=== PATIENT | male | born 1945 | race Caucasian/White ===

== ENCOUNTER 2016-09-01 07:06 | Inpatient (IN) | payer MEDICARE ==
[2016-09-01] VITALS (10 sets, daily range): BP systolic 115–160; BP diastolic 71–97
[~2016-09-01] VITALS: Ht 175.3 cm; Wt 81.4 kg
[2016-09-01] MEDS ORDERED: IV NORMAL SALINE 1000ML BAG 1,000 ML IV ONE ×2 (07:30→08:45)
[2016-09-01] MEDS ORDERED: fentaNYL PF VIAL 100 MCG/2 ML VIAL IV ONE (07:30)
[2016-09-01] MEDS ORDERED: ONDANSETRON PF 4 MG/2 ML VIAL. IV ONE (07:30)
[2016-09-01 07:59] LABS: BASO % 0 % (0-3); EOS % 0 % (0-3); HEMOGLOBIN 16.3 g/dL (13.0-17.5); LYMPH # 0.6 x10^3/uL (1.0-4.8); LYMPH % 8 % (24-48); MEAN CORPUSCULAR HEMOGLOBIN 30 pg (25-35); MEAN CORPUSCULAR HGB CONC 33 g/dL (31-37); MEAN CORPUSCULAR VOLUME 91 fL (79-100); MONO % 6 % (0-9); NEUT % 86 % (31-73); PLATELET COUNT 396 x10^3/uL (140-400); RED BLOOD COUNT 5.36 x10^6/uL (4.30-5.70); RED CELL DISTRIBUTION WIDTH 13.7 % (11.5-14.5); WHITE BLOOD COUNT 7.5 x10^3/uL (4.0-11.0)
--- NOTE | 2016-09-01 08:01 | PHYS DOC ---
Past Medical History Past Medical History: High Cholesterol, Hypertension Past Surgical History: Other Additional Past Surgical Histo: removal of parathyroid Alcohol Use: Rarely Drug Use: None Adult General Chief Complaint Chief Complaint: ABDOMINAL PAIN HPI HPI Patient is a 70 year old male presenting to the emergency department for evaluation of diffuse abdominal pain has been going on for 2 weeks since returning from a vacation and he has been eating less and been constipated. He saw his primary care provider yesterday and was placed on MiraLAX. His pain is diffuse achy and he says he has upper back pain with it as well. He denies any nausea vomiting diarrhea dysuria or prior abdominal surgeries. The pain became much worse at approximately 2:30 this morning and he says he cannot tolerate the pain any longer and came to the emergency department for further evaluation. Review of Systems Review of Systems Constitutional: Denies fever or chills [] Eyes: Denies change in visual acuity, redness, or eye pain [] HENT: Denies nasal congestion or sore throat [] Respiratory: Denies cough or shortness of breath [] Cardiovascular: No additional information not addressed in HPI [] GI: + abdominal pain. No nausea, vomiting, bloody stools or diarrhea [] : Denies dysuria or hematuria [] Musculoskeletal: Denies back pain or joint pain [] Integument: Denies rash or skin lesions [] Neurologic: Denies headache, focal weakness or sensory changes [] Current Medications Current Medications Current Medications Medications (Trade) Dose Ordered Sig/Priyanka Start Time Stop Time Status Last Admin Dose Admin Fentanyl Citrate (Fentanyl 2ml Vial) 75 mcg 1X ONCE 09/01/16 07:30 09/01/16 07:31 DC 09/01/16 07:44 75 MCG Info (Do NOT chart on this entry -- for MONITORING) 1 each PRN DAILY PRN 09/01/16 08:30 09/03/16 08:29 Iohexol (Omnipaque 300 Mg/ml) 75 ml 1X ONCE 09/01/16 08:30 09/01/16 08:31 DC 09/01/16 08:24 75 ML Ondansetron HCl (Zofran) 4 mg 1X ONCE 09/01/16 07:30 09/01/16 07:31 DC 09/01/16 07:44 4 MG Sodium Chloride 1,000 ml @ 1,000 mls/hr 1X ONCE 09/01/16 07:30 09/01/16 08:29 DC 09/01/16 07:45 1,000 MLS/HR Allergies Allergies Allergies Coded Allergies Type Severity Reaction Last Updated Verified No Known Drug Allergies 09/01/16 No Physical Exam Physical Exam Constitutional: Well developed, well nourished, no acute distress, non-toxic appearance. [] HENT: Normocephalic, atraumatic, bilateral external ears normal, oropharynx moist, no oral exudates, nose normal. [] Eyes: PERRLA, EOMI, conjunctiva normal, no discharge. [] Neck: Normal range of motion, no tenderness, supple, no stridor. [] Cardiovascular:Heart rate regular rhythm, no murmur [] Lungs & Thorax: Bilateral breath sounds clear to auscultation [] Abdomen: Bowel sounds normal, soft, diffuse abdominal tenderness with guarding , no rebound, no masses, no pulsatile masses. [] Skin: Warm, dry, no erythema, no rash. [] Back: No tenderness, no CVA tenderness. [] Extremities: No tenderness, no cyanosis, no clubbing, ROM intact, no edema. [] Neurologic: Alert and oriented X 3, normal motor function, normal sensory function, no focal deficits noted. [] Current Patient Data Vital Signs Vital Signs Date Time Temp Pulse Resp B/P (MAP) Pulse Ox O2 Delivery O2 Flow Rate FiO2 09/01/16 08:30 88 18 160/85 (110) 95 Room Air 09/01/16 07:20 97.6 97.6 Lab Values Laboratory Tests Test 09/01/16 07:42 09/01/16 08:35 White Blood Count 7.5 x10^3/uL (4.0-11.0) Red Blood Count 5.36 x10^6/uL (4.30-5.70) Hemoglobin 16.3 g/dL (13.0-17.5) Hematocrit 49.0 % (39.0-53.0) Mean Corpuscular Volume 91 fL (79-100) Mean Corpuscular Hemoglobin 30 pg (25-35) Mean Corpuscular Hemoglobin Concent 33 g/dL (31-37) Red Cell Distribution Width 13.7 % (11.5-14.5) Platelet Count 396 x10^3/uL (140-400) Neutrophils (%) (Auto) 86 % (31-73) H Lymphocytes (%) (Auto) 8 % (24-48) L Monocytes (%) (Auto) 6 % (0-9) Eosinophils (%) (Auto) 0 % (0-3) Basophils (%) (Auto) 0 % (0-3) Neutrophils # (Auto) 6.5 x10^3uL (1.8-7.7) Lymphocytes # (Auto) 0.6 x10^3/uL (1.0-4.8) L Monocytes # (Auto) 0.5 x10^3/uL (0.0-1.1) Eosinophils # (Auto) 0.0 x10^3/uL (0.0-0.7) Basophils # (Auto) 0.0 x10^3/uL (0.0-0.2) Platelet Estimate Pending Prothrombin Time 14.7 SEC (11.7-14.0) H Prothrombin Time INR 1.2 (0.8-1.1) H PTT 30 SEC (24-38) Sodium Level 137 mmol/L (136-145) Potassium Level 3.5 mmol/L (3.5-5.1) Chloride Level 99 mmol/L (98-107) Carbon Dioxide Level 25 mmol/L (21-32) Anion Gap 13 (6-14) Blood Urea Nitrogen 22 mg/dL (8-26) Creatinine 1.2 mg/dL (0.7-1.3) Estimated GFR (Cockcroft-Gault) 59.9 BUN/Creatinine Ratio 18 (6-20) Glucose Level 220 mg/dL (70-99) H Lactic Acid Level 2.8 mmol/L (0.4-2.0) H Calcium Level 8.9 mg/dL (8.5-10.1) Magnesium Level 1.8 mg/dL (1.8-2.4) Total Bilirubin 0.8 mg/dL (0.2-1.0) Aspartate Amino Transferase (AST) 20 U/L (15-37) Alanine Aminotransferase (ALT) 23 U/L (16-63) Alkaline Phosphatase 89 U/L (46-116) Troponin I Quantitative < 0.017 ng/mL (0.000-0.055) SD-God-P-Type Natriuretic Peptide 115 pg/mL (0-124) Total Protein 7.1 g/dL (6.4-8.2) Albumin 3.0 g/dL (3.4-5.0) L Albumin/Globulin Ratio 0.7 (1.0-1.7) L Lipase 94 U/L (73-393) Urine Collection Type Unknown Urine Color [place] Urine Clarity Clear Urine pH 6.0 Urine Specific [place] >=1.030 Urine Protein mg/dL (NEG-TRACE) Urine Glucose (UA) Negative mg/dL (NEG) Urine Ketones (Stick) mg/dL (NEG) Urine Blood Negative (NEG) Urine Nitrite Negative (NEG) Urine Bilirubin (NEG) Urine Urobilinogen Dipstick mg/dL (0.2 mg/dL) Urine Leukocyte Esterase (NEG) Urine RBC 0 /HPF (0-2) Urine WBC 0 /HPF (0-4) Urine Squamous Epithelial Cells Few /LPF Urine Bacteria 0 /HPF (0-FEW) Urine Mucus Marked /LPF Laboratory Tests 09/01/16 07:42 Laboratory Tests 09/01/16 07:42 EKG EKG NSR with left axis deviation with no obvious ST elevation or depression. Radiology/Procedures Radiology/Procedures CT of the abdomen and pelvis with contrast, 09/01/2016: History: Diffuse abdominal pain, constipation Multidetector CT imaging was performed following an IV bolus injection of iodinated contrast material. No oral contrast material was administered for this study. Moderate pneumoperitoneum is present. There is also free fluid in the abdomen and pelvis. The proximal duodenum is abnormal. There is increased enhancement of its vale. There is a small thick-walled fluid collection along superior aspect of what appears to be the duodenal bulb. This may represent a walled off perforation or abscess. An inflamed diverticulum is less likely. The adjacent gallbladder is unremarkable. There is slight prominence of several mid small bowel loops likely due to an ileus. Colonic diverticulosis is present, most extensive in the descending colon. A portion of the appendix is visualized and it is unremarkable. A small hiatal hernia is noted. Several small well-defined low density lesions in the liver are compatible with cysts. No pancreatic abnormality is detected. The spleen is of normal size. No renal abnormality is detected. There is a small nonspecific nodule in the left adrenal gland. There is moderate aortoiliac calcific plaquing without evidence of aneurysm. No abdominal or pelvic adenopathy is seen. Moderate multilevel degenerative change is present in the spine. IMPRESSION: 1. Pneumoperitoneum and free fluid in the abdomen and pelvis compatible with perforation of an abdominal viscus. 2. Abnormal proximal duodenum with an adjacent thick-walled fluid collection as described above. A perforated duodenal ulcer is the most likely cause of the pneumoperitoneum. 3. Moderate colonic diverticulosis. 4. Small nonspecific left adrenal nodule. Note: The findings were called to personnel in the [facility] ER at 9:05 AM on 09/01/2016. PQRS Compliance Statement: One or more of the following individualized dose reduction techniques were utilized for this examination: 1. Automated exposure control 2. Adjustment of the mA and/or kV according to patient size 3. Use of iterative reconstruction technique DICTATED and SIGNED BY: VIJAYA CABA MD DATE: 09/01/16 0851 Course & Med Decision Making Course & Med Decision Making Will check labs, CT, treat symptoms and reasess. Patient found to have a perforated viscus thought to be a duodenal ulcer that perforated per radiology. I spoke to the surgeon programmer operator numerical control Dr. Jolly and he agreed to see patient and would likely perform surgery around noon today. We' ll give famotidine and Zosyn IV in anticipation of surgery. He shouldn't is relatively stable with slight tachycardia but is not hypotensive. Pain is better controlled here. He will be admitted to the ICU in guarded condition. Critical care time of 35 minutes. Dragon Disclaimer Dragon Disclaimer This electronic medical record was generated, in whole or in part, using a voice recognition dictation system. Departure Departure Impression: Primary Impression: Perforated abdominal viscus Additional Impression: Lactic acid acidosis Disposition: ADMITTED INPATIENT Admitting Physician: Liana Rothman Condition: GUARDED Referrals: ALEXANDRA GANT MD (PCP) Problem Qualifiers ALEXANDRO LINDER DO Sep 01, 2016 08:01
[2016-09-01 08:09] LABS: CALCIUM 8.9 mg/dL (8.5-10.1); CREATININE 1.2 mg/dL (0.7-1.3); GFR 59.9; POTASSIUM 3.5 mmol/L (3.5-5.1)
[2016-09-01 08:13] LABS: INR 1.2 (0.8-1.1); PROTHROMBIN TIME PATIENT 14.7 SEC (11.7-14.0)
[2016-09-01 08:15] LABS: ALBUMIN/GLOBULIN RATIO 0.7 (1.0-1.7); MAGNESIUM 1.8 mg/dL (1.8-2.4); TOTAL BILIRUBIN 0.8 mg/dL (0.2-1.0); TOTAL PROTEIN 7.1 g/dL (6.4-8.2)
[2016-09-01] MEDS ORDERED: IOHEXOL 300 MG/ML 75 ML VIAL IV ONE (08:30)
[2016-09-01] MEDS ORDERED: CONTRAST GIVEN MC PRN (08:30)
[2016-09-01] MEDS ORDERED: MORPHINE SULFATE 10 MG/ML VIAL. IV ONE (08:45)
[2016-09-01 08:46] LABS: GLUCOSE,URINE NEGATIVE (NEG); NITRITE,URINE NEGATIVE (NEG)
[2016-09-01 08:58] LABS: BACTERIA,URINE 0 /HPF (0-FEW); RBC,URINE 0 /HPF (0-2); SQUAMOUS EPITHELIAL CELL,UR FEW /LPF; WBC,URINE 0 /HPF (0-4)
--- NOTE | 2016-09-01 09:09 | RAD ---
CT of the abdomen and pelvis with contrast, 09/01/2016: History: Diffuse abdominal pain, constipation Multidetector CT imaging was performed following an IV bolus injection of iodinated contrast material. No oral contrast material was administered for this study. Moderate pneumoperitoneum is present. There is also free fluid in the abdomen and pelvis. The proximal duodenum is abnormal. There is increased enhancement of its vale. There is a small thick-walled fluid collection along superior aspect of what appears to be the duodenal bulb. This may represent a walled off perforation or abscess. An inflamed diverticulum is less likely. The adjacent gallbladder is unremarkable. There is slight prominence of several mid small bowel loops likely due to an ileus. Colonic diverticulosis is present, most extensive in the descending colon. A portion of the appendix is visualized and it is unremarkable. A small hiatal hernia is noted. Several small well-defined low density lesions in the liver are compatible with cysts. No pancreatic abnormality is detected. The spleen is of normal size. No renal abnormality is detected. There is a small nonspecific nodule in the left adrenal gland. There is moderate aortoiliac calcific plaquing without evidence of aneurysm. No abdominal or pelvic adenopathy is seen. Moderate multilevel degenerative change is present in the spine. IMPRESSION: 1. Pneumoperitoneum and free fluid in the abdomen and pelvis compatible with perforation of an abdominal viscus. 2. Abnormal proximal duodenum with an adjacent thick-walled fluid collection as described above. A perforated duodenal ulcer is the most likely cause of the pneumoperitoneum. 3. Moderate colonic diverticulosis. 4. Small nonspecific left adrenal nodule. Note: The findings were called to personnel in the [facility] ER at 9:05 AM on 09/01/2016. PQRS Compliance Statement: One or more of the following individualized dose reduction techniques were utilized for this examination: 1. Automated exposure control 2. Adjustment of the mA and/or kV according to patient size 3. Use of iterative reconstruction technique
[2016-09-01] MEDS ORDERED: MORPHINE SULFATE 4 MG/ML DISP.SYRIN. IV PRN (09:30)
[2016-09-01] MEDS ORDERED: ONDANSETRON PF 4 MG/2 ML VIAL. IV PRN ×3 (09:30→15:15)
--- NOTE | 2016-09-01 09:31 | ACF ---
Admission Forms Criteria ABDOMINAL PAIN Clinical Indications for Admission to Inpatient Care (Place 'X' for any and all applicable criteria): Admission is indicated for ANY ONE of the following(1)(2)(3)(4)(5): [X]I. Inpatient admission required rather than observation care (Also use Abdominal Pain: Observation Care, as appropriate) because of ANY ONE of the following: [ ]a) Severe pain requiring acute inpatient management [ ]b) Identification of etiology/finding that requires inpatient care (eg, aortic dissection, free air) [ ]c) Absent bowel sounds with complete ileus(6) [ ]d) Suspected toxic megacolon [ ]e) Severe electrolyte abnormalities requiring inpatient care [ ]f) High fever or infection requiring inpatient admission as indicated by ANY ONE of following(7)(8): [ ] i) Appropriate outpatient or observational care antimicrobial treatment unavailable, not effective, or not feasible [ ] ii) Documented bacteremia [ ] iii) Temperature > 104.9 degrees F (oral) [ ] iv) T >103.1 F (oral) or < 96.8 F(rectal) that does not respond to all emergency treatment measures [ ]g) Signs of intestinal obstruction [B] [ ]h) Hemodynamic instability [ ]i) IV fluid to replace significant ongoing losses (greater than 3 L/m2 per day) (12)(13) [ ]j) Percutaneous or open drainage (eg, abscess, biliary tract ) procedures [ ]k) Parenteral nutrition regimen that must be implemented on inpatient basis [X]l) Other condition,treatment or monitoring requiring inpatient admission. [ ]II. Peritoneal signs present [ ]III. Surgery needed that cannot be performed on an ambulatory basis. [ ]IV. Evaluation requires patient to not eat or drink for extended period ( eg, more than 24 hours). [ ]V. Contraindications and/or Inappropriate clinical situations for Observational Care in patients with abdominal pain, when ANY ONE of the following is required: [ ]a) Thorough evaluation is required to prevent catastrophic events due to delays in diagnosing (e.g.Mesenteric ischemia) 1,3 [ ]b) Patient with severe pathology or with chronic symptoms unlikely to improve in the ED stay (3) [ ]. General contraindications and/or Inappropriate clinical situations for Observational Care in patients with abdominal pain, when ANY ONE of the following is required: [ ]a) Prediction of prolongation of LOS based on ANY ONE of the following may be considered as a contraindication for observational care 2, 3, 4, 5, 6, 7, 8, 9, 10, 11 [ ]i) Age > 65 yrs. [ ]ii) Patient arriving by ambulance [ ]iii) Patient with high acuity [ ]iv) Patient requiring vital sign monitoring [ ]v) Patient on IV medication [ ]b) Systolic blood pressures 180mmHg 3,12 [ ]c) Patient with altered mental status including delirium and other alteration of consciousness, (3) [ ]d) Patient whose discharge disposition will be to a assisted home or rehabilitation home should not be managed in Emergency Department Observation Unit. CMS rule requires 3 days hospital stay before such placement.3,13 [ ]e) Patient with failure to thrive due to broad array of etiologies 3,16,17 [ ]f) Inability to ambulate 3,14 Extended stay beyond goal length of stay may be needed for(2)(3): [ ]a) Persistent abdominal pain with suspected intra-abdominal process [ ]b) Diagnosed condition requiring continued stay (e.g., pancreatitis, complicated diverticulitis) [ ]c) Surgery (e.g., colectomy) The original [employer] content created by [employer] has been revised. The portions of the content which have been revised are identified through the use of italic text or in bold, and [facility] has neither reviewed nor approved the modified material.All other unmodified content is copyright [employer]. Please see references footnoted in the original [employer] edition 2016 Admission Criteria Met?: Yes SIDNEY LISA Sep 01, 2016 09:31
[2016-09-01] MEDS ORDERED: FAMOTIDINE 20 MG/2 ML VIAL IVP ONE (09:45)
[2016-09-01] MEDS: PIPERACILLIN/TAZOBACTAM 3.375 GM in IV NORMAL SALINE 50ML 50 ML IV SCH ×2 (09:46→17:52)
[2016-09-01 10:16] LABS: PLT ESTIMATE ADEQUATE (ADEQUATE)
--- NOTE | 2016-09-01 10:28 | PDOC1 ---
History and Physical Date of Admission Date of Admission DATE: 09/01/16 TIME: 10:20 Identification/Chief Complaint Chief Complaint abdominal pain Problems: Source Source: Caregiver, Chart review, Patient History of Present Illness History of Present Illness 70 y/o male, pleasant., 2 week hx of nagging abd pain, mainly epigastric no radiation, no identifiable precipitationg or alleviating factors, 8/ at ER after pain meds, , no emesis, no melena but does admit to constipation, no change in weight, no fever, Abd pain persisted this AM so went to ER. VS ok, labs ok, But CT did show perf duodenal ulcer and now pt admitted. Pt takes ASA 81 daily many yrs, and lately few alleve pills OTC. Hemodynamically stable again, but is planned for OR today noon. ER MD Harris. Ivett and pt Denies heart probs or lung probs, DOES smoke, 1 pack a day for mANY yrs, no etoh DId not take any meds prior to admit, only OTC. NO known hx pUD CT I have personally reviewed: 1. Pneumoperitoneum and free fluid in the abdomen and pelvis compatible with perforation of an abdominal viscus. 2. Abnormal proximal duodenum with an adjacent thick-walled fluid collection as described above. A perforated duodenal ulcer is the most likely cause of the pneumoperitoneum. 3. Moderate colonic diverticulosis. 4. Small nonspecific left adrenal nodule. Past Medical History Cardiovascular: No pertinent hx Pulmonary: No pertinent hx GI: No pertinent hx Heme/Onc: No pertinent hx Hepatobiliary: No pertinent hx Psych: No pertinent hx Rheumatologic: No pertinent hx Infectious disease: No pertinent hx ENT: No pertinent hx Renal/: No pertinent hx Endocrine: No pertinent hx Dermatology: No pertinent hx Past Surgical History Past Surgical History: Other (parathyroidectomy) Family History Family History: High Cholestrol, Hypertension Social History Smoke: 1 pack per day ALCOHOL: none Drugs: None Current Problem List Problem List Problems Medical Problems: (1) Lactic acid acidosis Status: Acute (2) Perforated abdominal viscus Status: Acute Problems: Current Medications Current Medications Current Medications Sodium Chloride 1,000 ml @ 1,000 mls/hr 1X ONCE IV Last administered on t 07:45; Start 09/01/16 at 07:30; Stop 09/01/16 at 08:29; Status DC Ondansetron HCl (Zofran) 4 mg 1X ONCE IV Last administered on 09/01/16 07:44; Start 09/01/16 at 07:30; Stop 09/01/16 at 07:31; Status DC Fentanyl Citrate (Fentanyl 2ml Vial) 75 mcg 1X ONCE IV Last administered on 07:44; Start 09/01/16 at 07:30; Stop 09/01/16 at 07:31; Status DC Iohexol (Omnipaque 300 Mg/ml) 75 ml 1X ONCE IV Last administered on 09/01/16 08:24; Start 09/01/16 at 08:30; Stop 09/01/16 at 08:31; Status DC Info (Do NOT chart on this entry -- for MONITORING) 1 each PRN DAILY PRN MC SEE COMMENTS; Start 09/01/16 at 08:30; Stop 09/03/16 at 08:29 Morphine Sulfate 5 mg 1X ONCE IV Last administered on 09/01/16 08:41; Start at 08:45; Stop 09/01/16 at 08:46; Status DC Sodium Chloride 1,000 ml @ 1,000 mls/hr 1X ONCE IV Last administered on 08:40; Start 09/01/16 at 08:45; Stop 09/01/16 at 09:44; Status DC Piperacillin Sod/ Tazobactam Sod 3.375 gm/Sodium Chloride 50 ml @ 100 mls/hr Q6HRS IV Last administered on 09/01/16 09:46; Start 09/01/16 at 10:00 Famotidine (Pepcid) 20 mg 1X ONCE IVP Last administered on 09/01/16 09:46; Start 09/01/16 at 09:45; Stop 09/01/16 at 09:46; Status DC Ondansetron HCl (Zofran) 4 mg PRN Q8HRS PRN IV NAUSEA/VOMITING; Start 09/01/16 at 09:30; Stop 09/02/16 at 09:29 Morphine Sulfate 4 mg PRN Q2HR PRN IV PAIN; Start 09/01/16 at 09:30; Stop at 09:29 Allergies Allergies: Coded Allergies: No Known Drug Allergies (Unverified , 09/01/16) ROS General: No: Chills, Night Sweats, Fatigue, Malaise, Appetite, Other PSYCHOLOGICAL ROS: No: Anxiety, Behavioral Disorder, Concentration difficultie , Decreased libido, Depression, Disorientation, Hallucinations, Hostility, Irritablity, Memory difficulties, Mood Swings, Obsessive thoughts, Physical abuse, Sexual abuse, Sleep disturbances, Suicidal ideation, Other Eyes: No Blurry vision, No Decreased vision, No Double vision, No Dry eyes, No Excessive tearing, No Eye Pain, No Itchy Eyes, No Loss of vision, No Photophobia , No Scotomata, No Uses contacts, No Uses glasses, No Other HEENT: No: Heacaches, Visual Changes, Hearing change, Nasal congestion, Nasal discharge, Oral lesions, Sinus pain, Sore Throat, Epistaxis, Sneezing, Snoring, Tinnitus, Vertigo, Vocal changes, Other ALLERGY AND IMMUNOLOGY: No: Hives, Insect Bite Sensitivity, Itchy/Watery Eyes, Nasal Congestion, Post Nasal Drip, Seasonal Allergies, Other Hematological and Lymphatic: No: Bleeding Problems, Blood Clots, Blood Transfusions, Brusing, Night Sweats, Pallor, Swollen Lymph Nodes, Other ENDOCRINE: No: Breast Changes, Galactorrhea, Hair Pattern Changes, Hot Flashes , Malaise/lethargy, Mood Swings, Palpitations, Polydipsia/polyuria, Skin Changes , Temperature Intolerance, Unexpected Weight Changes, Other Breast: No New/Changing Breast Lumps, No Nipple changes, No Nipple discharge, No Other Respiratory: No: Cough, Hemoptysis, Orthopnea, Pleuritic Pain, Shortness of breath, SOB with excertion, Sputum Changes, Stridor, Tachypnea, Wheezing, Other Cardiovascular: No Chest Pain, No Palpitations, No Orthopnea, No Paroxysmal Noc. Dyspnea, No Edema, No Lt Headedness, No Other Gastrointestinal: Yes Abdominal Pain, Yes Constipation Genitourinary: No Dysuria, No Frequency, No Incontinence, No Hematuria, No Retention, No Discharge, No Urgency, No Pain, No Flank Pain, No Other, No , No , No , No , No , No , No Musculoskeletal: No Gait Disturbance, No Joint Pain, No Joint Stiffness, No Joint Swelling, No Muscle Pain, No Muscular Weakness, No Pain In:, No Swelling In:, No Other Neurological: No Behavorial Changes, No Bowel/Bladder ControlChng, No Confusion , No Dizziness, No Gait Disturbance, No Headaches, No Impaired Coord/balance, No Memory Loss, No Numbness/Tingling, No Seizures, No Speech Problems, No Tremors, No Visual Changes, No Weakness, No Other Skin: No Dry Skin, No Eczema, No Hair Changes, No Lumps, No Mole Changes, No Mottling, No Nail Changes, No Pruritus, No Rash, No Skin Lesion Changes, No Other, No Acne Physical Exam General: Alert, Oriented X3, Cooperative, No acute distress HEENT: Atraumatic, PERRLA Lungs: Clear to auscultation Heart: S1S2, RRR, no thrills, no rubs Cardiovascular: S1, S2 Breasts: Normal Abdomen: Normal bowel sounds, Soft, No tenderness, No hepatosplenomegaly, No masses, Other (TENDER EPIGATSRIC AREA TO MOD TO DEEP PALP< nO GUARDING, POSITIVE bS) Male Genitals Exam: normal genitalia, normal prostate Rectal Exam: not examined Extremities: No clubbing, No cyanosis, No edema, Normal pulses, No tenderness/ swelling Skin: No rashes, No breakdown, No significant lesion Neuro: Normal gait, Normal speech, Strength at 5/5 X4 ext, Normal tone, Sensation intact, Cranial nerves 3-12 NL, Reflexes 2+ Psych/Mental Status: Mental status NL, Mood NL Vitals Vitals Vital Signs Date Time Temp Pulse Resp B/P (MAP) Pulse Ox O2 Delivery O2 Flow Rate FiO2 09/01/16 08:30 88 18 160/85 (110) 95 Room Air 09/01/16 07:20 97.6 97.6 Labs Labs Laboratory Tests Test 09/01/16 07:42 09/01/16 08:35 White Blood Count 7.5 x10^3/uL (4.0-11.0) Red Blood Count 5.36 x10^6/uL (4.30-5.70) Hemoglobin 16.3 g/dL (13.0-17.5) Hematocrit 49.0 % (39.0-53.0) Mean Corpuscular Volume 91 fL (79-100) Mean Corpuscular Hemoglobin 30 pg (25-35) Mean Corpuscular Hemoglobin Concent 33 g/dL (31-37) Red Cell Distribution Width 13.7 % (11.5-14.5) Platelet Count 396 x10^3/uL (140-400) Neutrophils (%) (Auto) 86 % (31-73) Lymphocytes (%) (Auto) 8 % (24-48) Monocytes (%) (Auto) 6 % (0-9) Eosinophils (%) (Auto) 0 % (0-3) Basophils (%) (Auto) 0 % (0-3) Neutrophils # (Auto) 6.5 x10^3uL (1.8-7.7) Lymphocytes # (Auto) 0.6 x10^3/uL (1.0-4.8) Monocytes # (Auto) 0.5 x10^3/uL (0.0-1.1) Eosinophils # (Auto) 0.0 x10^3/uL (0.0-0.7) Basophils # (Auto) 0.0 x10^3/uL (0.0-0.2) Segmented Neutrophils % 68 % (35-66) Band Neutrophils % 21 % (0-9) Lymphocytes % 8 % (24-48) Monocytes % 3 % (0-10) Platelet Estimate Adequate (ADEQUATE) Prothrombin Time 14.7 SEC (11.7-14.0) Prothromb Time International Ratio 1.2 (0.8-1.1) Activated Partial Thromboplast Time 30 SEC (24-38) Sodium Level 137 mmol/L (136-145) Potassium Level 3.5 mmol/L (3.5-5.1) Chloride Level 99 mmol/L (98-107) Carbon Dioxide Level 25 mmol/L (21-32) Anion Gap 13 (6-14) Blood Urea Nitrogen 22 mg/dL (8-26) Creatinine 1.2 mg/dL (0.7-1.3) Estimated GFR (Cockcroft-Gault) 59.9 BUN/Creatinine Ratio 18 (6-20) Glucose Level 220 mg/dL (70-99) Lactic Acid Level 2.8 mmol/L (0.4-2.0) Calcium Level 8.9 mg/dL (8.5-10.1) Magnesium Level 1.8 mg/dL (1.8-2.4) Total Bilirubin 0.8 mg/dL (0.2-1.0) Aspartate Amino Transf (AST/SGOT) 20 U/L (15-37) Alanine Aminotransferase (ALT/SGPT) 23 U/L (16-63) Alkaline Phosphatase 89 U/L (46-116) Troponin I Quantitative < 0.017 ng/mL (0.000-0.055) ZZ-Bwn-Y-Type Natriuretic Peptide 115 pg/mL (0-124) Total Protein 7.1 g/dL (6.4-8.2) Albumin 3.0 g/dL (3.4-5.0) Albumin/Globulin Ratio 0.7 (1.0-1.7) Lipase 94 U/L (73-393) Urine Collection Type Unknown Urine Color [place] Urine Clarity Clear Urine pH 6.0 Urine Specific [place] >=1.030 Urine Protein mg/dL (NEG-TRACE) Urine Glucose (UA) Negative mg/dL (NEG) Urine Ketones (Stick) mg/dL (NEG) Urine Blood Negative (NEG) Urine Nitrite Negative (NEG) Urine Bilirubin (NEG) Urine Urobilinogen Dipstick mg/dL (0.2 mg/dL) Urine Leukocyte Esterase (NEG) Urine RBC 0 /HPF (0-2) Urine WBC 0 /HPF (0-4) Urine Squamous Epithelial Cells Few /LPF Urine Bacteria 0 /HPF (0-FEW) Urine Mucus Marked /LPF Laboratory Tests Test 09/01/16 07:42 09/01/16 08:35 White Blood Count 7.5 x10^3/uL (4.0-11.0) Red Blood Count 5.36 x10^6/uL (4.30-5.70) Hemoglobin 16.3 g/dL (13.0-17.5) Hematocrit 49.0 % (39.0-53.0) Mean Corpuscular Volume 91 fL (79-100) Mean Corpuscular Hemoglobin 30 pg (25-35) Mean Corpuscular Hemoglobin Concent 33 g/dL (31-37) Red Cell Distribution Width 13.7 % (11.5-14.5) Platelet Count 396 x10^3/uL (140-400) Neutrophils (%) (Auto) 86 % (31-73) Lymphocytes (%) (Auto) 8 % (24-48) Monocytes (%) (Auto) 6 % (0-9) Eosinophils (%) (Auto) 0 % (0-3) Basophils (%) (Auto) 0 % (0-3) Neutrophils # (Auto) 6.5 x10^3uL (1.8-7.7) Lymphocytes # (Auto) 0.6 x10^3/uL (1.0-4.8) Monocytes # (Auto) 0.5 x10^3/uL (0.0-1.1) Eosinophils # (Auto) 0.0 x10^3/uL (0.0-0.7) Basophils # (Auto) 0.0 x10^3/uL (0.0-0.2) Segmented Neutrophils % 68 % (35-66) Band Neutrophils % 21 % (0-9) Lymphocytes % 8 % (24-48) Monocytes % 3 % (0-10) Platelet Estimate Adequate (ADEQUATE) Prothrombin Time 14.7 SEC (11.7-14.0) Prothromb Time International Ratio 1.2 (0.8-1.1) Activated Partial Thromboplast Time 30 SEC (24-38) Sodium Level 137 mmol/L (136-145) Potassium Level 3.5 mmol/L (3.5-5.1) Chloride Level 99 mmol/L (98-107) Carbon Dioxide Level 25 mmol/L (21-32) Anion Gap 13 (6-14) Blood Urea Nitrogen 22 mg/dL (8-26) Creatinine 1.2 mg/dL (0.7-1.3) Estimated GFR (Cockcroft-Gault) 59.9 BUN/Creatinine Ratio 18 (6-20) Glucose Level 220 mg/dL (70-99) Lactic Acid Level 2.8 mmol/L (0.4-2.0) Calcium Level 8.9 mg/dL (8.5-10.1) Magnesium Level 1.8 mg/dL (1.8-2.4) Total Bilirubin 0.8 mg/dL (0.2-1.0) Aspartate Amino Transf (AST/SGOT) 20 U/L (15-37) Alanine Aminotransferase (ALT/SGPT) 23 U/L (16-63) Alkaline Phosphatase 89 U/L (46-116) Troponin I Quantitative < 0.017 ng/mL (0.000-0.055) YL-Eoy-L-Type Natriuretic Peptide 115 pg/mL (0-124) Total Protein 7.1 g/dL (6.4-8.2) Albumin 3.0 g/dL (3.4-5.0) Albumin/Globulin Ratio 0.7 (1.0-1.7) Lipase 94 U/L (73-393) Urine Collection Type Unknown Urine Color [place] Urine Clarity Clear Urine pH 6.0 Urine Specific [place] >=1.030 Urine Protein mg/dL (NEG-TRACE) Urine Glucose (UA) Negative mg/dL (NEG) Urine Ketones (Stick) mg/dL (NEG) Urine Blood Negative (NEG) Urine Nitrite Negative (NEG) Urine Bilirubin (NEG) Urine Urobilinogen Dipstick mg/dL (0.2 mg/dL) Urine Leukocyte Esterase (NEG) Urine RBC 0 /HPF (0-2) Urine WBC 0 /HPF (0-4) Urine Squamous Epithelial Cells Few /LPF Urine Bacteria 0 /HPF (0-FEW) Urine Mucus Marked /LPF VTE Prophylaxis Ordered VTE Prophylaxis Devices: Yes VTE Pharmacological Prophylaxi: Yes Assessment/Plan Assessment/Plan 1. Penumoperitoneum with perforated duodenum 2. SIRS POA, no sepsis 3. BRISEYDA, vasomotor 4. MIld PCM 5. HEavy smoker 6. Incidental left small adrenal nodule 7. Diverticulosis no itis PLAN: Admit ICU NPO IVF GS consult OR later LAbs jose manuel post op IS post op Stop NSAIDs and ASA DVT prophy PT/OT once post op EMpiric zosyn PPI IV (out of PPI, do H2 antag) Dw ER and pt CC 31 mins LINDSAY CANO MD Sep 01, 2016 10:28
[2016-09-01] MEDS ORDERED: ACETAMINOPHEN 500 MG TABLET PO PRN (10:30)
[2016-09-01] MEDS ORDERED: FAMOTIDINE 20 MG/2 ML VIAL IVP SCH (11:00)
[2016-09-01] MEDS: IV NORMAL SALINE 1000ML BAG 1,000 ML IV SCH ×3 (11:32→21:10)
[2016-09-01] MEDS ORDERED: IV RINGERS,LACTATED 1000ML 1,000 ML IV SCH ×2 (12:04→15:06)
--- NOTE | 2016-09-01 12:08 | EKG ---
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
[2016-09-01] MEDS ORDERED: HYDROmorphone 2 MG/ML VIAL IV PRN (12:15)
[2016-09-01] MEDS ORDERED: PROCHLORPERAZINE 10 MG/2 ML VIAL. IV PRN (12:15)
[2016-09-01] MEDS ORDERED: LIDOCAINE 1% 1 ML SYRINGE. ID PRN (12:15)
[2016-09-01] MEDS ORDERED: fentaNYL PF VIAL 100 MCG/2 ML VIAL IV PRN ×2 (12:15)
[2016-09-01] MEDS ORDERED: MORPHINE SULFATE 2 MG/ML DISP.SYRIN. IV PRN (12:15)
[2016-09-01] MEDS ORDERED: DESFLURANE 61 TO 120 MINUTES IH ONE (12:16)
[2016-09-01] MEDS ORDERED: GLYCOPYRROLATE 1 MG/5 ML VIAL. ONE (12:17)
[2016-09-01] MEDS ORDERED: fentaNYL PF VIAL 100 MCG/2 ML VIAL ONE ×2 (12:17→13:35)
[2016-09-01] MEDS ORDERED: SUCCINYLCHOLINE 200 MG/10 ML VIAL. ONE (12:17)
[2016-09-01] MEDS ORDERED: NEOSTIGMINE METHYLSULFATE 5 MG/5 ML SYRINGE. ONE (12:17)
[2016-09-01] MEDS ORDERED: ROCURONIUM 50 MG/5 ML VIAL. ONE (12:18)
[2016-09-01] MEDS ORDERED: DEXAMETHASONE SOD PHOS 20 MG/5 ML VIAL. ONE (12:18)
[2016-09-01] MEDS ORDERED: PROPOFOL 20 ML IV ONE (12:18)
[2016-09-01] MEDS ORDERED: LIDOCAINE 2% PF Vial for OR 5 ML VIAL. ONE (12:18)
[2016-09-01] MEDS ORDERED: ONDANSETRON PF 4 MG/2 ML VIAL. ONE (12:18)
[2016-09-01] MEDS ORDERED: FAMOTIDINE 20 MG/2 ML VIAL ONE (12:32)
--- NOTE | 2016-09-01 13:09 | PDOC2 ---
CONSULT Date of Consult Date of Consult DATE: 09/01/16 TIME: 13:04 Reason for Consult Reason for Consult: Abdominal pain Referring Physician Referring Physician: Lorna Identification/Chief Complaint Chief Complaint abdominal pain Problems: (1) Perforated abdominal viscus Source Source: Patient (pt's ) History of Present Illness Reason for Visit: 70 yo M with 2 week history of abd pain, worsened last night, No N/V, some constipation Past Medical History Cardiovascular: No pertinent hx Pulmonary: No pertinent hx GI: No pertinent hx Heme/Onc: No pertinent hx Hepatobiliary: No pertinent hx Psych: No pertinent hx Rheumatologic: No pertinent hx Infectious disease: No pertinent hx ENT: No pertinent hx Renal/: No pertinent hx Endocrine: No pertinent hx, Hyperparathyroidism Dermatology: No pertinent hx Past Surgical History Past Surgical History: Other (parathyroidectomy) Family History Family History: High Cholestrol, Hypertension Social History 1 pack per day ALCOHOL: none Drugs: None Current Problem List Problem List Problems Medical Problems: (1) Lactic acid acidosis Status: Acute (2) Perforated abdominal viscus Status: Acute Current Medications Current Medications Current Medications Sodium Chloride 1,000 ml @ 1,000 mls/hr 1X ONCE IV Last administered on 07:45; Start 09/01/16 at 07:30; Stop 09/01/16 at 08:29; Status DC Ondansetron HCl (Zofran) 4 mg 1X ONCE IV Last administered on 09/01/16 07:44; Start 09/01/16 at 07:30; Stop 09/01/16 at 07:31; Status DC Fentanyl Citrate (Fentanyl 2ml Vial) 75 mcg 1X ONCE IV Last administered on 07:44; Start 09/01/16 at 07:30; Stop 09/01/16 at 07:31; Status DC Iohexol (Omnipaque 300 Mg/ml) 75 ml 1X ONCE IV Last administered on 09/01/16 08:24; Start 09/01/16 at 08:30; Stop 09/01/16 at 08:31; Status DC Info (Do NOT chart on this entry -- for MONITORING) 1 each PRN DAILY PRN MC SEE COMMENTS; Start 09/01/16 at 08:30; Stop 09/03/16 at 08:29 Morphine Sulfate 5 mg 1X ONCE IV Last administered on 09/01/16 08:41; Start at 08:45; Stop 09/01/16 at 08:46; Status DC Sodium Chloride 1,000 ml @ 1,000 mls/hr 1X ONCE IV Last administered on 08:40; Start 09/01/16 at 08:45; Stop 09/01/16 at 09:44; Status DC Piperacillin Sod/ Tazobactam Sod 3.375 gm/Sodium Chloride 50 ml @ 100 mls/hr Q6HRS IV Last administered on 09/01/16 09:46; Start 09/01/16 at 10:00 Famotidine (Pepcid) 20 mg 1X ONCE IVP Last administered on 09/01/16 09:46; Start 09/01/16 at 09:45; Stop 09/01/16 at 09:46; Status DC Ondansetron HCl (Zofran) 4 mg PRN Q8HRS PRN IV NAUSEA/VOMITING; Start 09/01/16 at 09:30; Stop 09/02/16 at 09:29 Morphine Sulfate 4 mg PRN Q2HR PRN IV PAIN; Start 09/01/16 at 09:30; Stop at 09:29 Sodium Chloride 1,000 ml @ 100 mls/hr Q10H IV Last administered on 09/01/16 11 :32; Start 09/01/16 at 10:30 Acetaminophen (Tylenol) 500 mg PRN Q6HRS PRN PO MILD PAIN / TEMP; Start at 10:30 Famotidine (Pepcid) 20 mg BID IVP Last administered on 09/01/16 11:14; Start at 11:00 Ondansetron HCl (Zofran) 4 mg PRN Q6HRS PRN IV NAUSEA/VOMITING; Start 09/01/16 at 12:15; Stop 09/02/16 at 12:14 Fentanyl Citrate (Fentanyl 2ml Vial) 25 mcg PRN Q5MIN PRN IV MILD PAIN; Start 09/01/16 at 12:15; Stop 09/02/16 at 12:14 Fentanyl Citrate (Fentanyl 2ml Vial) 50 mcg PRN Q5MIN PRN IV MODERATE PAIN; Start 09/01/16 at 12:15; Stop 09/02/16 at 12:14 Morphine Sulfate 1 mg PRN Q10MIN PRN IV SEVERE PAIN; Start 09/01/16 at 12:15; Stop 09/02/16 at 12:14 Ringer's Solution 1,000 ml @ 30 mls/hr Q24H IV ; Start 09/01/16 at 12:04; Stop 09/02/16 at 00:03 Lidocaine HCl 2 ml PRN 1X PRN ID PRIOR TO IV START; Start 09/01/16 at 12:15; Stop 09/02/16 at 12:14 Hydromorphone HCl (Dilaudid) 0.5 mg PRN Q10MIN PRN IV SEV PAIN, Second choice; Start 09/01/16 at 12:15; Stop 09/02/16 at 12:14 Prochlorperazine Edisylate (Compazine) 5 mg PACU PRN PRN IV NAUSEA, MRX1; Start 09/01/16 at 12:15; Stop 09/02/16 at 12:14 Desflurane (Suprane) 60 ml STK-MED ONCE IH ; Start 09/01/16 at 12:16; Stop at 12:17; Status DC Fentanyl Citrate (Fentanyl 2ml Vial) 100 mcg STK-MED ONCE .ROUTE ; Start at 12:17; Stop 09/01/16 at 12:18; Status DC Succinylcholine Chloride (Anectine) 200 mg STK-MED ONCE .ROUTE ; Start 09/01/16 at 12:17; Stop 09/01/16 at 12:18; Status DC Glycopyrrolate (Robinul) 1 mg STK-MED ONCE .ROUTE ; Start 09/01/16 at 12:17; Stop 09/01/16 at 12:18; Status DC Neostigmine Methylsulfate 5 mg STK-MED ONCE .ROUTE ; Start 09/01/16 at 12:17; Stop 09/01/16 at 12:18; Status DC Rocuronium [place] (Zemuron) 50 mg STK-MED ONCE .ROUTE ; Start 09/01/16 at 12:18 ; Stop 09/01/16 at 12:19; Status DC Propofol 20 ml @ As Directed STK-MED ONCE IV ; Start 09/01/16 at 12:18; Stop 09/01 at 12:19; Status DC Lidocaine HCl (Lidocaine Pf 2% Vial) 5 ml STK-MED ONCE .ROUTE ; Start 09/01/16 at 12:18; Stop 09/01/16 at 12:19; Status DC Dexamethasone Sodium Phosphate (Decadron) 20 mg STK-MED ONCE .ROUTE ; Start 09/01 at 12:18; Stop 09/01/16 at 12:19; Status DC Ondansetron HCl (Zofran) 4 mg STK-MED ONCE .ROUTE ; Start 09/01/16 at 12:18; Stop 09/01/16 at 12:19; Status DC Famotidine (Pepcid) 20 mg STK-MED ONCE .ROUTE ; Start 09/01/16 at 12:32; Stop 09/01/16 at 12:33; Status DC Allergies Allergies: Coded Allergies: No Known Drug Allergies (Unverified , 09/01/16) ROS Gastrointestinal: Yes Abdominal Pain Physical Exam General: Alert, Oriented X3, Cooperative, mild distress HEENT: Atraumatic, EOMI, Mucous membr. moist/pink Abdomen: Soft, Other (mild TTP epigastric) Extremities: No clubbing, No cyanosis, No edema Skin: No rashes, No breakdown Neuro: Normal gait, Normal speech Psych/Mental Status: Mental status NL, Mood NL MUSCULOSKELETAL: No joint tenderness, No deformity Vitals VITALS Vital Signs Date Time Temp Pulse Resp B/P (MAP) Pulse Ox O2 Delivery O2 Flow Rate FiO2 09/01/16 12:00 80 16 115/82 (93) 96 Room Air 09/01/16 11:05 98.2 98.2 Labs Labs Laboratory Tests Test 09/01/16 07:42 09/01/16 08:35 White Blood Count 7.5 x10^3/uL (4.0-11.0) Red Blood Count 5.36 x10^6/uL (4.30-5.70) Hemoglobin 16.3 g/dL (13.0-17.5) Hematocrit 49.0 % (39.0-53.0) Mean Corpuscular Volume 91 fL (79-100) Mean Corpuscular Hemoglobin 30 pg (25-35) Mean Corpuscular Hemoglobin Concent 33 g/dL (31-37) Red Cell Distribution Width 13.7 % (11.5-14.5) Platelet Count 396 x10^3/uL (140-400) Neutrophils (%) (Auto) 86 % (31-73) Lymphocytes (%) (Auto) 8 % (24-48) Monocytes (%) (Auto) 6 % (0-9) Eosinophils (%) (Auto) 0 % (0-3) Basophils (%) (Auto) 0 % (0-3) Neutrophils # (Auto) 6.5 x10^3uL (1.8-7.7) Lymphocytes # (Auto) 0.6 x10^3/uL (1.0-4.8) Monocytes # (Auto) 0.5 x10^3/uL (0.0-1.1) Eosinophils # (Auto) 0.0 x10^3/uL (0.0-0.7) Basophils # (Auto) 0.0 x10^3/uL (0.0-0.2) Segmented Neutrophils % 68 % (35-66) Band Neutrophils % 21 % (0-9) Lymphocytes % 8 % (24-48) Monocytes % 3 % (0-10) Platelet Estimate Adequate (ADEQUATE) Prothrombin Time 14.7 SEC (11.7-14.0) Prothromb Time International Ratio 1.2 (0.8-1.1) Activated Partial Thromboplast Time 30 SEC (24-38) Sodium Level 137 mmol/L (136-145) Potassium Level 3.5 mmol/L (3.5-5.1) Chloride Level 99 mmol/L (98-107) Carbon Dioxide Level 25 mmol/L (21-32) Anion Gap 13 (6-14) Blood Urea Nitrogen 22 mg/dL (8-26) Creatinine 1.2 mg/dL (0.7-1.3) Estimated GFR (Cockcroft-Gault) 59.9 BUN/Creatinine Ratio 18 (6-20) Glucose Level 220 mg/dL (70-99) Lactic Acid Level 2.8 mmol/L (0.4-2.0) Calcium Level 8.9 mg/dL (8.5-10.1) Magnesium Level 1.8 mg/dL (1.8-2.4) Total Bilirubin 0.8 mg/dL (0.2-1.0) Aspartate Amino Transf (AST/SGOT) 20 U/L (15-37) Alanine Aminotransferase (ALT/SGPT) 23 U/L (16-63) Alkaline Phosphatase 89 U/L (46-116) Troponin I Quantitative < 0.017 ng/mL (0.000-0.055) IY-Fjt-[id number]-Type Natriuretic Peptide 115 pg/mL (0-124) Total Protein 7.1 g/dL (6.4-8.2) Albumin 3.0 g/dL (3.4-5.0) Albumin/Globulin Ratio 0.7 (1.0-1.7) Lipase 94 U/L (73-393) Urine Collection Type Unknown Urine Color [place] Urine Clarity Clear Urine pH 6.0 Urine Specific [place] >=1.030 Urine Protein mg/dL (NEG-TRACE) Urine Glucose (UA) Negative mg/dL (NEG) Urine Ketones (Stick) mg/dL (NEG) Urine Blood Negative (NEG) Urine Nitrite Negative (NEG) Urine Bilirubin (NEG) Urine Urobilinogen Dipstick mg/dL (0.2 mg/dL) Urine Leukocyte Esterase (NEG) Urine RBC 0 /HPF (0-2) Urine WBC 0 /HPF (0-4) Urine Squamous Epithelial Cells Few /LPF Urine Bacteria 0 /HPF (0-FEW) Urine Mucus Marked /LPF Laboratory Tests Test 09/01/16 07:42 09/01/16 08:35 White Blood Count 7.5 x10^3/uL (4.0-11.0) Red Blood Count 5.36 x10^6/uL (4.30-5.70) Hemoglobin 16.3 g/dL (13.0-17.5) Hematocrit 49.0 % (39.0-53.0) Mean Corpuscular Volume 91 fL (79-100) Mean Corpuscular Hemoglobin 30 pg (25-35) Mean Corpuscular Hemoglobin Concent 33 g/dL (31-37) Red Cell Distribution Width 13.7 % (11.5-14.5) Platelet Count 396 x10^3/uL (140-400) Neutrophils (%) (Auto) 86 % (31-73) Lymphocytes (%) (Auto) 8 % (24-48) Monocytes (%) (Auto) 6 % (0-9) Eosinophils (%) (Auto) 0 % (0-3) Basophils (%) (Auto) 0 % (0-3) Neutrophils # (Auto) 6.5 x10^3uL (1.8-7.7) Lymphocytes # (Auto) 0.6 x10^3/uL (1.0-4.8) Monocytes # (Auto) 0.5 x10^3/uL (0.0-1.1) Eosinophils # (Auto) 0.0 x10^3/uL (0.0-0.7) Basophils # (Auto) 0.0 x10^3/uL (0.0-0.2) Segmented Neutrophils % 68 % (35-66) Band Neutrophils % 21 % (0-9) Lymphocytes % 8 % (24-48) Monocytes % 3 % (0-10) Platelet Estimate Adequate (ADEQUATE) Prothrombin Time 14.7 SEC (11.7-14.0) Prothromb Time International Ratio 1.2 (0.8-1.1) Activated Partial Thromboplast Time 30 SEC (24-38) Sodium Level 137 mmol/L (136-145) Potassium Level 3.5 mmol/L (3.5-5.1) Chloride Level 99 mmol/L (98-107) Carbon Dioxide Level 25 mmol/L (21-32) Anion Gap 13 (6-14) Blood Urea Nitrogen 22 mg/dL (8-26) Creatinine 1.2 mg/dL (0.7-1.3) Estimated GFR (Cockcroft-Gault) 59.9 BUN/Creatinine Ratio 18 (6-20) Glucose Level 220 mg/dL (70-99) Lactic Acid Level 2.8 mmol/L (0.4-2.0) Calcium Level 8.9 mg/dL (8.5-10.1) Magnesium Level 1.8 mg/dL (1.8-2.4) Total Bilirubin 0.8 mg/dL (0.2-1.0) Aspartate Amino Transf (AST/SGOT) 20 U/L (15-37) Alanine Aminotransferase (ALT/SGPT) 23 U/L (16-63) Alkaline Phosphatase 89 U/L (46-116) Troponin I Quantitative < 0.017 ng/mL (0.000-0.055) LO-Cde-M-Type Natriuretic Peptide 115 pg/mL (0-124) Total Protein 7.1 g/dL (6.4-8.2) Albumin 3.0 g/dL (3.4-5.0) Albumin/Globulin Ratio 0.7 (1.0-1.7) Lipase 94 U/L (73-393) Urine Collection Type Unknown Urine Color [place] Urine Clarity Clear Urine pH 6.0 Urine Specific [place] >=1.030 Urine Protein mg/dL (NEG-TRACE) Urine Glucose (UA) Negative mg/dL (NEG) Urine Ketones (Stick) mg/dL (NEG) Urine Blood Negative (NEG) Urine Nitrite Negative (NEG) Urine Bilirubin (NEG) Urine Urobilinogen Dipstick mg/dL (0.2 mg/dL) Urine Leukocyte Esterase (NEG) Urine RBC 0 /HPF (0-2) Urine WBC 0 /HPF (0-4) Urine Squamous Epithelial Cells Few /LPF Urine Bacteria 0 /HPF (0-FEW) Urine Mucus Marked /LPF Images Images Ct c/w pneumoperitoneum and suspect perforated duodenal ulcer Assessment/Plan Assessment/Plan Perforated duodenal ulcer pt has been started on IV abx and hydrated (improved HR) TO OR for lap vs open exploration and repair R/B/A d/w pt and pt's Thanks for consult! GO RIVERA MD Sep 01, 2016 13:09
[2016-09-01] MEDS ORDERED: VECURONIUM BOLUS 10 MG VIAL. IV ONE (14:05)
[2016-09-01] MEDS ORDERED: MORPHINE SULFATE 10 MG/ML VIAL. ONE (14:05)
[2016-09-01] MEDS ORDERED: 0.9 % SODIUM CHLORIDE 50 ML VIAL. IJ ONE (14:05)
[2016-09-01] MEDS ORDERED: SEVOFLURANE > 120 MINUTES. IH ONE (15:10)
[2016-09-01] MEDS ORDERED: BUPIVACAINE-EPI 0.5%-1:200000 50 ML VIAL. ONE (15:14)
[2016-09-01] MEDS ORDERED: 0.9 % SODIUM CHLORIDE 10 ML DISP.SYRIN. IV PRN (15:15)
[2016-09-01] MEDS ORDERED: NALOXONE 0.4 MG/ML VIAL. IV PRN (15:15)
[2016-09-01] MEDS ORDERED: KETAMINE HCL 500 MG/10 ML VIAL. ONE (15:17)
[2016-09-01] MEDS ORDERED: ATOR10TA PO (15:33)
[2016-09-01] MEDS ORDERED: INDA1.25 PO (15:33)
[2016-09-01] MEDS ORDERED: NAPR-677 PO (15:33)
[2016-09-01] MEDS ORDERED: TRAM1TAB56 PO (15:33)
[2016-09-01] MEDS ORDERED: VALS1TAB3 PO (15:33)
[2016-09-01] MEDS ORDERED: ASPI-482 PO (15:33)
--- NOTE | 2016-09-01 16:06 | RAD ---
BRITTNEY, 09/01/2016: History: Postop evaluation There is moderate amount of gas in the colon. There are 2 tubes overlying the right upper quadrant of the abdomen, presumably representing surgical drains. There is no evidence of a retained surgical instrument, needle or radiopaque sponge on this exam.
[2016-09-01] MEDS: FAMOTIDINE 20 MG/2 ML VIAL IVP SCH (21:09)
--- NOTE | 2016-09-01 22:11 | PDOC ---
BRIEF OPERATIVE NOTE Pre-Op Diagnosis Perforated duodenal ulcer Post-Op Diagnosis same Procedure Performed Antrectomy with Bilroth II Surgeon Dennis Rivera Anesthesia Type: General Blood Loss 100 Specimens Obtained Stomach Findings Extensive peritonitis, periduodenal abscess, near transection of duodenum secondary to ulcer Complications none Additional Remarks After obtaining informed consent, patient was taken to the operating room and induced under GETA. Patient was prepped and draped in the usual fashion. 0.5 % marcaine was introduced in the umbilical area. An incision was made using 15 blade scapel. 5mm non bladed trocar was introduced under laparoscopic guidance. Pneumoperitoneum was thus established. 12 port was placed in the epigastric area. The abdominal cavity was explored. There was extensive peritonitis and infected fluid throughout the abdominal cavity. Given the extensive inflammation, an open incision was felt appropriate. An upper midline incision was made using cautery. The abdominal cavity was explored and extensive fluid was washed out. The upper abdomen was inflammed. The duodenum was noted to have a hole in it. However, dissecting this out demonstrated that this hole was into a abscess cavity superior to the duodenum. This was disected out. The duodenum was friable and essentially transected. Given the extensive nature, a primary repair was not an option. The transection was essentially completed. The duodenal stump was not possible to primary close, as such a G-tube 20 F was placed through a 3-0 PDS purse string and brought out through the RUQ. The antrum was resected using BIB staplers and sent to pathology. A vagotomy was not performed secondary to extensive inflammation in the upper stomach. A bilroth II was performed in an retrocolic fashion using a BIB stable and 3-0 PDS and 3-0 vicryl. The anastamosis was patent, under no tension and viable. The abdominal cavity was copiously irrigated. A 19 SHRAVAN drain was placed in the upper abdomen and brought out through the LUQ quadrant. The fascia was reapproimated using 0 PDS. A juan was placed in the SQ. 3- 0 vicryl and 4-0 monocryl closed the skin incision. A sterile dressing is placed. The patient tolerated procedure well and sent to PACU in a stable condition. All counts were correct there were no immediate complications. The wound classification is dirty class 4. DENNIS RIVERA MD Sep 01, 2016 22:11
[2016-09-02] VITALS (16 sets, daily range): BP systolic 114–147; BP diastolic 68–81
[2016-09-02] MEDS: PIPERACILLIN/TAZOBACTAM 3.375 GM in IV NORMAL SALINE 50ML 50 ML IV SCH ×5 (00:05→23:43)
[2016-09-02] MEDS: IV NORMAL SALINE 1000ML BAG 1,000 ML IV SCH ×3 (05:18→15:06)
[2016-09-02 05:34] LABS: BASO % 0 % (0-3); EOS % 0 % (0-3); HEMOGLOBIN 13.1 g/dL (13.0-17.5); LYMPH # 0.7 x10^3/uL (1.0-4.8); LYMPH % 7 % (24-48); MEAN CORPUSCULAR HEMOGLOBIN 31 pg (25-35); MEAN CORPUSCULAR HGB CONC 35 g/dL (31-37); MEAN CORPUSCULAR VOLUME 88 fL (79-100); MONO % 10 % (0-9); NEUT % 84 % (31-73); PLATELET COUNT 315 x10^3/uL (140-400); RED CELL DISTRIBUTION WIDTH 13.3 % (11.5-14.5); WHITE BLOOD COUNT 9.5 x10^3/uL (4.0-11.0)
[2016-09-02 05:48] LABS: CREATININE 0.8 mg/dL (0.7-1.3); GFR 95.6; POTASSIUM 4.2 mmol/L (3.5-5.1)
--- NOTE | 2016-09-02 08:40 | PDOC ---
PROGRESS NOTES Chief Complaint Chief Complaint 1. Penumoperitoneum with perforated duodenum 2. SIRS POA, no sepsis 3. BRISEYDA, vasomotor 4. Mild PCM 5. Heavy smoker 6. Incidental left small adrenal nodule 7. 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, he is doing well this morning with no complaints, he has a [employer] that he has used only pushed this morning Vitals Vitals Vital Signs Date Time Temp Pulse Resp B/P (MAP) Pulse Ox O2 Delivery O2 Flow Rate FiO2 09/02/16 07:00 56 15 124/68 (86) 97 Nasal Cannula 2.0 09/02/16 05:00 98.9 98.9 Physical Exam General: Alert, Oriented X3, Cooperative, No acute distress Heart: Regular rate, No murmurs Lungs: Clear, Other (no crackles or wheezes) Abdomen: Normal bowel sounds, Soft, No tenderness, Other (incision site clean and no drainage) Extremities: No clubbing, No cyanosis, No edema Skin: No rashes, No breakdown Labs LABS Laboratory Tests Test 09/01/16 11:00 09/02/16 05:25 Nasal Screen MRSA (PCR) Negative (Negative) White Blood Count 9.5 x10^3/uL (4.0-11.0) Red Blood Count 4.30 x10^6/uL (4.30-5.70) Hemoglobin 13.1 g/dL (13.0-17.5) Hematocrit 38.0 % (39.0-53.0) Mean Corpuscular Volume 88 fL (79-100) Mean Corpuscular Hemoglobin 31 pg (25-35) Mean Corpuscular Hemoglobin Concent 35 g/dL (31-37) Red Cell Distribution Width 13.3 % (11.5-14.5) Platelet Count 315 x10^3/uL (140-400) Neutrophils (%) (Auto) 84 % (31-73) Lymphocytes (%) (Auto) 7 % (24-48) Monocytes (%) (Auto) 10 % (0-9) Eosinophils (%) (Auto) 0 % (0-3) Basophils (%) (Auto) 0 % (0-3) Neutrophils # (Auto) 7.9 x10^3uL (1.8-7.7) Lymphocytes # (Auto) 0.7 x10^3/uL (1.0-4.8) Monocytes # (Auto) 0.9 x10^3/uL (0.0-1.1) Eosinophils # (Auto) 0.0 x10^3/uL (0.0-0.7) Basophils # (Auto) 0.0 x10^3/uL (0.0-0.2) Sodium Level 142 mmol/L (136-145) Potassium Level 4.2 mmol/L (3.5-5.1) Chloride Level 109 mmol/L (98-107) Carbon Dioxide Level 24 mmol/L (21-32) Anion Gap 9 (6-14) Blood Urea Nitrogen 24 mg/dL (8-26) Creatinine 0.8 mg/dL (0.7-1.3) Estimated GFR (Cockcroft-Gault) 95.6 Glucose Level 125 mg/dL (70-99) Calcium Level 7.0 mg/dL (8.5-10.1) Review of Systems Review of Systems denies nausea, vomiting, or AREVALO Assessment and Plan Assessmemt and Plan Assessment 1. Penumoperitoneum with perforated duodenum 2. SIRS POA, no sepsis 3. BRISEYDA, vasomotor 4. Mild PCM 5. Heavy smoker 6. Incidental left small adrenal nodule 7. Diverticulosis Plan 1. Continue pain management with [employer] hydromorphone 2. Lovenox for DVT prophylaxis 3. Continue ICU monitoring 4. Appreciate subspecialty input 5. Continue home meds 6. Discussed plan of care with nursing 7. PT/OT 8. Recheck CBC and BMP tomorrow 9. Reviewed imaging: CXR normal 10. Zofran prn for nausea Problems: Comment Review of Relevant I have reviewed the following items shaw (where applicable) has been applied. Labs Laboratory Tests Test 09/01/16 07:42 09/01/16 08:35 09/01/16 11:00 09/02/16 05:25 White Blood Count 7.5 x10^3/uL (4.0-11.0) 9.5 x10^3/uL (4.0-11.0) Red Blood Count 5.36 x10^6/uL (4.30-5.70) 4.30 x10^6/uL (4.30-5.70) Hemoglobin 16.3 g/dL (13.0-17.5) 13.1 g/dL (13.0-17.5) Hematocrit 49.0 % (39.0-53.0) 38.0 % (39.0-53.0) Mean Corpuscular Volume 91 fL (79-100) 88 fL (79-100) Mean Corpuscular Hemoglobin 30 pg (25-35) 31 pg (25-35) Mean Corpuscular Hemoglobin Concent 33 g/dL (31-37) 35 g/dL (31-37) Red Cell Distribution Width 13.7 % (11.5-14.5) 13.3 % (11.5-14.5) Platelet Count 396 x10^3/uL (140-400) 315 x10^3/uL (140-400) Neutrophils (%) (Auto) 86 % (31-73) 84 % (31-73) Lymphocytes (%) (Auto) 8 % (24-48) 7 % (24-48) Monocytes (%) (Auto) 6 % (0-9) 10 % (0-9) Eosinophils (%) (Auto) 0 % (0-3) 0 % (0-3) Basophils (%) (Auto) 0 % (0-3) 0 % (0-3) Neutrophils # (Auto) 6.5 x10^3uL (1.8-7.7) 7.9 x10^3uL (1.8-7.7) Lymphocytes # (Auto) 0.6 x10^3/uL (1.0-4.8) 0.7 x10^3/uL (1.0-4.8) Monocytes # (Auto) 0.5 x10^3/uL (0.0-1.1) 0.9 x10^3/uL (0.0-1.1) Eosinophils # (Auto) 0.0 x10^3/uL (0.0-0.7) 0.0 x10^3/uL (0.0-0.7) Basophils # (Auto) 0.0 x10^3/uL (0.0-0.2) 0.0 x10^3/uL (0.0-0.2) Segmented Neutrophils % 68 % (35-66) Band Neutrophils % 21 % (0-9) Lymphocytes % 8 % (24-48) Monocytes % 3 % (0-10) Platelet Estimate Adequate (ADEQUATE) Prothrombin Time 14.7 SEC (11.7-14.0) Prothromb Time International Ratio 1.2 (0.8-1.1) Activated Partial Thromboplast Time 30 SEC (24-38) Sodium Level 137 mmol/L (136-145) 142 mmol/L (136-145) Potassium Level 3.5 mmol/L (3.5-5.1) 4.2 mmol/L (3.5-5.1) Chloride Level 99 mmol/L (98-107) 109 mmol/L (98-107) Carbon Dioxide Level 25 mmol/L (21-32) 24 mmol/L (21-32) Anion Gap 13 (6-14) 9 (6-14) Blood Urea Nitrogen 22 mg/dL (8-26) 24 mg/dL (8-26) Creatinine 1.2 mg/dL (0.7-1.3) 0.8 mg/dL (0.7-1.3) Estimated GFR (Cockcroft-Gault) 59.9 95.6 BUN/Creatinine Ratio 18 (6-20) Glucose Level 220 mg/dL (70-99) 125 mg/dL (70-99) Lactic Acid Level 2.8 mmol/L (0.4-2.0) Calcium Level 8.9 mg/dL (8.5-10.1) 7.0 mg/dL (8.5-10.1) Magnesium Level 1.8 mg/dL (1.8-2.4) Total Bilirubin 0.8 mg/dL (0.2-1.0) Aspartate Amino Transf (AST/SGOT) 20 U/L (15-37) Alanine Aminotransferase (ALT/SGPT) 23 U/L (16-63) Alkaline Phosphatase 89 U/L (46-116) Troponin I Quantitative < 0.017 ng/mL (0.000-0.055) CU-Dfn-X-Type Natriuretic Peptide 115 pg/mL (0-124) Total Protein 7.1 g/dL (6.4-8.2) Albumin 3.0 g/dL (3.4-5.0) Albumin/Globulin Ratio 0.7 (1.0-1.7) Lipase 94 U/L (73-393) Urine Collection Type Unknown Urine Color [place] Urine Clarity Clear Urine pH 6.0 Urine Specific [place] >=1.030 Urine Protein mg/dL (NEG-TRACE) Urine Glucose (UA) Negative mg/dL (NEG) Urine Ketones (Stick) mg/dL (NEG) Urine Blood Negative (NEG) Urine Nitrite Negative (NEG) Urine Bilirubin (NEG) Urine Urobilinogen Dipstick mg/dL (0.2 mg/dL) Urine Leukocyte Esterase (NEG) Urine RBC 0 /HPF (0-2) Urine WBC 0 /HPF (0-4) Urine Squamous Epithelial Cells Few /LPF Urine Bacteria 0 /HPF (0-FEW) Urine Mucus Marked /LPF Nasal Screen MRSA (PCR) Negative (Negative) Laboratory Tests Test 09/01/16 11:00 09/02/16 05:25 Nasal Screen MRSA (PCR) Negative (Negative) White Blood Count 9.5 x10^3/uL (4.0-11.0) Red Blood Count 4.30 x10^6/uL (4.30-5.70) Hemoglobin 13.1 g/dL (13.0-17.5) Hematocrit 38.0 % (39.0-53.0) Mean Corpuscular Volume 88 fL (79-100) Mean Corpuscular Hemoglobin 31 pg (25-35) Mean Corpuscular Hemoglobin Concent 35 g/dL (31-37) Red Cell Distribution Width 13.3 % (11.5-14.5) Platelet Count 315 x10^3/uL (140-400) Neutrophils (%) (Auto) 84 % (31-73) Lymphocytes (%) (Auto) 7 % (24-48) Monocytes (%) (Auto) 10 % (0-9) Eosinophils (%) (Auto) 0 % (0-3) Basophils (%) (Auto) 0 % (0-3) Neutrophils # (Auto) 7.9 x10^3uL (1.8-7.7) Lymphocytes # (Auto) 0.7 x10^3/uL (1.0-4.8) Monocytes # (Auto) 0.9 x10^3/uL (0.0-1.1) Eosinophils # (Auto) 0.0 x10^3/uL (0.0-0.7) Basophils # (Auto) 0.0 x10^3/uL (0.0-0.2) Sodium Level 142 mmol/L (136-145) Potassium Level 4.2 mmol/L (3.5-5.1) Chloride Level 109 mmol/L (98-107) Carbon Dioxide Level 24 mmol/L (21-32) Anion Gap 9 (6-14) Blood Urea Nitrogen 24 mg/dL (8-26) Creatinine 0.8 mg/dL (0.7-1.3) Estimated GFR (Cockcroft-Gault) 95.6 Glucose Level 125 mg/dL (70-99) Calcium Level 7.0 mg/dL (8.5-10.1) Medications Current Medications Sodium Chloride 1,000 ml @ 1,000 mls/hr 1X ONCE IV Last administered on 07:45; Start 09/01/16 at 07:30; Stop 09/01/16 at 08:29; Status DC Ondansetron HCl (Zofran) 4 mg 1X ONCE IV Last administered on 09/01/16 07:44; Start 09/01/16 at 07:30; Stop 09/01/16 at 07:31; Status DC Fentanyl Citrate (Fentanyl 2ml Vial) 75 mcg 1X ONCE IV Last administered on 07:44; Start 09/01/16 at 07:30; Stop 09/01/16 at 07:31; Status DC Iohexol (Omnipaque 300 Mg/ml) 75 ml 1X ONCE IV Last administered on 09/01/16 08:24; Start 09/01/16 at 08:30; Stop 09/01/16 at 08:31; Status DC Info (Do NOT chart on this entry -- for MONITORING) 1 each PRN DAILY PRN MC SEE COMMENTS; Start 09/01/16 at 08:30; Stop 09/03/16 at 08:29 Morphine Sulfate 5 mg 1X ONCE IV Last administered on 09/01/16 08:41; Start at 08:45; Stop 09/01/16 at 08:46; Status DC Sodium Chloride 1,000 ml @ 1,000 mls/hr 1X ONCE IV Last administered on 08:40; Start 09/01/16 at 08:45; Stop 09/01/16 at 09:44; Status DC Piperacillin Sod/ Tazobactam Sod 3.375 gm/Sodium Chloride 50 ml @ 100 mls/hr Q6HRS IV Last administered on 09/02/16 05:18; Start 09/01/16 at 10:00 Famotidine (Pepcid) 20 mg 1X ONCE IVP Last administered on 09/01/16 09:46; Start 09/01/16 at 09:45; Stop 09/01/16 at 09:46; Status DC Ondansetron HCl (Zofran) 4 mg PRN Q8HRS PRN IV NAUSEA/VOMITING; Start 09/01/16 at 09:30; Stop 09/02/16 at 08:33; Status DC Morphine Sulfate 4 mg PRN Q2HR PRN IV PAIN; Start 09/01/16 at 09:30; Stop at 09:29 Sodium Chloride 1,000 ml @ 100 mls/hr Q10H IV Last administered on 09/02/16 05 :18; Start 09/01/16 at 10:30 Acetaminophen (Tylenol) 500 mg PRN Q6HRS PRN PO MILD PAIN / TEMP; Start at 10:30 Famotidine (Pepcid) 20 mg BID IVP Last administered on 09/01/16 11:14; Start at 11:00; Stop 09/01/16 at 15:40; Status DC Ondansetron HCl (Zofran) 4 mg PRN Q6HRS PRN IV NAUSEA/VOMITING; Start 09/01/16 at 12:15; Stop 09/02/16 at 08:33; Status DC Fentanyl Citrate (Fentanyl 2ml Vial) 25 mcg PRN Q5MIN PRN IV MILD PAIN Last administered on 09/01/16 16:00; Start 09/01/16 at 12:15; Stop 09/02/16 at 12:14 Fentanyl Citrate (Fentanyl 2ml Vial) 50 mcg PRN Q5MIN PRN IV MODERATE PAIN Last administered on 09/01/16 15:54; Start 09/01/16 at 12:15; Stop 09/02/16 at 12: 14 Morphine Sulfate 1 mg PRN Q10MIN PRN IV SEVERE PAIN; Start 09/01/16 at 12:15; Stop 09/02/16 at 12:14 Ringer's Solution 1,000 ml @ 30 mls/hr Q24H IV ; Start 09/01/16 at 12:04; Stop 09/01/16 at 19:07; Status DC Lidocaine HCl 2 ml PRN 1X PRN ID PRIOR TO IV START; Start 09/01/16 at 12:15; Stop 09/02/16 at 12:14 Hydromorphone HCl (Dilaudid) 0.5 mg PRN Q10MIN PRN IV SEV PAIN, Second choice; Start 09/01/16 at 12:15; Stop 09/02/16 at 12:14 Prochlorperazine Edisylate (Compazine) 5 mg PACU PRN PRN IV NAUSEA, MRX1; Start 09/01/16 at 12:15; Stop 09/02/16 at 12:14 Desflurane (Suprane) 60 ml STK-MED ONCE IH ; Start 09/01/16 at 12:16; Stop at 12:17; Status DC Fentanyl Citrate (Fentanyl 2ml Vial) 100 mcg STK-MED ONCE .ROUTE ; Start at 12:17; Stop 09/01/16 at 12:18; Status DC Succinylcholine Chloride (Anectine) 200 mg STK-MED ONCE .ROUTE ; Start 09/01/16 at 12:17; Stop 09/01/16 at 12:18; Status DC Glycopyrrolate (Robinul) 1 mg STK-MED ONCE .ROUTE ; Start 09/01/16 at 12:17; Stop 09/01/16 at 12:18; Status DC Neostigmine Methylsulfate 5 mg STK-MED ONCE .ROUTE ; Start 09/01/16 at 12:17; Stop 09/01/16 at 12:18; Status DC Rocuronium [place] (Zemuron) 50 mg STK-MED ONCE .ROUTE ; Start 09/01/16 at 12:18 ; Stop 09/01/16 at 12:19; Status DC Propofol 20 ml @ As Directed STK-MED ONCE IV ; Start 09/01/16 at 12:18; Stop 09/01 at 12:19; Status DC Lidocaine HCl (Lidocaine Pf 2% Vial) 5 ml STK-MED ONCE .ROUTE ; Start 09/01/16 at 12:18; Stop 09/01/16 at 12:19; Status DC Dexamethasone Sodium Phosphate (Decadron) 20 mg STK-MED ONCE .ROUTE ; Start 09/01 at 12:18; Stop 09/01/16 at 12:19; Status DC Ondansetron HCl (Zofran) 4 mg STK-MED ONCE .ROUTE ; Start 09/01/16 at 12:18; Stop 09/01/16 at 12:19; Status DC Famotidine (Pepcid) 20 mg STK-MED ONCE .ROUTE ; Start 09/01/16 at 12:32; Stop 09/01/16 at 12:33; Status DC Cefoxitin Sodium 100 ml @ As Directed STK-MED ONCE IV ; Start 09/01/16 at 13:30 ; Stop 09/01/16 at 13:31; Status DC Fentanyl Citrate (Fentanyl 2ml Vial) 100 mcg STK-MED ONCE .ROUTE ; Start at 13:35; Stop 09/01/16 at 13:36; Status DC Sodium Chloride (Sodium Chloride) 50 ml STK-MED ONCE IJ ; Start 09/01/16 at 14:05 ; Stop 09/01/16 at 14:06; Status DC Morphine Sulfate 10 mg STK-MED ONCE .ROUTE ; Start 09/01/16 at 14:05; Stop at 14:06; Status DC Vecuronium [place] (Norcuron Bolus) 10 mg STK-MED ONCE IV ; Start 09/01/16 at 14: 05; Stop 09/01/16 at 14:06; Status DC Sevoflurane (Ultane) 90 ml STK-MED ONCE IH ; Start 09/01/16 at 15:10; Stop at 15:11; Status DC Famotidine (Pepcid) 20 mg BID IVP Last administered on 09/01/16t 21:09; Start at 21:00 Enoxaparin Sodium (Lovenox 40mg Syringe) 40 mg Q24H SQ ; Start 09/02/16 at 09:00 Sodium Chloride (Normal Saline Flush) 3 ml QSHIFT PRN IV AFTER MEDS AND BLOOD DRAWS; Start 09/01/16 at 15:15 Ringer's Solution 1,000 ml @ 100 mls/hr Q10H IV ; Start 09/01/16 at 15:06; Stop 09/01/16 at 19:07; Status DC Naloxone HCl (Narcan) 0.4 mg PRN Q2MIN PRN IV SEE INSTRUCTIONS; Start 09/01/16 at 15:15 Sodium Chloride 1,000 ml @ 25 mls/hr Q24H IV ; Start 09/01/16 at 15:06 Hydromorphone HCl 30 ml @ 0 mls/hr CONT PRN PRN IV PROTOCOL Last administered on 09/01/16 16:06; Start 09/01/16 at 15:15 Ondansetron HCl (Zofran) 4 mg PRN Q6HRS PRN IV NAUESA, 1ST CHOICE; Start at 15:15 Bupivacaine HCl/ Epinephrine Bitart (Marcaine-Epi 0.5%-1:[id number]) 50 ml STK-MED ONCE .ROUTE Last administered on 09/01/16 13:29; Start 09/01/16 at 15:14; Stop 09/01/16 at 15:15; Status DC Ketamine HCl 500 mg STK-MED ONCE .ROUTE ; Start 09/01/16 at 15:17; Stop 09/01/16 at 15:18; Status DC Active Scripts Active Reported Aspir 81 (Aspirin) 81 Mg Tablet.dr 81 Mg PO Ultracet Tablet (Tramadol Hcl/Acetaminophen) 1 Each Tablet 1 Tab PO TID Lipitor (Atorvastatin Calcium) 10 Mg Tablet 1 Tab PO DAILY Indapamide 1.25 Mg Tablet 1.25 Mg PO Diovan Hct 80-12.5 Mg Tablet (Valsartan/Hydrochlorothiazide) 1 Each Tablet 1 Each PO Naproxen Sodium 550 Mg Tablet 375 Mg PO PRN Vitals/I & O Vital Sign - Last 24 Hours 09/01/16 09/01/16 09/01/16 09/01/16 11:00 11:05 12:00 12:00 Temp 98.2 98.2 98.2 98.2 Pulse 80 84 80 Resp 16 16 16 B/P (MAP) 119/79 (92) 160/97 (118) 115/82 (93) Pulse Ox 96 96 96 O2 Delivery Room Air Room Air Room Air Room Air 09/01/16 09/01/16 09/01/16 09/01/16 15:34 15:34 15:49 15:54 Temp 100.8 100.8 Pulse 95 68 Resp 16 16 20 B/P (MAP) 149/77 138/80 Pulse Ox 99 98 99 O2 Delivery Simple Mask Mask Simple Mask Simple Mask O2 Flow Rate 10 10 10 10.0 09/01/16 09/01/16 09/01/16 09/01/16 16:00 16:00 16:04 16:06 Pulse 68 Resp 16 16 16 B/P (MAP) 125/73 Pulse Ox 99 99 99 O2 Delivery Simple Mask Nasal Cannula Nasal Cannula Simple Mask O2 Flow Rate 10.0 2 2 10.0 09/01/16 09/01/16 09/01/16 09/01/16 16:19 16:34 17:00 17:00 Temp 98.3 97.5 98.3 97.5 Pulse 66 65 65 Resp 16 16 13 B/P (MAP) 121/77 119/77 128/77 (94) Pulse Ox 95 95 96 O2 Delivery Nasal Cannula Nasal Cannula Nasal Cannula Nasal Cannula O2 Flow Rate 2 2 2.0 2.0 09/01/16 09/01/16 09/01/16 09/01/16 18:00 19:00 20:00 20:00 Temp 98.0 98.0 Pulse 64 58 61 Resp 13 14 14 B/P (MAP) 138/76 (96) 140/81 (100) 120/77 (91) Pulse Ox 98 98 98 O2 Delivery Nasal Cannula Nasal Cannula Nasal Cannula Nasal Cannula O2 Flow Rate 2.0 2.0 2 2.0 09/01/16 09/01/16 09/01/16 09/01/16 21:00 22:00 23:00 23:59 Pulse 55 56 56 Resp 14 14 14 B/P (MAP) 123/71 (88) 122/74 (90) 128/74 (92) Pulse Ox 99 99 99 O2 Delivery Nasal Cannula Nasal Cannula Nasal Cannula Nasal Cannula O2 Flow Rate 2.0 2.0 2.0 2 09/02/16 09/02/16 09/02/16 09/02/16 00:00 01:00 02:00 03:00 Temp 98.5 98.5 Pulse 57 55 57 55 Resp 14 14 14 14 B/P (MAP) 128/74 (92) 124/71 (88) 114/71 (85) 117/78 (91) Pulse Ox 99 98 98 98 O2 Delivery Nasal Cannula Nasal Cannula Nasal Cannula Nasal Cannula O2 Flow Rate 2.0 2.0 2.0 2.0 09/02/16 09/02/16 09/02/16 09/02/16 04:00 04:00 05:00 06:00 Temp 98.9 98.9 Pulse 56 59 57 Resp 14 14 14 B/P (MAP) 122/68 (86) 127/68 (87) 121/70 (87) Pulse Ox 98 98 98 O2 Delivery Nasal Cannula Nasal Cannula Nasal Cannula Nasal Cannula O2 Flow Rate 2 2.0 2.0 2.0 09/02/16 07:00 Pulse 56 Resp 15 B/P (MAP) 124/68 (86) Pulse Ox 97 O2 Delivery Nasal Cannula O2 Flow Rate 2.0 Intake and Output 09/01/16 09/01/16 09/02/16 14:59 22:59 06:59 Intake Total 2150 ml 1550 ml 1236.5 ml Output Total 220 ml 635 ml 490 ml Balance 1930 ml 915 ml 746.5 ml JUAN MENENDEZ III DO Sep 02, 2016 08:40
[2016-09-02] MEDS: ENOXAPARIN 40 MG/0.4 ML SYRINGE. SQ SCH (09:11)
--- NOTE | 2016-09-02 11:08 | PDOC ---
SURGICAL PROGRESS NOTE Subjective Pt with c/o min abd pain, no N/V Vital Signs Vital Signs Date Time Temp Pulse Resp B/P (MAP) Pulse Ox O2 Delivery O2 Flow Rate FiO2 09/02/16 10:00 56 17 122/74 (90) 99 Nasal Cannula 2.0 09/02/16 08:00 98.6 98.6 I&O Intake and Output 09/02/16 07:00 Intake Total 4936.5 ml Output Total 1345 ml Balance 3591.5 ml Intake Oral 30 ml IV Total 4906.5 ml Output Urine Total 815 ml Drainage Total 430 ml Estimated Blood Loss 100 ml PATIENT HAS A HUERTAS: Yes (d/c in AM) General: Alert, Oriented X3, Cooperative, No acute distress Abdomen: Soft, No tenderness, Other (SHRAVAN serosang) Labs Laboratory Tests Test 09/01/16 07:42 09/01/16 08:35 09/01/16 11:00 09/02/16 05:25 White Blood Count 7.5 x10^3/uL (4.0-11.0) 9.5 x10^3/uL (4.0-11.0) Red Blood Count 5.36 x10^6/uL (4.30-5.70) 4.30 x10^6/uL (4.30-5.70) Hemoglobin 16.3 g/dL (13.0-17.5) 13.1 g/dL (13.0-17.5) Hematocrit 49.0 % (39.0-53.0) 38.0 % (39.0-53.0) Mean Corpuscular Volume 91 fL (79-100) 88 fL (79-100) Mean Corpuscular Hemoglobin 30 pg (25-35) 31 pg (25-35) Mean Corpuscular Hemoglobin Concent 33 g/dL (31-37) 35 g/dL (31-37) Red Cell Distribution Width 13.7 % (11.5-14.5) 13.3 % (11.5-14.5) Platelet Count 396 x10^3/uL (140-400) 315 x10^3/uL (140-400) Neutrophils (%) (Auto) 86 % (31-73) 84 % (31-73) Lymphocytes (%) (Auto) 8 % (24-48) 7 % (24-48) Monocytes (%) (Auto) 6 % (0-9) 10 % (0-9) Eosinophils (%) (Auto) 0 % (0-3) 0 % (0-3) Basophils (%) (Auto) 0 % (0-3) 0 % (0-3) Neutrophils # (Auto) 6.5 x10^3uL (1.8-7.7) 7.9 x10^3uL (1.8-7.7) Lymphocytes # (Auto) 0.6 x10^3/uL (1.0-4.8) 0.7 x10^3/uL (1.0-4.8) Monocytes # (Auto) 0.5 x10^3/uL (0.0-1.1) 0.9 x10^3/uL (0.0-1.1) Eosinophils # (Auto) 0.0 x10^3/uL (0.0-0.7) 0.0 x10^3/uL (0.0-0.7) Basophils # (Auto) 0.0 x10^3/uL (0.0-0.2) 0.0 x10^3/uL (0.0-0.2) Segmented Neutrophils % 68 % (35-66) Band Neutrophils % 21 % (0-9) Lymphocytes % 8 % (24-48) Monocytes % 3 % (0-10) Platelet Estimate Adequate (ADEQUATE) Prothrombin Time 14.7 SEC (11.7-14.0) Prothromb Time International Ratio 1.2 (0.8-1.1) Activated Partial Thromboplast Time 30 SEC (24-38) Sodium Level 137 mmol/L (136-145) 142 mmol/L (136-145) Potassium Level 3.5 mmol/L (3.5-5.1) 4.2 mmol/L (3.5-5.1) Chloride Level 99 mmol/L (98-107) 109 mmol/L (98-107) Carbon Dioxide Level 25 mmol/L (21-32) 24 mmol/L (21-32) Anion Gap 13 (6-14) 9 (6-14) Blood Urea Nitrogen 22 mg/dL (8-26) 24 mg/dL (8-26) Creatinine 1.2 mg/dL (0.7-1.3) 0.8 mg/dL (0.7-1.3) Estimated GFR (Cockcroft-Gault) 59.9 95.6 BUN/Creatinine Ratio 18 (6-20) Glucose Level 220 mg/dL (70-99) 125 mg/dL (70-99) Lactic Acid Level 2.8 mmol/L (0.4-2.0) Calcium Level 8.9 mg/dL (8.5-10.1) 7.0 mg/dL (8.5-10.1) Magnesium Level 1.8 mg/dL (1.8-2.4) Total Bilirubin 0.8 mg/dL (0.2-1.0) Aspartate Amino Transf (AST/SGOT) 20 U/L (15-37) Alanine Aminotransferase (ALT/SGPT) 23 U/L (16-63) Alkaline Phosphatase 89 U/L (46-116) Troponin I Quantitative < 0.017 ng/mL (0.000-0.055) OM-Sem-H-Type Natriuretic Peptide 115 pg/mL (0-124) Total Protein 7.1 g/dL (6.4-8.2) Albumin 3.0 g/dL (3.4-5.0) Albumin/Globulin Ratio 0.7 (1.0-1.7) Lipase 94 U/L (73-393) Urine Collection Type Unknown Urine Color [place] Urine Clarity Clear Urine pH 6.0 Urine Specific [place] >=1.030 Urine Protein mg/dL (NEG-TRACE) Urine Glucose (UA) Negative mg/dL (NEG) Urine Ketones (Stick) mg/dL (NEG) Urine Blood Negative (NEG) Urine Nitrite Negative (NEG) Urine Bilirubin (NEG) Urine Urobilinogen Dipstick mg/dL (0.2 mg/dL) Urine Leukocyte Esterase (NEG) Urine RBC 0 /HPF (0-2) Urine WBC 0 /HPF (0-4) Urine Squamous Epithelial Cells Few /LPF Urine Bacteria 0 /HPF (0-FEW) Urine Mucus Marked /LPF Nasal Screen MRSA (PCR) Negative (Negative) Test 09/02/16 07:55 Lactic Acid Level 1.4 mmol/L (0.4-2.0) Laboratory Tests Test 09/02/16 05:25 09/02/16 07:55 White Blood Count 9.5 x10^3/uL (4.0-11.0) Red Blood Count 4.30 x10^6/uL (4.30-5.70) Hemoglobin 13.1 g/dL (13.0-17.5) Hematocrit 38.0 % (39.0-53.0) Mean Corpuscular Volume 88 fL (79-100) Mean Corpuscular Hemoglobin 31 pg (25-35) Mean Corpuscular Hemoglobin Concent 35 g/dL (31-37) Red Cell Distribution Width 13.3 % (11.5-14.5) Platelet Count 315 x10^3/uL (140-400) Neutrophils (%) (Auto) 84 % (31-73) Lymphocytes (%) (Auto) 7 % (24-48) Monocytes (%) (Auto) 10 % (0-9) Eosinophils (%) (Auto) 0 % (0-3) Basophils (%) (Auto) 0 % (0-3) Neutrophils # (Auto) 7.9 x10^3uL (1.8-7.7) Lymphocytes # (Auto) 0.7 x10^3/uL (1.0-4.8) Monocytes # (Auto) 0.9 x10^3/uL (0.0-1.1) Eosinophils # (Auto) 0.0 x10^3/uL (0.0-0.7) Basophils # (Auto) 0.0 x10^3/uL (0.0-0.2) Sodium Level 142 mmol/L (136-145) Potassium Level 4.2 mmol/L (3.5-5.1) Chloride Level 109 mmol/L (98-107) Carbon Dioxide Level 24 mmol/L (21-32) Anion Gap 9 (6-14) Blood Urea Nitrogen 24 mg/dL (8-26) Creatinine 0.8 mg/dL (0.7-1.3) Estimated GFR (Cockcroft-Gault) 95.6 Glucose Level 125 mg/dL (70-99) Calcium Level 7.0 mg/dL (8.5-10.1) Lactic Acid Level 1.4 mmol/L (0.4-2.0) Problem List Problems Medical Problems: (1) Lactic acid acidosis Status: Acute (2) Perforated abdominal viscus Status: Acute Assessment/Plan s/p antrectomy OK to tx to floor cont NGT await bowel fxn d/w pt and pt's Problems: GO RIVERA MD Sep 02, 2016 11:08
[2016-09-02] MEDS: FAMOTIDINE 20 MG/2 ML VIAL IVP SCH ×2 (14:48→21:33)
[2016-09-03] MEDS: IV NORMAL SALINE 1000ML BAG 1,000 ML IV SCH ×4 (02:30→20:24)
[2016-09-03 03:00] VITALS: BP 119/80
[2016-09-03] MEDS: PIPERACILLIN/TAZOBACTAM 3.375 GM in IV NORMAL SALINE 50ML 50 ML IV SCH ×3 (05:55→18:32)
[2016-09-03 07:00] VITALS: BP 134/81
[2016-09-03] MEDS: FAMOTIDINE 20 MG/2 ML VIAL IVP SCH ×2 (09:29→20:23)
[2016-09-03] MEDS: ENOXAPARIN 40 MG/0.4 ML SYRINGE. SQ SCH (09:30)
[2016-09-03 11:00] VITALS: BP 145/74
--- NOTE | 2016-09-03 11:17 | PDOC ---
SURGICAL PROGRESS NOTE Subjective Pt with c/o some incisional pain, discomfort when NGT not functioning, sitting up in chair Vital Signs Vital Signs Date Time Temp Pulse Resp B/P (MAP) Pulse Ox O2 Delivery O2 Flow Rate FiO2 09/03/16 08:00 Nasal Cannula 2.0 09/03/16 07:00 98.9 64 20 134/81 (98) 92 98.9 I&O Intake and Output 09/03/16 07:00 Output Total 1940 ml Balance -1940 ml Output Urine Total 955 ml Gastric Drainage Total 275 ml Drainage Total 710 ml PATIENT HAS A PAUL: Yes (d/c today) General: Alert, Oriented X3, Cooperative, No acute distress Abdomen: Soft, No tenderness, Other (d-tube bilious) Labs Laboratory Tests Test 09/02/16 05:25 09/02/16 07:55 White Blood Count 9.5 x10^3/uL (4.0-11.0) Red Blood Count 4.30 x10^6/uL (4.30-5.70) Hemoglobin 13.1 g/dL (13.0-17.5) Hematocrit 38.0 % (39.0-53.0) Mean Corpuscular Volume 88 fL (79-100) Mean Corpuscular Hemoglobin 31 pg (25-35) Mean Corpuscular Hemoglobin Concent 35 g/dL (31-37) Red Cell Distribution Width 13.3 % (11.5-14.5) Platelet Count 315 x10^3/uL (140-400) Neutrophils (%) (Auto) 84 % (31-73) Lymphocytes (%) (Auto) 7 % (24-48) Monocytes (%) (Auto) 10 % (0-9) Eosinophils (%) (Auto) 0 % (0-3) Basophils (%) (Auto) 0 % (0-3) Neutrophils # (Auto) 7.9 x10^3uL (1.8-7.7) Lymphocytes # (Auto) 0.7 x10^3/uL (1.0-4.8) Monocytes # (Auto) 0.9 x10^3/uL (0.0-1.1) Eosinophils # (Auto) 0.0 x10^3/uL (0.0-0.7) Basophils # (Auto) 0.0 x10^3/uL (0.0-0.2) Sodium Level 142 mmol/L (136-145) Potassium Level 4.2 mmol/L (3.5-5.1) Chloride Level 109 mmol/L (98-107) Carbon Dioxide Level 24 mmol/L (21-32) Anion Gap 9 (6-14) Blood Urea Nitrogen 24 mg/dL (8-26) Creatinine 0.8 mg/dL (0.7-1.3) Estimated GFR (Cockcroft-Gault) 95.6 Glucose Level 125 mg/dL (70-99) Calcium Level 7.0 mg/dL (8.5-10.1) Lactic Acid Level 1.4 mmol/L (0.4-2.0) Problem List Problems Medical Problems: (1) Lactic acid acidosis Status: Acute (2) Perforated abdominal viscus Status: Acute Assessment/Plan s/p antrectomy cont NGT await bowel fxn d/c paul d/w pt and pt's family Problems: GO RIVERA MD Sep 03, 2016 11:17
--- NOTE | 2016-09-03 12:28 | PDOC ---
PROGRESS NOTES Chief Complaint Chief Complaint 1. Penumoperitoneum with perforated duodenum 2. SIRS POA, no sepsis 3. BRISEYDA, vasomotor 4. Mild PCM 5. Heavy smoker 6. Incidental left small adrenal nodule 7. 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 Penumoperitoneum with perforated duodenum 2. SIRS POA, no sepsis 3. BRISEYDA, vasomotor 4. Mild PCM 5. Heavy smoker 6. Incidental left small adrenal nodule 7. Diverticulosis Plan 1. 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 Lovenox for DVT prophylaxis 3. Continue ICU monitoring 4. Appreciate subspecialty input 5. Continue home meds 6. Discussed plan of care with nursing 7. PT/OT 8. Recheck CBC and BMP tomorrow 9. Reviewed imaging: CXR normal 10. Zofran prn for nausea 11. Calcium gluconate repletion for Ca 7.0 12. Continue NGT per surgery Problems: Comment Review of Relevant I have reviewed the following items shaw (where applicable) has been applied. Labs Laboratory Tests Test 09/02/16 05:25 09/02/16 07:55 White Blood Count 9.5 x10^3/uL (4.0-11.0) Red Blood Count 4.30 x10^6/uL (4.30-5.70) Hemoglobin 13.1 g/dL (13.0-17.5) Hematocrit 38.0 % (39.0-53.0) Mean Corpuscular Volume 88 fL (79-100) Mean Corpuscular Hemoglobin 31 pg (25-35) Mean Corpuscular Hemoglobin Concent 35 g/dL (31-37) Red Cell Distribution Width 13.3 % (11.5-14.5) Platelet Count 315 x10^3/uL (140-400) Neutrophils (%) (Auto) 84 % (31-73) Lymphocytes (%) (Auto) 7 % (24-48) Monocytes (%) (Auto) 10 % (0-9) Eosinophils (%) (Auto) 0 % (0-3) Basophils (%) (Auto) 0 % (0-3) Neutrophils # (Auto) 7.9 x10^3uL (1.8-7.7) Lymphocytes # (Auto) 0.7 x10^3/uL (1.0-4.8) Monocytes # (Auto) 0.9 x10^3/uL (0.0-1.1) Eosinophils # (Auto) 0.0 x10^3/uL (0.0-0.7) Basophils # (Auto) 0.0 x10^3/uL (0.0-0.2) Sodium Level 142 mmol/L (136-145) Potassium Level 4.2 mmol/L (3.5-5.1) Chloride Level 109 mmol/L (98-107) Carbon Dioxide Level 24 mmol/L (21-32) Anion Gap 9 (6-14) Blood Urea Nitrogen 24 mg/dL (8-26) Creatinine 0.8 mg/dL (0.7-1.3) Estimated GFR (Cockcroft-Gault) 95.6 Glucose Level 125 mg/dL (70-99) Calcium Level 7.0 mg/dL (8.5-10.1) Lactic Acid Level 1.4 mmol/L (0.4-2.0) Medications Current Medications Sodium Chloride 1,000 ml @ 1,000 mls/hr 1X ONCE IV Last administered on 07:45; Start 09/01/16 at 07:30; Stop 09/01/16 at 08:29; Status DC Ondansetron HCl (Zofran) 4 mg 1X ONCE IV Last administered on 09/01/16 07:44; Start 09/01/16 at 07:30; Stop 09/01/16 at 07:31; Status DC Fentanyl Citrate (Fentanyl 2ml Vial) 75 mcg 1X ONCE IV Last administered on 07:44; Start 09/01/16 at 07:30; Stop 09/01/16 at 07:31; Status DC Iohexol (Omnipaque 300 Mg/ml) 75 ml 1X ONCE IV Last administered on 09/01/16 08:24; Start 09/01/16 at 08:30; Stop 09/01/16 at 08:31; Status DC Info (Do NOT chart on this entry -- for MONITORING) 1 each PRN DAILY PRN MC SEE COMMENTS; Start 09/01/16 at 08:30; Stop 09/03/16 at 08:29; Status DC Morphine Sulfate 5 mg 1X ONCE IV Last administered on 09/01/16 08:41; Start at 08:45; Stop 09/01/16 at 08:46; Status DC Sodium Chloride 1,000 ml @ 1,000 mls/hr 1X ONCE IV Last administered on 08:40; Start 09/01/16 at 08:45; Stop 09/01/16 at 09:44; Status DC Piperacillin Sod/ Tazobactam Sod 3.375 gm/Sodium Chloride 50 ml @ 100 mls/hr Q6HRS IV Last administered on 09/03/16 05:55; Start 09/01/16 at 10:00 Famotidine (Pepcid) 20 mg 1X ONCE IVP Last administered on 09/01/16 09:46; Start 09/01/16 at 09:45; Stop 09/01/16 at 09:46; Status DC Ondansetron HCl (Zofran) 4 mg PRN Q8HRS PRN IV NAUSEA/VOMITING; Start 09/01/16 at 09:30; Stop 09/02/16 at 08:33; Status DC Morphine Sulfate 4 mg PRN Q2HR PRN IV PAIN; Start 09/01/16 at 09:30; Stop at 09:29; Status DC Sodium Chloride 1,000 ml @ 100 mls/hr Q10H IV Last administered on 09/03/16 09 :30; Start 09/01/16 at 10:30 Acetaminophen (Tylenol) 500 mg PRN Q6HRS PRN PO MILD PAIN / TEMP; Start at 10:30 Famotidine (Pepcid) 20 mg BID IVP Last administered on 09/01/16 11:14; Start at 11:00; Stop 09/01/16 at 15:40; Status DC Ondansetron HCl (Zofran) 4 mg PRN Q6HRS PRN IV NAUSEA/VOMITING; Start 09/01/16 at 12:15; Stop 09/02/16 at 08:33; Status DC Fentanyl Citrate (Fentanyl 2ml Vial) 25 mcg PRN Q5MIN PRN IV MILD PAIN Last administered on 09/01/16 16:00; Start 09/01/16 at 12:15; Stop 09/02/16 at 12:14; Status DC Fentanyl Citrate (Fentanyl 2ml Vial) 50 mcg PRN Q5MIN PRN IV MODERATE PAIN Last administered on 09/01/16 15:54; Start 09/01/16 at 12:15; Stop 09/02/16 at 12: 14; Status DC Morphine Sulfate 1 mg PRN Q10MIN PRN IV SEVERE PAIN; Start 09/01/16 at 12:15; Stop 09/02/16 at 12:14; Status DC Ringer's Solution 1,000 ml @ 30 mls/hr Q24H IV ; Start 09/01/16 at 12:04; Stop 09/01/16 at 19:07; Status DC Lidocaine HCl 2 ml PRN 1X PRN ID PRIOR TO IV START; Start 09/01/16 at 12:15; Stop 09/02/16 at 12:14; Status DC Hydromorphone HCl (Dilaudid) 0.5 mg PRN Q10MIN PRN IV SEV PAIN, Second choice; Start 09/01/16 at 12:15; Stop 09/02/16 at 12:14; Status DC Prochlorperazine Edisylate (Compazine) 5 mg PACU PRN PRN IV NAUSEA, MRX1; Start 09/01/16 at 12:15; Stop 09/02/16 at 12:14; Status DC Desflurane (Suprane) 60 ml STK-MED ONCE IH ; Start 09/01/16 at 12:16; Stop at 12:17; Status DC Fentanyl Citrate (Fentanyl 2ml Vial) 100 mcg STK-MED ONCE .ROUTE ; Start at 12:17; Stop 09/01/16 at 12:18; Status DC Succinylcholine Chloride (Anectine) 200 mg STK-MED ONCE .ROUTE ; Start 09/01/16 at 12:17; Stop 09/01/16 at 12:18; Status DC Glycopyrrolate (Robinul) 1 mg STK-MED ONCE .ROUTE ; Start 09/01/16 at 12:17; Stop 09/01/16 at 12:18; Status DC Neostigmine Methylsulfate 5 mg STK-MED ONCE .ROUTE ; Start 09/01/16 at 12:17; Stop 09/01/16 at 12:18; Status DC Rocuronium [place] (Zemuron) 50 mg STK-MED ONCE .ROUTE ; Start 09/01/16 at 12:18 ; Stop 09/01/16 at 12:19; Status DC Propofol 20 ml @ As Directed STK-MED ONCE IV ; Start 09/01/16 at 12:18; Stop 09/01 at 12:19; Status DC Lidocaine HCl (Lidocaine Pf 2% Vial) 5 ml STK-MED ONCE .ROUTE ; Start 09/01/16 at 12:18; Stop 09/01/16 at 12:19; Status DC Dexamethasone Sodium Phosphate (Decadron) 20 mg STK-MED ONCE .ROUTE ; Start 09/01 at 12:18; Stop 09/01/16 at 12:19; Status DC Ondansetron HCl (Zofran) 4 mg STK-MED ONCE .ROUTE ; Start 09/01/16 at 12:18; Stop 09/01/16 at 12:19; Status DC Famotidine (Pepcid) 20 mg STK-MED ONCE .ROUTE ; Start 09/01/16 at 12:32; Stop 09/01/16 at 12:33; Status DC Cefoxitin Sodium 100 ml @ As Directed STK-MED ONCE IV ; Start 09/01/16 at 13:30 ; Stop 09/01/16 at 13:31; Status DC Fentanyl Citrate (Fentanyl 2ml Vial) 100 mcg STK-MED ONCE .ROUTE ; Start at 13:35; Stop 09/01/16 at 13:36; Status DC Sodium Chloride (Sodium Chloride) 50 ml STK-MED ONCE IJ ; Start 09/01/16 at 14:05 ; Stop 09/01/16 at 14:06; Status DC Morphine Sulfate 10 mg STK-MED ONCE .ROUTE ; Start 09/01/16 at 14:05; Stop at 14:06; Status DC Vecuronium [place] (Norcuron Bolus) 10 mg STK-MED ONCE IV ; Start 09/01/16 at 14: 05; Stop 09/01/16 at 14:06; Status DC Sevoflurane (Ultane) 90 ml STK-MED ONCE IH ; Start 09/01/16 at 15:10; Stop at 15:11; Status DC Famotidine (Pepcid) 20 mg BID IVP Last administered on 09/03/16 09:29; Start at 21:00 Enoxaparin Sodium (Lovenox 40mg Syringe) 40 mg Q24H SQ Last administered on 09/03 09:30; Start 09/02/16 at 09:00 Sodium Chloride (Normal Saline Flush) 3 ml QSHIFT PRN IV AFTER MEDS AND BLOOD DRAWS; Start 09/01/16 at 15:15 Ringer's Solution 1,000 ml @ 100 mls/hr Q10H IV ; Start 09/01/16 at 15:06; Stop 09/01/16 at 19:07; Status DC Naloxone HCl (Narcan) 0.4 mg PRN Q2MIN PRN IV SEE INSTRUCTIONS; Start 09/01/16 at 15:15 Sodium Chloride 1,000 ml @ 25 mls/hr Q24H IV Last administered on 09/02/16 15: 06; Start 09/01/16 at 15:06 Hydromorphone HCl 30 ml @ 0 mls/hr CONT PRN PRN IV PROTOCOL Last administered on 09/03/16 04:38; Start 09/01/16 at 15:15 Ondansetron HCl (Zofran) 4 mg PRN Q6HRS PRN IV NAUESA, 1ST CHOICE; Start at 15:15 Bupivacaine HCl/ Epinephrine Bitart (Marcaine-Epi 0.5%-[id number]) 50 ml STK-MED ONCE .ROUTE Last administered on 09/01/16t 13:29; Start 09/01/16 at 15:14; Stop 09/01/16 at 15:15; Status DC Ketamine HCl 500 mg STK-MED ONCE .ROUTE ; Start 09/01/16 at 15:17; Stop 09/01/16 at 15:18; Status DC Active Scripts Active Reported Aspir 81 (Aspirin) 81 Mg Tablet.dr 81 Mg PO Ultracet Tablet (Tramadol Hcl/Acetaminophen) 1 Each Tablet 1 Tab PO TID Lipitor (Atorvastatin Calcium) 10 Mg Tablet 1 Tab PO DAILY Indapamide 1.25 Mg Tablet 1.25 Mg PO Diovan Hct 80-12.5 Mg Tablet (Valsartan/Hydrochlorothiazide) 1 Each Tablet 1 Each PO Naproxen Sodium 550 Mg Tablet 375 Mg PO PRN Vitals/I & O Vital Sign - Last 24 Hours 09/02/16 09/02/16 09/02/16 09/02/16 15:00 16:36 19:00 20:00 Temp 98.4 98.3 98.4 98.3 Pulse 64 63 Resp 20 18 18 B/P (MAP) 134/81 (98) 134/78 (96) Pulse Ox 94 95 O2 Delivery Nasal Cannula Nasal Cannula Nasal Cannula Nasal Cannula O2 Flow Rate 2.0 2.0 2.0 2.0 09/02/16 09/03/16 09/03/16 09/03/16 23:00 03:00 07:00 08:00 Temp 99.1 98.4 98.9 99.1 98.4 98.9 Pulse 66 70 64 Resp 18 18 20 B/P (MAP) 130/76 (94) 119/80 (93) 134/81 (98) Pulse Ox 94 92 92 O2 Delivery Nasal Cannula Nasal Cannula Nasal Cannula Nasal Cannula O2 Flow Rate 2.0 2.0 2.0 2.0 09/03/16 11:00 Temp 99.0 99.0 Pulse 60 Resp 22 B/P (MAP) 145/74 (97) Pulse Ox 90 O2 Delivery Nasal Cannula O2 Flow Rate 2.0 Intake and Output 09/02/16 09/02/16 09/03/16 15:00 23:00 07:00 Output Total 630 ml 550 ml 760 ml Balance -630 ml -550 ml -760 ml JUAN MENENDEZ III DO Sep 03, 2016 12:28
[2016-09-03] MEDS ORDERED: CALCIUM CHLORIDE 1,000 MG in IV NORMAL SALINE 50ML 50 ML IV ONE (12:30)
[2016-09-03] MEDS ORDERED: CALCIUM GLUCONATE 1,000 MG in IV NORMAL SALINE 100ML 100 ML IV ONE (13:00)
[2016-09-03 15:00] VITALS: BP 116/65
[2016-09-03 19:00] VITALS: BP 128/73
[2016-09-03 23:00] VITALS: BP 124/70
[2016-09-04] MEDS: PIPERACILLIN/TAZOBACTAM 3.375 GM in IV NORMAL SALINE 50ML 50 ML IV SCH ×4 (00:03→18:00)
[2016-09-04 03:00] VITALS: BP 99/66
[2016-09-04 04:07] LABS: BASO % 0 % (0-3); EOS % 0 % (0-3); HEMATOCRIT 31.8 % (39.0-53.0); HEMOGLOBIN 10.6 g/dL (13.0-17.5); LYMPH % 8 % (24-48); MEAN CORPUSCULAR HEMOGLOBIN 30 pg (25-35); MEAN CORPUSCULAR HGB CONC 33 g/dL (31-37); MEAN CORPUSCULAR VOLUME 90 fL (79-100); MONO % 8 % (0-9); NEUT % 84 % (31-73); PLATELET COUNT 286 x10^3/uL (140-400); RED BLOOD COUNT 3.54 x10^6/uL (4.30-5.70); RED CELL DISTRIBUTION WIDTH 13.4 % (11.5-14.5); WHITE BLOOD COUNT 12.1 x10^3/uL (4.0-11.0)
[2016-09-04 05:07] LABS: CREATININE 0.8 mg/dL (0.7-1.3); GFR 95.6; POTASSIUM 3.7 mmol/L (3.5-5.1)
[2016-09-04 07:00] VITALS: BP 117/59
--- NOTE | 2016-09-04 09:16 | PDOC ---
SURGICAL PROGRESS NOTE Subjective resting in bed pain managed Vital Signs Vital Signs Date Time Temp Pulse Resp B/P (MAP) Pulse Ox O2 Delivery O2 Flow Rate FiO2 09/04/16 07:00 97.7 43 18 117/59 (78) 94 Room Air 97.7 09/04/16 03:00 2.0 I&O Intake and Output 09/04/16 07:00 Intake Total 500 ml Output Total 970 ml Balance -470 ml Intake Oral 500 ml Output Urine Total 400 ml Drainage Total 570 ml # Voids 2 PATIENT HAS A HUERTAS: No General: Alert, Oriented X3, Cooperative, No acute distress HEENT: Other (NG in place) Abdomen: Soft, Other (incision c/d/i, no erythema, g tube to DD) Labs Laboratory Tests Test 09/04/16 03:24 White Blood Count 12.1 x10^3/uL (4.0-11.0) Red Blood Count 3.54 x10^6/uL (4.30-5.70) Hemoglobin 10.6 g/dL (13.0-17.5) Hematocrit 31.8 % (39.0-53.0) Mean Corpuscular Volume 90 fL (79-100) Mean Corpuscular Hemoglobin 30 pg (25-35) Mean Corpuscular Hemoglobin Concent 33 g/dL (31-37) Red Cell Distribution Width 13.4 % (11.5-14.5) Platelet Count 286 x10^3/uL (140-400) Neutrophils (%) (Auto) 84 % (31-73) Lymphocytes (%) (Auto) 8 % (24-48) Monocytes (%) (Auto) 8 % (0-9) Eosinophils (%) (Auto) 0 % (0-3) Basophils (%) (Auto) 0 % (0-3) Neutrophils # (Auto) 10.1 x10^3uL (1.8-7.7) Lymphocytes # (Auto) 1.0 x10^3/uL (1.0-4.8) Monocytes # (Auto) 0.9 x10^3/uL (0.0-1.1) Eosinophils # (Auto) 0.0 x10^3/uL (0.0-0.7) Basophils # (Auto) 0.0 x10^3/uL (0.0-0.2) Sodium Level 146 mmol/L (136-145) Potassium Level 3.7 mmol/L (3.5-5.1) Chloride Level 111 mmol/L (98-107) Carbon Dioxide Level 23 mmol/L (21-32) Anion Gap 12 (6-14) Blood Urea Nitrogen 29 mg/dL (8-26) Creatinine 0.8 mg/dL (0.7-1.3) Estimated GFR (Cockcroft-Gault) 95.6 Glucose Level 93 mg/dL (70-99) Calcium Level 8.0 mg/dL (8.5-10.1) Laboratory Tests Test 09/04/16 03:24 White Blood Count 12.1 x10^3/uL (4.0-11.0) Red Blood Count 3.54 x10^6/uL (4.30-5.70) Hemoglobin 10.6 g/dL (13.0-17.5) Hematocrit 31.8 % (39.0-53.0) Mean Corpuscular Volume 90 fL (79-100) Mean Corpuscular Hemoglobin 30 pg (25-35) Mean Corpuscular Hemoglobin Concent 33 g/dL (31-37) Red Cell Distribution Width 13.4 % (11.5-14.5) Platelet Count 286 x10^3/uL (140-400) Neutrophils (%) (Auto) 84 % (31-73) Lymphocytes (%) (Auto) 8 % (24-48) Monocytes (%) (Auto) 8 % (0-9) Eosinophils (%) (Auto) 0 % (0-3) Basophils (%) (Auto) 0 % (0-3) Neutrophils # (Auto) 10.1 x10^3uL (1.8-7.7) Lymphocytes # (Auto) 1.0 x10^3/uL (1.0-4.8) Monocytes # (Auto) 0.9 x10^3/uL (0.0-1.1) Eosinophils # (Auto) 0.0 x10^3/uL (0.0-0.7) Basophils # (Auto) 0.0 x10^3/uL (0.0-0.2) Sodium Level 146 mmol/L (136-145) Potassium Level 3.7 mmol/L (3.5-5.1) Chloride Level 111 mmol/L (98-107) Carbon Dioxide Level 23 mmol/L (21-32) Anion Gap 12 (6-14) Blood Urea Nitrogen 29 mg/dL (8-26) Creatinine 0.8 mg/dL (0.7-1.3) Estimated GFR (Cockcroft-Gault) 95.6 Glucose Level 93 mg/dL (70-99) Calcium Level 8.0 mg/dL (8.5-10.1) Problem List Problems Medical Problems: (1) Lactic acid acidosis Status: Acute (2) Perforated abdominal viscus Status: Acute Assessment/Plan POD#3 antrectomy NG to LIS, consider clamping in AM g tube to DD Problems: DIA NICHOLAS POTATO SPOTTER Sep 04, 2016 09:16
[2016-09-04] MEDS: IV NORMAL SALINE 1000ML BAG 1,000 ML IV SCH ×3 (09:26→18:30)
[2016-09-04] MEDS: FAMOTIDINE 20 MG/2 ML VIAL IVP SCH ×2 (09:26→22:15)
[2016-09-04] MEDS: ENOXAPARIN 40 MG/0.4 ML SYRINGE. SQ SCH (09:27)
[2016-09-04 11:00] VITALS: BP 123/66
--- NOTE | 2016-09-04 14:00 | PDOC ---
PROGRESS NOTES Chief Complaint Chief Complaint perforated viscus ASSESSMENT AND PLAN: 1. perforated duodenum: s/p repair on 09/[address] Jolly. recovering appropriately. remains NPO with NGT to suction 2. Peritonitis: on Zosyn; 3. Leukocytosis: worsening. clinically stable, but worrisome for infection. 4. Anemia: worsening. prob multifactorial, incl surgical blood loss, inflammation, dilutional effects. currently above 10 Hgb, i.e. safe range. monitor 5. Azotemia: sl worse today, indicating dehydration 6. Hypernatremia: increase IVF, change to 1/2 NS 7. tobacco abuse 8. prophylaxis: lovenox, H2B Vitals Vitals Vital Signs Date Time Temp Pulse Resp B/P (MAP) Pulse Ox O2 Delivery O2 Flow Rate FiO2 09/04/16 11:00 97.6 45 18 123/66 (85) 95 Room Air 97.6 09/04/16 08:20 2.0 Physical Exam General: Alert, Oriented X3, Cooperative, No acute distress Heart: Regular rate, No murmurs Lungs: Clear, Other (no crackles or wheezes) Abdomen: Soft, Other (incision c/d/i, no erythema, g tube to DD) Extremities: No clubbing, No cyanosis, No edema Skin: No rashes, No breakdown Labs LABS Laboratory Tests Test 09/04/16 03:24 White Blood Count 12.1 x10^3/uL (4.0-11.0) Red Blood Count 3.54 x10^6/uL (4.30-5.70) Hemoglobin 10.6 g/dL (13.0-17.5) Hematocrit 31.8 % (39.0-53.0) Mean Corpuscular Volume 90 fL (79-100) Mean Corpuscular Hemoglobin 30 pg (25-35) Mean Corpuscular Hemoglobin Concent 33 g/dL (31-37) Red Cell Distribution Width 13.4 % (11.5-14.5) Platelet Count 286 x10^3/uL (140-400) Neutrophils (%) (Auto) 84 % (31-73) Lymphocytes (%) (Auto) 8 % (24-48) Monocytes (%) (Auto) 8 % (0-9) Eosinophils (%) (Auto) 0 % (0-3) Basophils (%) (Auto) 0 % (0-3) Neutrophils # (Auto) 10.1 x10^3uL (1.8-7.7) Lymphocytes # (Auto) 1.0 x10^3/uL (1.0-4.8) Monocytes # (Auto) 0.9 x10^3/uL (0.0-1.1) Eosinophils # (Auto) 0.0 x10^3/uL (0.0-0.7) Basophils # (Auto) 0.0 x10^3/uL (0.0-0.2) Sodium Level 146 mmol/L (136-145) Potassium Level 3.7 mmol/L (3.5-5.1) Chloride Level 111 mmol/L (98-107) Carbon Dioxide Level 23 mmol/L (21-32) Anion Gap 12 (6-14) Blood Urea Nitrogen 29 mg/dL (8-26) Creatinine 0.8 mg/dL (0.7-1.3) Estimated GFR (Cockcroft-Gault) 95.6 Glucose Level 93 mg/dL (70-99) Calcium Level 8.0 mg/dL (8.5-10.1) NEHEMIAH ANDERSON MD Sep 04, 2016 14:00
[2016-09-04 15:00] VITALS: BP 128/65
[2016-09-04 19:36] VITALS: BP 132/69
[2016-09-04 23:19] VITALS: BP 139/73
[2016-09-05] MEDS: PIPERACILLIN/TAZOBACTAM 3.375 GM in IV NORMAL SALINE 50ML 50 ML IV SCH ×4 (00:45→18:00)
[2016-09-05] MEDS ORDERED: POTASSIUM CHLORIDE 20 MEQ in IV 1/2 NORMAL SALINE 1,000 ML IV SCH (01:30)
[2016-09-05 03:23] VITALS: BP 127/63
[2016-09-05] MEDS: POTASSIUM CL 20MEQ-0.45% NACL 1,000 ML IV SCH ×2 (04:16→14:50)
[2016-09-05 04:31] LABS: BASO % 0 % (0-3); EOS % 0 % (0-3); HEMATOCRIT 31.3 % (39.0-53.0); HEMOGLOBIN 10.4 g/dL (13.0-17.5); LYMPH # 1.1 x10^3/uL (1.0-4.8); LYMPH % 9 % (24-48); MEAN CORPUSCULAR HEMOGLOBIN 30 pg (25-35); MEAN CORPUSCULAR HGB CONC 33 g/dL (31-37); MEAN CORPUSCULAR VOLUME 90 fL (79-100); MONO % 10 % (0-9); NEUT % 81 % (31-73); PLATELET COUNT 290 x10^3/uL (140-400); RED BLOOD COUNT 3.46 x10^6/uL (4.30-5.70); RED CELL DISTRIBUTION WIDTH 13.3 % (11.5-14.5); WHITE BLOOD COUNT 12.4 x10^3/uL (4.0-11.0)
[2016-09-05 04:48] LABS: CALCIUM 7.4 mg/dL (8.5-10.1); CREATININE 0.8 mg/dL (0.7-1.3); GFR 95.6; POTASSIUM 3.5 mmol/L (3.5-5.1)
[2016-09-05 07:00] VITALS: BP 136/69
--- NOTE | 2016-09-05 08:31 | PDOC2 ---
IM Consult Reason for consult Leukocytosis Referring physician Dr. Ken Date of Admission DATE: 09/05/16 TIME: 08:20 Chief Complaint Chief Complaint This 70 year old male has been admitted with a chief complaint of abd pain. History of Present Illness 70 y/o male with h/p HTN/HLD presented with 2 week hx of nagging abd pain, mainly epigastric no radiation, no identifiable precipitating or alleviating factors, 10/05 at ER after pain meds, , no emesis, no melena but does admit to constipation, no change in weight, no fever, Abd pain persisted this AM so went to ER. CT did show perf duodenal ulcer and now s/p antrectomy 09/01. Clinically he is feeling better each day. He ambulated yesterday whcih relieved some back ache from laying in the bed. He passed flatus last evening but no BM. Is a little hungry Problems: Past Medical History Cardiovascular: No pertinent hx, HTN, Hyperlipidemia Pulmonary: No pertinent hx GI: No pertinent hx Heme/Onc: No pertinent hx Hepatobiliary: No pertinent hx Psych: No pertinent hx Rheumatologic: No pertinent hx Infectious disease: No pertinent hx ENT: No pertinent hx Renal/: No pertinent hx Endocrine: No pertinent hx, Hyperparathyroidism Dermatology: No pertinent hx Past Surgical History Past Surgical History: Other (parathyroidectomy) Past Family History Family History: High Cholestrol, Hypertension Review of Symptoms Review of Symptoms General ROS: feels a little weak from laying in bed Psychological ROS: negative Ophthalmic ROS: negative ENT ROS: negative Allergy and Immunology ROS: negative Hematology and Lymphatic: negative Endocrine ROS: negative Respiratory ROS: no cold, cough, dyspnea. Cardiovascular ROS: no chest pain or dyspnea on exertion Gastrointestinal ROS: min abdominal incisional pain Genito-Urinary ROS: no dysuria, trouble voiding, or hematuria Musculoskeletal ROS: mild back discomfort from the bed but improved with ambulation Neurological ROS: negative Dermatological ROS: no rash Medications Current Medications Potassium Chloride 20 meq/ Sodium Chloride 1,010 ml @ 75 mls/hr [id number] IV ; Start 09/05/16 at 01:30; Status UNV Potassium Chloride/Sodium Chloride 1,000 ml @ 75 mls/hr [id number] IV Last administered on 09/05/16t 04:16; Start 09/05/16 at 01:30 Allergy Allergies Coded Allergies Type Severity Reaction Last Updated Verified No Known Drug Allergies 09/01/16 No Physical Exam Physical Exam General appearance - alert,well appearing, and in no distress and oriented to person, place, and time. Appears comfortable Mental Status - alert, oriented to person, place, and time, affect appropriate to mood Head - normal. Wears glasses, PERRLA, OC/Op- clear. NGT Chest - clear to auscultation, no wheezes, rales or rhonchi, symmetric air entry Heart - S1 and S2 normal Abdomen - soft, nontender, nondistended, 2 drains. Incision clean and healing well with juan in place Neurological - alert and oriented Musculoskeletal - no muscular tenderness noted Extremities - no pedal edema Skin - warm and dry Labs Laboratory Tests Test 09/04/16 03:24 09/05/16 03:40 White Blood Count 12.1 x10^3/uL (4.0-11.0) 12.4 x10^3/uL (4.0-11.0) Red Blood Count 3.54 x10^6/uL (4.30-5.70) 3.46 x10^6/uL (4.30-5.70) Hemoglobin 10.6 g/dL (13.0-17.5) 10.4 g/dL (13.0-17.5) Hematocrit 31.8 % (39.0-53.0) 31.3 % (39.0-53.0) Mean Corpuscular Volume 90 fL (79-100) 90 fL (79-100) Mean Corpuscular Hemoglobin 30 pg (25-35) 30 pg (25-35) Mean Corpuscular Hemoglobin Concent 33 g/dL (31-37) 33 g/dL (31-37) Red Cell Distribution Width 13.4 % (11.5-14.5) 13.3 % (11.5-14.5) Platelet Count 286 x10^3/uL (140-400) 290 x10^3/uL (140-400) Neutrophils (%) (Auto) 84 % (31-73) 81 % (31-73) Lymphocytes (%) (Auto) 8 % (24-48) 9 % (24-48) Monocytes (%) (Auto) 8 % (0-9) 10 % (0-9) Eosinophils (%) (Auto) 0 % (0-3) 0 % (0-3) Basophils (%) (Auto) 0 % (0-3) 0 % (0-3) Neutrophils # (Auto) 10.1 x10^3uL (1.8-7.7) 10.0 x10^3uL (1.8-7.7) Lymphocytes # (Auto) 1.0 x10^3/uL (1.0-4.8) 1.1 x10^3/uL (1.0-4.8) Monocytes # (Auto) 0.9 x10^3/uL (0.0-1.1) 1.2 x10^3/uL (0.0-1.1) Eosinophils # (Auto) 0.0 x10^3/uL (0.0-0.7) 0.1 x10^3/uL (0.0-0.7) Basophils # (Auto) 0.0 x10^3/uL (0.0-0.2) 0.0 x10^3/uL (0.0-0.2) Sodium Level 146 mmol/L (136-145) 151 mmol/L (136-145) Potassium Level 3.7 mmol/L (3.5-5.1) 3.5 mmol/L (3.5-5.1) Chloride Level 111 mmol/L (98-107) 115 mmol/L (98-107) Carbon Dioxide Level 23 mmol/L (21-32) 26 mmol/L (21-32) Anion Gap 12 (6-14) 10 (6-14) Blood Urea Nitrogen 29 mg/dL (8-26) 34 mg/dL (8-26) Creatinine 0.8 mg/dL (0.7-1.3) 0.8 mg/dL (0.7-1.3) Estimated GFR (Cockcroft-Gault) 95.6 95.6 Glucose Level 93 mg/dL (70-99) 98 mg/dL (70-99) Calcium Level 8.0 mg/dL (8.5-10.1) 7.4 mg/dL (8.5-10.1) Laboratory Tests Test 09/05/16 03:40 White Blood Count 12.4 x10^3/uL (4.0-11.0) Red Blood Count 3.46 x10^6/uL (4.30-5.70) Hemoglobin 10.4 g/dL (13.0-17.5) Hematocrit 31.3 % (39.0-53.0) Mean Corpuscular Volume 90 fL (79-100) Mean Corpuscular Hemoglobin 30 pg (25-35) Mean Corpuscular Hemoglobin Concent 33 g/dL (31-37) Red Cell Distribution Width 13.3 % (11.5-14.5) Platelet Count 290 x10^3/uL (140-400) Neutrophils (%) (Auto) 81 % (31-73) Lymphocytes (%) (Auto) 9 % (24-48) Monocytes (%) (Auto) 10 % (0-9) Eosinophils (%) (Auto) 0 % (0-3) Basophils (%) (Auto) 0 % (0-3) Neutrophils # (Auto) 10.0 x10^3uL (1.8-7.7) Lymphocytes # (Auto) 1.1 x10^3/uL (1.0-4.8) Monocytes # (Auto) 1.2 x10^3/uL (0.0-1.1) Eosinophils # (Auto) 0.1 x10^3/uL (0.0-0.7) Basophils # (Auto) 0.0 x10^3/uL (0.0-0.2) Sodium Level 151 mmol/L (136-145) Potassium Level 3.5 mmol/L (3.5-5.1) Chloride Level 115 mmol/L (98-107) Carbon Dioxide Level 26 mmol/L (21-32) Anion Gap 10 (6-14) Blood Urea Nitrogen 34 mg/dL (8-26) Creatinine 0.8 mg/dL (0.7-1.3) Estimated GFR (Cockcroft-Gault) 95.6 Glucose Level 98 mg/dL (70-99) Calcium Level 7.4 mg/dL (8.5-10.1) Vitals Vital Signs Date Time Temp Pulse Resp B/P (MAP) Pulse Ox O2 Delivery O2 Flow Rate FiO2 09/05/16 03:23 97.5 42 18 127/63 (84) 94 Room Air 97.5 09/04/16 20:00 2.0 Assessment Assessment Leukocytosis without fever and clinically states is improving. On Zosyn since 09/01 Perf Viscous S/p Antrectomy 09/01 Hypernatremia Plan Plan Maybe a reactive process. For now cont Zosyn If spikes or clinically declines will broaden coverage and will need additional imaging F/u labs and renal/Card consults Thank you VITALIY RAINEY MD Sep 05, 2016 08:31
--- NOTE | 2016-09-05 09:29 | PDOC ---
PROGRESS NOTES Chief Complaint Chief Complaint perforated viscus, acute abdomen ASSESSMENT AND PLAN: 1. perforated duodenum: s/p repair on 09/[address] Jolly. recovering appropriately. remains NPO with NGT to suction 2. Peritonitis: on Zosyn; 3. Leukocytosis: worsening. clinically stable, but worrisome for infection. 4. Anemia: worsening. prob multifactorial, incl surgical blood loss, inflammation, dilutional effects. currently above 10 Hgb, i.e. safe range. monitor 5. Azotemia: sl worse today, indicating dehydration 6. Hypernatremia: increase IVF, change to 1/2 NS, add procalamine 7. tobacco abuse 8. prophylaxis: lovenox, H2B History of Present Illness History of Present Illness + flatus, no pain, feels well a lot of NG tube output still pt would like water or ice chips, will add biotene and lozenges, Vitals Vitals Vital Signs Date Time Temp Pulse Resp B/P (MAP) Pulse Ox O2 Delivery O2 Flow Rate FiO2 09/05/16 07:00 97.7 45 18 136/69 (91) 94 Nasal Cannula 2.0 97.7 Physical Exam General: Alert, Oriented X3, Cooperative, No acute distress Heart: Regular rate, No murmurs Lungs: Clear, Other (no crackles or wheezes) Abdomen: Soft, Other (incision c/d/i, no erythema, g tube to DD) Extremities: No clubbing, No cyanosis, No edema Skin: No rashes, No breakdown Labs LABS Laboratory Tests Test 09/05/16 03:40 White Blood Count 12.4 x10^3/uL (4.0-11.0) Red Blood Count 3.46 x10^6/uL (4.30-5.70) Hemoglobin 10.4 g/dL (13.0-17.5) Hematocrit 31.3 % (39.0-53.0) Mean Corpuscular Volume 90 fL (79-100) Mean Corpuscular Hemoglobin 30 pg (25-35) Mean Corpuscular Hemoglobin Concent 33 g/dL (31-37) Red Cell Distribution Width 13.3 % (11.5-14.5) Platelet Count 290 x10^3/uL (140-400) Neutrophils (%) (Auto) 81 % (31-73) Lymphocytes (%) (Auto) 9 % (24-48) Monocytes (%) (Auto) 10 % (0-9) Eosinophils (%) (Auto) 0 % (0-3) Basophils (%) (Auto) 0 % (0-3) Neutrophils # (Auto) 10.0 x10^3uL (1.8-7.7) Lymphocytes # (Auto) 1.1 x10^3/uL (1.0-4.8) Monocytes # (Auto) 1.2 x10^3/uL (0.0-1.1) Eosinophils # (Auto) 0.1 x10^3/uL (0.0-0.7) Basophils # (Auto) 0.0 x10^3/uL (0.0-0.2) Sodium Level 151 mmol/L (136-145) Potassium Level 3.5 mmol/L (3.5-5.1) Chloride Level 115 mmol/L (98-107) Carbon Dioxide Level 26 mmol/L (21-32) Anion Gap 10 (6-14) Blood Urea Nitrogen 34 mg/dL (8-26) Creatinine 0.8 mg/dL (0.7-1.3) Estimated GFR (Cockcroft-Gault) 95.6 Glucose Level 98 mg/dL (70-99) Calcium Level 7.4 mg/dL (8.5-10.1) Review of Systems Review of Systems dry mouth, thirsty Assessment and Plan Assessmemt and Plan Problems Medical Problems: (1) Lactic acid acidosis Status: Acute (2) Perforated abdominal viscus Status: Acute Problems: Comment Review of Relevant I have reviewed the following items shaw (where applicable) has been applied. Labs Laboratory Tests Test 09/04/16 03:24 09/05/16 03:40 White Blood Count 12.1 x10^3/uL (4.0-11.0) 12.4 x10^3/uL (4.0-11.0) Red Blood Count 3.54 x10^6/uL (4.30-5.70) 3.46 x10^6/uL (4.30-5.70) Hemoglobin 10.6 g/dL (13.0-17.5) 10.4 g/dL (13.0-17.5) Hematocrit 31.8 % (39.0-53.0) 31.3 % (39.0-53.0) Mean Corpuscular Volume 90 fL (79-100) 90 fL (79-100) Mean Corpuscular Hemoglobin 30 pg (25-35) 30 pg (25-35) Mean Corpuscular Hemoglobin Concent 33 g/dL (31-37) 33 g/dL (31-37) Red Cell Distribution Width 13.4 % (11.5-14.5) 13.3 % (11.5-14.5) Platelet Count 286 x10^3/uL (140-400) 290 x10^3/uL (140-400) Neutrophils (%) (Auto) 84 % (31-73) 81 % (31-73) Lymphocytes (%) (Auto) 8 % (24-48) 9 % (24-48) Monocytes (%) (Auto) 8 % (0-9) 10 % (0-9) Eosinophils (%) (Auto) 0 % (0-3) 0 % (0-3) Basophils (%) (Auto) 0 % (0-3) 0 % (0-3) Neutrophils # (Auto) 10.1 x10^3uL (1.8-7.7) 10.0 x10^3uL (1.8-7.7) Lymphocytes # (Auto) 1.0 x10^3/uL (1.0-4.8) 1.1 x10^3/uL (1.0-4.8) Monocytes # (Auto) 0.9 x10^3/uL (0.0-1.1) 1.2 x10^3/uL (0.0-1.1) Eosinophils # (Auto) 0.0 x10^3/uL (0.0-0.7) 0.1 x10^3/uL (0.0-0.7) Basophils # (Auto) 0.0 x10^3/uL (0.0-0.2) 0.0 x10^3/uL (0.0-0.2) Sodium Level 146 mmol/L (136-145) 151 mmol/L (136-145) Potassium Level 3.7 mmol/L (3.5-5.1) 3.5 mmol/L (3.5-5.1) Chloride Level 111 mmol/L (98-107) 115 mmol/L (98-107) Carbon Dioxide Level 23 mmol/L (21-32) 26 mmol/L (21-32) Anion Gap 12 (6-14) 10 (6-14) Blood Urea Nitrogen 29 mg/dL (8-26) 34 mg/dL (8-26) Creatinine 0.8 mg/dL (0.7-1.3) 0.8 mg/dL (0.7-1.3) Estimated GFR (Cockcroft-Gault) 95.6 95.6 Glucose Level 93 mg/dL (70-99) 98 mg/dL (70-99) Calcium Level 8.0 mg/dL (8.5-10.1) 7.4 mg/dL (8.5-10.1) Laboratory Tests Test 09/05/16 03:40 White Blood Count 12.4 x10^3/uL (4.0-11.0) Red Blood Count 3.46 x10^6/uL (4.30-5.70) Hemoglobin 10.4 g/dL (13.0-17.5) Hematocrit 31.3 % (39.0-53.0) Mean Corpuscular Volume 90 fL (79-100) Mean Corpuscular Hemoglobin 30 pg (25-35) Mean Corpuscular Hemoglobin Concent 33 g/dL (31-37) Red Cell Distribution Width 13.3 % (11.5-14.5) Platelet Count 290 x10^3/uL (140-400) Neutrophils (%) (Auto) 81 % (31-73) Lymphocytes (%) (Auto) 9 % (24-48) Monocytes (%) (Auto) 10 % (0-9) Eosinophils (%) (Auto) 0 % (0-3) Basophils (%) (Auto) 0 % (0-3) Neutrophils # (Auto) 10.0 x10^3uL (1.8-7.7) Lymphocytes # (Auto) 1.1 x10^3/uL (1.0-4.8) Monocytes # (Auto) 1.2 x10^3/uL (0.0-1.1) Eosinophils # (Auto) 0.1 x10^3/uL (0.0-0.7) Basophils # (Auto) 0.0 x10^3/uL (0.0-0.2) Sodium Level 151 mmol/L (136-145) Potassium Level 3.5 mmol/L (3.5-5.1) Chloride Level 115 mmol/L (98-107) Carbon Dioxide Level 26 mmol/L (21-32) Anion Gap 10 (6-14) Blood Urea Nitrogen 34 mg/dL (8-26) Creatinine 0.8 mg/dL (0.7-1.3) Estimated GFR (Cockcroft-Gault) 95.6 Glucose Level 98 mg/dL (70-99) Calcium Level 7.4 mg/dL (8.5-10.1) Medications Current Medications Sodium Chloride 1,000 ml @ 1,000 mls/hr 1X ONCE IV Last administered on 07:45; Start 09/01/16 at 07:30; Stop 09/01/16 at 08:29; Status DC Ondansetron HCl (Zofran) 4 mg 1X ONCE IV Last administered on 09/01/16 07:44; Start 09/01/16 at 07:30; Stop 09/01/16 at 07:31; Status DC Fentanyl Citrate (Fentanyl 2ml Vial) 75 mcg 1X ONCE IV Last administered on 07:44; Start 09/01/16 at 07:30; Stop 09/01/16 at 07:31; Status DC Iohexol (Omnipaque 300 Mg/ml) 75 ml 1X ONCE IV Last administered on 09/01/16 08:24; Start 09/01/16 at 08:30; Stop 09/01/16 at 08:31; Status DC Info (Do NOT chart on this entry -- for MONITORING) 1 each PRN DAILY PRN MC SEE COMMENTS; Start 09/01/16 at 08:30; Stop 09/03/16 at 08:29; Status DC Morphine Sulfate 5 mg 1X ONCE IV Last administered on 09/01/16 08:41; Start at 08:45; Stop 09/01/16 at 08:46; Status DC Sodium Chloride 1,000 ml @ 1,000 mls/hr 1X ONCE IV Last administered on 08:40; Start 09/01/16 at 08:45; Stop 09/01/16 at 09:44; Status DC Piperacillin Sod/ Tazobactam Sod 3.375 gm/Sodium Chloride 50 ml @ 100 mls/hr Q6HRS IV Last administered on 09/05/16 05:58; Start 09/01/16 at 10:00 Famotidine (Pepcid) 20 mg 1X ONCE IVP Last administered on 09/01/16 09:46; Start 09/01/16 at 09:45; Stop 09/01/16 at 09:46; Status DC Ondansetron HCl (Zofran) 4 mg PRN Q8HRS PRN IV NAUSEA/VOMITING; Start 09/01/16 at 09:30; Stop 09/02/16 at 08:33; Status DC Morphine Sulfate 4 mg PRN Q2HR PRN IV PAIN; Start 09/01/16 at 09:30; Stop at 09:29; Status DC Sodium Chloride 1,000 ml @ 100 mls/hr Q10H IV Last administered on 09/04/16 18:30; Start 09/01/16 at 10:30; Stop 09/05/16 at 01:57; Status DC Acetaminophen (Tylenol) 500 mg PRN Q6HRS PRN PO MILD PAIN / TEMP; Start at 10:30 Famotidine (Pepcid) 20 mg BID IVP Last administered on 09/01/16 11:14; Start at 11:00; Stop 09/01/16 at 15:40; Status DC Ondansetron HCl (Zofran) 4 mg PRN Q6HRS PRN IV NAUSEA/VOMITING; Start 09/01/16 at 12:15; Stop 09/02/16 at 08:33; Status DC Fentanyl Citrate (Fentanyl 2ml Vial) 25 mcg PRN Q5MIN PRN IV MILD PAIN Last administered on 09/01/16 16:00; Start 09/01/16 at 12:15; Stop 09/02/16 at 12:14; Status DC Fentanyl Citrate (Fentanyl 2ml Vial) 50 mcg PRN Q5MIN PRN IV MODERATE PAIN Last administered on 09/01/16 15:54; Start 09/01/16 at 12:15; Stop 09/02/16 at 12: 14; Status DC Morphine Sulfate 1 mg PRN Q10MIN PRN IV SEVERE PAIN; Start 09/01/16 at 12:15; Stop 09/02/16 at 12:14; Status DC Ringer's Solution 1,000 ml @ 30 mls/hr Q24H IV ; Start 09/01/16 at 12:04; Stop 09/01/16 at 19:07; Status DC Lidocaine HCl 2 ml PRN 1X PRN ID PRIOR TO IV START; Start 09/01/16 at 12:15; Stop 09/02/16 at 12:14; Status DC Hydromorphone HCl (Dilaudid) 0.5 mg PRN Q10MIN PRN IV SEV PAIN, Second choice; Start 09/01/16 at 12:15; Stop 09/02/16 at 12:14; Status DC Prochlorperazine Edisylate (Compazine) 5 mg PACU PRN PRN IV NAUSEA, MRX1; Start 09/01/16 at 12:15; Stop 09/02/16 at 12:14; Status DC Desflurane (Suprane) 60 ml STK-MED ONCE IH ; Start 09/01/16 at 12:16; Stop at 12:17; Status DC Fentanyl Citrate (Fentanyl 2ml Vial) 100 mcg STK-MED ONCE .ROUTE ; Start at 12:17; Stop 09/01/16 at 12:18; Status DC Succinylcholine Chloride (Anectine) 200 mg STK-MED ONCE .ROUTE ; Start 09/01/16 at 12:17; Stop 09/01/16 at 12:18; Status DC Glycopyrrolate (Robinul) 1 mg STK-MED ONCE .ROUTE ; Start 09/01/16 at 12:17; Stop 09/01/16 at 12:18; Status DC Neostigmine Methylsulfate 5 mg STK-MED ONCE .ROUTE ; Start 09/01/16 at 12:17; Stop 09/01/16 at 12:18; Status DC Rocuronium Switzer (Zemuron) 50 mg STK-MED ONCE .ROUTE ; Start 09/01/16 at 12:18 ; Stop 09/01/16 at 12:19; Status DC Propofol 20 ml @ As Directed STK-MED ONCE IV ; Start 09/01/16 at 12:18; Stop 09/01 at 12:19; Status DC Lidocaine HCl (Lidocaine Pf 2% Vial) 5 ml STK-MED ONCE .ROUTE ; Start 09/01/16 at 12:18; Stop 09/01/16 at 12:19; Status DC Dexamethasone Sodium Phosphate (Decadron) 20 mg STK-MED ONCE .ROUTE ; Start 09/01 at 12:18; Stop 09/01/16 at 12:19; Status DC Ondansetron HCl (Zofran) 4 mg STK-MED ONCE .ROUTE ; Start 09/01/16 at 12:18; Stop 09/01/16 at 12:19; Status DC Famotidine (Pepcid) 20 mg STK-MED ONCE .ROUTE ; Start 09/01/16 at 12:32; Stop 09/01/16 at 12:33; Status DC Cefoxitin Sodium 100 ml @ As Directed STK-MED ONCE IV ; Start 09/01/16 at 13:30 ; Stop 09/01/16 at 13:31; Status DC Fentanyl Citrate (Fentanyl 2ml Vial) 100 mcg STK-MED ONCE .ROUTE ; Start at 13:35; Stop 09/01/16 at 13:36; Status DC Sodium Chloride (Sodium Chloride) 50 ml STK-MED ONCE IJ ; Start 09/01/16 at 14:05 ; Stop 09/01/16 at 14:06; Status DC Morphine Sulfate 10 mg STK-MED ONCE .ROUTE ; Start 09/01/16 at 14:05; Stop at 14:06; Status DC Vecuronium Switzer (Norcuron Bolus) 10 mg STK-MED ONCE IV ; Start 09/01/16 at 14: 05; Stop 09/01/16 at 14:06; Status DC Sevoflurane (Ultane) 90 ml STK-MED ONCE IH ; Start 09/01/16 at 15:10; Stop at 15:11; Status DC Famotidine (Pepcid) 20 mg BID IVP Last administered on 09/04/16t 22:15; Start 09/01/16 at 21:00 Enoxaparin Sodium (Lovenox 40mg Syringe) 40 mg Q24H SQ Last administered on 09:27; Start 09/02/16 at 09:00 Sodium Chloride (Normal Saline Flush) 3 ml QSHIFT PRN IV AFTER MEDS AND BLOOD DRAWS; Start 09/01/16 at 15:15 Ringer's Solution 1,000 ml @ 100 mls/hr Q10H IV ; Start 09/01/16 at 15:06; Stop 09/01/16 at 19:07; Status DC Naloxone HCl (Narcan) 0.4 mg PRN Q2MIN PRN IV SEE INSTRUCTIONS; Start 09/01/16 at 15:15 Sodium Chloride 1,000 ml @ 25 mls/hr Q24H IV Last administered on 09/04/16 15 :06; Start 09/01/16 at 15:06; Stop 09/05/16 at 01:23; Status DC Hydromorphone HCl 30 ml @ 0 mls/hr CONT PRN PRN IV PROTOCOL Last administered on 09/03/16 04:38; Start 09/01/16 at 15:15 Ondansetron HCl (Zofran) 4 mg PRN Q6HRS PRN IV NAUESA, 1ST CHOICE; Start at 15:15 Bupivacaine HCl/ Epinephrine Bitart (Marcaine-Epi 0.5%-1:[id number]) 50 ml STK-MED ONCE .ROUTE Last administered on 09/01/16 13:29; Start 09/01/16 at 15:14; Stop 09/01/16 at 15:15; Status DC Ketamine HCl 500 mg STK-MED ONCE .ROUTE ; Start 09/01/16 at 15:17; Stop 09/01/16 at 15:18; Status DC Calcium Chloride 1000 mg/Sodium Chloride 60 ml @ 120 mls/hr 1X ONCE IV ; Start 09/03/16 at 12:30; Stop 09/03/16 at 12:30; Status DC Calcium Gluconate 1000 mg/Sodium Chloride 110 ml @ 220 mls/hr 1X ONCE IV Last administered on 09/03/16 14:40; Start 09/03/16 at 13:00; Stop 09/03/16 at 13: 29; Status DC Potassium Chloride 20 meq/ Sodium Chloride 1,010 ml @ 75 mls/hr [id number] IV ; Start 09/05/16 at 01:30; Status UNV Potassium Chloride/Sodium Chloride 1,000 ml @ 75 mls/hr [id number] IV Last administered on 7/11/17at 04:16; Start 09/05/16 at 01:30 Amino Acids/ Glycerin/ Electrolytes 1,000 ml @ 50 mls/hr Q20H IV ; Start at 09:30 Albuterol Sulfate (Ventolin Neb Soln) 2.5 mg PRN QID PRN NEB DYSPNEA, WHEEZING ; Start 09/05/16 at 09:30 Active Scripts Active Reported Aspir 81 (Aspirin) 81 Mg Tablet.dr 81 Mg PO Ultracet Tablet (Tramadol Hcl/Acetaminophen) 1 Each Tablet 1 Tab PO TID Lipitor (Atorvastatin Calcium) 10 Mg Tablet 1 Tab PO DAILY Indapamide 1.25 Mg Tablet 1.25 Mg PO Diovan Hct 80-12.5 Mg Tablet (Valsartan/Hydrochlorothiazide) 1 Each Tablet 1 Each PO Naproxen Sodium 550 Mg Tablet 375 Mg PO PRN Vitals/I & O Vital Sign - Last 24 Hours 09/04/16 09/04/16 09/04/16 09/04/16 11:00 15:00 19:36 20:00 Temp 97.6 97.5 98.1 97.6 97.5 98.1 Pulse 45 45 42 Resp 18 18 18 B/P (MAP) 123/66 (85) 128/65 (86) 132/69 (90) Pulse Ox 95 92 96 O2 Delivery Room Air Room Air Room Air Nasal Cannula O2 Flow Rate 2.0 09/04/16 09/05/16 09/05/16 23:19 03:23 07:00 Temp 97.7 97.5 97.7 97.7 97.5 97.7 Pulse 49 42 45 Resp 18 18 18 B/P (MAP) 139/73 (95) 127/63 (84) 136/69 (91) Pulse Ox 96 94 94 O2 Delivery Room Air Room Air Nasal Cannula O2 Flow Rate 2.0 Intake and Output 09/04/16 09/04/16 09/05/16 14:59 22:59 06:59 Intake Total 950 ml Output Total 230 ml 300 ml Balance -230 ml 650 ml KEO MITCHELL MD Sep 05, 2016 09:29
[2016-09-05] MEDS ORDERED: BENZOCAINE/MENTHOL LOZENGE. PO PRN (09:30)
[2016-09-05] MEDS ORDERED: AMINO AC 3%/ELECTROLYTE/GLYCER 1,000 ML IV SCH (09:30)
[2016-09-05] MEDS ORDERED: ALBUTEROL SULFATE 2.5 MG/3 ML NEBU. NEB PRN (09:30)
[2016-09-05] MEDS ORDERED: SALIVA STIMULANT AGENT 44ML SPRAY BOTTLE. PO PRN (09:30)
--- NOTE | 2016-09-05 10:13 | PDOC2 ---
CARDIAC CONSULT DATE OF CONSULT Date of Consult DATE: 09/05/16 TIME: 10:00 REASON FOR CONSULT Reason for Consult: bradycardia REFERRING PHYSICIAN Referring Physician: Shanae SOURCE Source: Chart review, Patient HISTORY OF PRESENT ILLNESS HISTORY OF PRESENT ILLNESS This is a pleasant 70 yo male admitted for complains of abdominal and was noted with perforated DU upon further testing prompting antrectomy. 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 During his stay he has been noted with HR slowest at 38 and today had an episode of NSVT while he was asleep. Prior to his hospitalization he has never had episode of syncope and has not been told of any cardiac diseases or significant arrhythmias. He does not take any AV poppy blocking agents or opioids. As an inpt. he has not had any cardiac symptoms. No CP, SOA, nor palpitations. Last night he has had difficulty going to sleep and so he used his PIPELINE OPERATOR more often otherwise his pain is controlled. Denies any prior CAD, CVA. PAST MEDICAL HISTORY Cardiovascular: HTN, Hyperlipidemia Pulmonary: No pertinent hx CENTRAL NERVOUS SYSTEM: Other (No pertinent history) GI: No pertinent hx Heme/Onc: No pertinent hx Psych: No pertinent hx Musculoskeletal: Osteoarthritis Rheumatologic: No pertinent hx Infectious disease: No pertinent hx ENT: No pertinent hx Renal/: No pertinent hx Endocrine: Hyperparathyroidism Dermatology: No pertinent hx PAST SURGICAL HISTORY Past Surgical History: Other (parathyroidectomy) FAMILY HISTORY Family History: Coronary Artery Disease (grandmother), Hypertension SOCIAL HISTORY Smoke: 1 pack per day ALCOHOL: occassional Drugs: None Lives: with Family CURRENT MEDICATIONS CURRENT MEDICATIONS Current Medications Medications (Trade) Dose Ordered Sig/Priyanka Route PRN Reason Start Time Stop Time Status Last Admin Dose Admin Potassium Chloride/Sodium Chloride 1,000 ml @ 75 mls/hr [id number] IV 09/05/16 01:30 09/05/16 04:16 ALLERGIES ALLERGIES: Coded Allergies: No Known Drug Allergies (Unverified , 09/01/16) ROS Review of System 14 point ROS evaluated with pertinent positives noted per HPI PHYSICAL EXAM General: Alert, Oriented X3, Cooperative, No acute distress HEENT: Atraumatic, Mucous membr. moist/pink Lungs: Other (diminished bases) Heart: Regular rate ([id number]), Normal S1, Normal S2, Other (2/6 systolic murmur to LLS border) Abdomen: Other (NGT to LIS, abdominal surgical incision with intact dressing) Skin: No breakdown, No significant lesion Neuro: Normal speech, Sensation intact Psych/Mental Status: Mental status NL, Mood NL MUSCULOSKELETAL: Osteoarthritic changes both hands VITALS VITALS Vital Signs Date Time Temp Pulse Resp B/P (MAP) Pulse Ox O2 Delivery O2 Flow Rate FiO2 09/05/16 07:00 97.7 45 18 136/69 (91) 94 Nasal Cannula 2.0 97.7 LABS Lab: Laboratory Tests Test 09/05/16 03:40 White Blood Count 12.4 x10^3/uL (4.0-11.0) Red Blood Count 3.46 x10^6/uL (4.30-5.70) Hemoglobin 10.4 g/dL (13.0-17.5) Hematocrit 31.3 % (39.0-53.0) Mean Corpuscular Volume 90 fL (79-100) Mean Corpuscular Hemoglobin 30 pg (25-35) Mean Corpuscular Hemoglobin Concent 33 g/dL (31-37) Red Cell Distribution Width 13.3 % (11.5-14.5) Platelet Count 290 x10^3/uL (140-400) Neutrophils (%) (Auto) 81 % (31-73) Lymphocytes (%) (Auto) 9 % (24-48) Monocytes (%) (Auto) 10 % (0-9) Eosinophils (%) (Auto) 0 % (0-3) Basophils (%) (Auto) 0 % (0-3) Neutrophils # (Auto) 10.0 x10^3uL (1.8-7.7) Lymphocytes # (Auto) 1.1 x10^3/uL (1.0-4.8) Monocytes # (Auto) 1.2 x10^3/uL (0.0-1.1) Eosinophils # (Auto) 0.1 x10^3/uL (0.0-0.7) Basophils # (Auto) 0.0 x10^3/uL (0.0-0.2) Sodium Level 151 mmol/L (136-145) Potassium Level 3.5 mmol/L (3.5-5.1) Chloride Level 115 mmol/L (98-107) Carbon Dioxide Level 26 mmol/L (21-32) Anion Gap 10 (6-14) Blood Urea Nitrogen 34 mg/dL (8-26) Creatinine 0.8 mg/dL (0.7-1.3) Estimated GFR (Cockcroft-Gault) 95.6 Glucose Level 98 mg/dL (70-99) Calcium Level 7.4 mg/dL (8.5-10.1) HEART CATH HEART CATH 1. Perforated DU with S/P antrectomy: POD#4 per general surgery 2. Asymptomatic Arrhythmia: SB lowest at upper 30s without pauses. Notable for NSVT today (could be donato induced). Suspect opioid (dilaudid) contributing in addition to lyte imbalance. 3. Hypernatremia/mild hypocalcemia: per PCP 4. Tobaccoism 5. Hx of parathyroidectomy 6. HTN: controlled Recommendations 1. TTE today 2. EKG and will note QTc. Will check HR with ambulation and will note chronotropic response. 3. Caution with QT prolonging meds and NO AV poppy blocking agents. May need decreasing PIPELINE OPERATOR or basal dosing. 4. K replacement ongoing, will check Mg and will replace as warranted. 5. Supportive care, monitor for any rhythm changes. Will plan for outpt event monitor if cardiac testing is inconclusive MERISSA CALABRESE APRN Sep 05, 2016 10:13
[2016-09-05] MEDS: ENOXAPARIN 40 MG/0.4 ML SYRINGE. SQ SCH (10:37)
[2016-09-05] MEDS: FAMOTIDINE 20 MG/2 ML VIAL IVP SCH ×2 (10:38→21:22)
--- NOTE | 2016-09-05 10:42 | EKG ---
[facility] [address] [place] [id number] Test Date: 2016-09-05 Test Time: 10:40:26 Pat Name: APOLINAR LUCIANO Department: Room: [facility] Gender: M Supply Technician: JASBIR : 1945 Requested By: MERISSA CALABRESE Order Number: [id number] Reading MD: Swetha Linn Measurements Intervals [place] Rate: 41 P: 30 VT: 216 QRS: -12 QRSD: 90 T: 20 QT: 462 QTc: 385 Interpretive Statements SINUS BRADYCARDIA LEFTWARD AXIS NO SPECIFIC ECG ABNORMALITIES RI6.01 Compared to ECG 11/08/2011 20:03:16 Sinus rhythm no longer present Electronically Signed On 09-10-2016 14:53:15 CDT by Swetha Linn
--- NOTE | 2016-09-05 11:18 | PDOC2 ---
CONSULT Date of Consult Date of Consult DATE: 09/05/16 TIME: 11:14 Reason for Consult Reason for Consult: LOW K AND HIGH NA Referring Physician Referring Physician: JEROME Identification/Chief Complaint Chief Complaint ABD PAIN Problems: Source Source: Chart review History of Present Illness Reason for Visit: THIS IS A 70 YR OLD ADMITTED WITH ABD PAIN. 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 HE IS NPO WITH AN NGT IN PLACE. LABS SHOWED A LOW K AND A NA OF 151. URINE SP GR IS 1.030. NO CKD HX. LABS C/W WITH PRERENAL AZOTEMIA Past Medical History Cardiovascular: HTN, Hyperlipidemia Pulmonary: No pertinent hx CENTRAL NERVOUS SYSTEM: Other GI: No pertinent hx Heme/Onc: No pertinent hx Hepatobiliary: No pertinent hx Psych: No pertinent hx Musculoskeletal: Osteoarthritis Rheumatologic: No pertinent hx Infectious disease: No pertinent hx ENT: No pertinent hx Renal/: No pertinent hx Endocrine: Hyperparathyroidism Dermatology: No pertinent hx Past Surgical History Past Surgical History: Other (parathyroidectomy) Family History Family History: Coronary Artery Disease, Hypertension Social History 1 pack per day ALCOHOL: occassional Drugs: None Lives: with Family Current Problem List Problem List Problems Medical Problems: (1) Lactic acid acidosis Status: Acute (2) Perforated abdominal viscus Status: Acute Current Medications Current Medications Current Medications Sodium Chloride 1,000 ml @ 1,000 mls/hr 1X ONCE IV Last administered on 07:45; Start 09/01/16 at 07:30; Stop 09/01/16 at 08:29; Status DC Ondansetron HCl (Zofran) 4 mg 1X ONCE IV Last administered on 09/01/16 07:44; Start 09/01/16 at 07:30; Stop 09/01/16 at 07:31; Status DC Fentanyl Citrate (Fentanyl 2ml Vial) 75 mcg 1X ONCE IV Last administered on 07:44; Start 09/01/16 at 07:30; Stop 09/01/16 at 07:31; Status DC Iohexol (Omnipaque 300 Mg/ml) 75 ml 1X ONCE IV Last administered on 09/01/16 08:24; Start 09/01/16 at 08:30; Stop 09/01/16 at 08:31; Status DC Info (Do NOT chart on this entry -- for MONITORING) 1 each PRN DAILY PRN MC SEE COMMENTS; Start 09/01/16 at 08:30; Stop 09/03/16 at 08:29; Status DC Morphine Sulfate 5 mg 1X ONCE IV Last administered on 09/01/16 08:41; Start at 08:45; Stop 09/01/16 at 08:46; Status DC Sodium Chloride 1,000 ml @ 1,000 mls/hr 1X ONCE IV Last administered on 08:40; Start 09/01/16 at 08:45; Stop 09/01/16 at 09:44; Status DC Piperacillin Sod/ Tazobactam Sod 3.375 gm/Sodium Chloride 50 ml @ 100 mls/hr Q6HRS IV Last administered on 09/05/16 05:58; Start 09/01/16 at 10:00 Famotidine (Pepcid) 20 mg 1X ONCE IVP Last administered on 09/01/16 09:46; Start 09/01/16 at 09:45; Stop 09/01/16 at 09:46; Status DC Ondansetron HCl (Zofran) 4 mg PRN Q8HRS PRN IV NAUSEA/VOMITING; Start 09/01/16 at 09:30; Stop 09/02/16 at 08:33; Status DC Morphine Sulfate 4 mg PRN Q2HR PRN IV PAIN; Start 09/01/16 at 09:30; Stop at 09:29; Status DC Sodium Chloride 1,000 ml @ 100 mls/hr Q10H IV Last administered on 09/04/16 18:30; Start 09/01/16 at 10:30; Stop 09/05/16 at 01:57; Status DC Acetaminophen (Tylenol) 500 mg PRN Q6HRS PRN PO MILD PAIN / TEMP; Start at 10:30 Famotidine (Pepcid) 20 mg BID IVP Last administered on 09/01/16 11:14; Start at 11:00; Stop 09/01/16 at 15:40; Status DC Ondansetron HCl (Zofran) 4 mg PRN Q6HRS PRN IV NAUSEA/VOMITING; Start 09/01/16 at 12:15; Stop 09/02/16 at 08:33; Status DC Fentanyl Citrate (Fentanyl 2ml Vial) 25 mcg PRN Q5MIN PRN IV MILD PAIN Last administered on 09/01/16t 16:00; Start 09/01/16 at 12:15; Stop 09/02/16 at 12:14; Status DC Fentanyl Citrate (Fentanyl 2ml Vial) 50 mcg PRN Q5MIN PRN IV MODERATE PAIN Last administered on 09/01/16t 15:54; Start 09/01/16 at 12:15; Stop 09/02/16 at 12: 14; Status DC Morphine Sulfate 1 mg PRN Q10MIN PRN IV SEVERE PAIN; Start 09/01/16 at 12:15; Stop 09/02/16 at 12:14; Status DC Ringer's Solution 1,000 ml @ 30 mls/hr Q24H IV ; Start 09/01/16 at 12:04; Stop 09/01/16 at 19:07; Status DC Lidocaine HCl 2 ml PRN 1X PRN ID PRIOR TO IV START; Start 09/01/16 at 12:15; Stop 09/02/16 at 12:14; Status DC Hydromorphone HCl (Dilaudid) 0.5 mg PRN Q10MIN PRN IV SEV PAIN, Second choice; Start 09/01/16 at 12:15; Stop 09/02/16 at 12:14; Status DC Prochlorperazine Edisylate (Compazine) 5 mg PACU PRN PRN IV NAUSEA, MRX1; Start 09/01/16 at 12:15; Stop 09/02/16 at 12:14; Status DC Desflurane (Suprane) 60 ml STK-MED ONCE IH ; Start 09/01/16 at 12:16; Stop at 12:17; Status DC Fentanyl Citrate (Fentanyl 2ml Vial) 100 mcg STK-MED ONCE .ROUTE ; Start at 12:17; Stop 09/01/16 at 12:18; Status DC Succinylcholine Chloride (Anectine) 200 mg STK-MED ONCE .ROUTE ; Start 09/01/16 at 12:17; Stop 09/01/16 at 12:18; Status DC Glycopyrrolate (Robinul) 1 mg STK-MED ONCE .ROUTE ; Start 09/01/16 at 12:17; Stop 09/01/16 at 12:18; Status DC Neostigmine Methylsulfate 5 mg STK-MED ONCE .ROUTE ; Start 09/01/16 at 12:17; Stop 09/01/16 at 12:18; Status DC Rocuronium Wana (Zemuron) 50 mg STK-MED ONCE .ROUTE ; Start 09/01/16 at 12:18 ; Stop 09/01/16 at 12:19; Status DC Propofol 20 ml @ As Directed STK-MED ONCE IV ; Start 09/01/16 at 12:18; Stop 09/01 at 12:19; Status DC Lidocaine HCl (Lidocaine Pf 2% Vial) 5 ml STK-MED ONCE .ROUTE ; Start 09/01/16 at 12:18; Stop 09/01/16 at 12:19; Status DC Dexamethasone Sodium Phosphate (Decadron) 20 mg STK-MED ONCE .ROUTE ; Start 09/01 at 12:18; Stop 09/01/16 at 12:19; Status DC Ondansetron HCl (Zofran) 4 mg STK-MED ONCE .ROUTE ; Start 09/01/16 at 12:18; Stop 09/01/16 at 12:19; Status DC Famotidine (Pepcid) 20 mg STK-MED ONCE .ROUTE ; Start 09/01/16 at 12:32; Stop 09/01/16 at 12:33; Status DC Cefoxitin Sodium 100 ml @ As Directed STK-MED ONCE IV ; Start 09/01/16 at 13:30 ; Stop 09/01/16 at 13:31; Status DC Fentanyl Citrate (Fentanyl 2ml Vial) 100 mcg STK-MED ONCE .ROUTE ; Start at 13:35; Stop 09/01/16 at 13:36; Status DC Sodium Chloride (Sodium Chloride) 50 ml STK-MED ONCE IJ ; Start 09/01/16 at 14:05 ; Stop 09/01/16 at 14:06; Status DC Morphine Sulfate 10 mg STK-MED ONCE .ROUTE ; Start 09/01/16 at 14:05; Stop at 14:06; Status DC Vecuronium Wana (Norcuron Bolus) 10 mg STK-MED ONCE IV ; Start 09/01/16 at 14: 05; Stop 09/01/16 at 14:06; Status DC Sevoflurane (Ultane) 90 ml STK-MED ONCE IH ; Start 09/01/16 at 15:10; Stop at 15:11; Status DC Famotidine (Pepcid) 20 mg BID IVP Last administered on 09/05/16 10:38; Start 09/01/16 at 21:00 Enoxaparin Sodium (Lovenox 40mg Syringe) 40 mg Q24H SQ Last administered on 10:37; Start 09/02/16 at 09:00 Sodium Chloride (Normal Saline Flush) 3 ml QSHIFT PRN IV AFTER MEDS AND BLOOD DRAWS; Start 09/01/16 at 15:15 Ringer's Solution 1,000 ml @ 100 mls/hr Q10H IV ; Start 09/01/16 at 15:06; Stop 09/01/16 at 19:07; Status DC Naloxone HCl (Narcan) 0.4 mg PRN Q2MIN PRN IV SEE INSTRUCTIONS; Start 09/01/16 at 15:15 Sodium Chloride 1,000 ml @ 25 mls/hr Q24H IV Last administered on 09/04/16 15 :06; Start 09/01/16 at 15:06; Stop 09/05/16 at 01:23; Status DC Hydromorphone HCl 30 ml @ 0 mls/hr CONT PRN PRN IV PROTOCOL Last administered on 09/03/16 04:38; Start 09/01/16 at 15:15 Ondansetron HCl (Zofran) 4 mg PRN Q6HRS PRN IV NAUESA, 1ST CHOICE; Start at 15:15 Bupivacaine HCl/ Epinephrine Bitart (Marcaine-Epi 0.5%-[id number]) 50 ml STK-MED ONCE .ROUTE Last administered on 09/01/16 13:29; Start 09/01/16 at 15:14; Stop 09/01/16 at 15:15; Status DC Ketamine HCl 500 mg STK-MED ONCE .ROUTE ; Start 09/01/16 at 15:17; Stop 09/01/16 at 15:18; Status DC Calcium Chloride 1000 mg/Sodium Chloride 60 ml @ 120 mls/hr 1X ONCE IV ; Start 09/03/16 at 12:30; Stop 09/03/16 at 12:30; Status DC Calcium Gluconate 1000 mg/Sodium Chloride 110 ml @ 220 mls/hr 1X ONCE IV Last administered on 09/03/16 14:40; Start 09/03/16 at 13:00; Stop 09/03/16 at 13: 29; Status DC Potassium Chloride 20 meq/ Sodium Chloride 1,010 ml @ 75 mls/hr [id number] IV ; Start 09/05/16 at 01:30; Status UNV Potassium Chloride/Sodium Chloride 1,000 ml @ 75 mls/hr [id number] IV Last administered on 09/05/16 04:16; Start 09/05/16 at 01:30 Amino Acids/ Glycerin/ Electrolytes 1,000 ml @ 50 mls/hr Q20H IV Last administered on 09/05/16 10:38; Start 09/05/16 at 09:30 Albuterol Sulfate (Ventolin Neb Soln) 2.5 mg PRN QID PRN NEB DYSPNEA, WHEEZING ; Start 09/05/16 at 09:30 Saliva Substitute (Biotene Moisturizing Mouth) 2 spray PRN Q15MIN PRN PO DRY MOUTH; Start 09/05/16 at 09:30 Throat Lozenges (Cepacol Sore Throat Lozenge) 1 yaakov PRN Q2HRS PRN PO SORE THROAT; Start 09/05/16 at 09:30 Active Scripts Active Reported Aspir 81 (Aspirin) 81 Mg Tablet.dr 81 Mg PO Ultracet Tablet (Tramadol Hcl/Acetaminophen) 1 Each Tablet 1 Tab PO TID Lipitor (Atorvastatin Calcium) 10 Mg Tablet 1 Tab PO DAILY Indapamide 1.25 Mg Tablet 1.25 Mg PO Diovan Hct 80-12.5 Mg Tablet (Valsartan/Hydrochlorothiazide) 1 Each Tablet 1 Each PO Naproxen Sodium 550 Mg Tablet 375 Mg PO PRN Allergies Allergies: Coded Allergies: No Known Drug Allergies (Unverified , 09/01/16) ROS General: YES: Fatigue, Malaise, Appetite PSYCHOLOGICAL ROS: YES: Anxiety Eyes: Yes Decreased vision HEENT: YES: Heacaches Respiratory: YES: Cough Gastrointestinal: Yes Nausea, Yes Abdominal Pain, Yes Constipation Genitourinary: YES Other (LOW UO) Musculoskeletal: Yes Muscular Weakness Neurological: Yes Weakness Skin: Yes Dry Skin Physical Exam General: Alert, Oriented X3, Cooperative, No acute distress HEENT: Atraumatic, PERRLA, EOMI, Mucous membr. moist/pink Lungs: Clear to auscultation, Normal air movement Heart: Regular rate, Normal S1, Normal S2 Abdomen: Normal bowel sounds, Soft, No tenderness Extremities: No clubbing Skin: No rashes Neuro: Normal speech, Cranial nerves 3-12 NL Psych/Mental Status: Mental status NL, Mood NL MUSCULOSKELETAL: No joint tenderness, No deformity, No swelling Vitals VITALS Vital Signs Date Time Temp Pulse Resp B/P (MAP) Pulse Ox O2 Delivery O2 Flow Rate FiO2 09/05/16 07:00 97.7 45 18 136/69 (91) 94 Nasal Cannula 2.0 97.7 Labs Labs Laboratory Tests Test 09/04/16 03:24 09/05/16 03:40 White Blood Count 12.1 x10^3/uL (4.0-11.0) 12.4 x10^3/uL (4.0-11.0) Red Blood Count 3.54 x10^6/uL (4.30-5.70) 3.46 x10^6/uL (4.30-5.70) Hemoglobin 10.6 g/dL (13.0-17.5) 10.4 g/dL (13.0-17.5) Hematocrit 31.8 % (39.0-53.0) 31.3 % (39.0-53.0) Mean Corpuscular Volume 90 fL (79-100) 90 fL (79-100) Mean Corpuscular Hemoglobin 30 pg (25-35) 30 pg (25-35) Mean Corpuscular Hemoglobin Concent 33 g/dL (31-37) 33 g/dL (31-37) Red Cell Distribution Width 13.4 % (11.5-14.5) 13.3 % (11.5-14.5) Platelet Count 286 x10^3/uL (140-400) 290 x10^3/uL (140-400) Neutrophils (%) (Auto) 84 % (31-73) 81 % (31-73) Lymphocytes (%) (Auto) 8 % (24-48) 9 % (24-48) Monocytes (%) (Auto) 8 % (0-9) 10 % (0-9) Eosinophils (%) (Auto) 0 % (0-3) 0 % (0-3) Basophils (%) (Auto) 0 % (0-3) 0 % (0-3) Neutrophils # (Auto) 10.1 x10^3uL (1.8-7.7) 10.0 x10^3uL (1.8-7.7) Lymphocytes # (Auto) 1.0 x10^3/uL (1.0-4.8) 1.1 x10^3/uL (1.0-4.8) Monocytes # (Auto) 0.9 x10^3/uL (0.0-1.1) 1.2 x10^3/uL (0.0-1.1) Eosinophils # (Auto) 0.0 x10^3/uL (0.0-0.7) 0.1 x10^3/uL (0.0-0.7) Basophils # (Auto) 0.0 x10^3/uL (0.0-0.2) 0.0 x10^3/uL (0.0-0.2) Sodium Level 146 mmol/L (136-145) 151 mmol/L (136-145) Potassium Level 3.7 mmol/L (3.5-5.1) 3.5 mmol/L (3.5-5.1) Chloride Level 111 mmol/L (98-107) 115 mmol/L (98-107) Carbon Dioxide Level 23 mmol/L (21-32) 26 mmol/L (21-32) Anion Gap 12 (6-14) 10 (6-14) Blood Urea Nitrogen 29 mg/dL (8-26) 34 mg/dL (8-26) Creatinine 0.8 mg/dL (0.7-1.3) 0.8 mg/dL (0.7-1.3) Estimated GFR (Cockcroft-Gault) 95.6 95.6 Glucose Level 93 mg/dL (70-99) 98 mg/dL (70-99) Calcium Level 8.0 mg/dL (8.5-10.1) 7.4 mg/dL (8.5-10.1) Magnesium Level 2.4 mg/dL (1.8-2.4) Thyroid Stimulating Hormone (TSH) 1.783 uIU/mL (0.358-3.74) Laboratory Tests Test 09/05/16 03:40 White Blood Count 12.4 x10^3/uL (4.0-11.0) Red Blood Count 3.46 x10^6/uL (4.30-5.70) Hemoglobin 10.4 g/dL (13.0-17.5) Hematocrit 31.3 % (39.0-53.0) Mean Corpuscular Volume 90 fL (79-100) Mean Corpuscular Hemoglobin 30 pg (25-35) Mean Corpuscular Hemoglobin Concent 33 g/dL (31-37) Red Cell Distribution Width 13.3 % (11.5-14.5) Platelet Count 290 x10^3/uL (140-400) Neutrophils (%) (Auto) 81 % (31-73) Lymphocytes (%) (Auto) 9 % (24-48) Monocytes (%) (Auto) 10 % (0-9) Eosinophils (%) (Auto) 0 % (0-3) Basophils (%) (Auto) 0 % (0-3) Neutrophils # (Auto) 10.0 x10^3uL (1.8-7.7) Lymphocytes # (Auto) 1.1 x10^3/uL (1.0-4.8) Monocytes # (Auto) 1.2 x10^3/uL (0.0-1.1) Eosinophils # (Auto) 0.1 x10^3/uL (0.0-0.7) Basophils # (Auto) 0.0 x10^3/uL (0.0-0.2) Sodium Level 151 mmol/L (136-145) Potassium Level 3.5 mmol/L (3.5-5.1) Chloride Level 115 mmol/L (98-107) Carbon Dioxide Level 26 mmol/L (21-32) Anion Gap 10 (6-14) Blood Urea Nitrogen 34 mg/dL (8-26) Creatinine 0.8 mg/dL (0.7-1.3) Estimated GFR (Cockcroft-Gault) 95.6 Glucose Level 98 mg/dL (70-99) Calcium Level 7.4 mg/dL (8.5-10.1) Magnesium Level 2.4 mg/dL (1.8-2.4) Thyroid Stimulating Hormone (TSH) 1.783 uIU/mL (0.358-3.74) Assessment/Plan Assessment/Plan 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
[2016-09-05] MEDS: AMINO AC 3%/ELECTROLYTE/GLYCER 1,000 ML IV SCH (11:30)
--- NOTE | 2016-09-05 14:09 | PDOC ---
SURGICAL PROGRESS NOTE Subjective Pt without new c/o, passing flatus, no stool Vital Signs Vital Signs Date Time Temp Pulse Resp B/P (MAP) Pulse Ox O2 Delivery O2 Flow Rate FiO2 09/05/16 12:02 98 Nasal Cannula 2.0 09/05/16 07:00 97.7 45 18 136/69 (91) 97.7 I&O Intake and Output 09/05/16 07:00 Intake Total 950 ml Output Total 530 ml Balance 420 ml IV Total 950 ml Output Urine Total 350 ml Drainage Total 180 ml General: Alert, Oriented X3, Cooperative, No acute distress Abdomen: Soft, No tenderness, Other (D-tube with bilious drainage, SHRAVAN serosang) Labs Laboratory Tests Test 09/04/16 03:24 09/05/16 03:40 White Blood Count 12.1 x10^3/uL (4.0-11.0) 12.4 x10^3/uL (4.0-11.0) Red Blood Count 3.54 x10^6/uL (4.30-5.70) 3.46 x10^6/uL (4.30-5.70) Hemoglobin 10.6 g/dL (13.0-17.5) 10.4 g/dL (13.0-17.5) Hematocrit 31.8 % (39.0-53.0) 31.3 % (39.0-53.0) Mean Corpuscular Volume 90 fL (79-100) 90 fL (79-100) Mean Corpuscular Hemoglobin 30 pg (25-35) 30 pg (25-35) Mean Corpuscular Hemoglobin Concent 33 g/dL (31-37) 33 g/dL (31-37) Red Cell Distribution Width 13.4 % (11.5-14.5) 13.3 % (11.5-14.5) Platelet Count 286 x10^3/uL (140-400) 290 x10^3/uL (140-400) Neutrophils (%) (Auto) 84 % (31-73) 81 % (31-73) Lymphocytes (%) (Auto) 8 % (24-48) 9 % (24-48) Monocytes (%) (Auto) 8 % (0-9) 10 % (0-9) Eosinophils (%) (Auto) 0 % (0-3) 0 % (0-3) Basophils (%) (Auto) 0 % (0-3) 0 % (0-3) Neutrophils # (Auto) 10.1 x10^3uL (1.8-7.7) 10.0 x10^3uL (1.8-7.7) Lymphocytes # (Auto) 1.0 x10^3/uL (1.0-4.8) 1.1 x10^3/uL (1.0-4.8) Monocytes # (Auto) 0.9 x10^3/uL (0.0-1.1) 1.2 x10^3/uL (0.0-1.1) Eosinophils # (Auto) 0.0 x10^3/uL (0.0-0.7) 0.1 x10^3/uL (0.0-0.7) Basophils # (Auto) 0.0 x10^3/uL (0.0-0.2) 0.0 x10^3/uL (0.0-0.2) Sodium Level 146 mmol/L (136-145) 151 mmol/L (136-145) Potassium Level 3.7 mmol/L (3.5-5.1) 3.5 mmol/L (3.5-5.1) Chloride Level 111 mmol/L (98-107) 115 mmol/L (98-107) Carbon Dioxide Level 23 mmol/L (21-32) 26 mmol/L (21-32) Anion Gap 12 (6-14) 10 (6-14) Blood Urea Nitrogen 29 mg/dL (8-26) 34 mg/dL (8-26) Creatinine 0.8 mg/dL (0.7-1.3) 0.8 mg/dL (0.7-1.3) Estimated GFR (Cockcroft-Gault) 95.6 95.6 Glucose Level 93 mg/dL (70-99) 98 mg/dL (70-99) Calcium Level 8.0 mg/dL (8.5-10.1) 7.4 mg/dL (8.5-10.1) Magnesium Level 2.4 mg/dL (1.8-2.4) Thyroid Stimulating Hormone (TSH) 1.783 uIU/mL (0.358-3.74) Laboratory Tests Test 09/05/16 03:40 White Blood Count 12.4 x10^3/uL (4.0-11.0) Red Blood Count 3.46 x10^6/uL (4.30-5.70) Hemoglobin 10.4 g/dL (13.0-17.5) Hematocrit 31.3 % (39.0-53.0) Mean Corpuscular Volume 90 fL (79-100) Mean Corpuscular Hemoglobin 30 pg (25-35) Mean Corpuscular Hemoglobin Concent 33 g/dL (31-37) Red Cell Distribution Width 13.3 % (11.5-14.5) Platelet Count 290 x10^3/uL (140-400) Neutrophils (%) (Auto) 81 % (31-73) Lymphocytes (%) (Auto) 9 % (24-48) Monocytes (%) (Auto) 10 % (0-9) Eosinophils (%) (Auto) 0 % (0-3) Basophils (%) (Auto) 0 % (0-3) Neutrophils # (Auto) 10.0 x10^3uL (1.8-7.7) Lymphocytes # (Auto) 1.1 x10^3/uL (1.0-4.8) Monocytes # (Auto) 1.2 x10^3/uL (0.0-1.1) Eosinophils # (Auto) 0.1 x10^3/uL (0.0-0.7) Basophils # (Auto) 0.0 x10^3/uL (0.0-0.2) Sodium Level 151 mmol/L (136-145) Potassium Level 3.5 mmol/L (3.5-5.1) Chloride Level 115 mmol/L (98-107) Carbon Dioxide Level 26 mmol/L (21-32) Anion Gap 10 (6-14) Blood Urea Nitrogen 34 mg/dL (8-26) Creatinine 0.8 mg/dL (0.7-1.3) Estimated GFR (Cockcroft-Gault) 95.6 Glucose Level 98 mg/dL (70-99) Calcium Level 7.4 mg/dL (8.5-10.1) Magnesium Level 2.4 mg/dL (1.8-2.4) Thyroid Stimulating Hormone (TSH) 1.783 uIU/mL (0.358-3.74) Problem List Problems Medical Problems: (1) Lactic acid acidosis Status: Acute (2) Perforated abdominal viscus Status: Acute Assessment/Plan s/p antrectomy clears, clamp NGT appreciate consultants d/w pt and pt's Problems: GO RIVERA MD Sep 05, 2016 14:08
[2016-09-05 15:00] VITALS: BP 149/69
--- NOTE | 2016-09-05 16:58 | CARD ---
APPROVED REPORT EXAM: Two-dimensional and M-mode echocardiogram with Doppler and color Doppler. Other Information Quality : GoodHR: 44bpm Rhythm : PVC's INDICATION ARRHYTHMIA RISK FACTORS Hypertension 2D DIMENSIONS RVDd3.0 (2.9-3.5cm)Left Atrium(2D)4.0 (1.6-4.0cm) IVSd1.0 (0.7-1.1cm)Aortic Root(2D)3.6 (2.0-3.7cm) LVDd5.6 (3.9-5.9cm)LVOT Diameter2.3 (1.8-2.4cm) PWd1.0 (0.7-1.1cm)LVDs3.5 (2.5-4.0cm) FS (%) 38.1 %SV104.7 ml LVEF(%)67.7 (>50%) Aortic Valve AoV Peak Brandon.151.6cm/sAoV VTI33.4cm AO Peak GR.9.2mmHgLVOT Peak Brandon.108.5cm/s AO Mean GR.4mmHgAVA (VMAX)2.93cm2 AI P 1/2 [id number] Mitral Valve MV E Lbgjqdug327.0cm/sMV E Peak Gr.7mmHg MV DECEL [id number] A Reoqnjme00.3cm/s MV E Mean Gr.1mmHgE/A Ratio2.9 MV A [id number] Pulmonary Valve PV Peak Lajkqtex547.3cm/s Tricuspid Valve TR P. Rxygtwya164zv/sTR Peak Gr.22mmHg Pulmonary Vein S1 Shbzrbdq96.9cm/sD2 Doazfdxw31.7cm/s PVa [id number] LEFT VENTRICLE The left ventricle is normal size. There is normal left ventricular wall thickness. The left ventricu lar systolic function is normal and the ejection fraction is within normal range. The Ejection Fracti on is 60-65%. There is normal LV segmental wall motion. Transmitral Doppler flow pattern is Grade II- pseudonormal filling dynamics. RIGHT VENTRICLE The right ventricle is normal size. There is normal right ventricular wall thickness. The right ventr icular systolic function is normal. ATRIA The left atrium is mildly dilated. The right atrium size is normal. The interatrial septum is intact with no evidence for an atrial septal defect or patent foramen ovale as noted on 2-D or Doppler imagi ng. AORTIC VALVE The aortic valve is mildly sclerotic. The aortic valve is trileaflet. Doppler and Color Flow revealed mild aortic regurgitation. There is no significant aortic valvular stenosis. MITRAL VALVE Mitral annular calcification is mild. The mitral valve leaflets are thickened. There is no evidence o f mitral valve prolapse. There is no mitral valve stenosis. Doppler and Color Flow revealed trace mathew ral regurgitation. TRICUSPID VALVE Doppler and Color Flow revealed trace tricuspid regurgitation. The pulmonary artery systolic pressure is estimated at 25 mmHg. PULMONIC VALVE The pulmonary valve is not well visualized but appears to opens well. Doppler and Color Flow revealed no pulmonic valvular regurgitation. There is no pulmonic valvular stenosis by spectral Doppler. GREAT VESSELS The aortic root is mildly enlarged. The ascending aorta is mildly dilated. The pulmonary artery is no rmal. The subcostal window was not available at exam time. The IVC could not be assessed. PERICARDIAL EFFUSION There is no evidence of significant pericardial effusion. Critical Notification Critical Value: No <Conclusion> The left ventricle is normal size. The left ventricular systolic function is normal and the ejection fraction is within normal range. The Ejection Fraction is 60-65%. There is no significant aortic valvular stenosis. Doppler and Color Flow revealed mild aortic regurgitation. Doppler and Color Flow revealed trace mitral regurgitation. Doppler and Color Flow revealed trace tricuspid regurgitation. The pulmonary artery systolic pressure is estimated at 25 mmHg. The aortic root is mildly enlarged. The ascending aorta is mildly dilated.
[2016-09-05 19:00] VITALS: BP 143/70
[2016-09-05 23:25] VITALS: BP 135/62
[2016-09-06] MEDS: PIPERACILLIN/TAZOBACTAM 3.375 GM in IV NORMAL SALINE 50ML 50 ML IV SCH ×4 (00:05→17:15)
[2016-09-06 03:29] VITALS: BP 118/79
[2016-09-06 06:01] LABS: BASO # 0.1 x10^3/uL (0.0-0.2); BASO % 1 % (0-3); EOS % 0 % (0-3); HEMATOCRIT 31.9 % (39.0-53.0); HEMOGLOBIN 10.8 g/dL (13.0-17.5); LYMPH # 1.2 x10^3/uL (1.0-4.8); LYMPH % 9 % (24-48); MEAN CORPUSCULAR HEMOGLOBIN 30 pg (25-35); MEAN CORPUSCULAR HGB CONC 34 g/dL (31-37); MEAN CORPUSCULAR VOLUME 88 fL (79-100); MONO % 10 % (0-9); NEUT % 80 % (31-73); PLATELET COUNT 310 x10^3/uL (140-400); RED BLOOD COUNT 3.61 x10^6/uL (4.30-5.70); RED CELL DISTRIBUTION WIDTH 13.7 % (11.5-14.5); WHITE BLOOD COUNT 13.6 x10^3/uL (4.0-11.0)
[2016-09-06 06:25] LABS: CALCIUM 7.6 mg/dL (8.5-10.1); CREATININE 0.8 mg/dL (0.7-1.3); GFR 95.6; POTASSIUM 3.6 mmol/L (3.5-5.1)
[2016-09-06 07:00] VITALS: BP 127/56
[2016-09-06] MEDS: AMINO AC 3%/ELECTROLYTE/GLYCER 1,000 ML IV SCH ×3 (08:48→21:10)
[2016-09-06] MEDS: POTASSIUM CL 20MEQ-0.45% NACL 1,000 ML IV SCH ×2 (08:50→17:15)
[2016-09-06] MEDS: FAMOTIDINE 20 MG/2 ML VIAL IVP SCH ×2 (08:52→21:00)
[2016-09-06] MEDS: ENOXAPARIN 40 MG/0.4 ML SYRINGE. SQ SCH (08:53)
--- NOTE | 2016-09-06 09:28 | PDOC ---
Infectious Disease Note Subjective Subjective Doing well but frustrated with limited activity with so many tubes Has occ cough with sputum. No hemoptysis or chest pain Tolerating clears + Flatus ROS ROS GEN: Denies fevers, chills, sweats HEENT: Denies blurred vision, sore throat CV: Denies chest pain RESP: Denies shortness of air, cough GI: Denies n/v/d NEURO: Denies confusion, dizziness MSK: Denies weakness, joint pain/swelling Vital Sign Vital Signs Vital Signs Date Time Temp Pulse Resp B/P (MAP) Pulse Ox O2 Delivery O2 Flow Rate FiO2 09/06/16 07:00 97.5 47 16 127/56 (79) 95 Room Air 97.5 09/05/16 20:00 2.0 Physical Exam PHYSICAL EXAM GENERAL: NAD, Alert HEENT: PERRL, OC/OP -clear NECK: Supple, no JVD, no LN LUNGS: Clear HEART: S1S2, no gallop, no murmur ABD: Soft, NT, no organomegaly, no rebound, NGT. 2 drains EXT: No edema, no cyanosis ABA THERAPIST: Alert, oriented x 3, no focal neurologic deficit SKIN: No rash IV: clean Labs Lab Laboratory Tests Test 09/06/16 05:15 09/06/16 05:25 White Blood Count 13.6 x10^3/uL (4.0-11.0) Red Blood Count 3.61 x10^6/uL (4.30-5.70) Hemoglobin 10.8 g/dL (13.0-17.5) Hematocrit 31.9 % (39.0-53.0) Mean Corpuscular Volume 88 fL (79-100) Mean Corpuscular Hemoglobin 30 pg (25-35) Mean Corpuscular Hemoglobin Concent 34 g/dL (31-37) Red Cell Distribution Width 13.7 % (11.5-14.5) Platelet Count 310 x10^3/uL (140-400) Neutrophils (%) (Auto) 80 % (31-73) Lymphocytes (%) (Auto) 9 % (24-48) Monocytes (%) (Auto) 10 % (0-9) Eosinophils (%) (Auto) 0 % (0-3) Basophils (%) (Auto) 1 % (0-3) Neutrophils # (Auto) 10.9 x10^3uL (1.8-7.7) Lymphocytes # (Auto) 1.2 x10^3/uL (1.0-4.8) Monocytes # (Auto) 1.3 x10^3/uL (0.0-1.1) Eosinophils # (Auto) 0.1 x10^3/uL (0.0-0.7) Basophils # (Auto) 0.1 x10^3/uL (0.0-0.2) Sodium Level 147 mmol/L (136-145) Potassium Level 3.6 mmol/L (3.5-5.1) Chloride Level 110 mmol/L (98-107) Carbon Dioxide Level 25 mmol/L (21-32) Anion Gap 12 (6-14) Blood Urea Nitrogen 29 mg/dL (8-26) Creatinine 0.8 mg/dL (0.7-1.3) Estimated GFR (Cockcroft-Gault) 95.6 Glucose Level 119 mg/dL (70-99) Calcium Level 7.6 mg/dL (8.5-10.1) Objective Assessment Leukocytosis without fever and clinically states is improving. On Zosyn since 09/01. Maybe a reactive process with episodes of bradycardia. Does have a mild cough. Perf Viscous S/p Antrectomy 09/01 Hypernatremia -improving Plan Plan of Care Cont Zosyn (09/01) Needs Incentive spirometry CXR with mild cough If spikes or clinically declines will broaden coverage and will need additional imaging VITALIY RAINEY MD Sep 06, 2016 09:28
[2016-09-06 11:00] VITALS: BP 136/74
[2016-09-06] MEDS ORDERED: IOHEXOL 240 MG/ML 50ML VIAL. PO ONE (11:15)
[2016-09-06] MEDS ORDERED: IOHEXOL 300 MG/ML 75 ML VIAL IV ONE (11:15)
[2016-09-06] MEDS ORDERED: CONTRAST GIVEN MC PRN (11:15)
--- NOTE | 2016-09-06 11:36 | PDOC ---
Renal-Progress Notes Subjective Notes Notes FEELING BETTER History of Present Illness Hx of present illness IMPROVED Vitals Vitals Vital Signs Date Time Temp Pulse Resp B/P (MAP) Pulse Ox O2 Delivery O2 Flow Rate FiO2 09/06/16 11:00 98.1 45 16 136/74 (94) 97 Nasal Cannula 2.0 98.1 Weight Weight [ ] I.O. Intake and Output Intake and Output 09/06/16 07:00 Intake Total 4157 ml Output Total 1525 ml Balance 2632 ml Intake Oral 120 ml IV Total 2537 ml Other 1500 ml Output Urine Total 525 ml Gastric Drainage Total 1000 ml Labs Labs Laboratory Tests Test 09/06/16 05:15 09/06/16 05:25 White Blood Count 13.6 x10^3/uL (4.0-11.0) Red Blood Count 3.61 x10^6/uL (4.30-5.70) Hemoglobin 10.8 g/dL (13.0-17.5) Hematocrit 31.9 % (39.0-53.0) Mean Corpuscular Volume 88 fL (79-100) Mean Corpuscular Hemoglobin 30 pg (25-35) Mean Corpuscular Hemoglobin Concent 34 g/dL (31-37) Red Cell Distribution Width 13.7 % (11.5-14.5) Platelet Count 310 x10^3/uL (140-400) Neutrophils (%) (Auto) 80 % (31-73) Lymphocytes (%) (Auto) 9 % (24-48) Monocytes (%) (Auto) 10 % (0-9) Eosinophils (%) (Auto) 0 % (0-3) Basophils (%) (Auto) 1 % (0-3) Neutrophils # (Auto) 10.9 x10^3uL (1.8-7.7) Lymphocytes # (Auto) 1.2 x10^3/uL (1.0-4.8) Monocytes # (Auto) 1.3 x10^3/uL (0.0-1.1) Eosinophils # (Auto) 0.1 x10^3/uL (0.0-0.7) Basophils # (Auto) 0.1 x10^3/uL (0.0-0.2) Sodium Level 147 mmol/L (136-145) Potassium Level 3.6 mmol/L (3.5-5.1) Chloride Level 110 mmol/L (98-107) Carbon Dioxide Level 25 mmol/L (21-32) Anion Gap 12 (6-14) Blood Urea Nitrogen 29 mg/dL (8-26) Creatinine 0.8 mg/dL (0.7-1.3) Estimated GFR (Cockcroft-Gault) 95.6 Glucose Level 119 mg/dL (70-99) Calcium Level 7.6 mg/dL (8.5-10.1) Review of Systems Constitutional: yes: weakness, alert, oriented Ears/Nose/Throat: Yes: no symptom reported Pulmonary: Yes no symptom reported Gastrointestional: Yes: nausea Genitourinary: Yes: no symptom reported Musculoskeletal: Yes: muscle stiffness Skin: Yes no symptom reported Psychiatric/Neurological: Yes: no symptom reported Endocrine: Yes: no symptom reported Physical Exam General Appearance: no apparent distress Skin: warm Respiratory: bilateral CTA Heart: S1S2, RRR Abdomen: soft, bowel sounds present Extremities: pulses present, no edema, atrophy Neurology: alert Musculoskeletal: Osteoarthritis Assessment Assessment IMP PRERENAL AZOTEMIA-BETTER HYPERNATREMIA-BETTER LOW K-BETTER DU AND S/P ANTRECTOMY PLAN CONT WITH PPN CONT WITH IVF AND KCL LABS IN AM RONIT HIGUERA MD Sep 06, 2016 11:36
--- NOTE | 2016-09-06 12:05 | PDOC ---
CARDIO Progress Notes Date and Time Date of Service 09/06/2016 Time of Evaluation 1200 Subjective Subjective: No Chest Pain, No shortness of breath, No Palpitations, No Dizziness, Other (abdominal pain controlled) Vitals Vitals Vital Signs Date Time Temp Pulse Resp B/P (MAP) Pulse Ox O2 Delivery O2 Flow Rate FiO2 09/06/16 11:00 98.1 45 16 136/74 (94) 97 Nasal Cannula 2.0 98.1 Weight Weight [ ] Input and Output Intake and Output Intake and Output 09/06/16 07:00 Intake Total 4157 ml Output Total 1525 ml Balance 2632 ml Intake Oral 120 ml IV Total 2537 ml Other 1500 ml Output Urine Total 525 ml Gastric Drainage Total 1000 ml Laboratory Labs Laboratory Tests Test 09/06/16 05:15 09/06/16 05:25 White Blood Count 13.6 x10^3/uL (4.0-11.0) Red Blood Count 3.61 x10^6/uL (4.30-5.70) Hemoglobin 10.8 g/dL (13.0-17.5) Hematocrit 31.9 % (39.0-53.0) Mean Corpuscular Volume 88 fL (79-100) Mean Corpuscular Hemoglobin 30 pg (25-35) Mean Corpuscular Hemoglobin Concent 34 g/dL (31-37) Red Cell Distribution Width 13.7 % (11.5-14.5) Platelet Count 310 x10^3/uL (140-400) Neutrophils (%) (Auto) 80 % (31-73) Lymphocytes (%) (Auto) 9 % (24-48) Monocytes (%) (Auto) 10 % (0-9) Eosinophils (%) (Auto) 0 % (0-3) Basophils (%) (Auto) 1 % (0-3) Neutrophils # (Auto) 10.9 x10^3uL (1.8-7.7) Lymphocytes # (Auto) 1.2 x10^3/uL (1.0-4.8) Monocytes # (Auto) 1.3 x10^3/uL (0.0-1.1) Eosinophils # (Auto) 0.1 x10^3/uL (0.0-0.7) Basophils # (Auto) 0.1 x10^3/uL (0.0-0.2) Sodium Level 147 mmol/L (136-145) Potassium Level 3.6 mmol/L (3.5-5.1) Chloride Level 110 mmol/L (98-107) Carbon Dioxide Level 25 mmol/L (21-32) Anion Gap 12 (6-14) Blood Urea Nitrogen 29 mg/dL (8-26) Creatinine 0.8 mg/dL (0.7-1.3) Estimated GFR (Cockcroft-Gault) 95.6 Glucose Level 119 mg/dL (70-99) Calcium Level 7.6 mg/dL (8.5-10.1) Review of Systems Constitutional: yes: weakness, alert, oriented Ears/Nose/Throat: Yes: no symptom reported Pulmonary: Yes no symptom reported Gastrointestional: Yes: nausea Genitourinary: Yes: no symptom reported Musculoskeletal: Yes: muscle stiffness Skin: Yes no symptom reported Psychiatric/Neurological: Yes: no symptom reported Endocrine: Yes: no symptom reported Physical Exam HEENT: Neck Supple W Full Motion Chest: Symmetric LUNGS: Other (basilar crackles) Heart: S1S2, RRR (SB) Abdomen: Other (mid abodminal surgical incision. NGT to LIS) Extremities: No Calf Tenderness Neurology: alert, oriented, follow commands Assessment Assessment 1. Perforated DU with S/P antrectomy: POD#5 per general surgery 2. Asymptomatic Sinus bradycardia: since off [employer] dilaudid (none used overnight) no further episodes of HR 30s, no pauses. No further episodes of NSVT (suspect donato induced) HR mid 40s mean with good chronotropic response during ambulation. 3. Hypernatremia/mild hypocalcemia: improved 4. Tobaccoism 5. Hx of parathyroidectomy 6. HTN: controlled Recommendations 1. TTE unremarkable for significant changes. Discussed with pt and will plan for outpt event monitor. 2. Continue caution with QT prolonging meds and NO AV poppy blocking agents. 3. Follow up in office upon event monitor completion. No further w/u as an inpt. MERISSA CALABRESE APRN Sep 06, 2016 12:05
--- NOTE | 2016-09-06 12:57 | RAD ---
Chest, 2 views, 09/06/2016: History: Cough, postop leukocytosis Comparison is made to a study from 11/08/2011. An NG tube extends into the stomach. The heart size and pulmonary vascularity are within normal limits. There is calcific plaquing and tortuosity of the thoracic aorta. There are small bilateral pleural effusions. There is mild to moderate underlying streaky atelectasis/infiltrate, left greater than right. A component of pneumonia cannot excluded. The upper lung walden are clear. IMPRESSION: 1. The NG tube is in satisfactory position. 2. Small bilateral pleural effusions with mild to moderate underlying atelectasis/infiltrate.
--- NOTE | 2016-09-06 13:07 | PATHOLOGY ---
PATHOLOGY REPORT * * * * * * * * FINAL DIAGNOSIS: Portion of duodenum and portion of stomach "duodenal ulcer, partial resection of stomach and duodenum": - Acute duodenal ulcer with necrotic acute inflammatory exudate extending deeply with surrounding chronic inflammation, fibrosis, and edema. - There is no evidence of malignancy. - Immunoperoxidase stain for Helicobacter pylori will be ordered and an additional report will follow. - See comment. (SHA:nalini; 09/06/2016) COMMENT: This case received interdepartmental review. REPORT ELECTRONICALLY SIGNED BY: Harris Pastor M.D. DATE/TIME: 09/06/2016 13:06 * * * * * * * * GROSS PATHOLOGY: The specimen is received in formalin labeled "Amadeo Luciano, distal stomach". Received is a segment of stomach measuring 6.8 x 4.5 x 2.8 cm in greatest dimensions. One margin is stapled closed and the opposite margin displays an apparent stoma with exposed light marie to light brown mucosa measuring 3.1 x 3.0 cm. A suture is present at the possible stoma. The serosal surface is light marie to fernandez-marie and smooth in appearance with moderate vasculature. Opening the specimen reveals a light marie and moderately cobblestoned appearing mucosa. No distinct nodules or lesions are noted grossly. There is a moderate amount of attached mesenteric fat measuring up to 3.5 cm in thickness. Velocity Shooter sections from the possible stoma are submitted in cassettes A1 and A2. Additional transportation services representative sections of mucosa are submitted in cassette A3. (CAA; 09/05/2016) INITIAL CPT CODE(S): A; 06988, 63099 Professional services performed by [facility] at [address] [address] Technical services performed by [facility] at [address] [place] [address], [facility] [address] [address]. SPECIMEN(S) RECEIVED: A.Distal stomach CLINICAL HISTORY: Duodenal ulcer PATIENT: AMADEO LUCIANO /AGE: 9 1945 (Age: 70) PATIENT #: [id number] ALT CASE #: SPECIMEN COLLECTION DATE: 09/01/2016 SPECIMEN RECEIVED DATE: 09/04/2016 [facility] - [address] [place] [address] - PHONE: [phone] * * * END OF REPORT * * *
--- NOTE | 2016-09-06 13:21 | PDOC ---
SURGICAL PROGRESS NOTE Subjective Pt without c/o, passing flatus, denies pain, not using pain meds Vital Signs Vital Signs Date Time Temp Pulse Resp B/P (MAP) Pulse Ox O2 Delivery O2 Flow Rate FiO2 09/06/16 11:00 98.1 45 16 136/74 (94) 97 Nasal Cannula 2.0 98.1 I&O Intake and Output 09/06/16 07:00 Intake Total 4157 ml Output Total 1525 ml Balance 2632 ml Intake Oral 120 ml IV Total 2537 ml Other 1500 ml Output Urine Total 525 ml Gastric Drainage Total 1000 ml General: Alert, Oriented X3, Cooperative, No acute distress Abdomen: Soft, No tenderness Labs Laboratory Tests Test 09/05/16 03:40 09/06/16 05:15 09/06/16 05:25 White Blood Count 12.4 x10^3/uL (4.0-11.0) 13.6 x10^3/uL (4.0-11.0) Red Blood Count 3.46 x10^6/uL (4.30-5.70) 3.61 x10^6/uL (4.30-5.70) Hemoglobin 10.4 g/dL (13.0-17.5) 10.8 g/dL (13.0-17.5) Hematocrit 31.3 % (39.0-53.0) 31.9 % (39.0-53.0) Mean Corpuscular Volume 90 fL (79-100) 88 fL (79-100) Mean Corpuscular Hemoglobin 30 pg (25-35) 30 pg (25-35) Mean Corpuscular Hemoglobin Concent 33 g/dL (31-37) 34 g/dL (31-37) Red Cell Distribution Width 13.3 % (11.5-14.5) 13.7 % (11.5-14.5) Platelet Count 290 x10^3/uL (140-400) 310 x10^3/uL (140-400) Neutrophils (%) (Auto) 81 % (31-73) 80 % (31-73) Lymphocytes (%) (Auto) 9 % (24-48) 9 % (24-48) Monocytes (%) (Auto) 10 % (0-9) 10 % (0-9) Eosinophils (%) (Auto) 0 % (0-3) 0 % (0-3) Basophils (%) (Auto) 0 % (0-3) 1 % (0-3) Neutrophils # (Auto) 10.0 x10^3uL (1.8-7.7) 10.9 x10^3uL (1.8-7.7) Lymphocytes # (Auto) 1.1 x10^3/uL (1.0-4.8) 1.2 x10^3/uL (1.0-4.8) Monocytes # (Auto) 1.2 x10^3/uL (0.0-1.1) 1.3 x10^3/uL (0.0-1.1) Eosinophils # (Auto) 0.1 x10^3/uL (0.0-0.7) 0.1 x10^3/uL (0.0-0.7) Basophils # (Auto) 0.0 x10^3/uL (0.0-0.2) 0.1 x10^3/uL (0.0-0.2) Sodium Level 151 mmol/L (136-145) 147 mmol/L (136-145) Potassium Level 3.5 mmol/L (3.5-5.1) 3.6 mmol/L (3.5-5.1) Chloride Level 115 mmol/L (98-107) 110 mmol/L (98-107) Carbon Dioxide Level 26 mmol/L (21-32) 25 mmol/L (21-32) Anion Gap 10 (6-14) 12 (6-14) Blood Urea Nitrogen 34 mg/dL (8-26) 29 mg/dL (8-26) Creatinine 0.8 mg/dL (0.7-1.3) 0.8 mg/dL (0.7-1.3) Estimated GFR (Cockcroft-Gault) 95.6 95.6 Glucose Level 98 mg/dL (70-99) 119 mg/dL (70-99) Calcium Level 7.4 mg/dL (8.5-10.1) 7.6 mg/dL (8.5-10.1) Magnesium Level 2.4 mg/dL (1.8-2.4) Thyroid Stimulating Hormone (TSH) 1.783 uIU/mL (0.358-3.74) Laboratory Tests Test 7/12/17 05:15 09/06/16 05:25 White Blood Count 13.6 x10^3/uL (4.0-11.0) Red Blood Count 3.61 x10^6/uL (4.30-5.70) Hemoglobin 10.8 g/dL (13.0-17.5) Hematocrit 31.9 % (39.0-53.0) Mean Corpuscular Volume 88 fL (79-100) Mean Corpuscular Hemoglobin 30 pg (25-35) Mean Corpuscular Hemoglobin Concent 34 g/dL (31-37) Red Cell Distribution Width 13.7 % (11.5-14.5) Platelet Count 310 x10^3/uL (140-400) Neutrophils (%) (Auto) 80 % (31-73) Lymphocytes (%) (Auto) 9 % (24-48) Monocytes (%) (Auto) 10 % (0-9) Eosinophils (%) (Auto) 0 % (0-3) Basophils (%) (Auto) 1 % (0-3) Neutrophils # (Auto) 10.9 x10^3uL (1.8-7.7) Lymphocytes # (Auto) 1.2 x10^3/uL (1.0-4.8) Monocytes # (Auto) 1.3 x10^3/uL (0.0-1.1) Eosinophils # (Auto) 0.1 x10^3/uL (0.0-0.7) Basophils # (Auto) 0.1 x10^3/uL (0.0-0.2) Sodium Level 147 mmol/L (136-145) Potassium Level 3.6 mmol/L (3.5-5.1) Chloride Level 110 mmol/L (98-107) Carbon Dioxide Level 25 mmol/L (21-32) Anion Gap 12 (6-14) Blood Urea Nitrogen 29 mg/dL (8-26) Creatinine 0.8 mg/dL (0.7-1.3) Estimated GFR (Cockcroft-Gault) 95.6 Glucose Level 119 mg/dL (70-99) Calcium Level 7.6 mg/dL (8.5-10.1) Problem List Problems Medical Problems: (1) Lactic acid acidosis Status: Acute (2) Perforated abdominal viscus Status: Acute Assessment/Plan given elevated WBC will check CT to eval for abscess. If clear, will d/c NGT and start clears, ADAT d/w pt and pt's Problems: GO RIVERA MD Sep 06, 2016 13:21
--- NOTE | 2016-09-06 14:16 | PDOC ---
PROGRESS NOTES Chief Complaint Chief Complaint perforated viscus, acute abdomen ASSESSMENT AND PLAN: 1. perforated duodenum: s/p repair on 09/[address] Jolly. recovering appropriately. remains NPO with NGT to suction 2. Peritonitis: on Zosyn; 3. Leukocytosis: worsening. clinically stable, but worrisome for infection. 4. Anemia: worsening. prob multifactorial, incl surgical blood loss, inflammation, dilutional effects. currently above 10 Hgb, i.e. safe range. monitor 5. Azotemia: sl worse today, indicating dehydration 6. Hypernatremia: increase IVF, change to 1/2 NS, add procalamine 7. tobacco abuse 8. prophylaxis: lovenox, H2B History of Present Illness History of Present Illness + flatus, no pain, feels well a lot of NG tube output still had questions about progress of plan cont PRN biotene and lozenges, Vitals Vitals Vital Signs Date Time Temp Pulse Resp B/P (MAP) Pulse Ox O2 Delivery O2 Flow Rate FiO2 09/06/16 11:00 98.1 45 16 136/74 (94) 97 Nasal Cannula 2.0 98.1 Physical Exam General: Alert, Oriented X3, Cooperative, No acute distress Lungs: Other (no crackles or wheezes) Abdomen: Soft, No tenderness Extremities: No clubbing Skin: No rashes Labs LABS Laboratory Tests Test 09/06/16 05:15 09/06/16 05:25 White Blood Count 13.6 x10^3/uL (4.0-11.0) Red Blood Count 3.61 x10^6/uL (4.30-5.70) Hemoglobin 10.8 g/dL (13.0-17.5) Hematocrit 31.9 % (39.0-53.0) Mean Corpuscular Volume 88 fL (79-100) Mean Corpuscular Hemoglobin 30 pg (25-35) Mean Corpuscular Hemoglobin Concent 34 g/dL (31-37) Red Cell Distribution Width 13.7 % (11.5-14.5) Platelet Count 310 x10^3/uL (140-400) Neutrophils (%) (Auto) 80 % (31-73) Lymphocytes (%) (Auto) 9 % (24-48) Monocytes (%) (Auto) 10 % (0-9) Eosinophils (%) (Auto) 0 % (0-3) Basophils (%) (Auto) 1 % (0-3) Neutrophils # (Auto) 10.9 x10^3uL (1.8-7.7) Lymphocytes # (Auto) 1.2 x10^3/uL (1.0-4.8) Monocytes # (Auto) 1.3 x10^3/uL (0.0-1.1) Eosinophils # (Auto) 0.1 x10^3/uL (0.0-0.7) Basophils # (Auto) 0.1 x10^3/uL (0.0-0.2) Sodium Level 147 mmol/L (136-145) Potassium Level 3.6 mmol/L (3.5-5.1) Chloride Level 110 mmol/L (98-107) Carbon Dioxide Level 25 mmol/L (21-32) Anion Gap 12 (6-14) Blood Urea Nitrogen 29 mg/dL (8-26) Creatinine 0.8 mg/dL (0.7-1.3) Estimated GFR (Cockcroft-Gault) 95.6 Glucose Level 119 mg/dL (70-99) Calcium Level 7.6 mg/dL (8.5-10.1) Assessment and Plan Assessmemt and Plan Problems Medical Problems: (1) Lactic acid acidosis Status: Acute (2) Perforated abdominal viscus Status: Acute Problems: Comment Review of Relevant I have reviewed the following items shaw (where applicable) has been applied. Labs Laboratory Tests Test 09/05/16 03:40 09/06/16 05:15 09/06/16 05:25 White Blood Count 12.4 x10^3/uL (4.0-11.0) 13.6 x10^3/uL (4.0-11.0) Red Blood Count 3.46 x10^6/uL (4.30-5.70) 3.61 x10^6/uL (4.30-5.70) Hemoglobin 10.4 g/dL (13.0-17.5) 10.8 g/dL (13.0-17.5) Hematocrit 31.3 % (39.0-53.0) 31.9 % (39.0-53.0) Mean Corpuscular Volume 90 fL (79-100) 88 fL (79-100) Mean Corpuscular Hemoglobin 30 pg (25-35) 30 pg (25-35) Mean Corpuscular Hemoglobin Concent 33 g/dL (31-37) 34 g/dL (31-37) Red Cell Distribution Width 13.3 % (11.5-14.5) 13.7 % (11.5-14.5) Platelet Count 290 x10^3/uL (140-400) 310 x10^3/uL (140-400) Neutrophils (%) (Auto) 81 % (31-73) 80 % (31-73) Lymphocytes (%) (Auto) 9 % (24-48) 9 % (24-48) Monocytes (%) (Auto) 10 % (0-9) 10 % (0-9) Eosinophils (%) (Auto) 0 % (0-3) 0 % (0-3) Basophils (%) (Auto) 0 % (0-3) 1 % (0-3) Neutrophils # (Auto) 10.0 x10^3uL (1.8-7.7) 10.9 x10^3uL (1.8-7.7) Lymphocytes # (Auto) 1.1 x10^3/uL (1.0-4.8) 1.2 x10^3/uL (1.0-4.8) Monocytes # (Auto) 1.2 x10^3/uL (0.0-1.1) 1.3 x10^3/uL (0.0-1.1) Eosinophils # (Auto) 0.1 x10^3/uL (0.0-0.7) 0.1 x10^3/uL (0.0-0.7) Basophils # (Auto) 0.0 x10^3/uL (0.0-0.2) 0.1 x10^3/uL (0.0-0.2) Sodium Level 151 mmol/L (136-145) 147 mmol/L (136-145) Potassium Level 3.5 mmol/L (3.5-5.1) 3.6 mmol/L (3.5-5.1) Chloride Level 115 mmol/L (98-107) 110 mmol/L (98-107) Carbon Dioxide Level 26 mmol/L (21-32) 25 mmol/L (21-32) Anion Gap 10 (6-14) 12 (6-14) Blood Urea Nitrogen 34 mg/dL (8-26) 29 mg/dL (8-26) Creatinine 0.8 mg/dL (0.7-1.3) 0.8 mg/dL (0.7-1.3) Estimated GFR (Cockcroft-Gault) 95.6 95.6 Glucose Level 98 mg/dL (70-99) 119 mg/dL (70-99) Calcium Level 7.4 mg/dL (8.5-10.1) 7.6 mg/dL (8.5-10.1) Magnesium Level 2.4 mg/dL (1.8-2.4) Thyroid Stimulating Hormone (TSH) 1.783 uIU/mL (0.358-3.74) Laboratory Tests Test 09/06/16 05:15 09/06/16 05:25 White Blood Count 13.6 x10^3/uL (4.0-11.0) Red Blood Count 3.61 x10^6/uL (4.30-5.70) Hemoglobin 10.8 g/dL (13.0-17.5) Hematocrit 31.9 % (39.0-53.0) Mean Corpuscular Volume 88 fL (79-100) Mean Corpuscular Hemoglobin 30 pg (25-35) Mean Corpuscular Hemoglobin Concent 34 g/dL (31-37) Red Cell Distribution Width 13.7 % (11.5-14.5) Platelet Count 310 x10^3/uL (140-400) Neutrophils (%) (Auto) 80 % (31-73) Lymphocytes (%) (Auto) 9 % (24-48) Monocytes (%) (Auto) 10 % (0-9) Eosinophils (%) (Auto) 0 % (0-3) Basophils (%) (Auto) 1 % (0-3) Neutrophils # (Auto) 10.9 x10^3uL (1.8-7.7) Lymphocytes # (Auto) 1.2 x10^3/uL (1.0-4.8) Monocytes # (Auto) 1.3 x10^3/uL (0.0-1.1) Eosinophils # (Auto) 0.1 x10^3/uL (0.0-0.7) Basophils # (Auto) 0.1 x10^3/uL (0.0-0.2) Sodium Level 147 mmol/L (136-145) Potassium Level 3.6 mmol/L (3.5-5.1) Chloride Level 110 mmol/L (98-107) Carbon Dioxide Level 25 mmol/L (21-32) Anion Gap 12 (6-14) Blood Urea Nitrogen 29 mg/dL (8-26) Creatinine 0.8 mg/dL (0.7-1.3) Estimated GFR (Cockcroft-Gault) 95.6 Glucose Level 119 mg/dL (70-99) Calcium Level 7.6 mg/dL (8.5-10.1) Medications Current Medications Sodium Chloride 1,000 ml @ 1,000 mls/hr 1X ONCE IV Last administered on 07:45; Start 09/01/16 at 07:30; Stop 09/01/16 at 08:29; Status DC Ondansetron HCl (Zofran) 4 mg 1X ONCE IV Last administered on 09/01/16 07:44; Start 09/01/16 at 07:30; Stop 09/01/16 at 07:31; Status DC Fentanyl Citrate (Fentanyl 2ml Vial) 75 mcg 1X ONCE IV Last administered on 07:44; Start 09/01/16 at 07:30; Stop 09/01/16 at 07:31; Status DC Iohexol (Omnipaque 300 Mg/ml) 75 ml 1X ONCE IV Last administered on 09/01/16 08:24; Start 09/01/16 at 08:30; Stop 09/01/16 at 08:31; Status DC Info (Do NOT chart on this entry -- for MONITORING) 1 each PRN DAILY PRN MC SEE COMMENTS; Start 09/01/16 at 08:30; Stop 09/03/16 at 08:29; Status DC Morphine Sulfate 5 mg 1X ONCE IV Last administered on 09/01/16 08:41; Start at 08:45; Stop 09/01/16 at 08:46; Status DC Sodium Chloride 1,000 ml @ 1,000 mls/hr 1X ONCE IV Last administered on 08:40; Start 09/01/16 at 08:45; Stop 09/01/16 at 09:44; Status DC Piperacillin Sod/ Tazobactam Sod 3.375 gm/Sodium Chloride 50 ml @ 100 mls/hr Q6HRS IV Last administered on 09/06/16 12:17; Start 09/01/16 at 10:00 Famotidine (Pepcid) 20 mg 1X ONCE IVP Last administered on 09/01/16 09:46; Start 09/01/16 at 09:45; Stop 09/01/16 at 09:46; Status DC Ondansetron HCl (Zofran) 4 mg PRN Q8HRS PRN IV NAUSEA/VOMITING; Start 09/01/16 at 09:30; Stop 09/02/16 at 08:33; Status DC Morphine Sulfate 4 mg PRN Q2HR PRN IV PAIN; Start 09/01/16 at 09:30; Stop at 09:29; Status DC Sodium Chloride 1,000 ml @ 100 mls/hr Q10H IV Last administered on 09/04/16 18:30; Start 09/01/16 at 10:30; Stop 09/05/16 at 01:57; Status DC Acetaminophen (Tylenol) 500 mg PRN Q6HRS PRN PO MILD PAIN / TEMP; Start at 10:30 Famotidine (Pepcid) 20 mg BID IVP Last administered on 09/01/16 11:14; Start at 11:00; Stop 09/01/16 at 15:40; Status DC Ondansetron HCl (Zofran) 4 mg PRN Q6HRS PRN IV NAUSEA/VOMITING; Start 09/01/16 at 12:15; Stop 09/02/16 at 08:33; Status DC Fentanyl Citrate (Fentanyl 2ml Vial) 25 mcg PRN Q5MIN PRN IV MILD PAIN Last administered on 09/01/16 16:00; Start 09/01/16 at 12:15; Stop 09/02/16 at 12:14; Status DC Fentanyl Citrate (Fentanyl 2ml Vial) 50 mcg PRN Q5MIN PRN IV MODERATE PAIN Last administered on 09/01/16 15:54; Start 09/01/16 at 12:15; Stop 09/02/16 at 12: 14; Status DC Morphine Sulfate 1 mg PRN Q10MIN PRN IV SEVERE PAIN; Start 09/01/16 at 12:15; Stop 09/02/16 at 12:14; Status DC Ringer's Solution 1,000 ml @ 30 mls/hr Q24H IV ; Start 09/01/16 at 12:04; Stop 09/01/16 at 19:07; Status DC Lidocaine HCl 2 ml PRN 1X PRN ID PRIOR TO IV START; Start 09/01/16 at 12:15; Stop 09/02/16 at 12:14; Status DC Hydromorphone HCl (Dilaudid) 0.5 mg PRN Q10MIN PRN IV SEV PAIN, Second choice; Start 09/01/16 at 12:15; Stop 09/02/16 at 12:14; Status DC Prochlorperazine Edisylate (Compazine) 5 mg PACU PRN PRN IV NAUSEA, MRX1; Start 09/01/16 at 12:15; Stop 09/02/16 at 12:14; Status DC Desflurane (Suprane) 60 ml STK-MED ONCE IH ; Start 09/01/16 at 12:16; Stop at 12:17; Status DC Fentanyl Citrate (Fentanyl 2ml Vial) 100 mcg STK-MED ONCE .ROUTE ; Start at 12:17; Stop 09/01/16 at 12:18; Status DC Succinylcholine Chloride (Anectine) 200 mg STK-MED ONCE .ROUTE ; Start 09/01/16 at 12:17; Stop 09/01/16 at 12:18; Status DC Glycopyrrolate (Robinul) 1 mg STK-MED ONCE .ROUTE ; Start 09/01/16 at 12:17; Stop 09/01/16 at 12:18; Status DC Neostigmine Methylsulfate 5 mg STK-MED ONCE .ROUTE ; Start 09/01/16 at 12:17; Stop 09/01/16 at 12:18; Status DC Rocuronium [place] (Zemuron) 50 mg STK-MED ONCE .ROUTE ; Start 09/01/16 at 12:18 ; Stop 09/01/16 at 12:19; Status DC Propofol 20 ml @ As Directed STK-MED ONCE IV ; Start 09/01/16 at 12:18; Stop 09/01 at 12:19; Status DC Lidocaine HCl (Lidocaine Pf 2% Vial) 5 ml STK-MED ONCE .ROUTE ; Start 09/01/16 at 12:18; Stop 09/01/16 at 12:19; Status DC Dexamethasone Sodium Phosphate (Decadron) 20 mg STK-MED ONCE .ROUTE ; Start 09/01 at 12:18; Stop 09/01/16 at 12:19; Status DC Ondansetron HCl (Zofran) 4 mg STK-MED ONCE .ROUTE ; Start 09/01/16 at 12:18; Stop 09/01/16 at 12:19; Status DC Famotidine (Pepcid) 20 mg STK-MED ONCE .ROUTE ; Start 09/01/16 at 12:32; Stop 09/01/16 at 12:33; Status DC Cefoxitin Sodium 100 ml @ As Directed STK-MED ONCE IV ; Start 09/01/16 at 13:30 ; Stop 09/01/16 at 13:31; Status DC Fentanyl Citrate (Fentanyl 2ml Vial) 100 mcg STK-MED ONCE .ROUTE ; Start at 13:35; Stop 09/01/16 at 13:36; Status DC Sodium Chloride (Sodium Chloride) 50 ml STK-MED ONCE IJ ; Start 09/01/16 at 14:05 ; Stop 09/01/16 at 14:06; Status DC Morphine Sulfate 10 mg STK-MED ONCE .ROUTE ; Start 09/01/16 at 14:05; Stop at 14:06; Status DC Vecuronium [place] (Norcuron Bolus) 10 mg STK-MED ONCE IV ; Start 09/01/16 at 14: 05; Stop 09/01/16 at 14:06; Status DC Sevoflurane (Ultane) 90 ml STK-MED ONCE IH ; Start 09/01/16 at 15:10; Stop at 15:11; Status DC Famotidine (Pepcid) 20 mg BID IVP Last administered on 09/06/16 08:52; Start 09/01/16 at 21:00 Enoxaparin Sodium (Lovenox 40mg Syringe) 40 mg Q24H SQ Last administered on 08:53; Start 09/02/16 at 09:00 Sodium Chloride (Normal Saline Flush) 3 ml QSHIFT PRN IV AFTER MEDS AND BLOOD DRAWS; Start 09/01/16 at 15:15 Ringer's Solution 1,000 ml @ 100 mls/hr Q10H IV ; Start 09/01/16 at 15:06; Stop 09/01/16 at 19:07; Status DC Naloxone HCl (Narcan) 0.4 mg PRN Q2MIN PRN IV SEE INSTRUCTIONS; Start 09/01/16 at 15:15 Sodium Chloride 1,000 ml @ 25 mls/hr Q24H IV Last administered on 09/04/16 15 :06; Start 09/01/16 at 15:06; Stop 09/05/16 at 01:23; Status DC Hydromorphone HCl 30 ml @ 0 mls/hr CONT PRN PRN IV PROTOCOL Last administered on 09/03/16 04:38; Start 09/01/16 at 15:15; Stop 09/06/16 at 11:42; Status DC Ondansetron HCl (Zofran) 4 mg PRN Q6HRS PRN IV NAUESA, 1ST CHOICE; Start at 15:15 Bupivacaine HCl/ Epinephrine Bitart (Marcaine-Epi 0.5%-[id number]) 50 ml STK-MED ONCE .ROUTE Last administered on 09/01/16 13:29; Start 09/01/16 at 15:14; Stop 09/01/16 at 15:15; Status DC Ketamine HCl 500 mg STK-MED ONCE .ROUTE ; Start 09/01/16 at 15:17; Stop 09/01/16 at 15:18; Status DC Calcium Chloride 1000 mg/Sodium Chloride 60 ml @ 120 mls/hr 1X ONCE IV ; Start 09/03/16 at 12:30; Stop 09/03/16 at 12:30; Status DC Calcium Gluconate 1000 mg/Sodium Chloride 110 ml @ 220 mls/hr 1X ONCE IV Last administered on 09/03/16 14:40; Start 09/03/16 at 13:00; Stop 09/03/16 at 13: 29; Status DC Potassium Chloride 20 meq/ Sodium Chloride 1,010 ml @ 75 mls/hr [id number] IV ; Start 09/05/16 at 01:30; Status UNV Potassium Chloride/Sodium Chloride 1,000 ml @ 75 mls/hr [id number] IV Last administered on 09/06/16 08:50; Start 09/05/16 at 01:30 Amino Acids/ Glycerin/ Electrolytes 1,000 ml @ 50 mls/hr Q20H IV Last administered on 09/05/16 10:38; Start 09/05/16 at 09:30; Stop 09/05/16 at 11:40 ; Status DC Albuterol Sulfate (Ventolin Neb Soln) 2.5 mg PRN QID PRN NEB DYSPNEA, WHEEZING ; Start 09/05/16 at 09:30 Saliva Substitute (Biotene Moisturizing Mouth) 2 spray PRN Q15MIN PRN PO DRY MOUTH Last administered on 09/05/16 13:14; Start 09/05/16 at 09:30 Throat Lozenges (Cepacol Sore Throat Lozenge) 1 yaakov PRN Q2HRS PRN PO SORE THROAT; Start 09/05/16 at 09:30 Amino Acids/ Glycerin/ Electrolytes 1,000 ml @ 80 mls/hr [id number] IV Last administered on 09/06/16 08:48; Start 09/05/16 at 11:30 Iohexol (Omnipaque 240 Mg/ml) 30 ml 1X ONCE PO Last administered on 09/06/16 11:15; Start 09/06/16 at 11:15; Stop 09/06/16 at 11:16; Status DC Iohexol (Omnipaque 300 Mg/ml) 75 ml 1X ONCE IV ; Start 09/06/16 at 11:15; Stop 09/06/16 at 11:16; Status DC Info (Do NOT chart on this entry -- for MONITORING) 1 each PRN DAILY PRN MC SEE COMMENTS; Start 09/06/16 at 11:15; Stop 09/08/16 at 11:14 Active Scripts Active Reported Aspir 81 (Aspirin) 81 Mg Tablet.dr 81 Mg PO Ultracet Tablet (Tramadol Hcl/Acetaminophen) 1 Each Tablet 1 Tab PO TID Lipitor (Atorvastatin Calcium) 10 Mg Tablet 1 Tab PO DAILY Indapamide 1.25 Mg Tablet 1.25 Mg PO Diovan Hct 80-12.5 Mg Tablet (Valsartan/Hydrochlorothiazide) 1 Each Tablet 1 Each PO Naproxen Sodium 550 Mg Tablet 375 Mg PO PRN Vitals/I & O Vital Sign - Last 24 Hours 09/05/16 09/05/16 09/05/16 09/05/16 15:00 19:00 20:00 23:25 Temp 97.9 97.9 97.5 97.9 97.9 97.5 Pulse 42 44 47 Resp 18 18 18 B/P (MAP) 149/69 (95) 143/70 (94) 135/62 (86) Pulse Ox 95 97 96 O2 Delivery Nasal Cannula Room Air Nasal Cannula Room Air O2 Flow Rate 2.0 2.0 09/06/16 09/06/16 09/06/16 03:29 07:00 11:00 Temp 97.9 97.5 98.1 97.9 97.5 98.1 Pulse 44 47 45 Resp 18 16 16 B/P (MAP) 118/79 (92) 127/56 (79) 136/74 (94) Pulse Ox 95 95 97 O2 Delivery Room Air Room Air Nasal Cannula O2 Flow Rate 2.0 Intake and Output 09/05/16 09/05/16 09/06/16 14:59 22:59 06:59 Intake Total 1037 ml 3120 ml Output Total 1250 ml 275 ml Balance -1250 ml 1037 ml 2845 ml Nutrition Consultation Dietary Evaluation: Recommendations by RD: PPN/TPN Comments: ppn for short term nutrition Expected Outcomes/Goals: diet adv/ tolerance Interpretation of weight loss: >1-2% in 1 week Malnutrition Findings: Food and Nutrition Intake (Sev: <50% est energy req 5days Weight Status: Overweight KEO MITCHELL MD Sep 06, 2016 14:16
[2016-09-06 15:00] VITALS: BP 159/88
--- NOTE | 2016-09-06 15:13 | RAD ---
CT of the abdomen and pelvis with contrast, 09/06/2016: History: Elevated white blood cell count, recent gastric surgery Multidetector CT imaging was performed following oral and IV administration of contrast. Comparison is made to a study from 09/01/2016. There has been interval gastric surgery with an apparent gastrojejunostomy. A right upper quadrant catheter appears to extend into the proximal duodenum. There is a surgical drain in the right upper quadrant. An NG tube extends into the proximal stomach. There is a small amount of residual free air in the abdomen. A trace amount of free fluid is evident in the left paracolic gutter. There is a moderate-sized deep pelvic fluid collection along the anterior aspect of the rectum. It contains a bubble of gas. This does not appear to represent a fluid-filled loop of bowel. It measures approximately 5.5 x 4 x 4 cm. There is also a left subdiaphragmatic fluid collection measuring approximately 8 x 9 x 3.5 cm. No gas bubbles are seen within this process. This fluid is of near water density. There are small to moderate sized bilateral pleural effusions, left greater than right. There is moderate underlying atelectasis in the right lower lobe. There is nearly complete atelectasis of the left lower lobe. Hepatic cysts are again noted. The gallbladder is unremarkable. No pancreatic abnormality is seen. The spleen is within normal limits in size. No renal abnormality is detected. Moderate aortoiliac calcific plaquing is present. The bowel loops are not dilated. There is colonic diverticulosis most extensive at the descending colon and proximal sigmoid levels. IMPRESSION: 1. Postoperative pelvic and left subdiaphragmatic fluid collections. Infection cannot be excluded. 2. Small right pleural effusion with moderate right lower lobe atelectasis/infiltrate. 3. Moderate-sized left pleural effusion with complete left lower lobe atelectasis. PQRS Compliance Statement: One or more of the following individualized dose reduction techniques were utilized for this examination: 1. Automated exposure control 2. Adjustment of the mA and/or kV according to patient size 3. Use of iterative reconstruction technique
[2016-09-06 19:20] VITALS: BP 149/82
[2016-09-06 23:30] VITALS: BP 149/87
[2016-09-07] VITALS (28 sets, daily range): BP systolic 127–162; BP diastolic 70–91
[2016-09-07] MEDS: PIPERACILLIN/TAZOBACTAM 3.375 GM in IV NORMAL SALINE 50ML 50 ML IV SCH ×4 (00:01→17:29)
[2016-09-07 04:39] LABS: BASO % 0 % (0-3); EOS % 1 % (0-3); HEMATOCRIT 33.5 % (39.0-53.0); HEMOGLOBIN 11.1 g/dL (13.0-17.5); LYMPH # 1.4 x10^3/uL (1.0-4.8); LYMPH % 10 % (24-48); MEAN CORPUSCULAR HEMOGLOBIN 30 pg (25-35); MEAN CORPUSCULAR HGB CONC 33 g/dL (31-37); MEAN CORPUSCULAR VOLUME 89 fL (79-100); MONO % 11 % (0-9); NEUT % 78 % (31-73); PLATELET COUNT 330 x10^3/uL (140-400); RED BLOOD COUNT 3.75 x10^6/uL (4.30-5.70); RED CELL DISTRIBUTION WIDTH 13.6 % (11.5-14.5)
[2016-09-07 05:16] LABS: CALCIUM 7.2 mg/dL (8.5-10.1); CREATININE 0.7 mg/dL (0.7-1.3); GFR 111.5; POTASSIUM 3.5 mmol/L (3.5-5.1)
[2016-09-07 06:06] LABS: MAGNESIUM 2.1 mg/dL (1.8-2.4); PHOSPHORUS 2.8 mg/dL (2.6-4.7)
--- NOTE | 2016-09-07 07:44 | PDOC ---
Infectious Disease Note Subjective Subjective Doing well but frustrated with limited activity with so many tubes + BM times 4 Has occ cough with sputum. No hemoptysis or chest pain Tolerating clears ROS ROS GEN: Denies fevers, chills, sweats HEENT: Denies blurred vision, sore throat CV: Denies chest pain RESP: Denies shortness of air, cough GI: Denies n/v/d NEURO: Denies confusion, dizziness MSK: Denies weakness, joint pain/swelling Vital Sign Vital Signs Vital Signs Date Time Temp Pulse Resp B/P (MAP) Pulse Ox O2 Delivery O2 Flow Rate FiO2 09/07/16 03:00 98.0 52 20 162/83 (109) 92 Room Air 98.0 09/06/16 11:00 2.0 Physical Exam PHYSICAL EXAM GENERAL: NAD, Alert HEENT: PERRL, OC/OP -clear NECK: Supple, no JVD, no LN LUNGS: Clear HEART: S1S2, no gallop, no murmur ABD: Soft, NT, no organomegaly, no rebound, NGT. 2 drains EXT: No edema, no cyanosis VICE PRESIDENT OF TALENT MANAGEMENT: Alert, oriented x 3, no focal neurologic deficit SKIN: No rash IV: clean Labs Lab Laboratory Tests Test 09/07/16 04:15 White Blood Count 14.0 x10^3/uL (4.0-11.0) Red Blood Count 3.75 x10^6/uL (4.30-5.70) Hemoglobin 11.1 g/dL (13.0-17.5) Hematocrit 33.5 % (39.0-53.0) Mean Corpuscular Volume 89 fL (79-100) Mean Corpuscular Hemoglobin 30 pg (25-35) Mean Corpuscular Hemoglobin Concent 33 g/dL (31-37) Red Cell Distribution Width 13.6 % (11.5-14.5) Platelet Count 330 x10^3/uL (140-400) Neutrophils (%) (Auto) 78 % (31-73) Lymphocytes (%) (Auto) 10 % (24-48) Monocytes (%) (Auto) 11 % (0-9) Eosinophils (%) (Auto) 1 % (0-3) Basophils (%) (Auto) 0 % (0-3) Neutrophils # (Auto) 11.0 x10^3uL (1.8-7.7) Lymphocytes # (Auto) 1.4 x10^3/uL (1.0-4.8) Monocytes # (Auto) 1.5 x10^3/uL (0.0-1.1) Eosinophils # (Auto) 0.1 x10^3/uL (0.0-0.7) Basophils # (Auto) 0.0 x10^3/uL (0.0-0.2) Sodium Level 142 mmol/L (136-145) Potassium Level 3.5 mmol/L (3.5-5.1) Chloride Level 107 mmol/L (98-107) Carbon Dioxide Level 26 mmol/L (21-32) Anion Gap 9 (6-14) Blood Urea Nitrogen 20 mg/dL (8-26) Creatinine 0.7 mg/dL (0.7-1.3) Estimated GFR (Cockcroft-Gault) 111.5 Glucose Level 107 mg/dL (70-99) Calcium Level 7.2 mg/dL (8.5-10.1) Phosphorus Level 2.8 mg/dL (2.6-4.7) Magnesium Level 2.1 mg/dL (1.8-2.4) Objective Assessment Leukocytosis without fever - mild increase today Abd fluid collections on CT Mild pleural effusions Perf Viscous S/p Antrectomy 09/01 Hypernatremia -improving Plan Plan of Care Cont Zosyn (09/01) Add Fluconazole Await surgical eval and ? need for abd fluid collection drainage Cont Incentive spirometry F/u labs in am VITALIY RAINEY MD Sep 07, 2016 07:44
[2016-09-07] MEDS: AMINO AC 3%/ELECTROLYTE/GLYCER 1,000 ML IV SCH ×2 (08:27→21:27)
[2016-09-07] MEDS: POTASSIUM CL 20MEQ-0.45% NACL 1,000 ML IV SCH ×2 (08:27→20:55)
[2016-09-07] MEDS: FAMOTIDINE 20 MG/2 ML VIAL IVP SCH ×2 (08:28→21:05)
[2016-09-07] MEDS: FLUCONAZOLE 400MG/200ML PREMIX 200 ML IV SCH (08:28)
[2016-09-07] MEDS: ENOXAPARIN 40 MG/0.4 ML SYRINGE. SQ SCH (08:29)
--- NOTE | 2016-09-07 09:54 | PDOC ---
SURGICAL PROGRESS NOTE Subjective pain is managed + flatus and stool no n/v/abd distention Vital Signs Vital Signs Date Time Temp Pulse Resp B/P (MAP) Pulse Ox O2 Delivery O2 Flow Rate FiO2 09/07/16 07:00 97.8 47 16 147/79 (101) 94 Room Air 97.8 09/06/16 11:00 2.0 I&O Intake and Output 09/07/16 06:59 Intake Total 3250 ml Output Total 1650 ml Balance 1600 ml IV Total 1500 ml Blood Product 875 ml Other 875 ml Output Urine Total 1050 ml Drainage Total 600 ml # Voids 1 # Bowel Movements 2 General: Alert, Oriented X3, Cooperative, No acute distress HEENT: Other (NG clamped ) Abdomen: Soft, Other (SHRAVAN serous, d tube in place, dressing dry) Labs Laboratory Tests Test 09/06/16 05:15 09/06/16 05:25 09/07/16 04:15 White Blood Count 13.6 x10^3/uL (4.0-11.0) 14.0 x10^3/uL (4.0-11.0) Red Blood Count 3.61 x10^6/uL (4.30-5.70) 3.75 x10^6/uL (4.30-5.70) Hemoglobin 10.8 g/dL (13.0-17.5) 11.1 g/dL (13.0-17.5) Hematocrit 31.9 % (39.0-53.0) 33.5 % (39.0-53.0) Mean Corpuscular Volume 88 fL (79-100) 89 fL (79-100) Mean Corpuscular Hemoglobin 30 pg (25-35) 30 pg (25-35) Mean Corpuscular Hemoglobin Concent 34 g/dL (31-37) 33 g/dL (31-37) Red Cell Distribution Width 13.7 % (11.5-14.5) 13.6 % (11.5-14.5) Platelet Count 310 x10^3/uL (140-400) 330 x10^3/uL (140-400) Neutrophils (%) (Auto) 80 % (31-73) 78 % (31-73) Lymphocytes (%) (Auto) 9 % (24-48) 10 % (24-48) Monocytes (%) (Auto) 10 % (0-9) 11 % (0-9) Eosinophils (%) (Auto) 0 % (0-3) 1 % (0-3) Basophils (%) (Auto) 1 % (0-3) 0 % (0-3) Neutrophils # (Auto) 10.9 x10^3uL (1.8-7.7) 11.0 x10^3uL (1.8-7.7) Lymphocytes # (Auto) 1.2 x10^3/uL (1.0-4.8) 1.4 x10^3/uL (1.0-4.8) Monocytes # (Auto) 1.3 x10^3/uL (0.0-1.1) 1.5 x10^3/uL (0.0-1.1) Eosinophils # (Auto) 0.1 x10^3/uL (0.0-0.7) 0.1 x10^3/uL (0.0-0.7) Basophils # (Auto) 0.1 x10^3/uL (0.0-0.2) 0.0 x10^3/uL (0.0-0.2) Sodium Level 147 mmol/L (136-145) 142 mmol/L (136-145) Potassium Level 3.6 mmol/L (3.5-5.1) 3.5 mmol/L (3.5-5.1) Chloride Level 110 mmol/L (98-107) 107 mmol/L (98-107) Carbon Dioxide Level 25 mmol/L (21-32) 26 mmol/L (21-32) Anion Gap 12 (6-14) 9 (6-14) Blood Urea Nitrogen 29 mg/dL (8-26) 20 mg/dL (8-26) Creatinine 0.8 mg/dL (0.7-1.3) 0.7 mg/dL (0.7-1.3) Estimated GFR (Cockcroft-Gault) 95.6 111.5 Glucose Level 119 mg/dL (70-99) 107 mg/dL (70-99) Calcium Level 7.6 mg/dL (8.5-10.1) 7.2 mg/dL (8.5-10.1) Phosphorus Level 2.8 mg/dL (2.6-4.7) Magnesium Level 2.1 mg/dL (1.8-2.4) Laboratory Tests Test 09/07/16 04:15 White Blood Count 14.0 x10^3/uL (4.0-11.0) Red Blood Count 3.75 x10^6/uL (4.30-5.70) Hemoglobin 11.1 g/dL (13.0-17.5) Hematocrit 33.5 % (39.0-53.0) Mean Corpuscular Volume 89 fL (79-100) Mean Corpuscular Hemoglobin 30 pg (25-35) Mean Corpuscular Hemoglobin Concent 33 g/dL (31-37) Red Cell Distribution Width 13.6 % (11.5-14.5) Platelet Count 330 x10^3/uL (140-400) Neutrophils (%) (Auto) 78 % (31-73) Lymphocytes (%) (Auto) 10 % (24-48) Monocytes (%) (Auto) 11 % (0-9) Eosinophils (%) (Auto) 1 % (0-3) Basophils (%) (Auto) 0 % (0-3) Neutrophils # (Auto) 11.0 x10^3uL (1.8-7.7) Lymphocytes # (Auto) 1.4 x10^3/uL (1.0-4.8) Monocytes # (Auto) 1.5 x10^3/uL (0.0-1.1) Eosinophils # (Auto) 0.1 x10^3/uL (0.0-0.7) Basophils # (Auto) 0.0 x10^3/uL (0.0-0.2) Sodium Level 142 mmol/L (136-145) Potassium Level 3.5 mmol/L (3.5-5.1) Chloride Level 107 mmol/L (98-107) Carbon Dioxide Level 26 mmol/L (21-32) Anion Gap 9 (6-14) Blood Urea Nitrogen 20 mg/dL (8-26) Creatinine 0.7 mg/dL (0.7-1.3) Estimated GFR (Cockcroft-Gault) 111.5 Glucose Level 107 mg/dL (70-99) Calcium Level 7.2 mg/dL (8.5-10.1) Phosphorus Level 2.8 mg/dL (2.6-4.7) Magnesium Level 2.1 mg/dL (1.8-2.4) Problem List Problems Medical Problems: (1) Lactic acid acidosis Status: Acute (2) Perforated abdominal viscus Status: Acute Assessment/Plan s/p antrectomy ct with 2 fluid collections--IR consult pending + bowel function, will leave NG clamped for now--consider DC soon Problems: DIA NICHOLAS TORCH BRAZER Sep 07, 2016 09:54
--- NOTE | 2016-09-07 11:18 | PDOC ---
PROGRESS NOTES Chief Complaint Chief Complaint Assessment 1. Penumoperitoneum with perforated duodenum 2. SIRS POA, no sepsis 3. BRISEYDA, vasomotor 4. Mild PCM 5. Tobacco abuse 6. Incidental left small adrenal nodule 7. Diverticulosis 8. Bradycardia 9. Hypocalcemia History of Present Illness History of Present Illness pt is lying comfortably in bed, he denies any complaints, his NGT has been clamped and will be removed per surgery Vitals Vitals Vital Signs Date Time Temp Pulse Resp B/P (MAP) Pulse Ox O2 Delivery O2 Flow Rate FiO2 09/07/16 07:35 Room Air 09/07/16 07:00 97.8 47 16 147/79 (101) 94 97.8 09/06/16 11:00 2.0 Physical Exam General: Alert, Oriented X3, Cooperative, No acute distress Heart: Regular rate, No murmurs Lungs: Clear, Other (no crackles or wheezes) Abdomen: Normal bowel sounds, Soft, No tenderness, Other (SHRAVAN serous, d tube in place, dressing dry) Extremities: No clubbing, No cyanosis Skin: No rashes, No breakdown Labs LABS Laboratory Tests Test 09/07/16 04:15 White Blood Count 14.0 x10^3/uL (4.0-11.0) Red Blood Count 3.75 x10^6/uL (4.30-5.70) Hemoglobin 11.1 g/dL (13.0-17.5) Hematocrit 33.5 % (39.0-53.0) Mean Corpuscular Volume 89 fL (79-100) Mean Corpuscular Hemoglobin 30 pg (25-35) Mean Corpuscular Hemoglobin Concent 33 g/dL (31-37) Red Cell Distribution Width 13.6 % (11.5-14.5) Platelet Count 330 x10^3/uL (140-400) Neutrophils (%) (Auto) 78 % (31-73) Lymphocytes (%) (Auto) 10 % (24-48) Monocytes (%) (Auto) 11 % (0-9) Eosinophils (%) (Auto) 1 % (0-3) Basophils (%) (Auto) 0 % (0-3) Neutrophils # (Auto) 11.0 x10^3uL (1.8-7.7) Lymphocytes # (Auto) 1.4 x10^3/uL (1.0-4.8) Monocytes # (Auto) 1.5 x10^3/uL (0.0-1.1) Eosinophils # (Auto) 0.1 x10^3/uL (0.0-0.7) Basophils # (Auto) 0.0 x10^3/uL (0.0-0.2) Sodium Level 142 mmol/L (136-145) Potassium Level 3.5 mmol/L (3.5-5.1) Chloride Level 107 mmol/L (98-107) Carbon Dioxide Level 26 mmol/L (21-32) Anion Gap 9 (6-14) Blood Urea Nitrogen 20 mg/dL (8-26) Creatinine 0.7 mg/dL (0.7-1.3) Estimated GFR (Cockcroft-Gault) 111.5 Glucose Level 107 mg/dL (70-99) Calcium Level 7.2 mg/dL (8.5-10.1) Phosphorus Level 2.8 mg/dL (2.6-4.7) Magnesium Level 2.1 mg/dL (1.8-2.4) Review of Systems Review of Systems denies N/V/D and AREVALO Assessment and Plan Assessmemt and Plan Assessment 1. Penumoperitoneum with perforated duodenum 2. SIRS POA, no sepsis 3. BRISEYDA, vasomotor 4. Mild PCM 5. Tobacco abuse 6. Incidental left small adrenal nodule 7. Diverticulosis 8. Bradycardia 9. Hypocalcemia Plan 1. Add procalamine and 0.5NS 2. Lovenox for DVT prophylaxis 3. Stopped dilaudid because risk of bradycardia, TTE normal 4. Appreciate subspecialty input 5. Continue home meds 6. Discussed plan of care with nursing 7. PT/OT 8. Recheck CBC and BMP tomorrow 9. Reviewed imaging: CXR normal, Abd/pelv CT showed postoperative pelvic and left subdiaphragmatic fluid collections 10. Zofran prn for nausea 11. Calcium gluconate repletion for hypocalcemia 12. Continue NGT per surgery 13. Zosyn and fluconazole per ID Problems: Comment Review of Relevant I have reviewed the following items shaw (where applicable) has been applied. Labs Laboratory Tests Test 09/06/16 05:15 09/06/16 05:25 09/07/16 04:15 White Blood Count 13.6 x10^3/uL (4.0-11.0) 14.0 x10^3/uL (4.0-11.0) Red Blood Count 3.61 x10^6/uL (4.30-5.70) 3.75 x10^6/uL (4.30-5.70) Hemoglobin 10.8 g/dL (13.0-17.5) 11.1 g/dL (13.0-17.5) Hematocrit 31.9 % (39.0-53.0) 33.5 % (39.0-53.0) Mean Corpuscular Volume 88 fL (79-100) 89 fL (79-100) Mean Corpuscular Hemoglobin 30 pg (25-35) 30 pg (25-35) Mean Corpuscular Hemoglobin Concent 34 g/dL (31-37) 33 g/dL (31-37) Red Cell Distribution Width 13.7 % (11.5-14.5) 13.6 % (11.5-14.5) Platelet Count 310 x10^3/uL (140-400) 330 x10^3/uL (140-400) Neutrophils (%) (Auto) 80 % (31-73) 78 % (31-73) Lymphocytes (%) (Auto) 9 % (24-48) 10 % (24-48) Monocytes (%) (Auto) 10 % (0-9) 11 % (0-9) Eosinophils (%) (Auto) 0 % (0-3) 1 % (0-3) Basophils (%) (Auto) 1 % (0-3) 0 % (0-3) Neutrophils # (Auto) 10.9 x10^3uL (1.8-7.7) 11.0 x10^3uL (1.8-7.7) Lymphocytes # (Auto) 1.2 x10^3/uL (1.0-4.8) 1.4 x10^3/uL (1.0-4.8) Monocytes # (Auto) 1.3 x10^3/uL (0.0-1.1) 1.5 x10^3/uL (0.0-1.1) Eosinophils # (Auto) 0.1 x10^3/uL (0.0-0.7) 0.1 x10^3/uL (0.0-0.7) Basophils # (Auto) 0.1 x10^3/uL (0.0-0.2) 0.0 x10^3/uL (0.0-0.2) Sodium Level 147 mmol/L (136-145) 142 mmol/L (136-145) Potassium Level 3.6 mmol/L (3.5-5.1) 3.5 mmol/L (3.5-5.1) Chloride Level 110 mmol/L (98-107) 107 mmol/L (98-107) Carbon Dioxide Level 25 mmol/L (21-32) 26 mmol/L (21-32) Anion Gap 12 (6-14) 9 (6-14) Blood Urea Nitrogen 29 mg/dL (8-26) 20 mg/dL (8-26) Creatinine 0.8 mg/dL (0.7-1.3) 0.7 mg/dL (0.7-1.3) Estimated GFR (Cockcroft-Gault) 95.6 111.5 Glucose Level 119 mg/dL (70-99) 107 mg/dL (70-99) Calcium Level 7.6 mg/dL (8.5-10.1) 7.2 mg/dL (8.5-10.1) Phosphorus Level 2.8 mg/dL (2.6-4.7) Magnesium Level 2.1 mg/dL (1.8-2.4) Laboratory Tests Test 09/07/16 04:15 White Blood Count 14.0 x10^3/uL (4.0-11.0) Red Blood Count 3.75 x10^6/uL (4.30-5.70) Hemoglobin 11.1 g/dL (13.0-17.5) Hematocrit 33.5 % (39.0-53.0) Mean Corpuscular Volume 89 fL (79-100) Mean Corpuscular Hemoglobin 30 pg (25-35) Mean Corpuscular Hemoglobin Concent 33 g/dL (31-37) Red Cell Distribution Width 13.6 % (11.5-14.5) Platelet Count 330 x10^3/uL (140-400) Neutrophils (%) (Auto) 78 % (31-73) Lymphocytes (%) (Auto) 10 % (24-48) Monocytes (%) (Auto) 11 % (0-9) Eosinophils (%) (Auto) 1 % (0-3) Basophils (%) (Auto) 0 % (0-3) Neutrophils # (Auto) 11.0 x10^3uL (1.8-7.7) Lymphocytes # (Auto) 1.4 x10^3/uL (1.0-4.8) Monocytes # (Auto) 1.5 x10^3/uL (0.0-1.1) Eosinophils # (Auto) 0.1 x10^3/uL (0.0-0.7) Basophils # (Auto) 0.0 x10^3/uL (0.0-0.2) Sodium Level 142 mmol/L (136-145) Potassium Level 3.5 mmol/L (3.5-5.1) Chloride Level 107 mmol/L (98-107) Carbon Dioxide Level 26 mmol/L (21-32) Anion Gap 9 (6-14) Blood Urea Nitrogen 20 mg/dL (8-26) Creatinine 0.7 mg/dL (0.7-1.3) Estimated GFR (Cockcroft-Gault) 111.5 Glucose Level 107 mg/dL (70-99) Calcium Level 7.2 mg/dL (8.5-10.1) Phosphorus Level 2.8 mg/dL (2.6-4.7) Magnesium Level 2.1 mg/dL (1.8-2.4) Medications Current Medications Sodium Chloride 1,000 ml @ 1,000 mls/hr 1X ONCE IV Last administered on 07:45; Start 09/01/16 at 07:30; Stop 09/01/16 at 08:29; Status DC Ondansetron HCl (Zofran) 4 mg 1X ONCE IV Last administered on 09/01/16 07:44; Start 09/01/16 at 07:30; Stop 09/01/16 at 07:31; Status DC Fentanyl Citrate (Fentanyl 2ml Vial) 75 mcg 1X ONCE IV Last administered on 07:44; Start 09/01/16 at 07:30; Stop 09/01/16 at 07:31; Status DC Iohexol (Omnipaque 300 Mg/ml) 75 ml 1X ONCE IV Last administered on 09/01/16 08:24; Start 09/01/16 at 08:30; Stop 09/01/16 at 08:31; Status DC Info (Do NOT chart on this entry -- for MONITORING) 1 each PRN DAILY PRN MC SEE COMMENTS; Start 09/01/16 at 08:30; Stop 09/03/16 at 08:29; Status DC Morphine Sulfate 5 mg 1X ONCE IV Last administered on 09/01/16 08:41; Start at 08:45; Stop 09/01/16 at 08:46; Status DC Sodium Chloride 1,000 ml @ 1,000 mls/hr 1X ONCE IV Last administered on 08:40; Start 09/01/16 at 08:45; Stop 09/01/16 at 09:44; Status DC Piperacillin Sod/ Tazobactam Sod 3.375 gm/Sodium Chloride 50 ml @ 100 mls/hr Q6HRS IV Last administered on 09/07/16 05:57; Start 09/01/16 at 10:00 Famotidine (Pepcid) 20 mg 1X ONCE IVP Last administered on 09/01/16 09:46; Start 09/01/16 at 09:45; Stop 09/01/16 at 09:46; Status DC Ondansetron HCl (Zofran) 4 mg PRN Q8HRS PRN IV NAUSEA/VOMITING; Start 09/01/16 at 09:30; Stop 09/02/16 at 08:33; Status DC Morphine Sulfate 4 mg PRN Q2HR PRN IV PAIN; Start 09/01/16 at 09:30; Stop at 09:29; Status DC Sodium Chloride 1,000 ml @ 100 mls/hr Q10H IV Last administered on 09/04/16 18:30; Start 09/01/16 at 10:30; Stop 09/05/16 at 01:57; Status DC Acetaminophen (Tylenol) 500 mg PRN Q6HRS PRN PO MILD PAIN / TEMP; Start at 10:30 Famotidine (Pepcid) 20 mg BID IVP Last administered on 09/01/16 11:14; Start at 11:00; Stop 09/01/16 at 15:40; Status DC Ondansetron HCl (Zofran) 4 mg PRN Q6HRS PRN IV NAUSEA/VOMITING; Start 09/01/16 at 12:15; Stop 09/02/16 at 08:33; Status DC Fentanyl Citrate (Fentanyl 2ml Vial) 25 mcg PRN Q5MIN PRN IV MILD PAIN Last administered on 09/01/16t 16:00; Start 09/01/16 at 12:15; Stop 09/02/16 at 12:14; Status DC Fentanyl Citrate (Fentanyl 2ml Vial) 50 mcg PRN Q5MIN PRN IV MODERATE PAIN Last administered on 09/01/16t 15:54; Start 09/01/16 at 12:15; Stop 09/02/16 at 12: 14; Status DC Morphine Sulfate 1 mg PRN Q10MIN PRN IV SEVERE PAIN; Start 09/01/16 at 12:15; Stop 09/02/16 at 12:14; Status DC Ringer's Solution 1,000 ml @ 30 mls/hr Q24H IV ; Start 09/01/16 at 12:04; Stop 09/01/16 at 19:07; Status DC Lidocaine HCl 2 ml PRN 1X PRN ID PRIOR TO IV START; Start 09/01/16 at 12:15; Stop 09/02/16 at 12:14; Status DC Hydromorphone HCl (Dilaudid) 0.5 mg PRN Q10MIN PRN IV SEV PAIN, Second choice; Start 09/01/16 at 12:15; Stop 09/02/16 at 12:14; Status DC Prochlorperazine Edisylate (Compazine) 5 mg PACU PRN PRN IV NAUSEA, MRX1; Start 09/01/16 at 12:15; Stop 09/02/16 at 12:14; Status DC Desflurane (Suprane) 60 ml STK-MED ONCE IH ; Start 09/01/16 at 12:16; Stop at 12:17; Status DC Fentanyl Citrate (Fentanyl 2ml Vial) 100 mcg STK-MED ONCE .ROUTE ; Start at 12:17; Stop 09/01/16 at 12:18; Status DC Succinylcholine Chloride (Anectine) 200 mg STK-MED ONCE .ROUTE ; Start 09/01/16 at 12:17; Stop 09/01/16 at 12:18; Status DC Glycopyrrolate (Robinul) 1 mg STK-MED ONCE .ROUTE ; Start 09/01/16 at 12:17; Stop 09/01/16 at 12:18; Status DC Neostigmine Methylsulfate 5 mg STK-MED ONCE .ROUTE ; Start 09/01/16 at 12:17; Stop 09/01/16 at 12:18; Status DC Rocuronium [place] (Zemuron) 50 mg STK-MED ONCE .ROUTE ; Start 09/01/16 at 12:18 ; Stop 09/01/16 at 12:19; Status DC Propofol 20 ml @ As Directed STK-MED ONCE IV ; Start 09/01/16 at 12:18; Stop 09/01 at 12:19; Status DC Lidocaine HCl (Lidocaine Pf 2% Vial) 5 ml STK-MED ONCE .ROUTE ; Start 09/01/16 at 12:18; Stop 09/01/16 at 12:19; Status DC Dexamethasone Sodium Phosphate (Decadron) 20 mg STK-MED ONCE .ROUTE ; Start 09/01 at 12:18; Stop 09/01/16 at 12:19; Status DC Ondansetron HCl (Zofran) 4 mg STK-MED ONCE .ROUTE ; Start 09/01/16 at 12:18; Stop 09/01/16 at 12:19; Status DC Famotidine (Pepcid) 20 mg STK-MED ONCE .ROUTE ; Start 09/01/16 at 12:32; Stop 09/01/16 at 12:33; Status DC Cefoxitin Sodium 100 ml @ As Directed STK-MED ONCE IV ; Start 09/01/16 at 13:30 ; Stop 09/01/16 at 13:31; Status DC Fentanyl Citrate (Fentanyl 2ml Vial) 100 mcg STK-MED ONCE .ROUTE ; Start at 13:35; Stop 09/01/16 at 13:36; Status DC Sodium Chloride (Sodium Chloride) 50 ml STK-MED ONCE IJ ; Start 09/01/16 at 14:05 ; Stop 09/01/16 at 14:06; Status DC Morphine Sulfate 10 mg STK-MED ONCE .ROUTE ; Start 09/01/16 at 14:05; Stop at 14:06; Status DC Vecuronium [place] (Norcuron Bolus) 10 mg STK-MED ONCE IV ; Start 09/01/16 at 14: 05; Stop 09/01/16 at 14:06; Status DC Sevoflurane (Ultane) 90 ml STK-MED ONCE IH ; Start 09/01/16 at 15:10; Stop at 15:11; Status DC Famotidine (Pepcid) 20 mg BID IVP Last administered on 09/07/16 08:28; Start 09/01/16 at 21:00 Enoxaparin Sodium (Lovenox 40mg Syringe) 40 mg Q24H SQ Last administered on 08:53; Start 09/02/16 at 09:00 Sodium Chloride (Normal Saline Flush) 3 ml QSHIFT PRN IV AFTER MEDS AND BLOOD DRAWS; Start 09/01/16 at 15:15 Ringer's Solution 1,000 ml @ 100 mls/hr Q10H IV ; Start 09/01/16 at 15:06; Stop 09/01/16 at 19:07; Status DC Naloxone HCl (Narcan) 0.4 mg PRN Q2MIN PRN IV SEE INSTRUCTIONS; Start 09/01/16 at 15:15 Sodium Chloride 1,000 ml @ 25 mls/hr Q24H IV Last administered on 09/04/16 15 :06; Start 09/01/16 at 15:06; Stop 09/05/16 at 01:23; Status DC Hydromorphone HCl 30 ml @ 0 mls/hr CONT PRN PRN IV PROTOCOL Last administered on 09/03/16 04:38; Start 09/01/16 at 15:15; Stop 09/06/16 at 11:42; Status DC Ondansetron HCl (Zofran) 4 mg PRN Q6HRS PRN IV NAUESA, 1ST CHOICE; Start at 15:15 Bupivacaine HCl/ Epinephrine Bitart (Marcaine-Epi 0.5%-[id number]) 50 ml STK-MED ONCE .ROUTE Last administered on 09/01/16 13:29; Start 09/01/16 at 15:14; Stop 09/01/16 at 15:15; Status DC Ketamine HCl 500 mg STK-MED ONCE .ROUTE ; Start 09/01/16 at 15:17; Stop 09/01/16 at 15:18; Status DC Calcium Chloride 1000 mg/Sodium Chloride 60 ml @ 120 mls/hr 1X ONCE IV ; Start 09/03/16 at 12:30; Stop 09/03/16 at 12:30; Status DC Calcium Gluconate 1000 mg/Sodium Chloride 110 ml @ 220 mls/hr 1X ONCE IV Last administered on 09/03/16 14:40; Start 09/03/16 at 13:00; Stop 09/03/16 at 13: 29; Status DC Potassium Chloride 20 meq/ Sodium Chloride 1,010 ml @ 75 mls/hr [id number] IV ; Start 09/05/16 at 01:30; Status UNV Potassium Chloride/Sodium Chloride 1,000 ml @ 75 mls/hr [id number] IV Last administered on 09/07/16 08:27; Start 09/05/16 at 01:30 Amino Acids/ Glycerin/ Electrolytes 1,000 ml @ 50 mls/hr Q20H IV Last administered on 09/05/16 10:38; Start 09/05/16 at 09:30; Stop 09/05/16 at 11:40 ; Status DC Albuterol Sulfate (Ventolin Neb Soln) 2.5 mg PRN QID PRN NEB DYSPNEA, WHEEZING ; Start 09/05/16 at 09:30 Saliva Substitute (Biotene Moisturizing Mouth) 2 spray PRN Q15MIN PRN PO DRY MOUTH Last administered on 09/05/16 13:14; Start 09/05/16 at 09:30 Throat Lozenges (Cepacol Sore Throat Lozenge) 1 yaakov PRN Q2HRS PRN PO SORE THROAT; Start 09/05/16 at 09:30 Amino Acids/ Glycerin/ Electrolytes 1,000 ml @ 80 mls/hr [id number] IV Last administered on 09/07/16 08:27; Start 09/05/16 at 11:30 Iohexol (Omnipaque 240 Mg/ml) 30 ml 1X ONCE PO Last administered on 09/06/16 11:15; Start 09/06/16 at 11:15; Stop 09/06/16 at 11:16; Status DC Iohexol (Omnipaque 300 Mg/ml) 75 ml 1X ONCE IV Last administered on 09/06/16 13:20; Start 09/06/16 at 11:15; Stop 09/06/16 at 11:16; Status DC Info (Do NOT chart on this entry -- for MONITORING) 1 each PRN DAILY PRN MC SEE COMMENTS; Start 09/06/16 at 11:15; Stop 09/08/16 at 11:14 Fluconazole/ Sodium Chloride 200 ml @ 100 mls/hr Q24H IV Last administered on 09/07/16 08:28; Start 09/07/16 at 08:00 Active Scripts Active Reported Aspir 81 (Aspirin) 81 Mg Tablet.dr 81 Mg PO Ultracet Tablet (Tramadol Hcl/Acetaminophen) 1 Each Tablet 1 Tab PO TID Lipitor (Atorvastatin Calcium) 10 Mg Tablet 1 Tab PO DAILY Indapamide 1.25 Mg Tablet 1.25 Mg PO Diovan Hct 80-12.5 Mg Tablet (Valsartan/Hydrochlorothiazide) 1 Each Tablet 1 Each PO Naproxen Sodium 550 Mg Tablet 375 Mg PO PRN Vitals/I & O Vital Sign - Last 24 Hours 09/06/16 09/06/16 09/06/16 09/06/16 15:00 19:20 20:00 23:30 Temp 97.5 97.9 98.1 97.5 97.9 98.1 Pulse 48 56 54 Resp 16 16 18 B/P (MAP) 159/88 (111) 149/82 (104) 149/87 (107) Pulse Ox 97 96 94 O2 Delivery Room Air Room Air Room Air Room Air 09/07/16 09/07/16 09/07/16 03:00 07:00 07:35 Temp 98.0 97.8 98.0 97.8 Pulse 52 47 Resp 20 16 B/P (MAP) 162/83 (109) 147/79 (101) Pulse Ox 92 94 O2 Delivery Room Air Room Air Room Air Intake and Output 09/06/16 09/06/16 09/07/16 15:00 23:00 07:00 Intake Total 3250 ml Output Total 1250 ml 400 ml Balance -1250 ml 2850 ml Nutrition Consultation Dietary Evaluation: Recommendations by RD: PPN/TPN Comments: continue ppn for short term nutrition Expected Outcomes/Goals: diet adv/ tolerance- not met yet, goal ongoing Interpretation of weight loss: >1-2% in 1 week Malnutrition Findings: Food and Nutrition Intake (Sev: <50% est energy req 5days Weight Status: Overweight JUAN MENENDEZ III DO Sep 07, 2016 11:18
[2016-09-07] MEDS ORDERED: CALCIUM CHLORIDE 1,000 MG in IV NORMAL SALINE 50ML 50 ML IV ONE (11:30)
[2016-09-07] MEDS ORDERED: CALCIUM GLUCONATE 1,000 MG/10 ML VIAL. IVP ONE (11:30)
[2016-09-07] MEDS ORDERED: CALCIUM GLUCONATE 1,000 MG in IV NORMAL SALINE 100ML 100 ML IV ONE (11:45)
--- NOTE | 2016-09-07 12:11 | PDOC ---
Renal-Progress Notes Subjective Notes Notes NO COMPLAINTS History of Present Illness Hx of present illness NO CHANGE Vitals Vitals Vital Signs Date Time Temp Pulse Resp B/P (MAP) Pulse Ox O2 Delivery O2 Flow Rate FiO2 09/07/16 11:00 98.0 48 16 151/83 (105) 92 Room Air 98.0 09/06/16 11:00 2.0 Weight Weight [ ] I.O. Intake and Output Intake and Output 09/07/16 07:00 Intake Total 3250 ml Output Total 1650 ml Balance 1600 ml IV Total 1500 ml Blood Product 875 ml Other 875 ml Output Urine Total 1050 ml Drainage Total 600 ml # Voids 1 # Bowel Movements 2 Labs Labs Laboratory Tests Test 09/07/16 04:15 White Blood Count 14.0 x10^3/uL (4.0-11.0) Red Blood Count 3.75 x10^6/uL (4.30-5.70) Hemoglobin 11.1 g/dL (13.0-17.5) Hematocrit 33.5 % (39.0-53.0) Mean Corpuscular Volume 89 fL (79-100) Mean Corpuscular Hemoglobin 30 pg (25-35) Mean Corpuscular Hemoglobin Concent 33 g/dL (31-37) Red Cell Distribution Width 13.6 % (11.5-14.5) Platelet Count 330 x10^3/uL (140-400) Neutrophils (%) (Auto) 78 % (31-73) Lymphocytes (%) (Auto) 10 % (24-48) Monocytes (%) (Auto) 11 % (0-9) Eosinophils (%) (Auto) 1 % (0-3) Basophils (%) (Auto) 0 % (0-3) Neutrophils # (Auto) 11.0 x10^3uL (1.8-7.7) Lymphocytes # (Auto) 1.4 x10^3/uL (1.0-4.8) Monocytes # (Auto) 1.5 x10^3/uL (0.0-1.1) Eosinophils # (Auto) 0.1 x10^3/uL (0.0-0.7) Basophils # (Auto) 0.0 x10^3/uL (0.0-0.2) Sodium Level 142 mmol/L (136-145) Potassium Level 3.5 mmol/L (3.5-5.1) Chloride Level 107 mmol/L (98-107) Carbon Dioxide Level 26 mmol/L (21-32) Anion Gap 9 (6-14) Blood Urea Nitrogen 20 mg/dL (8-26) Creatinine 0.7 mg/dL (0.7-1.3) Estimated GFR (Cockcroft-Gault) 111.5 Glucose Level 107 mg/dL (70-99) Calcium Level 7.2 mg/dL (8.5-10.1) Phosphorus Level 2.8 mg/dL (2.6-4.7) Magnesium Level 2.1 mg/dL (1.8-2.4) Review of Systems Constitutional: yes: weakness, alert, oriented Ears/Nose/Throat: Yes: no symptom reported Pulmonary: Yes no symptom reported Gastrointestional: Yes: nausea Genitourinary: Yes: no symptom reported Musculoskeletal: Yes: muscle stiffness Skin: Yes no symptom reported Psychiatric/Neurological: Yes: no symptom reported Endocrine: Yes: no symptom reported Physical Exam General Appearance: no apparent distress Skin: warm Respiratory: bilateral CTA Heart: S1S2, RRR Abdomen: soft, bowel sounds present Extremities: pulses present, no edema, atrophy Neurology: alert, oriented, follow commands Musculoskeletal: Osteoarthritis Assessment Assessment IMP PRERENAL AZOTEMIA-BETTER HYPERNATREMIA-BETTER LOW K-BETTER DU AND S/P ANTRECTOMY PLAN CONT WITH PPN MAY NEED TPN IF UNABLE TO ADVANCE PO STOP IVF'S LABS IN AM RONIT HIGUERA MD Sep 07, 2016 12:11
[2016-09-07] MEDS ORDERED: LIDOCAINE 1% / SOD BICARB 8.4% 20 ML VIAL. IJ ONE ×2 (12:23→14:00)
[2016-09-07] MEDS ORDERED: fentaNYL PF VIAL 250 MCG/5 ML VIAL ONE (12:44)
[2016-09-07] MEDS ORDERED: MIDAZOLAM HCL/PF 5 MG/5 ML VIAL. ONE (12:44)
[2016-09-07] MEDS ORDERED: MIDAZOLAM HCL/PF 5 MG/5 ML VIAL. IV ONE (14:00)
[2016-09-07] MEDS ORDERED: fentaNYL PF VIAL 250 MCG/5 ML VIAL IV ONE (14:00)
--- NOTE | 2016-09-07 14:37 | RAD ---
Procedure: CT-guided drainage of perisplenic fluid collection, and perirectal fluid collection 09/07/2016 Clinical Indication: Recent hollow visceral perforation and surgery. Abnormal perisplenic and perirectal fluid collections concerning for developing abscesses. Sedation: Conscious sedation was administered for 60 minutes. The patient was monitored by a qualified independent observer throughout the time of sedation. Please refer to the medical record for exact doses of medications utilized to achieve moderate sedation. Sterility: The procedure was performed in its entirety using appropriate elements of sterile technique. Consent: The procedure was explained in its entirety to the patient or the patients designated sales representative electric service by a member of the treatment team, including a discussion of the risks, benefits and commonly accepted alternatives to the procedure, as well as the expected consequences of no therapy whatsoever. Discussion of the risks included, but was not limited to, those that are most frequent and those that are rare but possibly severe or life-threatening, as well as the possibility of unforeseen complications. Technique and Findings: Following informed consent, the patient was prepped and draped in the usual sterile fashion. The perirectal abscess was drained first. Imaging reconfirms a rounded perirectal fluid collection. Once a skin entry site had been selected, 1% Lidocaine was used to achieve local anesthesia . Using a left transgluteal approach, the perirectal and fluid collection was aspirated with a 17-gauge needle. A guidewire is advanced into the collection, over which, following dilatation, 10 Greek locking drainage catheter was placed. CT imaging of the upper abdomen confirms perisplenic fluid collection. Once a skin entry site had been selected, 1% Lidocaine was used to achieve local anesthesia . Using an intercostal approach, a 17-gauge guiding needle was advanced into the perisplenic fluid collection. A guidewire was advanced to the fluid collection, over which, following dilatation a 10 Greek locking drainage catheter was placed. Single possible fluid collection were sent for Gram stain and culture per ordering physician request. Catheters were secured in place with suture and sterile dressings were applied. No immediate complications were identified. Impression: Successful CT-guided drainage of both the perisplenic and perirectal fluid collections One or more of the following individualized dose reduction techniques were utilized for this examination: 1. Automated exposure control 2. Adjustment of the mA and/or kV according to patient size 3. Use of iterative reconstruction technique
[2016-09-08] MEDS: PIPERACILLIN/TAZOBACTAM 3.375 GM in IV NORMAL SALINE 50ML 50 ML IV SCH ×4 (00:03→18:09)
[2016-09-08 03:00] VITALS: BP 139/79
[2016-09-08 07:00] VITALS: BP 152/74
[2016-09-08 07:10] LABS: CALCIUM 7.7 mg/dL (8.5-10.1); CREATININE 0.7 mg/dL (0.7-1.3); GFR 111.5
[2016-09-08 07:23] LABS: POTASSIUM 3.7 mmol/L (3.5-5.1)
[2016-09-08 07:41] LABS: BASO % 0 % (0-3); EOS % 2 % (0-3); HEMATOCRIT 33.6 % (39.0-53.0); HEMOGLOBIN 11.5 g/dL (13.0-17.5); LYMPH # 1.1 x10^3/uL (1.0-4.8); LYMPH % 11 % (24-48); MEAN CORPUSCULAR HEMOGLOBIN 30 pg (25-35); MEAN CORPUSCULAR HGB CONC 34 g/dL (31-37); MEAN CORPUSCULAR VOLUME 88 fL (79-100); MONO % 11 % (0-9); NEUT % 77 % (31-73); PLATELET COUNT 312 x10^3/uL (140-400); RED BLOOD COUNT 3.81 x10^6/uL (4.30-5.70); RED CELL DISTRIBUTION WIDTH 13.6 % (11.5-14.5); WHITE BLOOD COUNT 9.9 x10^3/uL (4.0-11.0)
--- NOTE | 2016-09-08 08:27 | PDOC ---
SURGICAL PROGRESS NOTE Subjective Pt without c/o, clayton clears, no n/V, passing stools, pain well controlled, tolerated drain placement well Vital Signs Vital Signs Date Time Temp Pulse Resp B/P (MAP) Pulse Ox O2 Delivery O2 Flow Rate FiO2 09/08/16 07:00 97.9 46 20 152/74 (100) 94 Room Air 97.9 09/07/16 14:00 4.0 I&O Intake and Output 09/08/16 06:59 Intake Total 2961 ml Output Total 2830 ml Balance 131 ml IV Total 2961 ml Output Urine Total 1200 ml Gastric Drainage Total 650 ml Drainage Total 980 ml General: Alert, Oriented X3, Cooperative, No acute distress Abdomen: Soft, No tenderness, Other (drains serous in nature) Labs Laboratory Tests Test 09/07/16 04:15 09/08/16 06:30 White Blood Count 14.0 x10^3/uL (4.0-11.0) 9.9 x10^3/uL (4.0-11.0) Red Blood Count 3.75 x10^6/uL (4.30-5.70) 3.81 x10^6/uL (4.30-5.70) Hemoglobin 11.1 g/dL (13.0-17.5) 11.5 g/dL (13.0-17.5) Hematocrit 33.5 % (39.0-53.0) 33.6 % (39.0-53.0) Mean Corpuscular Volume 89 fL (79-100) 88 fL (79-100) Mean Corpuscular Hemoglobin 30 pg (25-35) 30 pg (25-35) Mean Corpuscular Hemoglobin Concent 33 g/dL (31-37) 34 g/dL (31-37) Red Cell Distribution Width 13.6 % (11.5-14.5) 13.6 % (11.5-14.5) Platelet Count 330 x10^3/uL (140-400) 312 x10^3/uL (140-400) Neutrophils (%) (Auto) 78 % (31-73) 77 % (31-73) Lymphocytes (%) (Auto) 10 % (24-48) 11 % (24-48) Monocytes (%) (Auto) 11 % (0-9) 11 % (0-9) Eosinophils (%) (Auto) 1 % (0-3) 2 % (0-3) Basophils (%) (Auto) 0 % (0-3) 0 % (0-3) Neutrophils # (Auto) 11.0 x10^3uL (1.8-7.7) 7.6 x10^3uL (1.8-7.7) Lymphocytes # (Auto) 1.4 x10^3/uL (1.0-4.8) 1.1 x10^3/uL (1.0-4.8) Monocytes # (Auto) 1.5 x10^3/uL (0.0-1.1) 1.0 x10^3/uL (0.0-1.1) Eosinophils # (Auto) 0.1 x10^3/uL (0.0-0.7) 0.1 x10^3/uL (0.0-0.7) Basophils # (Auto) 0.0 x10^3/uL (0.0-0.2) 0.0 x10^3/uL (0.0-0.2) Sodium Level 142 mmol/L (136-145) 138 mmol/L (136-145) Potassium Level 3.5 mmol/L (3.5-5.1) 3.7 mmol/L (3.5-5.1) Chloride Level 107 mmol/L (98-107) 104 mmol/L (98-107) Carbon Dioxide Level 26 mmol/L (21-32) 24 mmol/L (21-32) Anion Gap 9 (6-14) 10 (6-14) Blood Urea Nitrogen 20 mg/dL (8-26) 16 mg/dL (8-26) Creatinine 0.7 mg/dL (0.7-1.3) 0.7 mg/dL (0.7-1.3) Estimated GFR (Cockcroft-Gault) 111.5 111.5 Glucose Level 107 mg/dL (70-99) 103 mg/dL (70-99) Calcium Level 7.2 mg/dL (8.5-10.1) 7.7 mg/dL (8.5-10.1) Phosphorus Level 2.8 mg/dL (2.6-4.7) Magnesium Level 2.1 mg/dL (1.8-2.4) Laboratory Tests Test 09/08/16 06:30 White Blood Count 9.9 x10^3/uL (4.0-11.0) Red Blood Count 3.81 x10^6/uL (4.30-5.70) Hemoglobin 11.5 g/dL (13.0-17.5) Hematocrit 33.6 % (39.0-53.0) Mean Corpuscular Volume 88 fL (79-100) Mean Corpuscular Hemoglobin 30 pg (25-35) Mean Corpuscular Hemoglobin Concent 34 g/dL (31-37) Red Cell Distribution Width 13.6 % (11.5-14.5) Platelet Count 312 x10^3/uL (140-400) Neutrophils (%) (Auto) 77 % (31-73) Lymphocytes (%) (Auto) 11 % (24-48) Monocytes (%) (Auto) 11 % (0-9) Eosinophils (%) (Auto) 2 % (0-3) Basophils (%) (Auto) 0 % (0-3) Neutrophils # (Auto) 7.6 x10^3uL (1.8-7.7) Lymphocytes # (Auto) 1.1 x10^3/uL (1.0-4.8) Monocytes # (Auto) 1.0 x10^3/uL (0.0-1.1) Eosinophils # (Auto) 0.1 x10^3/uL (0.0-0.7) Basophils # (Auto) 0.0 x10^3/uL (0.0-0.2) Sodium Level 138 mmol/L (136-145) Potassium Level 3.7 mmol/L (3.5-5.1) Chloride Level 104 mmol/L (98-107) Carbon Dioxide Level 24 mmol/L (21-32) Anion Gap 10 (6-14) Blood Urea Nitrogen 16 mg/dL (8-26) Creatinine 0.7 mg/dL (0.7-1.3) Estimated GFR (Cockcroft-Gault) 111.5 Glucose Level 103 mg/dL (70-99) Calcium Level 7.7 mg/dL (8.5-10.1) Problem List Problems Medical Problems: (1) Lactic acid acidosis Status: Acute (2) Perforated abdominal viscus Status: Acute Assessment/Plan s/p antrectomy path benign-positive for H pylori WBC normal with drain placement d/c NGT, ADAT possible d/c in AM Problems: GO RIVERA MD Sep 08, 2016 08:27
[2016-09-08] MEDS: FLUCONAZOLE 400MG/200ML PREMIX 200 ML IV SCH (08:37)
[2016-09-08] MEDS: ENOXAPARIN 40 MG/0.4 ML SYRINGE. SQ SCH (08:38)
[2016-09-08] MEDS: FAMOTIDINE 20 MG/2 ML VIAL IVP SCH ×2 (08:38→20:54)
--- NOTE | 2016-09-08 10:18 | PDOC ---
PULMONARY PROGRESS NOTES Subjective no soa Vitals Vital Signs Date Time Temp Pulse Resp B/P (MAP) Pulse Ox O2 Delivery O2 Flow Rate FiO2 09/08/16 07:00 97.9 46 20 152/74 (100) 94 Room Air 97.9 09/07/16 14:00 4.0 General: Alert Lungs: Other (decrease bs) Cardiovascular: S1, S2 Abdomen: Soft Neuro Exam: Alert Extremities: No Edema Skin: Warm Labs Laboratory Tests Test 09/07/16 04:15 09/08/16 06:30 White Blood Count 14.0 x10^3/uL (4.0-11.0) 9.9 x10^3/uL (4.0-11.0) Red Blood Count 3.75 x10^6/uL (4.30-5.70) 3.81 x10^6/uL (4.30-5.70) Hemoglobin 11.1 g/dL (13.0-17.5) 11.5 g/dL (13.0-17.5) Hematocrit 33.5 % (39.0-53.0) 33.6 % (39.0-53.0) Mean Corpuscular Volume 89 fL (79-100) 88 fL (79-100) Mean Corpuscular Hemoglobin 30 pg (25-35) 30 pg (25-35) Mean Corpuscular Hemoglobin Concent 33 g/dL (31-37) 34 g/dL (31-37) Red Cell Distribution Width 13.6 % (11.5-14.5) 13.6 % (11.5-14.5) Platelet Count 330 x10^3/uL (140-400) 312 x10^3/uL (140-400) Neutrophils (%) (Auto) 78 % (31-73) 77 % (31-73) Lymphocytes (%) (Auto) 10 % (24-48) 11 % (24-48) Monocytes (%) (Auto) 11 % (0-9) 11 % (0-9) Eosinophils (%) (Auto) 1 % (0-3) 2 % (0-3) Basophils (%) (Auto) 0 % (0-3) 0 % (0-3) Neutrophils # (Auto) 11.0 x10^3uL (1.8-7.7) 7.6 x10^3uL (1.8-7.7) Lymphocytes # (Auto) 1.4 x10^3/uL (1.0-4.8) 1.1 x10^3/uL (1.0-4.8) Monocytes # (Auto) 1.5 x10^3/uL (0.0-1.1) 1.0 x10^3/uL (0.0-1.1) Eosinophils # (Auto) 0.1 x10^3/uL (0.0-0.7) 0.1 x10^3/uL (0.0-0.7) Basophils # (Auto) 0.0 x10^3/uL (0.0-0.2) 0.0 x10^3/uL (0.0-0.2) Sodium Level 142 mmol/L (136-145) 138 mmol/L (136-145) Potassium Level 3.5 mmol/L (3.5-5.1) 3.7 mmol/L (3.5-5.1) Chloride Level 107 mmol/L (98-107) 104 mmol/L (98-107) Carbon Dioxide Level 26 mmol/L (21-32) 24 mmol/L (21-32) Anion Gap 9 (6-14) 10 (6-14) Blood Urea Nitrogen 20 mg/dL (8-26) 16 mg/dL (8-26) Creatinine 0.7 mg/dL (0.7-1.3) 0.7 mg/dL (0.7-1.3) Estimated GFR (Cockcroft-Gault) 111.5 111.5 Glucose Level 107 mg/dL (70-99) 103 mg/dL (70-99) Calcium Level 7.2 mg/dL (8.5-10.1) 7.7 mg/dL (8.5-10.1) Phosphorus Level 2.8 mg/dL (2.6-4.7) Magnesium Level 2.1 mg/dL (1.8-2.4) Laboratory Tests Test 09/08/16 06:30 White Blood Count 9.9 x10^3/uL (4.0-11.0) Red Blood Count 3.81 x10^6/uL (4.30-5.70) Hemoglobin 11.5 g/dL (13.0-17.5) Hematocrit 33.6 % (39.0-53.0) Mean Corpuscular Volume 88 fL (79-100) Mean Corpuscular Hemoglobin 30 pg (25-35) Mean Corpuscular Hemoglobin Concent 34 g/dL (31-37) Red Cell Distribution Width 13.6 % (11.5-14.5) Platelet Count 312 x10^3/uL (140-400) Neutrophils (%) (Auto) 77 % (31-73) Lymphocytes (%) (Auto) 11 % (24-48) Monocytes (%) (Auto) 11 % (0-9) Eosinophils (%) (Auto) 2 % (0-3) Basophils (%) (Auto) 0 % (0-3) Neutrophils # (Auto) 7.6 x10^3uL (1.8-7.7) Lymphocytes # (Auto) 1.1 x10^3/uL (1.0-4.8) Monocytes # (Auto) 1.0 x10^3/uL (0.0-1.1) Eosinophils # (Auto) 0.1 x10^3/uL (0.0-0.7) Basophils # (Auto) 0.0 x10^3/uL (0.0-0.2) Sodium Level 138 mmol/L (136-145) Potassium Level 3.7 mmol/L (3.5-5.1) Chloride Level 104 mmol/L (98-107) Carbon Dioxide Level 24 mmol/L (21-32) Anion Gap 10 (6-14) Blood Urea Nitrogen 16 mg/dL (8-26) Creatinine 0.7 mg/dL (0.7-1.3) Estimated GFR (Cockcroft-Gault) 111.5 Glucose Level 103 mg/dL (70-99) Calcium Level 7.7 mg/dL (8.5-10.1) Medications Active Scripts Medications Dose Route/Sig Max Daily Dose Days Date Category Aspir 81 (Aspirin) 81 Mg Tablet.dr 81 Mg PO 09/01/16 Reported Ultracet Tablet (Tramadol Hcl/Acetaminophen) 1 Each Tablet 1 Tab PO TID 09/01/16 Reported Lipitor (Atorvastatin Calcium) 10 Mg Tablet 1 Tab PO DAILY 09/01/16 Reported Indapamide 1.25 Mg Tablet 1.25 Mg PO 09/01/16 Reported Diovan Hct 80-12.5 Mg Tablet (Valsartan/Hydrochlorothiazide) 1 Each Tablet 1 Each PO 09/01/16 Reported Naproxen Sodium 550 Mg Tablet 375 Mg PO PRN 09/01/16 Reported Impression . 1. Acute duodenal perforation, s/p antrectomy 2. bilateral sympathetic/ inflammatory effusions, asymptomatic, not significant to tap at present 3. Abdominal /pelvic fluid collections, IR placed drains 4. Long h/o tobacco use( 45 pack yr). suspect COPD 5. Malnutrition Plan . 1. No need for thoracentesis at present 2. f/u CXR in few days 3. Mild diuresis 4. Improve nutritional status 5. s/p abdominal drains 6. Antibiotics per ROC FRANCOIS MD Sep 08, 2016 10:18
[2016-09-08] MEDS ORDERED: FUROSEMIDE 20 MG/2 ML VIAL. IVP ONE (10:30)
[2016-09-08] MEDS: AMINO AC 3%/ELECTROLYTE/GLYCER 1,000 ML IV SCH (10:39)
[2016-09-08 11:00] VITALS: BP 133/78
--- NOTE | 2016-09-08 11:46 | PDOC ---
PROGRESS NOTES Chief Complaint Chief Complaint Assessment 1. Penumoperitoneum with perforated duodenum 2. SIRS POA, no sepsis 3. BRISEYDA, vasomotor 4. Mild PCM 5. Tobacco abuse 6. Incidental left small adrenal nodule 7. Diverticulosis 8. Bradycardia 9. Hypocalcemia History of Present Illness History of Present Illness pt is resting comfortably in his chair this morning, he denies any complaints, his trach was removed this morning and he is tolerating orange juice and gravy Vitals Vitals Vital Signs Date Time Temp Pulse Resp B/P (MAP) Pulse Ox O2 Delivery O2 Flow Rate FiO2 09/08/16 11:00 97.7 54 20 133/78 (96) 94 Room Air 97.7 09/07/16 14:00 4.0 Physical Exam General: Alert, Oriented X3, Cooperative, No acute distress Heart: Regular rate, No murmurs Lungs: Clear, Other (decrease bs) Abdomen: Soft, No tenderness, Other (drains serous in nature) Extremities: No clubbing, No cyanosis Skin: No rashes Labs LABS Laboratory Tests Test 09/08/16 06:30 White Blood Count 9.9 x10^3/uL (4.0-11.0) Red Blood Count 3.81 x10^6/uL (4.30-5.70) Hemoglobin 11.5 g/dL (13.0-17.5) Hematocrit 33.6 % (39.0-53.0) Mean Corpuscular Volume 88 fL (79-100) Mean Corpuscular Hemoglobin 30 pg (25-35) Mean Corpuscular Hemoglobin Concent 34 g/dL (31-37) Red Cell Distribution Width 13.6 % (11.5-14.5) Platelet Count 312 x10^3/uL (140-400) Neutrophils (%) (Auto) 77 % (31-73) Lymphocytes (%) (Auto) 11 % (24-48) Monocytes (%) (Auto) 11 % (0-9) Eosinophils (%) (Auto) 2 % (0-3) Basophils (%) (Auto) 0 % (0-3) Neutrophils # (Auto) 7.6 x10^3uL (1.8-7.7) Lymphocytes # (Auto) 1.1 x10^3/uL (1.0-4.8) Monocytes # (Auto) 1.0 x10^3/uL (0.0-1.1) Eosinophils # (Auto) 0.1 x10^3/uL (0.0-0.7) Basophils # (Auto) 0.0 x10^3/uL (0.0-0.2) Sodium Level 138 mmol/L (136-145) Potassium Level 3.7 mmol/L (3.5-5.1) Chloride Level 104 mmol/L (98-107) Carbon Dioxide Level 24 mmol/L (21-32) Anion Gap 10 (6-14) Blood Urea Nitrogen 16 mg/dL (8-26) Creatinine 0.7 mg/dL (0.7-1.3) Estimated GFR (Cockcroft-Gault) 111.5 Glucose Level 103 mg/dL (70-99) Calcium Level 7.7 mg/dL (8.5-10.1) Review of Systems Review of Systems denies N/V/D and AREVALO Assessment and Plan Assessmemt and Plan Assessment 1. Penumoperitoneum with perforated duodenum 2. SIRS POA, no sepsis 3. BRISEYDA, vasomotor 4. Mild PCM 5. Tobacco abuse 6. Incidental left small adrenal nodule 7. Diverticulosis 8. Bradycardia 9. Hypocalcemia Plan 1. Cont procalamine and 0.5NS 2. Lovenox for DVT prophylaxis 3. Stopped dilaudid because risk of bradycardia, TTE normal 4. Appreciate subspecialty input 5. Continue home meds 6. Discussed plan of care with nursing 7. PT/OT 8. Recheck CBC and BMP tomorrow 9. Reviewed imaging: CXR normal, Abd/pelv CT showed postoperative pelvic and left subdiaphragmatic fluid collections 10. Zofran prn for nausea 11. Calcium gluconate repletion, Ca today is 7.7 from 7.2 yesterday 12. Continue NGT per surgery 13. Zosyn and fluconazole per ID 14. Trach removed 15. PO diet, ADAT Problems: Comment Review of Relevant I have reviewed the following items shaw (where applicable) has been applied. Labs Laboratory Tests Test 09/07/16 04:15 09/08/16 06:30 White Blood Count 14.0 x10^3/uL (4.0-11.0) 9.9 x10^3/uL (4.0-11.0) Red Blood Count 3.75 x10^6/uL (4.30-5.70) 3.81 x10^6/uL (4.30-5.70) Hemoglobin 11.1 g/dL (13.0-17.5) 11.5 g/dL (13.0-17.5) Hematocrit 33.5 % (39.0-53.0) 33.6 % (39.0-53.0) Mean Corpuscular Volume 89 fL (79-100) 88 fL (79-100) Mean Corpuscular Hemoglobin 30 pg (25-35) 30 pg (25-35) Mean Corpuscular Hemoglobin Concent 33 g/dL (31-37) 34 g/dL (31-37) Red Cell Distribution Width 13.6 % (11.5-14.5) 13.6 % (11.5-14.5) Platelet Count 330 x10^3/uL (140-400) 312 x10^3/uL (140-400) Neutrophils (%) (Auto) 78 % (31-73) 77 % (31-73) Lymphocytes (%) (Auto) 10 % (24-48) 11 % (24-48) Monocytes (%) (Auto) 11 % (0-9) 11 % (0-9) Eosinophils (%) (Auto) 1 % (0-3) 2 % (0-3) Basophils (%) (Auto) 0 % (0-3) 0 % (0-3) Neutrophils # (Auto) 11.0 x10^3uL (1.8-7.7) 7.6 x10^3uL (1.8-7.7) Lymphocytes # (Auto) 1.4 x10^3/uL (1.0-4.8) 1.1 x10^3/uL (1.0-4.8) Monocytes # (Auto) 1.5 x10^3/uL (0.0-1.1) 1.0 x10^3/uL (0.0-1.1) Eosinophils # (Auto) 0.1 x10^3/uL (0.0-0.7) 0.1 x10^3/uL (0.0-0.7) Basophils # (Auto) 0.0 x10^3/uL (0.0-0.2) 0.0 x10^3/uL (0.0-0.2) Sodium Level 142 mmol/L (136-145) 138 mmol/L (136-145) Potassium Level 3.5 mmol/L (3.5-5.1) 3.7 mmol/L (3.5-5.1) Chloride Level 107 mmol/L (98-107) 104 mmol/L (98-107) Carbon Dioxide Level 26 mmol/L (21-32) 24 mmol/L (21-32) Anion Gap 9 (6-14) 10 (6-14) Blood Urea Nitrogen 20 mg/dL (8-26) 16 mg/dL (8-26) Creatinine 0.7 mg/dL (0.7-1.3) 0.7 mg/dL (0.7-1.3) Estimated GFR (Cockcroft-Gault) 111.5 111.5 Glucose Level 107 mg/dL (70-99) 103 mg/dL (70-99) Calcium Level 7.2 mg/dL (8.5-10.1) 7.7 mg/dL (8.5-10.1) Phosphorus Level 2.8 mg/dL (2.6-4.7) Magnesium Level 2.1 mg/dL (1.8-2.4) Laboratory Tests Test 09/08/16 06:30 White Blood Count 9.9 x10^3/uL (4.0-11.0) Red Blood Count 3.81 x10^6/uL (4.30-5.70) Hemoglobin 11.5 g/dL (13.0-17.5) Hematocrit 33.6 % (39.0-53.0) Mean Corpuscular Volume 88 fL (79-100) Mean Corpuscular Hemoglobin 30 pg (25-35) Mean Corpuscular Hemoglobin Concent 34 g/dL (31-37) Red Cell Distribution Width 13.6 % (11.5-14.5) Platelet Count 312 x10^3/uL (140-400) Neutrophils (%) (Auto) 77 % (31-73) Lymphocytes (%) (Auto) 11 % (24-48) Monocytes (%) (Auto) 11 % (0-9) Eosinophils (%) (Auto) 2 % (0-3) Basophils (%) (Auto) 0 % (0-3) Neutrophils # (Auto) 7.6 x10^3uL (1.8-7.7) Lymphocytes # (Auto) 1.1 x10^3/uL (1.0-4.8) Monocytes # (Auto) 1.0 x10^3/uL (0.0-1.1) Eosinophils # (Auto) 0.1 x10^3/uL (0.0-0.7) Basophils # (Auto) 0.0 x10^3/uL (0.0-0.2) Sodium Level 138 mmol/L (136-145) Potassium Level 3.7 mmol/L (3.5-5.1) Chloride Level 104 mmol/L (98-107) Carbon Dioxide Level 24 mmol/L (21-32) Anion Gap 10 (6-14) Blood Urea Nitrogen 16 mg/dL (8-26) Creatinine 0.7 mg/dL (0.7-1.3) Estimated GFR (Cockcroft-Gault) 111.5 Glucose Level 103 mg/dL (70-99) Calcium Level 7.7 mg/dL (8.5-10.1) Microbiology 09/07/16 Gram Stain - Final, Complete Medications Current Medications Sodium Chloride 1,000 ml @ 1,000 mls/hr 1X ONCE IV Last administered on 07:45; Start 09/01/16 at 07:30; Stop 09/01/16 at 08:29; Status DC Ondansetron HCl (Zofran) 4 mg 1X ONCE IV Last administered on 09/01/16 07:44; Start 09/01/16 at 07:30; Stop 09/01/16 at 07:31; Status DC Fentanyl Citrate (Fentanyl 2ml Vial) 75 mcg 1X ONCE IV Last administered on 07:44; Start 09/01/16 at 07:30; Stop 09/01/16 at 07:31; Status DC Iohexol (Omnipaque 300 Mg/ml) 75 ml 1X ONCE IV Last administered on 09/01/16 08:24; Start 09/01/16 at 08:30; Stop 09/01/16 at 08:31; Status DC Info (Do NOT chart on this entry -- for MONITORING) 1 each PRN DAILY PRN MC SEE COMMENTS; Start 09/01/16 at 08:30; Stop 09/03/16 at 08:29; Status DC Morphine Sulfate 5 mg 1X ONCE IV Last administered on 09/01/16 08:41; Start at 08:45; Stop 09/01/16 at 08:46; Status DC Sodium Chloride 1,000 ml @ 1,000 mls/hr 1X ONCE IV Last administered on 08:40; Start 09/01/16 at 08:45; Stop 09/01/16 at 09:44; Status DC Piperacillin Sod/ Tazobactam Sod 3.375 gm/Sodium Chloride 50 ml @ 100 mls/hr Q6HRS IV Last administered on 09/08/16 06:05; Start 09/01/16 at 10:00 Famotidine (Pepcid) 20 mg 1X ONCE IVP Last administered on 09/01/16 09:46; Start 09/01/16 at 09:45; Stop 09/01/16 at 09:46; Status DC Ondansetron HCl (Zofran) 4 mg PRN Q8HRS PRN IV NAUSEA/VOMITING; Start 09/01/16 at 09:30; Stop 09/02/16 at 08:33; Status DC Morphine Sulfate 4 mg PRN Q2HR PRN IV PAIN; Start 09/01/16 at 09:30; Stop at 09:29; Status DC Sodium Chloride 1,000 ml @ 100 mls/hr Q10H IV Last administered on 09/04/16 18:30; Start 09/01/16 at 10:30; Stop 09/05/16 at 01:57; Status DC Acetaminophen (Tylenol) 500 mg PRN Q6HRS PRN PO MILD PAIN / TEMP; Start at 10:30 Famotidine (Pepcid) 20 mg BID IVP Last administered on 09/01/16 11:14; Start at 11:00; Stop 09/01/16 at 15:40; Status DC Ondansetron HCl (Zofran) 4 mg PRN Q6HRS PRN IV NAUSEA/VOMITING; Start 09/01/16 at 12:15; Stop 09/02/16 at 08:33; Status DC Fentanyl Citrate (Fentanyl 2ml Vial) 25 mcg PRN Q5MIN PRN IV MILD PAIN Last administered on 09/01/16t 16:00; Start 09/01/16 at 12:15; Stop 09/02/16 at 12:14; Status DC Fentanyl Citrate (Fentanyl 2ml Vial) 50 mcg PRN Q5MIN PRN IV MODERATE PAIN Last administered on 09/01/16t 15:54; Start 09/01/16 at 12:15; Stop 09/02/16 at 12: 14; Status DC Morphine Sulfate 1 mg PRN Q10MIN PRN IV SEVERE PAIN; Start 09/01/16 at 12:15; Stop 09/02/16 at 12:14; Status DC Ringer's Solution 1,000 ml @ 30 mls/hr Q24H IV ; Start 09/01/16 at 12:04; Stop 09/01/16 at 19:07; Status DC Lidocaine HCl 2 ml PRN 1X PRN ID PRIOR TO IV START; Start 09/01/16 at 12:15; Stop 09/02/16 at 12:14; Status DC Hydromorphone HCl (Dilaudid) 0.5 mg PRN Q10MIN PRN IV SEV PAIN, Second choice; Start 09/01/16 at 12:15; Stop 09/02/16 at 12:14; Status DC Prochlorperazine Edisylate (Compazine) 5 mg PACU PRN PRN IV NAUSEA, MRX1; Start 09/01/16 at 12:15; Stop 09/02/16 at 12:14; Status DC Desflurane (Suprane) 60 ml STK-MED ONCE IH ; Start 09/01/16 at 12:16; Stop at 12:17; Status DC Fentanyl Citrate (Fentanyl 2ml Vial) 100 mcg STK-MED ONCE .ROUTE ; Start at 12:17; Stop 09/01/16 at 12:18; Status DC Succinylcholine Chloride (Anectine) 200 mg STK-MED ONCE .ROUTE ; Start 09/01/16 at 12:17; Stop 09/01/16 at 12:18; Status DC Glycopyrrolate (Robinul) 1 mg STK-MED ONCE .ROUTE ; Start 09/01/16 at 12:17; Stop 09/01/16 at 12:18; Status DC Neostigmine Methylsulfate 5 mg STK-MED ONCE .ROUTE ; Start 09/01/16 at 12:17; Stop 09/01/16 at 12:18; Status DC Rocuronium [place] (Zemuron) 50 mg STK-MED ONCE .ROUTE ; Start 09/01/16 at 12:18 ; Stop 09/01/16 at 12:19; Status DC Propofol 20 ml @ As Directed STK-MED ONCE IV ; Start 09/01/16 at 12:18; Stop 09/01 at 12:19; Status DC Lidocaine HCl (Lidocaine Pf 2% Vial) 5 ml STK-MED ONCE .ROUTE ; Start 09/01/16 at 12:18; Stop 09/01/16 at 12:19; Status DC Dexamethasone Sodium Phosphate (Decadron) 20 mg STK-MED ONCE .ROUTE ; Start 09/01 at 12:18; Stop 09/01/16 at 12:19; Status DC Ondansetron HCl (Zofran) 4 mg STK-MED ONCE .ROUTE ; Start 09/01/16 at 12:18; Stop 09/01/16 at 12:19; Status DC Famotidine (Pepcid) 20 mg STK-MED ONCE .ROUTE ; Start 09/01/16 at 12:32; Stop 09/01/16 at 12:33; Status DC Cefoxitin Sodium 100 ml @ As Directed STK-MED ONCE IV ; Start 09/01/16 at 13:30 ; Stop 09/01/16 at 13:31; Status DC Fentanyl Citrate (Fentanyl 2ml Vial) 100 mcg STK-MED ONCE .ROUTE ; Start at 13:35; Stop 09/01/16 at 13:36; Status DC Sodium Chloride (Sodium Chloride) 50 ml STK-MED ONCE IJ ; Start 09/01/16 at 14:05 ; Stop 09/01/16 at 14:06; Status DC Morphine Sulfate 10 mg STK-MED ONCE .ROUTE ; Start 09/01/16 at 14:05; Stop at 14:06; Status DC Vecuronium [place] (Norcuron Bolus) 10 mg STK-MED ONCE IV ; Start 09/01/16 at 14: 05; Stop 09/01/16 at 14:06; Status DC Sevoflurane (Ultane) 90 ml STK-MED ONCE IH ; Start 09/01/16 at 15:10; Stop at 15:11; Status DC Famotidine (Pepcid) 20 mg BID IVP Last administered on 09/08/16 08:38; Start 09/01/16 at 21:00 Enoxaparin Sodium (Lovenox 40mg Syringe) 40 mg Q24H SQ Last administered on 08:38; Start 09/02/16 at 09:00 Sodium Chloride (Normal Saline Flush) 3 ml QSHIFT PRN IV AFTER MEDS AND BLOOD DRAWS; Start 09/01/16 at 15:15 Ringer's Solution 1,000 ml @ 100 mls/hr Q10H IV ; Start 09/01/16 at 15:06; Stop 09/01/16 at 19:07; Status DC Naloxone HCl (Narcan) 0.4 mg PRN Q2MIN PRN IV SEE INSTRUCTIONS; Start 09/01/16 at 15:15 Sodium Chloride 1,000 ml @ 25 mls/hr Q24H IV Last administered on 09/04/16 15 :06; Start 09/01/16 at 15:06; Stop 09/05/16 at 01:23; Status DC Hydromorphone HCl 30 ml @ 0 mls/hr CONT PRN PRN IV PROTOCOL Last administered on 09/03/16 04:38; Start 09/01/16 at 15:15; Stop 09/06/16 at 11:42; Status DC Ondansetron HCl (Zofran) 4 mg PRN Q6HRS PRN IV NAUESA, 1ST CHOICE; Start at 15:15 Bupivacaine HCl/ Epinephrine Bitart (Marcaine-Epi 0.5%-1:[id number]) 50 ml STK-MED ONCE .ROUTE Last administered on 09/01/16 13:29; Start 09/01/16 at 15:14; Stop 09/01/16 at 15:15; Status DC Ketamine HCl 500 mg STK-MED ONCE .ROUTE ; Start 09/01/16 at 15:17; Stop 09/01/16 at 15:18; Status DC Calcium Chloride 1000 mg/Sodium Chloride 60 ml @ 120 mls/hr 1X ONCE IV ; Start 09/03/16 at 12:30; Stop 09/03/16 at 12:30; Status DC Calcium Gluconate 1000 mg/Sodium Chloride 110 ml @ 220 mls/hr 1X ONCE IV Last administered on 09/03/16 14:40; Start 09/03/16 at 13:00; Stop 09/03/16 at 13: 29; Status DC Potassium Chloride 20 meq/ Sodium Chloride 1,010 ml @ 75 mls/hr [id number] IV ; Start 09/05/16 at 01:30; Status UNV Potassium Chloride/Sodium Chloride 1,000 ml @ 75 mls/hr [id number] IV Last administered on 09/07/16 08:27; Start 09/05/16 at 01:30; Stop 09/08/16 at 00:55 ; Status DC Amino Acids/ Glycerin/ Electrolytes 1,000 ml @ 50 mls/hr Q20H IV Last administered on 09/05/16 10:38; Start 09/05/16 at 09:30; Stop 09/05/16 at 11:40 ; Status DC Albuterol Sulfate (Ventolin Neb Soln) 2.5 mg PRN QID PRN NEB DYSPNEA, WHEEZING ; Start 09/05/16 at 09:30 Saliva Substitute (Biotene Moisturizing Mouth) 2 spray PRN Q15MIN PRN PO DRY MOUTH Last administered on 09/05/16 13:14; Start 09/05/16 at 09:30 Throat Lozenges (Cepacol Sore Throat Lozenge) 1 yaakov PRN Q2HRS PRN PO SORE THROAT; Start 09/05/16 at 09:30 Amino Acids/ Glycerin/ Electrolytes 1,000 ml @ 80 mls/hr [id number] IV Last administered on 09/08/16 10:39; Start 09/05/16 at 11:30 Iohexol (Omnipaque 240 Mg/ml) 30 ml 1X ONCE PO Last administered on 09/06/16 11:15; Start 09/06/16 at 11:15; Stop 09/06/16 at 11:16; Status DC Iohexol (Omnipaque 300 Mg/ml) 75 ml 1X ONCE IV Last administered on 09/06/16 13:20; Start 09/06/16 at 11:15; Stop 09/06/16 at 11:16; Status DC Info (Do NOT chart on this entry -- for MONITORING) 1 each PRN DAILY PRN MC SEE COMMENTS; Start 09/06/16 at 11:15; Stop 09/08/16 at 11:14; Status DC Fluconazole/ Sodium Chloride 200 ml @ 100 mls/hr Q24H IV Last administered on 09/08/16 08:37; Start 09/07/16 at 08:00 Calcium Gluconate (Calcium Gluconate) 1,000 mg 1X ONCE IVP ; Start 09/07/16 at 11:30; Stop 09/07/16 at 11:31; Status UNV Calcium Chloride 1000 mg/Sodium Chloride 60 ml @ 120 mls/hr 1X ONCE IV ; Start 09/07/16 at 11:30; Stop 09/07/16 at 11:59; Status Cancel Calcium Gluconate 1000 mg/Sodium Chloride 110 ml @ 440 mls/hr 1X ONCE IV Last administered on 09/07/16 15:08; Start 09/07/16 at 11:45; Stop 09/07/16 at 11:59; Status DC Lidocaine/Sodium Bicarbonate (Buffered Lidocaine 1%) 20 ml STK-MED ONCE IJ ; Start 09/07/16 at 12:23; Stop 09/07/16 at 12:24; Status DC Midazolam HCl (Versed) 5 mg STK-MED ONCE .ROUTE ; Start 09/07/16 at 12:44; Stop 09/07/16 at 12:45; Status DC Fentanyl Citrate (Fentanyl 5ml Vial) 250 mcg STK-MED ONCE .ROUTE ; Start at 12:44; Stop 09/07/16 at 12:45; Status DC Lidocaine/Sodium Bicarbonate (Buffered Lidocaine 1%) 10 ml 1X ONCE IJ Last administered on 09/07/16 13:58; Start 09/07/16 at 14:00; Stop 09/07/16 at 14:01 ; Status DC Midazolam HCl (Versed) 2 mg 1X ONCE IV Last administered on 09/07/16 13:59; Start 09/07/16 at 14:00; Stop 09/07/16 at 14:01; Status DC Fentanyl Citrate (Fentanyl 5ml Vial) 100 mcg 1X ONCE IV Last administered on 13:59; Start 09/07/16 at 14:00; Stop 09/07/16 at 14:01; Status DC Furosemide (Lasix) 20 mg 1X ONCE IVP Last administered on 09/08/16t 10:39; Start 09/08/16 at 10:30; Stop 09/08/16 at 10:31; Status DC Active Scripts Active Reported Aspir 81 (Aspirin) 81 Mg Tablet.dr 81 Mg PO Ultracet Tablet (Tramadol Hcl/Acetaminophen) 1 Each Tablet 1 Tab PO TID Lipitor (Atorvastatin Calcium) 10 Mg Tablet 1 Tab PO DAILY Indapamide 1.25 Mg Tablet 1.25 Mg PO Diovan Hct 80-12.5 Mg Tablet (Valsartan/Hydrochlorothiazide) 1 Each Tablet 1 Each PO Naproxen Sodium 550 Mg Tablet 375 Mg PO PRN Vitals/I & O Vital Sign - Last 24 Hours 09/07/16 09/07/16 09/07/16 09/07/16 12:54 12:59 13:04 13:09 Pulse 56 56 55 50 Resp 24 22 18 Pulse Ox 92 89 92 93 O2 Delivery Nasal Cannula Nasal Cannula Nasal Cannula Nasal Cannula O2 Flow Rate 2.0 4.0 4.0 4.0 09/07/16 09/07/16 09/07/16 09/07/16 13:14 13:19 13:24 13:29 Pulse 52 49 50 51 Resp 21 20 20 21 Pulse Ox 93 93 93 94 O2 Delivery Nasal Cannula Nasal Cannula Nasal Cannula Nasal Cannula O2 Flow Rate 4.0 4.0 4.0 4.0 09/07/16 09/07/16 09/07/16 09/07/16 13:39 13:44 13:49 13:54 Pulse 56 51 49 50 Resp 20 22 19 Pulse Ox 96 95 94 95 O2 Delivery Nasal Cannula Nasal Cannula Nasal Cannula Nasal Cannula O2 Flow Rate 4.0 4.0 4.0 4.0 09/07/16 09/07/16 09/07/16 09/07/16 13:59 14:00 14:29 14:31 Temp 98.7 98.7 Pulse 53 51 50 Resp 12 14 18 18 B/P (MAP) 146/84 (104) 153/86 (108) Pulse Ox 94 94 92 91 O2 Delivery Nasal Cannula Nasal Cannula Room Air Room Air O2 Flow Rate 4.0 4.0 09/07/16 09/07/16 09/07/16 09/07/16 14:46 15:01 15:16 15:31 Pulse 49 50 50 48 Resp 18 18 18 18 B/P (MAP) 148/88 (108) 143/84 (103) 149/86 (107) 145/83 (103) Pulse Ox 93 91 93 93 O2 Delivery Room Air Room Air Room Air Room Air 09/07/16 09/07/16 09/07/16 09/07/16 16:01 17:01 18:01 18:25 Temp 97.9 97.9 Pulse 47 49 18 52 Resp 18 18 18 18 B/P (MAP) 159/89 (112) 146/91 (109) 151/90 (110) 151/90 (110) Pulse Ox 95 93 94 93 O2 Delivery Room Air Room Air Room Air 09/07/16 09/07/16 09/07/16 09/08/16 19:00 19:40 23:00 03:00 Temp 97.9 98.1 97.4 97.9 98.1 97.4 Pulse 54 51 60 Resp 18 18 18 B/P (MAP) 143/86 (105) 127/90 (102) 139/79 (99) Pulse Ox 94 93 94 O2 Delivery Room Air Room Air Room Air Room Air 09/08/16 09/08/16 09/08/16 07:00 08:00 11:00 Temp 97.9 97.7 97.9 97.7 Pulse 46 54 Resp 20 20 B/P (MAP) 152/74 (100) 133/78 (96) Pulse Ox 94 94 O2 Delivery Room Air Room Air Room Air Intake and Output 09/07/16 09/07/16 09/08/16 15:00 23:00 07:00 Intake Total 2961 ml Output Total 2030 ml 800 ml Balance -2030 ml 2161 ml Nutrition Consultation Dietary Evaluation: Recommendations by RD: PPN/TPN Comments: continue ppn for short term nutrition Expected Outcomes/Goals: diet adv/ tolerance- not met yet, goal ongoing Interpretation of weight loss: >1-2% in 1 week Malnutrition Findings: Food and Nutrition Intake (Sev: <50% est energy req 5days Weight Status: Overweight JUAN MENENDEZ III DO Sep 08, 2016 11:46
--- NOTE | 2016-09-08 11:53 | PDOC ---
Renal-Progress Notes Subjective Notes Notes NONE History of Present Illness Hx of present illness STABLE Vitals Vitals Vital Signs Date Time Temp Pulse Resp B/P (MAP) Pulse Ox O2 Delivery O2 Flow Rate FiO2 09/08/16 11:00 97.7 54 20 133/78 (96) 94 Room Air 97.7 09/07/16 14:00 4.0 Weight Weight [ ] I.O. Intake and Output Intake and Output 09/08/16 07:00 Intake Total 2961 ml Output Total 2830 ml Balance 131 ml IV Total 2961 ml Output Urine Total 1200 ml Gastric Drainage Total 650 ml Drainage Total 980 ml Labs Labs Laboratory Tests Test 09/08/16 06:30 White Blood Count 9.9 x10^3/uL (4.0-11.0) Red Blood Count 3.81 x10^6/uL (4.30-5.70) Hemoglobin 11.5 g/dL (13.0-17.5) Hematocrit 33.6 % (39.0-53.0) Mean Corpuscular Volume 88 fL (79-100) Mean Corpuscular Hemoglobin 30 pg (25-35) Mean Corpuscular Hemoglobin Concent 34 g/dL (31-37) Red Cell Distribution Width 13.6 % (11.5-14.5) Platelet Count 312 x10^3/uL (140-400) Neutrophils (%) (Auto) 77 % (31-73) Lymphocytes (%) (Auto) 11 % (24-48) Monocytes (%) (Auto) 11 % (0-9) Eosinophils (%) (Auto) 2 % (0-3) Basophils (%) (Auto) 0 % (0-3) Neutrophils # (Auto) 7.6 x10^3uL (1.8-7.7) Lymphocytes # (Auto) 1.1 x10^3/uL (1.0-4.8) Monocytes # (Auto) 1.0 x10^3/uL (0.0-1.1) Eosinophils # (Auto) 0.1 x10^3/uL (0.0-0.7) Basophils # (Auto) 0.0 x10^3/uL (0.0-0.2) Sodium Level 138 mmol/L (136-145) Potassium Level 3.7 mmol/L (3.5-5.1) Chloride Level 104 mmol/L (98-107) Carbon Dioxide Level 24 mmol/L (21-32) Anion Gap 10 (6-14) Blood Urea Nitrogen 16 mg/dL (8-26) Creatinine 0.7 mg/dL (0.7-1.3) Estimated GFR (Cockcroft-Gault) 111.5 Glucose Level 103 mg/dL (70-99) Calcium Level 7.7 mg/dL (8.5-10.1) Micro Micro Microbiology 09/07/16 Gram Stain - Final, Complete Review of Systems Constitutional: yes: weakness, alert, oriented Ears/Nose/Throat: Yes: no symptom reported Pulmonary: Yes no symptom reported Gastrointestional: Yes: nausea Genitourinary: Yes: no symptom reported Musculoskeletal: Yes: muscle stiffness Skin: Yes no symptom reported Psychiatric/Neurological: Yes: no symptom reported Endocrine: Yes: no symptom reported Physical Exam General Appearance: no apparent distress Skin: warm Respiratory: bilateral CTA Heart: S1S2, RRR Abdomen: soft, bowel sounds present Extremities: pulses present, no edema, atrophy Neurology: alert, oriented, follow commands Musculoskeletal: Osteoarthritis Assessment Assessment IMP PRERENAL AZOTEMIA-RESOLVED HYPERNATREMIA-BETTER LOW K-BETTER DU AND S/P ANTRECTOMY PLAN ADVANCE PO WILL SIGN OFF PLEASE CALL IF NEEDED RONIT HIGUERA MD Sep 08, 2016 11:53
[2016-09-08 15:00] VITALS: BP 139/82
--- NOTE | 2016-09-08 15:01 | PDOC ---
Infectious Disease Note Subjective Subjective Feeling alright + BM Appetite ok ROS ROS GEN: Denies fevers, chills, sweats CV: Denies chest pain RESP: Denies shortness of air GI: Denies n/v/d Vital Sign Vital Signs Vital Signs Date Time Temp Pulse Resp B/P (MAP) Pulse Ox O2 Delivery O2 Flow Rate FiO2 09/08/16 11:00 97.7 54 20 133/78 (96) 94 Room Air 97.7 09/07/16 14:00 4.0 Physical Exam PHYSICAL EXAM GENERAL: Propped up in bed, NAD HEENT: OP/OC clear LUNGS: CTAB HEART: S1 and S2 ABD: BS active, soft, NT to light palpation. Drains x 3 intact. Midline dressing dry. EXT: No edema, no cyanosis RUG SIZER: Alert, oriented x 3, no focal neurologic deficit SKIN: No rash IV: ok Labs Lab Laboratory Tests Test 09/08/16 06:30 White Blood Count 9.9 x10^3/uL (4.0-11.0) Red Blood Count 3.81 x10^6/uL (4.30-5.70) Hemoglobin 11.5 g/dL (13.0-17.5) Hematocrit 33.6 % (39.0-53.0) Mean Corpuscular Volume 88 fL (79-100) Mean Corpuscular Hemoglobin 30 pg (25-35) Mean Corpuscular Hemoglobin Concent 34 g/dL (31-37) Red Cell Distribution Width 13.6 % (11.5-14.5) Platelet Count 312 x10^3/uL (140-400) Neutrophils (%) (Auto) 77 % (31-73) Lymphocytes (%) (Auto) 11 % (24-48) Monocytes (%) (Auto) 11 % (0-9) Eosinophils (%) (Auto) 2 % (0-3) Basophils (%) (Auto) 0 % (0-3) Neutrophils # (Auto) 7.6 x10^3uL (1.8-7.7) Lymphocytes # (Auto) 1.1 x10^3/uL (1.0-4.8) Monocytes # (Auto) 1.0 x10^3/uL (0.0-1.1) Eosinophils # (Auto) 0.1 x10^3/uL (0.0-0.7) Basophils # (Auto) 0.0 x10^3/uL (0.0-0.2) Sodium Level 138 mmol/L (136-145) Potassium Level 3.7 mmol/L (3.5-5.1) Chloride Level 104 mmol/L (98-107) Carbon Dioxide Level 24 mmol/L (21-32) Anion Gap 10 (6-14) Blood Urea Nitrogen 16 mg/dL (8-26) Creatinine 0.7 mg/dL (0.7-1.3) Estimated GFR (Cockcroft-Gault) 111.5 Glucose Level 103 mg/dL (70-99) Calcium Level 7.7 mg/dL (8.5-10.1) Micro ABDOMINAL GRAM STAIN Final WBCS MANY RBCS FEW ORGANISMS NONE SEEN pelvic GRAM STAIN Final WBCS MANY RBCS MANY ORGANISMS NONE SEEN Objective Assessment Leukocytosis without fever, improved Abd fluid collections s/p CT-guided drainage of both the perisplenic and perirectal fluid collections, 09/07 Mild pleural effusions Perforated viscous S/p Antrectomy 09/01 Hypernatremia -improving Plan Plan of Care Cont Zosyn (09/01) and fluconazole Cont Incentive spirometry Will f/u cultures and modify antibiotics accordingly Attending Co-Sign Attending Co-Sign The patient was seen and interviewed as well as examined at the bedside. The chart was reviewed. The case was discussed. Agree with the plan of care. MERARI SIMMONS APRN Sep 08, 2016 15:01 VITALIY RAINEY MD Sep 08, 2016 15:35
[2016-09-08 19:10] VITALS: BP 132/68
[2016-09-08 23:05] VITALS: BP 133/76
[2016-09-09] MEDS: PIPERACILLIN/TAZOBACTAM 3.375 GM in IV NORMAL SALINE 50ML 50 ML IV SCH ×4 (01:15→17:31)
[2016-09-09 03:06] VITALS: BP 138/85
[2016-09-09 04:59] LABS: BASO % 1 % (0-3); EOS % 3 % (0-3); HEMATOCRIT 33.6 % (39.0-53.0); HEMOGLOBIN 11.3 g/dL (13.0-17.5); LYMPH # 1.3 x10^3/uL (1.0-4.8); LYMPH % 15 % (24-48); MEAN CORPUSCULAR HEMOGLOBIN 30 pg (25-35); MEAN CORPUSCULAR HGB CONC 34 g/dL (31-37); MEAN CORPUSCULAR VOLUME 88 fL (79-100); MONO % 11 % (0-9); NEUT % 71 % (31-73); PLATELET COUNT 285 x10^3/uL (140-400); RED BLOOD COUNT 3.82 x10^6/uL (4.30-5.70); RED CELL DISTRIBUTION WIDTH 13.6 % (11.5-14.5); WHITE BLOOD COUNT 8.8 x10^3/uL (4.0-11.0)
[2016-09-09 05:17] LABS: CALCIUM 7.5 mg/dL (8.5-10.1); CREATININE 0.9 mg/dL (0.7-1.3); GFR 83.4; POTASSIUM 3.4 mmol/L (3.5-5.1)
[2016-09-09 07:00] VITALS: BP 138/81
--- NOTE | 2016-09-09 07:00 | PDOC ---
Infectious Disease Note Subjective Subjective Feeling alright + BM Appetite ok -ate a burger ROS ROS GEN: Denies fevers, chills, sweats HEENT: Denies blurred vision, sore throat CV: Denies chest pain RESP: Denies shortness of air, cough GI: Denies n/v/d NEURO: Denies confusion, dizziness MSK: Denies weakness, joint pain/swelling Vital Sign Vital Signs Vital Signs Date Time Temp Pulse Resp B/P (MAP) Pulse Ox O2 Delivery O2 Flow Rate FiO2 09/09/16 03:06 98.4 53 16 138/85 (102) 95 Room Air 98.4 Physical Exam PHYSICAL EXAM GENERAL: Propped up in bed, NAD HEENT: OP/OC clear LUNGS: CTAB HEART: S1 and S2 ABD: BS active, soft, NT to light palpation. Drains x 3 intact serous . Midline wound is clean EXT: No edema, no cyanosis [employer]ES [employer]: Alert, oriented x 3, no focal neurologic deficit SKIN: No rash IV: ok Labs Lab Laboratory Tests Test 09/09/16 04:30 White Blood Count 8.8 x10^3/uL (4.0-11.0) Red Blood Count 3.82 x10^6/uL (4.30-5.70) Hemoglobin 11.3 g/dL (13.0-17.5) Hematocrit 33.6 % (39.0-53.0) Mean Corpuscular Volume 88 fL (79-100) Mean Corpuscular Hemoglobin 30 pg (25-35) Mean Corpuscular Hemoglobin Concent 34 g/dL (31-37) Red Cell Distribution Width 13.6 % (11.5-14.5) Platelet Count 285 x10^3/uL (140-400) Neutrophils (%) (Auto) 71 % (31-73) Lymphocytes (%) (Auto) 15 % (24-48) Monocytes (%) (Auto) 11 % (0-9) Eosinophils (%) (Auto) 3 % (0-3) Basophils (%) (Auto) 1 % (0-3) Neutrophils # (Auto) 6.2 x10^3uL (1.8-7.7) Lymphocytes # (Auto) 1.3 x10^3/uL (1.0-4.8) Monocytes # (Auto) 1.0 x10^3/uL (0.0-1.1) Eosinophils # (Auto) 0.2 x10^3/uL (0.0-0.7) Basophils # (Auto) 0.0 x10^3/uL (0.0-0.2) Sodium Level 139 mmol/L (136-145) Potassium Level 3.4 mmol/L (3.5-5.1) Chloride Level 105 mmol/L (98-107) Carbon Dioxide Level 27 mmol/L (21-32) Anion Gap 7 (6-14) Blood Urea Nitrogen 20 mg/dL (8-26) Creatinine 0.9 mg/dL (0.7-1.3) Estimated GFR (Cockcroft-Gault) 83.4 Glucose Level 94 mg/dL (70-99) Calcium Level 7.5 mg/dL (8.5-10.1) Objective Assessment Leukocytosis without fever - better Abd fluid collections on CT s/p drains 09/07 - cult neg so far Mild pleural effusions Perf Viscous S/p Antrectomy 09/01 Hypernatremia -improving Plan Plan of Care Cont Zosyn (09/01) and fluconazole -change to po soon. Await Surgical f/u Cont Incentive spirometry Will f/u cultures and modify antibiotics accordingly VITALIY RAINEY MD Sep 09, 2016 07:00
[2016-09-09] MEDS: FLUCONAZOLE 400MG/200ML PREMIX 200 ML IV SCH (08:00)
[2016-09-09] MEDS: FAMOTIDINE 20 MG/2 ML VIAL IVP SCH (09:01)
[2016-09-09] MEDS: ENOXAPARIN 40 MG/0.4 ML SYRINGE. SQ SCH (09:02)
[2016-09-09 11:00] VITALS: BP 146/97
[2016-09-09] MEDS ORDERED: POTASSIUM CHLORIDE 20 MEQ TABLET.ER. PO ONE (13:00)
--- NOTE | 2016-09-09 13:47 | PDOC ---
Provider Note Provider Note after duodenostomy tube clamped yest, he had profuse amt of bilious drainage from around the tube. tube placed back to dd and drainage around the tube decreased. skin escoriated from drainage and barrier cream being used. vishal drains are both serous and inc cdi. pt without increased abd pain. [place] po. abd soft nd, nt. cont d tube to dd. cont local wound care. will remain hospitalized through the weekend. dw dr. pascual and pt. BRANDAN MARINELLI MD Sep 09, 2016 13:47
[2016-09-09 15:00] VITALS: BP 141/80
--- NOTE | 2016-09-09 15:01 | PDOC ---
PROGRESS NOTES Chief Complaint Chief Complaint Assessment 1. Penumoperitoneum with perforated duodenum s/p sx 2. SIRS POA, no sepsis 3. BRISEYDA, vasomotor 4. Mild PCM 5. Tobacco abuse 6. Incidental left small adrenal nodule 7. Diverticulosis 8. Bradycardia 9. Hypocalcemia HYPOKALEMIA plan: fu with sx, id, renal on po diet cont having mild SHRAVAN drainage when clampled the D tube, has leaking around the wound, now on drainage again cont zosyn , fluconasole with ID, po soon replete K dc on Sunday? History of Present Illness History of Present Illness pt is resting comfortably in his chair this morning, he denies any complaints, his trach was removed this morning and he is tolerating orange juice and gravy Vitals Vitals Vital Signs Date Time Temp Pulse Resp B/P (MAP) Pulse Ox O2 Delivery O2 Flow Rate FiO2 09/09/16 11:00 97.9 53 20 146/97 (113) 94 Room Air 97.9 Physical Exam Physical Exam 2 SHRAVAN drainage 1 duodenum drainage General: Alert, Oriented X3, Cooperative, No acute distress Heart: Regular rate, No murmurs Lungs: Clear, Other (decrease bs) Abdomen: Soft, No tenderness, Other (drains serous in nature) Extremities: No clubbing, No cyanosis Skin: No rashes Labs LABS Laboratory Tests Test 09/09/16 04:30 White Blood Count 8.8 x10^3/uL (4.0-11.0) Red Blood Count 3.82 x10^6/uL (4.30-5.70) Hemoglobin 11.3 g/dL (13.0-17.5) Hematocrit 33.6 % (39.0-53.0) Mean Corpuscular Volume 88 fL (79-100) Mean Corpuscular Hemoglobin 30 pg (25-35) Mean Corpuscular Hemoglobin Concent 34 g/dL (31-37) Red Cell Distribution Width 13.6 % (11.5-14.5) Platelet Count 285 x10^3/uL (140-400) Neutrophils (%) (Auto) 71 % (31-73) Lymphocytes (%) (Auto) 15 % (24-48) Monocytes (%) (Auto) 11 % (0-9) Eosinophils (%) (Auto) 3 % (0-3) Basophils (%) (Auto) 1 % (0-3) Neutrophils # (Auto) 6.2 x10^3uL (1.8-7.7) Lymphocytes # (Auto) 1.3 x10^3/uL (1.0-4.8) Monocytes # (Auto) 1.0 x10^3/uL (0.0-1.1) Eosinophils # (Auto) 0.2 x10^3/uL (0.0-0.7) Basophils # (Auto) 0.0 x10^3/uL (0.0-0.2) Sodium Level 139 mmol/L (136-145) Potassium Level 3.4 mmol/L (3.5-5.1) Chloride Level 105 mmol/L (98-107) Carbon Dioxide Level 27 mmol/L (21-32) Anion Gap 7 (6-14) Blood Urea Nitrogen 20 mg/dL (8-26) Creatinine 0.9 mg/dL (0.7-1.3) Estimated GFR (Cockcroft-Gault) 83.4 Glucose Level 94 mg/dL (70-99) Calcium Level 7.5 mg/dL (8.5-10.1) Review of Systems Review of Systems no fever, chills, sob or chest pain Assessment and Plan Assessmemt and Plan Problems Medical Problems: (1) Lactic acid acidosis Status: Acute (2) Perforated abdominal viscus Status: Acute Problems: Comment Review of Relevant I have reviewed the following items shaw (where applicable) has been applied. Labs Laboratory Tests Test 09/08/16 06:30 09/09/16 04:30 White Blood Count 9.9 x10^3/uL (4.0-11.0) 8.8 x10^3/uL (4.0-11.0) Red Blood Count 3.81 x10^6/uL (4.30-5.70) 3.82 x10^6/uL (4.30-5.70) Hemoglobin 11.5 g/dL (13.0-17.5) 11.3 g/dL (13.0-17.5) Hematocrit 33.6 % (39.0-53.0) 33.6 % (39.0-53.0) Mean Corpuscular Volume 88 fL (79-100) 88 fL (79-100) Mean Corpuscular Hemoglobin 30 pg (25-35) 30 pg (25-35) Mean Corpuscular Hemoglobin Concent 34 g/dL (31-37) 34 g/dL (31-37) Red Cell Distribution Width 13.6 % (11.5-14.5) 13.6 % (11.5-14.5) Platelet Count 312 x10^3/uL (140-400) 285 x10^3/uL (140-400) Neutrophils (%) (Auto) 77 % (31-73) 71 % (31-73) Lymphocytes (%) (Auto) 11 % (24-48) 15 % (24-48) Monocytes (%) (Auto) 11 % (0-9) 11 % (0-9) Eosinophils (%) (Auto) 2 % (0-3) 3 % (0-3) Basophils (%) (Auto) 0 % (0-3) 1 % (0-3) Neutrophils # (Auto) 7.6 x10^3uL (1.8-7.7) 6.2 x10^3uL (1.8-7.7) Lymphocytes # (Auto) 1.1 x10^3/uL (1.0-4.8) 1.3 x10^3/uL (1.0-4.8) Monocytes # (Auto) 1.0 x10^3/uL (0.0-1.1) 1.0 x10^3/uL (0.0-1.1) Eosinophils # (Auto) 0.1 x10^3/uL (0.0-0.7) 0.2 x10^3/uL (0.0-0.7) Basophils # (Auto) 0.0 x10^3/uL (0.0-0.2) 0.0 x10^3/uL (0.0-0.2) Sodium Level 138 mmol/L (136-145) 139 mmol/L (136-145) Potassium Level 3.7 mmol/L (3.5-5.1) 3.4 mmol/L (3.5-5.1) Chloride Level 104 mmol/L (98-107) 105 mmol/L (98-107) Carbon Dioxide Level 24 mmol/L (21-32) 27 mmol/L (21-32) Anion Gap 10 (6-14) 7 (6-14) Blood Urea Nitrogen 16 mg/dL (8-26) 20 mg/dL (8-26) Creatinine 0.7 mg/dL (0.7-1.3) 0.9 mg/dL (0.7-1.3) Estimated GFR (Cockcroft-Gault) 111.5 83.4 Glucose Level 103 mg/dL (70-99) 94 mg/dL (70-99) Calcium Level 7.7 mg/dL (8.5-10.1) 7.5 mg/dL (8.5-10.1) Laboratory Tests Test 09/09/16 04:30 White Blood Count 8.8 x10^3/uL (4.0-11.0) Red Blood Count 3.82 x10^6/uL (4.30-5.70) Hemoglobin 11.3 g/dL (13.0-17.5) Hematocrit 33.6 % (39.0-53.0) Mean Corpuscular Volume 88 fL (79-100) Mean Corpuscular Hemoglobin 30 pg (25-35) Mean Corpuscular Hemoglobin Concent 34 g/dL (31-37) Red Cell Distribution Width 13.6 % (11.5-14.5) Platelet Count 285 x10^3/uL (140-400) Neutrophils (%) (Auto) 71 % (31-73) Lymphocytes (%) (Auto) 15 % (24-48) Monocytes (%) (Auto) 11 % (0-9) Eosinophils (%) (Auto) 3 % (0-3) Basophils (%) (Auto) 1 % (0-3) Neutrophils # (Auto) 6.2 x10^3uL (1.8-7.7) Lymphocytes # (Auto) 1.3 x10^3/uL (1.0-4.8) Monocytes # (Auto) 1.0 x10^3/uL (0.0-1.1) Eosinophils # (Auto) 0.2 x10^3/uL (0.0-0.7) Basophils # (Auto) 0.0 x10^3/uL (0.0-0.2) Sodium Level 139 mmol/L (136-145) Potassium Level 3.4 mmol/L (3.5-5.1) Chloride Level 105 mmol/L (98-107) Carbon Dioxide Level 27 mmol/L (21-32) Anion Gap 7 (6-14) Blood Urea Nitrogen 20 mg/dL (8-26) Creatinine 0.9 mg/dL (0.7-1.3) Estimated GFR (Cockcroft-Gault) 83.4 Glucose Level 94 mg/dL (70-99) Calcium Level 7.5 mg/dL (8.5-10.1) Microbiology 09/07/16 Gram Stain - Final, Complete Medications Current Medications Sodium Chloride 1,000 ml @ 1,000 mls/hr 1X ONCE IV Last administered on 07:45; Start 09/01/16 at 07:30; Stop 09/01/16 at 08:29; Status DC Ondansetron HCl (Zofran) 4 mg 1X ONCE IV Last administered on 09/01/16 07:44; Start 09/01/16 at 07:30; Stop 09/01/16 at 07:31; Status DC Fentanyl Citrate (Fentanyl 2ml Vial) 75 mcg 1X ONCE IV Last administered on 07:44; Start 09/01/16 at 07:30; Stop 09/01/16 at 07:31; Status DC Iohexol (Omnipaque 300 Mg/ml) 75 ml 1X ONCE IV Last administered on 09/01/16 08:24; Start 09/01/16 at 08:30; Stop 09/01/16 at 08:31; Status DC Info (Do NOT chart on this entry -- for MONITORING) 1 each PRN DAILY PRN MC SEE COMMENTS; Start 09/01/16 at 08:30; Stop 09/03/16 at 08:29; Status DC Morphine Sulfate 5 mg 1X ONCE IV Last administered on 09/01/16 08:41; Start at 08:45; Stop 09/01/16 at 08:46; Status DC Sodium Chloride 1,000 ml @ 1,000 mls/hr 1X ONCE IV Last administered on 08:40; Start 09/01/16 at 08:45; Stop 09/01/16 at 09:44; Status DC Piperacillin Sod/ Tazobactam Sod 3.375 gm/Sodium Chloride 50 ml @ 100 mls/hr Q6HRS IV Last administered on 09/09/16 12:00; Start 09/01/16 at 10:00 Famotidine (Pepcid) 20 mg 1X ONCE IVP Last administered on 09/01/16 09:46; Start 09/01/16 at 09:45; Stop 09/01/16 at 09:46; Status DC Ondansetron HCl (Zofran) 4 mg PRN Q8HRS PRN IV NAUSEA/VOMITING; Start 09/01/16 at 09:30; Stop 09/02/16 at 08:33; Status DC Morphine Sulfate 4 mg PRN Q2HR PRN IV PAIN; Start 09/01/16 at 09:30; Stop at 09:29; Status DC Sodium Chloride 1,000 ml @ 100 mls/hr Q10H IV Last administered on 09/04/16 18:30; Start 09/01/16 at 10:30; Stop 09/05/16 at 01:57; Status DC Acetaminophen (Tylenol) 500 mg PRN Q6HRS PRN PO MILD PAIN / TEMP; Start at 10:30 Famotidine (Pepcid) 20 mg BID IVP Last administered on 09/01/16 11:14; Start at 11:00; Stop 09/01/16 at 15:40; Status DC Ondansetron HCl (Zofran) 4 mg PRN Q6HRS PRN IV NAUSEA/VOMITING; Start 09/01/16 at 12:15; Stop 09/02/16 at 08:33; Status DC Fentanyl Citrate (Fentanyl 2ml Vial) 25 mcg PRN Q5MIN PRN IV MILD PAIN Last administered on 09/01/16 16:00; Start 09/01/16 at 12:15; Stop 09/02/16 at 12:14; Status DC Fentanyl Citrate (Fentanyl 2ml Vial) 50 mcg PRN Q5MIN PRN IV MODERATE PAIN Last administered on 09/01/16 15:54; Start 09/01/16 at 12:15; Stop 09/02/16 at 12: 14; Status DC Morphine Sulfate 1 mg PRN Q10MIN PRN IV SEVERE PAIN; Start 09/01/16 at 12:15; Stop 09/02/16 at 12:14; Status DC Ringer's Solution 1,000 ml @ 30 mls/hr Q24H IV ; Start 09/01/16 at 12:04; Stop 09/01/16 at 19:07; Status DC Lidocaine HCl 2 ml PRN 1X PRN ID PRIOR TO IV START; Start 09/01/16 at 12:15; Stop 09/02/16 at 12:14; Status DC Hydromorphone HCl (Dilaudid) 0.5 mg PRN Q10MIN PRN IV SEV PAIN, Second choice; Start 09/01/16 at 12:15; Stop 09/02/16 at 12:14; Status DC Prochlorperazine Edisylate (Compazine) 5 mg PACU PRN PRN IV NAUSEA, MRX1; Start 09/01/16 at 12:15; Stop 09/02/16 at 12:14; Status DC Desflurane (Suprane) 60 ml STK-MED ONCE IH ; Start 09/01/16 at 12:16; Stop at 12:17; Status DC Fentanyl Citrate (Fentanyl 2ml Vial) 100 mcg STK-MED ONCE .ROUTE ; Start at 12:17; Stop 09/01/16 at 12:18; Status DC Succinylcholine Chloride (Anectine) 200 mg STK-MED ONCE .ROUTE ; Start 09/01/16 at 12:17; Stop 09/01/16 at 12:18; Status DC Glycopyrrolate (Robinul) 1 mg STK-MED ONCE .ROUTE ; Start 09/01/16 at 12:17; Stop 09/01/16 at 12:18; Status DC Neostigmine Methylsulfate 5 mg STK-MED ONCE .ROUTE ; Start 09/01/16 at 12:17; Stop 09/01/16 at 12:18; Status DC Rocuronium [place] (Zemuron) 50 mg STK-MED ONCE .ROUTE ; Start 09/01/16 at 12:18 ; Stop 09/01/16 at 12:19; Status DC Propofol 20 ml @ As Directed STK-MED ONCE IV ; Start 09/01/16 at 12:18; Stop 09/01 at 12:19; Status DC Lidocaine HCl (Lidocaine Pf 2% Vial) 5 ml STK-MED ONCE .ROUTE ; Start 09/01/16 at 12:18; Stop 09/01/16 at 12:19; Status DC Dexamethasone Sodium Phosphate (Decadron) 20 mg STK-MED ONCE .ROUTE ; Start 09/01 at 12:18; Stop 09/01/16 at 12:19; Status DC Ondansetron HCl (Zofran) 4 mg STK-MED ONCE .ROUTE ; Start 09/01/16 at 12:18; Stop 09/01/16 at 12:19; Status DC Famotidine (Pepcid) 20 mg STK-MED ONCE .ROUTE ; Start 09/01/16 at 12:32; Stop 09/01/16 at 12:33; Status DC Cefoxitin Sodium 100 ml @ As Directed STK-MED ONCE IV ; Start 09/01/16 at 13:30 ; Stop 09/01/16 at 13:31; Status DC Fentanyl Citrate (Fentanyl 2ml Vial) 100 mcg STK-MED ONCE .ROUTE ; Start at 13:35; Stop 09/01/16 at 13:36; Status DC Sodium Chloride (Sodium Chloride) 50 ml STK-MED ONCE IJ ; Start 09/01/16 at 14:05 ; Stop 09/01/16 at 14:06; Status DC Morphine Sulfate 10 mg STK-MED ONCE .ROUTE ; Start 09/01/16 at 14:05; Stop at 14:06; Status DC Vecuronium [place] (Norcuron Bolus) 10 mg STK-MED ONCE IV ; Start 09/01/16 at 14: 05; Stop 09/01/16 at 14:06; Status DC Sevoflurane (Ultane) 90 ml STK-MED ONCE IH ; Start 09/01/16 at 15:10; Stop at 15:11; Status DC Famotidine (Pepcid) 20 mg BID IVP Last administered on 09/09/16 09:01; Start 09/01/16 at 21:00 Enoxaparin Sodium (Lovenox 40mg Syringe) 40 mg Q24H SQ Last administered on 09:02; Start 09/02/16 at 09:00 Sodium Chloride (Normal Saline Flush) 3 ml QSHIFT PRN IV AFTER MEDS AND BLOOD DRAWS; Start 09/01/16 at 15:15 Ringer's Solution 1,000 ml @ 100 mls/hr Q10H IV ; Start 09/01/16 at 15:06; Stop 09/01/16 at 19:07; Status DC Naloxone HCl (Narcan) 0.4 mg PRN Q2MIN PRN IV SEE INSTRUCTIONS; Start 09/01/16 at 15:15 Sodium Chloride 1,000 ml @ 25 mls/hr Q24H IV Last administered on 09/04/16 15 :06; Start 09/01/16 at 15:06; Stop 09/05/16 at 01:23; Status DC Hydromorphone HCl 30 ml @ 0 mls/hr CONT PRN PRN IV PROTOCOL Last administered on 09/03/16 04:38; Start 09/01/16 at 15:15; Stop 09/06/16 at 11:42; Status DC Ondansetron HCl (Zofran) 4 mg PRN Q6HRS PRN IV NAUESA, 1ST CHOICE; Start at 15:15 Bupivacaine HCl/ Epinephrine Bitart (Marcaine-Epi 0.5%-[id number]) 50 ml STK-MED ONCE .ROUTE Last administered on 09/01/16 13:29; Start 09/01/16 at 15:14; Stop 09/01/16 at 15:15; Status DC Ketamine HCl 500 mg STK-MED ONCE .ROUTE ; Start 09/01/16 at 15:17; Stop 09/01/16 at 15:18; Status DC Calcium Chloride 1000 mg/Sodium Chloride 60 ml @ 120 mls/hr 1X ONCE IV ; Start 09/03/16 at 12:30; Stop 09/03/16 at 12:30; Status DC Calcium Gluconate 1000 mg/Sodium Chloride 110 ml @ 220 mls/hr 1X ONCE IV Last administered on 09/03/16 14:40; Start 09/03/16 at 13:00; Stop 09/03/16 at 13: 29; Status DC Potassium Chloride 20 meq/ Sodium Chloride 1,010 ml @ 75 mls/hr [id number] IV ; Start 09/05/16 at 01:30; Status UNV Potassium Chloride/Sodium Chloride 1,000 ml @ 75 mls/hr [id number] IV Last administered on 09/07/16 08:27; Start 09/05/16 at 01:30; Stop 09/08/16 at 00:55 ; Status DC Amino Acids/ Glycerin/ Electrolytes 1,000 ml @ 50 mls/hr Q20H IV Last administered on 09/05/16 10:38; Start 09/05/16 at 09:30; Stop 09/05/16 at 11:40 ; Status DC Albuterol Sulfate (Ventolin Neb Soln) 2.5 mg PRN QID PRN NEB DYSPNEA, WHEEZING ; Start 09/05/16 at 09:30 Saliva Substitute (Biotene Moisturizing Mouth) 2 spray PRN Q15MIN PRN PO DRY MOUTH Last administered on 09/05/16 13:14; Start 09/05/16 at 09:30 Throat Lozenges (Cepacol Sore Throat Lozenge) 1 yaakov PRN Q2HRS PRN PO SORE THROAT; Start 09/05/16 at 09:30 Amino Acids/ Glycerin/ Electrolytes 1,000 ml @ 80 mls/hr [id number] IV Last administered on 09/08/16 10:39; Start 09/05/16 at 11:30; Stop 09/08/16 at 11:54 ; Status DC Iohexol (Omnipaque 240 Mg/ml) 30 ml 1X ONCE PO Last administered on 09/06/16 11:15; Start 09/06/16 at 11:15; Stop 09/06/16 at 11:16; Status DC Iohexol (Omnipaque 300 Mg/ml) 75 ml 1X ONCE IV Last administered on 09/06/16 13:20; Start 09/06/16 at 11:15; Stop 09/06/16 at 11:16; Status DC Info (Do NOT chart on this entry -- for MONITORING) 1 each PRN DAILY PRN MC SEE COMMENTS; Start 09/06/16 at 11:15; Stop 09/08/16 at 11:14; Status DC Fluconazole/ Sodium Chloride 200 ml @ 100 mls/hr Q24H IV Last administered on 09/09/16 08:00; Start 09/07/16 at 08:00 Calcium Gluconate (Calcium Gluconate) 1,000 mg 1X ONCE IVP ; Start 09/07/16 at 11:30; Stop 09/07/16 at 11:31; Status UNV Calcium Chloride 1000 mg/Sodium Chloride 60 ml @ 120 mls/hr 1X ONCE IV ; Start 09/07/16 at 11:30; Stop 09/07/16 at 11:59; Status Cancel Calcium Gluconate 1000 mg/Sodium Chloride 110 ml @ 440 mls/hr 1X ONCE IV Last administered on 09/07/16 15:08; Start 09/07/16 at 11:45; Stop 09/07/16 at 11:59; Status DC Lidocaine/Sodium Bicarbonate (Buffered Lidocaine 1%) 20 ml STK-MED ONCE IJ ; Start 09/07/16 at 12:23; Stop 09/07/16 at 12:24; Status DC Midazolam HCl (Versed) 5 mg STK-MED ONCE .ROUTE ; Start 09/07/16 at 12:44; Stop 09/07/16 at 12:45; Status DC Fentanyl Citrate (Fentanyl 5ml Vial) 250 mcg STK-MED ONCE .ROUTE ; Start at 12:44; Stop 09/07/16 at 12:45; Status DC Lidocaine/Sodium Bicarbonate (Buffered Lidocaine 1%) 10 ml 1X ONCE IJ Last administered on 09/07/16 13:58; Start 09/07/16 at 14:00; Stop 09/07/16 at 14:01 ; Status DC Midazolam HCl (Versed) 2 mg 1X ONCE IV Last administered on 09/07/16 13:59; Start 09/07/16 at 14:00; Stop 09/07/16 at 14:01; Status DC Fentanyl Citrate (Fentanyl 5ml Vial) 100 mcg 1X ONCE IV Last administered on 13:59; Start 09/07/16 at 14:00; Stop 09/07/16 at 14:01; Status DC Furosemide (Lasix) 20 mg 1X ONCE IVP Last administered on 09/08/16 10:39; Start 09/08/16 at 10:30; Stop 09/08/16 at 10:31; Status DC Potassium Chloride (Klor-Con) 40 meq 1X ONCE PO ; Start 09/09/16 at 13:00; Stop 09/09/16 at 13:01; Status DC Active Scripts Active Reported Aspir 81 (Aspirin) 81 Mg Tablet.dr 81 Mg PO Ultracet Tablet (Tramadol Hcl/Acetaminophen) 1 Each Tablet 1 Tab PO TID Lipitor (Atorvastatin Calcium) 10 Mg Tablet 1 Tab PO DAILY Indapamide 1.25 Mg Tablet 1.25 Mg PO Diovan Hct 80-12.5 Mg Tablet (Valsartan/Hydrochlorothiazide) 1 Each Tablet 1 Each PO Naproxen Sodium 550 Mg Tablet 375 Mg PO PRN Vitals/I & O Vital Sign - Last 24 Hours 09/08/16 09/08/16 09/08/16 09/08/16 15:00 19:10 20:10 23:05 Temp 97.7 98.8 97.9 97.7 98.8 97.9 Pulse 54 54 54 Resp 20 16 16 B/P (MAP) 139/82 (101) 132/68 (89) 133/76 (95) Pulse Ox 94 93 93 O2 Delivery Room Air Room Air Room Air Room Air 09/09/16 09/09/16 09/09/16 09/09/16 03:06 07:00 07:45 11:00 Temp 98.4 97.9 97.9 98.4 97.9 97.9 Pulse 53 50 53 Resp 16 20 20 B/P (MAP) 138/85 (102) 138/81 (100) 146/97 (113) Pulse Ox 95 93 94 O2 Delivery Room Air Room Air Room Air Room Air Intake and Output 09/08/16 09/08/16 09/09/16 15:00 23:00 07:00 Intake Total 890 ml 120 ml Output Total 75 ml 135 ml 1020 ml Balance 815 ml -135 ml -900 ml Nutrition Consultation Dietary Evaluation: Recommendations by RD: PPN/TPN Comments: continue ppn for short term nutrition Expected Outcomes/Goals: diet adv/ tolerance- not met yet, goal ongoing Interpretation of weight loss: >1-2% in 1 week Malnutrition Findings: Food and Nutrition Intake (Sev: <50% est energy req 5days Weight Status: Overweight LUZ MARIA GUEVARA MD Sep 09, 2016 15:01
[2016-09-09 19:25] VITALS: BP 147/78
[2016-09-09] MEDS: FAMOTIDINE 20 MG TABLET. PO SCH (21:02)
[2016-09-09 22:53] VITALS: BP 149/96
[2016-09-10] MEDS: PIPERACILLIN/TAZOBACTAM 3.375 GM in IV NORMAL SALINE 50ML 50 ML IV SCH ×4 (00:28→17:41)
[2016-09-10 03:10] VITALS: BP 140/82
[2016-09-10 06:22] LABS: BASO % 1 % (0-3); EOS % 2 % (0-3); HEMOGLOBIN 11.6 g/dL (13.0-17.5); LYMPH # 1.2 x10^3/uL (1.0-4.8); LYMPH % 14 % (24-48); MEAN CORPUSCULAR HEMOGLOBIN 30 pg (25-35); MEAN CORPUSCULAR HGB CONC 33 g/dL (31-37); MEAN CORPUSCULAR VOLUME 89 fL (79-100); MONO % 11 % (0-9); NEUT % 73 % (31-73); PLATELET COUNT 290 x10^3/uL (140-400); RED BLOOD COUNT 3.95 x10^6/uL (4.30-5.70); RED CELL DISTRIBUTION WIDTH 13.7 % (11.5-14.5); WHITE BLOOD COUNT 9.2 x10^3/uL (4.0-11.0)
[2016-09-10 06:39] LABS: CALCIUM 7.6 mg/dL (8.5-10.1); CREATININE 0.8 mg/dL (0.7-1.3); GFR 95.6; POTASSIUM 3.8 mmol/L (3.5-5.1)
[2016-09-10 07:00] VITALS: BP 130/77
[2016-09-10] MEDS: FLUCONAZOLE 400MG/200ML PREMIX 200 ML IV SCH (08:37)
[2016-09-10] MEDS: ENOXAPARIN 40 MG/0.4 ML SYRINGE. SQ SCH (08:41)
[2016-09-10 11:00] VITALS: BP 140/80
--- NOTE | 2016-09-10 12:53 | PDOC ---
PULMONARY PROGRESS NOTES Subjective no soa Vitals Vital Signs Date Time Temp Pulse Resp B/P (MAP) Pulse Ox O2 Delivery O2 Flow Rate FiO2 09/10/16 11:00 98.6 50 20 140/80 (100) 94 Room Air 98.6 General: Alert Lungs: Clear, Other (decrease bs) Cardiovascular: S1, S2 Abdomen: Soft Neuro Exam: Alert Extremities: No Edema Skin: Warm Labs Laboratory Tests Test 09/09/16 04:30 09/10/16 05:57 White Blood Count 8.8 x10^3/uL (4.0-11.0) 9.2 x10^3/uL (4.0-11.0) Red Blood Count 3.82 x10^6/uL (4.30-5.70) 3.95 x10^6/uL (4.30-5.70) Hemoglobin 11.3 g/dL (13.0-17.5) 11.6 g/dL (13.0-17.5) Hematocrit 33.6 % (39.0-53.0) 35.0 % (39.0-53.0) Mean Corpuscular Volume 88 fL (79-100) 89 fL (79-100) Mean Corpuscular Hemoglobin 30 pg (25-35) 30 pg (25-35) Mean Corpuscular Hemoglobin Concent 34 g/dL (31-37) 33 g/dL (31-37) Red Cell Distribution Width 13.6 % (11.5-14.5) 13.7 % (11.5-14.5) Platelet Count 285 x10^3/uL (140-400) 290 x10^3/uL (140-400) Neutrophils (%) (Auto) 71 % (31-73) 73 % (31-73) Lymphocytes (%) (Auto) 15 % (24-48) 14 % (24-48) Monocytes (%) (Auto) 11 % (0-9) 11 % (0-9) Eosinophils (%) (Auto) 3 % (0-3) 2 % (0-3) Basophils (%) (Auto) 1 % (0-3) 1 % (0-3) Neutrophils # (Auto) 6.2 x10^3uL (1.8-7.7) 6.7 x10^3uL (1.8-7.7) Lymphocytes # (Auto) 1.3 x10^3/uL (1.0-4.8) 1.2 x10^3/uL (1.0-4.8) Monocytes # (Auto) 1.0 x10^3/uL (0.0-1.1) 1.0 x10^3/uL (0.0-1.1) Eosinophils # (Auto) 0.2 x10^3/uL (0.0-0.7) 0.2 x10^3/uL (0.0-0.7) Basophils # (Auto) 0.0 x10^3/uL (0.0-0.2) 0.0 x10^3/uL (0.0-0.2) Sodium Level 139 mmol/L (136-145) 139 mmol/L (136-145) Potassium Level 3.4 mmol/L (3.5-5.1) 3.8 mmol/L (3.5-5.1) Chloride Level 105 mmol/L (98-107) 105 mmol/L (98-107) Carbon Dioxide Level 27 mmol/L (21-32) 24 mmol/L (21-32) Anion Gap 7 (6-14) 10 (6-14) Blood Urea Nitrogen 20 mg/dL (8-26) 17 mg/dL (8-26) Creatinine 0.9 mg/dL (0.7-1.3) 0.8 mg/dL (0.7-1.3) Estimated GFR (Cockcroft-Gault) 83.4 95.6 Glucose Level 94 mg/dL (70-99) 91 mg/dL (70-99) Calcium Level 7.5 mg/dL (8.5-10.1) 7.6 mg/dL (8.5-10.1) Laboratory Tests Test 09/10/16 05:57 White Blood Count 9.2 x10^3/uL (4.0-11.0) Red Blood Count 3.95 x10^6/uL (4.30-5.70) Hemoglobin 11.6 g/dL (13.0-17.5) Hematocrit 35.0 % (39.0-53.0) Mean Corpuscular Volume 89 fL (79-100) Mean Corpuscular Hemoglobin 30 pg (25-35) Mean Corpuscular Hemoglobin Concent 33 g/dL (31-37) Red Cell Distribution Width 13.7 % (11.5-14.5) Platelet Count 290 x10^3/uL (140-400) Neutrophils (%) (Auto) 73 % (31-73) Lymphocytes (%) (Auto) 14 % (24-48) Monocytes (%) (Auto) 11 % (0-9) Eosinophils (%) (Auto) 2 % (0-3) Basophils (%) (Auto) 1 % (0-3) Neutrophils # (Auto) 6.7 x10^3uL (1.8-7.7) Lymphocytes # (Auto) 1.2 x10^3/uL (1.0-4.8) Monocytes # (Auto) 1.0 x10^3/uL (0.0-1.1) Eosinophils # (Auto) 0.2 x10^3/uL (0.0-0.7) Basophils # (Auto) 0.0 x10^3/uL (0.0-0.2) Sodium Level 139 mmol/L (136-145) Potassium Level 3.8 mmol/L (3.5-5.1) Chloride Level 105 mmol/L (98-107) Carbon Dioxide Level 24 mmol/L (21-32) Anion Gap 10 (6-14) Blood Urea Nitrogen 17 mg/dL (8-26) Creatinine 0.8 mg/dL (0.7-1.3) Estimated GFR (Cockcroft-Gault) 95.6 Glucose Level 91 mg/dL (70-99) Calcium Level 7.6 mg/dL (8.5-10.1) Medications Active Scripts Medications Dose Route/Sig Max Daily Dose Days Date Category Aspir 81 (Aspirin) 81 Mg Tablet.dr 81 Mg PO 09/01/16 Reported Ultracet Tablet (Tramadol Hcl/Acetaminophen) 1 Each Tablet 1 Tab PO TID 09/01/16 Reported Lipitor (Atorvastatin Calcium) 10 Mg Tablet 1 Tab PO DAILY 09/01/16 Reported Indapamide 1.25 Mg Tablet 1.25 Mg PO 09/01/16 Reported Diovan Hct 80-12.5 Mg Tablet (Valsartan/Hydrochlorothiazide) 1 Each Tablet 1 Each PO 09/01/16 Reported Naproxen Sodium 550 Mg Tablet 375 Mg PO PRN 09/01/16 Reported Impression . 1. Acute duodenal perforation, s/p antrectomy 2. bilateral sympathetic/ inflammatory effusions, asymptomatic, not significant to tap at present 3. Abdominal /pelvic fluid collections, IR placed drains 4. Long h/o tobacco use( 45 pack yr). suspect COPD 5. Malnutrition Plan . 1. No need for thoracentesis at present 2. f/u CXR in am 3. Mild diuresis 4. Improve nutritional status 5. s/p abdominal drains 6. Antibiotics per ID d/w family ROC REYES MD Sep 10, 2016 12:53
--- NOTE | 2016-09-10 14:00 | PDOC ---
PROGRESS NOTES Chief Complaint Chief Complaint Assessment 1. Penumoperitoneum with perforated duodenum s/p sx 2. SIRS POA, no sepsis 3. BRISEYDA, vasomotor 4. Mild PCM 5. Tobacco abuse 6. Incidental left small adrenal nodule 7. Diverticulosis 8. Bradycardia 9. Hypocalcemia HYPOKALEMIA plan: fu with sx, id, renal on po diet cont having significant from 1 SHRAVAN drainage and D tube cont zosyn , fluconasole with ID, po soon. cx so far + yeast only replete K need to fu with sx about the SHRAVAN and D TUBE and abx if plan to dc soon History of Present Illness History of Present Illness pt is resting comfortably in his chair this morning, he denies any complaints, his trach was removed this morning and he is tolerating orange juice and gravy when clampled the D tube, has leaking around the wound, now on drainage again still lots of drainage from D tube and LLQ SHRAVAN. THE OTHER 2 SHRAVAN have little drainage Vitals Vitals Vital Signs Date Time Temp Pulse Resp B/P (MAP) Pulse Ox O2 Delivery O2 Flow Rate FiO2 09/10/16 11:00 98.6 50 20 140/80 (100) 94 Room Air 98.6 Physical Exam Physical Exam 23JP drainage 1 duodenum drainage General: Alert, Oriented X3, Cooperative, No acute distress Heart: Regular rate, No murmurs Lungs: Clear, Other (decrease bs) Abdomen: Soft, No tenderness, Other (drains serous in nature) Extremities: No clubbing, No cyanosis Skin: No rashes Labs LABS Laboratory Tests Test 09/10/16 05:57 White Blood Count 9.2 x10^3/uL (4.0-11.0) Red Blood Count 3.95 x10^6/uL (4.30-5.70) Hemoglobin 11.6 g/dL (13.0-17.5) Hematocrit 35.0 % (39.0-53.0) Mean Corpuscular Volume 89 fL (79-100) Mean Corpuscular Hemoglobin 30 pg (25-35) Mean Corpuscular Hemoglobin Concent 33 g/dL (31-37) Red Cell Distribution Width 13.7 % (11.5-14.5) Platelet Count 290 x10^3/uL (140-400) Neutrophils (%) (Auto) 73 % (31-73) Lymphocytes (%) (Auto) 14 % (24-48) Monocytes (%) (Auto) 11 % (0-9) Eosinophils (%) (Auto) 2 % (0-3) Basophils (%) (Auto) 1 % (0-3) Neutrophils # (Auto) 6.7 x10^3uL (1.8-7.7) Lymphocytes # (Auto) 1.2 x10^3/uL (1.0-4.8) Monocytes # (Auto) 1.0 x10^3/uL (0.0-1.1) Eosinophils # (Auto) 0.2 x10^3/uL (0.0-0.7) Basophils # (Auto) 0.0 x10^3/uL (0.0-0.2) Sodium Level 139 mmol/L (136-145) Potassium Level 3.8 mmol/L (3.5-5.1) Chloride Level 105 mmol/L (98-107) Carbon Dioxide Level 24 mmol/L (21-32) Anion Gap 10 (6-14) Blood Urea Nitrogen 17 mg/dL (8-26) Creatinine 0.8 mg/dL (0.7-1.3) Estimated GFR (Cockcroft-Gault) 95.6 Glucose Level 91 mg/dL (70-99) Calcium Level 7.6 mg/dL (8.5-10.1) Review of Systems Review of Systems no fever, chills, sob or chest pain Assessment and Plan Assessmemt and Plan Problems Medical Problems: (1) Lactic acid acidosis Status: Acute (2) Perforated abdominal viscus Status: Acute Problems: Comment Review of Relevant I have reviewed the following items shaw (where applicable) has been applied. Labs Laboratory Tests Test 09/09/16 04:30 09/10/16 05:57 White Blood Count 8.8 x10^3/uL (4.0-11.0) 9.2 x10^3/uL (4.0-11.0) Red Blood Count 3.82 x10^6/uL (4.30-5.70) 3.95 x10^6/uL (4.30-5.70) Hemoglobin 11.3 g/dL (13.0-17.5) 11.6 g/dL (13.0-17.5) Hematocrit 33.6 % (39.0-53.0) 35.0 % (39.0-53.0) Mean Corpuscular Volume 88 fL (79-100) 89 fL (79-100) Mean Corpuscular Hemoglobin 30 pg (25-35) 30 pg (25-35) Mean Corpuscular Hemoglobin Concent 34 g/dL (31-37) 33 g/dL (31-37) Red Cell Distribution Width 13.6 % (11.5-14.5) 13.7 % (11.5-14.5) Platelet Count 285 x10^3/uL (140-400) 290 x10^3/uL (140-400) Neutrophils (%) (Auto) 71 % (31-73) 73 % (31-73) Lymphocytes (%) (Auto) 15 % (24-48) 14 % (24-48) Monocytes (%) (Auto) 11 % (0-9) 11 % (0-9) Eosinophils (%) (Auto) 3 % (0-3) 2 % (0-3) Basophils (%) (Auto) 1 % (0-3) 1 % (0-3) Neutrophils # (Auto) 6.2 x10^3uL (1.8-7.7) 6.7 x10^3uL (1.8-7.7) Lymphocytes # (Auto) 1.3 x10^3/uL (1.0-4.8) 1.2 x10^3/uL (1.0-4.8) Monocytes # (Auto) 1.0 x10^3/uL (0.0-1.1) 1.0 x10^3/uL (0.0-1.1) Eosinophils # (Auto) 0.2 x10^3/uL (0.0-0.7) 0.2 x10^3/uL (0.0-0.7) Basophils # (Auto) 0.0 x10^3/uL (0.0-0.2) 0.0 x10^3/uL (0.0-0.2) Sodium Level 139 mmol/L (136-145) 139 mmol/L (136-145) Potassium Level 3.4 mmol/L (3.5-5.1) 3.8 mmol/L (3.5-5.1) Chloride Level 105 mmol/L (98-107) 105 mmol/L (98-107) Carbon Dioxide Level 27 mmol/L (21-32) 24 mmol/L (21-32) Anion Gap 7 (6-14) 10 (6-14) Blood Urea Nitrogen 20 mg/dL (8-26) 17 mg/dL (8-26) Creatinine 0.9 mg/dL (0.7-1.3) 0.8 mg/dL (0.7-1.3) Estimated GFR (Cockcroft-Gault) 83.4 95.6 Glucose Level 94 mg/dL (70-99) 91 mg/dL (70-99) Calcium Level 7.5 mg/dL (8.5-10.1) 7.6 mg/dL (8.5-10.1) Laboratory Tests Test 09/10/16 05:57 White Blood Count 9.2 x10^3/uL (4.0-11.0) Red Blood Count 3.95 x10^6/uL (4.30-5.70) Hemoglobin 11.6 g/dL (13.0-17.5) Hematocrit 35.0 % (39.0-53.0) Mean Corpuscular Volume 89 fL (79-100) Mean Corpuscular Hemoglobin 30 pg (25-35) Mean Corpuscular Hemoglobin Concent 33 g/dL (31-37) Red Cell Distribution Width 13.7 % (11.5-14.5) Platelet Count 290 x10^3/uL (140-400) Neutrophils (%) (Auto) 73 % (31-73) Lymphocytes (%) (Auto) 14 % (24-48) Monocytes (%) (Auto) 11 % (0-9) Eosinophils (%) (Auto) 2 % (0-3) Basophils (%) (Auto) 1 % (0-3) Neutrophils # (Auto) 6.7 x10^3uL (1.8-7.7) Lymphocytes # (Auto) 1.2 x10^3/uL (1.0-4.8) Monocytes # (Auto) 1.0 x10^3/uL (0.0-1.1) Eosinophils # (Auto) 0.2 x10^3/uL (0.0-0.7) Basophils # (Auto) 0.0 x10^3/uL (0.0-0.2) Sodium Level 139 mmol/L (136-145) Potassium Level 3.8 mmol/L (3.5-5.1) Chloride Level 105 mmol/L (98-107) Carbon Dioxide Level 24 mmol/L (21-32) Anion Gap 10 (6-14) Blood Urea Nitrogen 17 mg/dL (8-26) Creatinine 0.8 mg/dL (0.7-1.3) Estimated GFR (Cockcroft-Gault) 95.6 Glucose Level 91 mg/dL (70-99) Calcium Level 7.6 mg/dL (8.5-10.1) Microbiology 09/07/16 Gram Stain - Final, Complete Medications Current Medications Sodium Chloride 1,000 ml @ 1,000 mls/hr 1X ONCE IV Last administered on 07:45; Start 09/01/16 at 07:30; Stop 09/01/16 at 08:29; Status DC Ondansetron HCl (Zofran) 4 mg 1X ONCE IV Last administered on 09/01/16 07:44; Start 09/01/16 at 07:30; Stop 09/01/16 at 07:31; Status DC Fentanyl Citrate (Fentanyl 2ml Vial) 75 mcg 1X ONCE IV Last administered on 07:44; Start 09/01/16 at 07:30; Stop 09/01/16 at 07:31; Status DC Iohexol (Omnipaque 300 Mg/ml) 75 ml 1X ONCE IV Last administered on 09/01/16 08:24; Start 09/01/16 at 08:30; Stop 09/01/16 at 08:31; Status DC Info (Do NOT chart on this entry -- for MONITORING) 1 each PRN DAILY PRN MC SEE COMMENTS; Start 09/01/16 at 08:30; Stop 09/03/16 at 08:29; Status DC Morphine Sulfate 5 mg 1X ONCE IV Last administered on 09/01/16 08:41; Start at 08:45; Stop 09/01/16 at 08:46; Status DC Sodium Chloride 1,000 ml @ 1,000 mls/hr 1X ONCE IV Last administered on 08:40; Start 09/01/16 at 08:45; Stop 09/01/16 at 09:44; Status DC Piperacillin Sod/ Tazobactam Sod 3.375 gm/Sodium Chloride 50 ml @ 100 mls/hr Q6HRS IV Last administered on 09/10/16 13:00; Start 09/01/16 at 10:00 Famotidine (Pepcid) 20 mg 1X ONCE IVP Last administered on 09/01/16 09:46; Start 09/01/16 at 09:45; Stop 09/01/16 at 09:46; Status DC Ondansetron HCl (Zofran) 4 mg PRN Q8HRS PRN IV NAUSEA/VOMITING; Start 09/01/16 at 09:30; Stop 09/02/16 at 08:33; Status DC Morphine Sulfate 4 mg PRN Q2HR PRN IV PAIN; Start 09/01/16 at 09:30; Stop at 09:29; Status DC Sodium Chloride 1,000 ml @ 100 mls/hr Q10H IV Last administered on 09/04/16 18:30; Start 09/01/16 at 10:30; Stop 09/05/16 at 01:57; Status DC Acetaminophen (Tylenol) 500 mg PRN Q6HRS PRN PO MILD PAIN / TEMP; Start at 10:30 Famotidine (Pepcid) 20 mg BID IVP Last administered on 09/01/16 11:14; Start at 11:00; Stop 09/01/16 at 15:40; Status DC Ondansetron HCl (Zofran) 4 mg PRN Q6HRS PRN IV NAUSEA/VOMITING; Start 09/01/16 at 12:15; Stop 09/02/16 at 08:33; Status DC Fentanyl Citrate (Fentanyl 2ml Vial) 25 mcg PRN Q5MIN PRN IV MILD PAIN Last administered on 09/01/16 16:00; Start 09/01/16 at 12:15; Stop 09/02/16 at 12:14; Status DC Fentanyl Citrate (Fentanyl 2ml Vial) 50 mcg PRN Q5MIN PRN IV MODERATE PAIN Last administered on 09/01/16 15:54; Start 09/01/16 at 12:15; Stop 09/02/16 at 12: 14; Status DC Morphine Sulfate 1 mg PRN Q10MIN PRN IV SEVERE PAIN; Start 09/01/16 at 12:15; Stop 09/02/16 at 12:14; Status DC Ringer's Solution 1,000 ml @ 30 mls/hr Q24H IV ; Start 09/01/16 at 12:04; Stop 09/01/16 at 19:07; Status DC Lidocaine HCl 2 ml PRN 1X PRN ID PRIOR TO IV START; Start 09/01/16 at 12:15; Stop 09/02/16 at 12:14; Status DC Hydromorphone HCl (Dilaudid) 0.5 mg PRN Q10MIN PRN IV SEV PAIN, Second choice; Start 09/01/16 at 12:15; Stop 09/02/16 at 12:14; Status DC Prochlorperazine Edisylate (Compazine) 5 mg PACU PRN PRN IV NAUSEA, MRX1; Start 09/01/16 at 12:15; Stop 09/02/16 at 12:14; Status DC Desflurane (Suprane) 60 ml STK-MED ONCE IH ; Start 09/01/16 at 12:16; Stop at 12:17; Status DC Fentanyl Citrate (Fentanyl 2ml Vial) 100 mcg STK-MED ONCE .ROUTE ; Start at 12:17; Stop 09/01/16 at 12:18; Status DC Succinylcholine Chloride (Anectine) 200 mg STK-MED ONCE .ROUTE ; Start 09/01/16 at 12:17; Stop 09/01/16 at 12:18; Status DC Glycopyrrolate (Robinul) 1 mg STK-MED ONCE .ROUTE ; Start 09/01/16 at 12:17; Stop 09/01/16 at 12:18; Status DC Neostigmine Methylsulfate 5 mg STK-MED ONCE .ROUTE ; Start 09/01/16 at 12:17; Stop 09/01/16 at 12:18; Status DC Rocuronium [place] (Zemuron) 50 mg STK-MED ONCE .ROUTE ; Start 09/01/16 at 12:18 ; Stop 09/01/16 at 12:19; Status DC Propofol 20 ml @ As Directed STK-MED ONCE IV ; Start 09/01/16 at 12:18; Stop 09/01 at 12:19; Status DC Lidocaine HCl (Lidocaine Pf 2% Vial) 5 ml STK-MED ONCE .ROUTE ; Start 09/01/16 at 12:18; Stop 09/01/16 at 12:19; Status DC Dexamethasone Sodium Phosphate (Decadron) 20 mg STK-MED ONCE .ROUTE ; Start 09/01 at 12:18; Stop 09/01/16 at 12:19; Status DC Ondansetron HCl (Zofran) 4 mg STK-MED ONCE .ROUTE ; Start 09/01/16 at 12:18; Stop 09/01/16 at 12:19; Status DC Famotidine (Pepcid) 20 mg STK-MED ONCE .ROUTE ; Start 09/01/16 at 12:32; Stop 09/01/16 at 12:33; Status DC Cefoxitin Sodium 100 ml @ As Directed STK-MED ONCE IV ; Start 09/01/16 at 13:30 ; Stop 09/01/16 at 13:31; Status DC Fentanyl Citrate (Fentanyl 2ml Vial) 100 mcg STK-MED ONCE .ROUTE ; Start at 13:35; Stop 09/01/16 at 13:36; Status DC Sodium Chloride (Sodium Chloride) 50 ml STK-MED ONCE IJ ; Start 09/01/16 at 14:05 ; Stop 09/01/16 at 14:06; Status DC Morphine Sulfate 10 mg STK-MED ONCE .ROUTE ; Start 09/01/16 at 14:05; Stop at 14:06; Status DC Vecuronium [place] (Norcuron Bolus) 10 mg STK-MED ONCE IV ; Start 09/01/16 at 14: 05; Stop 09/01/16 at 14:06; Status DC Sevoflurane (Ultane) 90 ml STK-MED ONCE IH ; Start 09/01/16 at 15:10; Stop at 15:11; Status DC Famotidine (Pepcid) 20 mg BID IVP Last administered on 09/09/16t 09:01; Start 09/01/16 at 21:00; Stop 09/09/16 at 15:00; Status DC Enoxaparin Sodium (Lovenox 40mg Syringe) 40 mg Q24H SQ Last administered on 08:41; Start 09/02/16 at 09:00 Sodium Chloride (Normal Saline Flush) 3 ml QSHIFT PRN IV AFTER MEDS AND BLOOD DRAWS; Start 09/01/16 at 15:15 Ringer's Solution 1,000 ml @ 100 mls/hr Q10H IV ; Start 09/01/16 at 15:06; Stop 09/01/16 at 19:07; Status DC Naloxone HCl (Narcan) 0.4 mg PRN Q2MIN PRN IV SEE INSTRUCTIONS; Start 09/01/16 at 15:15 Sodium Chloride 1,000 ml @ 25 mls/hr Q24H IV Last administered on 09/04/16 15 :06; Start 09/01/16 at 15:06; Stop 09/05/16 at 01:23; Status DC Hydromorphone HCl 30 ml @ 0 mls/hr CONT PRN PRN IV PROTOCOL Last administered on 09/03/16 04:38; Start 09/01/16 at 15:15; Stop 09/06/16 at 11:42; Status DC Ondansetron HCl (Zofran) 4 mg PRN Q6HRS PRN IV NAUESA, 1ST CHOICE; Start at 15:15 Bupivacaine HCl/ Epinephrine Bitart (Marcaine-Epi 0.5%-1:091600) 50 ml STK-MED ONCE .ROUTE Last administered on 09/01/16 13:29; Start 09/01/16 at 15:14; Stop 09/01/16 at 15:15; Status DC Ketamine HCl 500 mg STK-MED ONCE .ROUTE ; Start 09/01/16 at 15:17; Stop 09/01/16 at 15:18; Status DC Calcium Chloride 1000 mg/Sodium Chloride 60 ml @ 120 mls/hr 1X ONCE IV ; Start 09/03/16 at 12:30; Stop 09/03/16 at 12:30; Status DC Calcium Gluconate 1000 mg/Sodium Chloride 110 ml @ 220 mls/hr 1X ONCE IV Last administered on 09/03/16 14:40; Start 09/03/16 at 13:00; Stop 09/03/16 at 13: 29; Status DC Potassium Chloride 20 meq/ Sodium Chloride 1,010 ml @ 75 mls/hr [id number] IV ; Start 09/05/16 at 01:30; Status UNV Potassium Chloride/Sodium Chloride 1,000 ml @ 75 mls/hr [id number] IV Last administered on 09/07/16 08:27; Start 09/05/16 at 01:30; Stop 09/08/16 at 00:55 ; Status DC Amino Acids/ Glycerin/ Electrolytes 1,000 ml @ 50 mls/hr Q20H IV Last administered on 09/05/16 10:38; Start 09/05/16 at 09:30; Stop 09/05/16 at 11:40 ; Status DC Albuterol Sulfate (Ventolin Neb Soln) 2.5 mg PRN QID PRN NEB DYSPNEA, WHEEZING ; Start 09/05/16 at 09:30 Saliva Substitute (Biotene Moisturizing Mouth) 2 spray PRN Q15MIN PRN PO DRY MOUTH Last administered on 09/05/16 13:14; Start 09/05/16 at 09:30 Throat Lozenges (Cepacol Sore Throat Lozenge) 1 yaakov PRN Q2HRS PRN PO SORE THROAT; Start 09/05/16 at 09:30 Amino Acids/ Glycerin/ Electrolytes 1,000 ml @ 80 mls/hr [id number] IV Last administered on 09/08/16 10:39; Start 09/05/16 at 11:30; Stop 09/08/16 at 11:54 ; Status DC Iohexol (Omnipaque 240 Mg/ml) 30 ml 1X ONCE PO Last administered on 09/06/16 11:15; Start 09/06/16 at 11:15; Stop 09/06/16 at 11:16; Status DC Iohexol (Omnipaque 300 Mg/ml) 75 ml 1X ONCE IV Last administered on 09/06/16 13:20; Start 09/06/16 at 11:15; Stop 09/06/16 at 11:16; Status DC Info (Do NOT chart on this entry -- for MONITORING) 1 each PRN DAILY PRN MC SEE COMMENTS; Start 09/06/16 at 11:15; Stop 09/08/16 at 11:14; Status DC Fluconazole/ Sodium Chloride 200 ml @ 100 mls/hr Q24H IV Last administered on 09/10/16 08:37; Start 09/07/16 at 08:00 Calcium Gluconate (Calcium Gluconate) 1,000 mg 1X ONCE IVP ; Start 09/07/16 at 11:30; Stop 09/07/16 at 11:31; Status UNV Calcium Chloride 1000 mg/Sodium Chloride 60 ml @ 120 mls/hr 1X ONCE IV ; Start 09/07/16 at 11:30; Stop 09/07/16 at 11:59; Status Cancel Calcium Gluconate 1000 mg/Sodium Chloride 110 ml @ 440 mls/hr 1X ONCE IV Last administered on 09/07/16 15:08; Start 09/07/16 at 11:45; Stop 09/07/16 at 11:59; Status DC Lidocaine/Sodium Bicarbonate (Buffered Lidocaine 1%) 20 ml STK-MED ONCE IJ ; Start 09/07/16 at 12:23; Stop 09/07/16 at 12:24; Status DC Midazolam HCl (Versed) 5 mg STK-MED ONCE .ROUTE ; Start 09/07/16 at 12:44; Stop 09/07/16 at 12:45; Status DC Fentanyl Citrate (Fentanyl 5ml Vial) 250 mcg STK-MED ONCE .ROUTE ; Start at 12:44; Stop 09/07/16 at 12:45; Status DC Lidocaine/Sodium Bicarbonate (Buffered Lidocaine 1%) 10 ml 1X ONCE IJ Last administered on 09/07/16 13:58; Start 09/07/16 at 14:00; Stop 09/07/16 at 14:01 ; Status DC Midazolam HCl (Versed) 2 mg 1X ONCE IV Last administered on 09/07/16 13:59; Start 09/07/16 at 14:00; Stop 09/07/16 at 14:01; Status DC Fentanyl Citrate (Fentanyl 5ml Vial) 100 mcg 1X ONCE IV Last administered on 13:59; Start 09/07/16 at 14:00; Stop 09/07/16 at 14:01; Status DC Furosemide (Lasix) 20 mg 1X ONCE IVP Last administered on 09/08/16 10:39; Start 09/08/16 at 10:30; Stop 09/08/16 at 10:31; Status DC Potassium Chloride (Klor-Con) 40 meq 1X ONCE PO Last administered on 16:22; Start 09/09/16 at 13:00; Stop 09/09/16 at 13:01; Status DC Famotidine (Pepcid) 20 mg QHS PO Last administered on 09/09/16 21:02; Start at 21:00 Active Scripts Active Reported Aspir 81 (Aspirin) 81 Mg Tablet.dr 81 Mg PO Ultracet Tablet (Tramadol Hcl/Acetaminophen) 1 Each Tablet 1 Tab PO TID Lipitor (Atorvastatin Calcium) 10 Mg Tablet 1 Tab PO DAILY Indapamide 1.25 Mg Tablet 1.25 Mg PO Diovan Hct 80-12.5 Mg Tablet (Valsartan/Hydrochlorothiazide) 1 Each Tablet 1 Each PO Naproxen Sodium 550 Mg Tablet 375 Mg PO PRN Vitals/I & O Vital Sign - Last 24 Hours 09/09/16 09/09/16 09/09/16 09/09/16 15:00 19:25 20:00 22:53 Temp 98.1 97.9 97.5 98.1 97.9 97.5 Pulse 49 56 56 Resp 20 16 16 B/P (MAP) 141/80 (100) 147/78 (101) 149/96 (113) Pulse Ox 94 93 97 O2 Delivery Room Air Room Air Room Air Room Air 09/10/16 09/10/16 09/10/16 09/10/16 03:10 07:00 07:45 11:00 Temp 97.9 98.1 98.6 97.9 98.1 98.6 Pulse 48 49 50 Resp 16 20 20 B/P (MAP) 140/82 (101) 130/77 (94) 140/80 (100) Pulse Ox 94 93 94 O2 Delivery Room Air Room Air Room Air Room Air Intake and Output 09/09/16 09/09/16 09/10/16 15:00 23:00 07:00 Intake Total 50 ml 50 ml Output Total 430 ml 195 ml Balance 50 ml -380 ml -195 ml Nutrition Consultation Dietary Evaluation: Recommendations by RD: PPN/TPN Comments: continue ppn for short term nutrition Expected Outcomes/Goals: diet adv/ tolerance- not met yet, goal ongoing Interpretation of weight loss: >1-2% in 1 week Malnutrition Findings: Food and Nutrition Intake (Sev: <50% est energy req 5days Weight Status: Overweight LUZ MARIA GUEVARA MD Sep 10, 2016 14:00
[2016-09-10 15:00] VITALS: BP 126/74
--- NOTE | 2016-09-10 16:23 | PDOC ---
Provider Note Provider Note no complaints. no sig abd pain abd soft nd nt inc cdi d tube bilious drains serous wbc normal a/p cont supportive care. await for d tube to decrease drainage before trying to clamp again. BRANDAN MARINELLI MD Sep 10, 2016 16:23
[2016-09-10 19:30] VITALS: BP 133/77
[2016-09-10] MEDS ORDERED: HYDROcodone/APAP 5/325MG 1 TAB TABLET PO PRN (21:00)
[2016-09-10] MEDS: FAMOTIDINE 20 MG TABLET. PO SCH (21:44)
[2016-09-10 23:06] VITALS: BP 119/69
[2016-09-11] MEDS: PIPERACILLIN/TAZOBACTAM 3.375 GM in IV NORMAL SALINE 50ML 50 ML IV SCH ×3 (00:12→13:46)
[2016-09-11 03:18] VITALS: BP 124/73
[2016-09-11 07:30] VITALS: BP 122/69
[2016-09-11] MEDS: FLUCONAZOLE 400MG/200ML PREMIX 200 ML IV SCH (08:24)
[2016-09-11] MEDS: ENOXAPARIN 40 MG/0.4 ML SYRINGE. SQ SCH (08:25)
--- NOTE | 2016-09-11 10:05 | PDOC ---
Infectious Disease Note Subjective Subjective Comfortable, denies pain Has been walking in the halls ROS ROS GEN: Denies fevers, chills, sweats CV: Denies chest pain RESP: Denies shortness of air, cough GI: Denies n/v/d NEURO: Denies confusion, dizziness Vital Sign Vital Signs Vital Signs Date Time Temp Pulse Resp B/P (MAP) Pulse Ox O2 Delivery O2 Flow Rate FiO2 09/11/16 07:30 97.8 47 20 122/69 (86) 94 Room Air 97.8 Physical Exam PHYSICAL EXAM GENERAL: Propped up in bed, NAD HEENT: OP/OC clear LUNGS: CTAB HEART: S1 and S2 ABD: BS active, soft, NT to light palpation. Drains x 3 intact. Midline wound is clean EXT: No edema, no cyanosis [employer]: Alert, oriented x 3, no focal neurologic deficit SKIN: No rash IV: ok Labs Micro ABDOMINAL GRAM STAIN Final WBCS MANY RBCS FEW ORGANISMS NONE SEEN pelvic GRAM STAIN Final WBCS MANY RBCS MANY ORGANISMS NONE SEEN Objective Assessment Leukocytosis without fever, improved Abd fluid collections s/p CT-guided drainage of both the perisplenic and perirectal fluid collections, 09/07. yeast so far Mild pleural effusions Perforated viscous S/p Antrectomy 09/01 Hypernatremia -improving Plan Plan of Care Discont Zosyn (09/01) and fluconazole -change to po Augmentin/Fluconazole for 10 days Ok to d/c home Cont Incentive spirometry d/w Attending Co-Sign Attending Co-Sign The patient was seen and interviewed as well as examined at the bedside. The chart was reviewed. The case was discussed. Agree with the plan of care. MERARI SIMMONS APRN Sep 11, 2016 10:05 VITALIY RAINEY MD Sep 11, 2016 16:09
[2016-09-11 11:19] VITALS: BP 139/78
--- NOTE | 2016-09-11 11:24 | PDOC3 ---
Discharge Summary Visit Information Date of Discharge: Sep 11, 2016 Admitting Diagnosis: Perf viscous Final Diagnosis Problems Medical Problems: (1) Lactic acid acidosis Status: Acute (2) Perforated abdominal viscus Status: Acute Brief Hospital Course Allergies Allergies Coded Allergies Type Severity Reaction Last Updated Verified No Known Drug Allergies 09/01/16 No Vital Signs Vital Signs Date Time Temp Pulse Resp B/P (MAP) Pulse Ox O2 Delivery O2 Flow Rate FiO2 09/11/16 07:35 Room Air 09/11/16 07:30 97.8 47 20 122/69 (86) 94 97.8 Lab Results Laboratory Tests Test 09/10/16 05:57 White Blood Count 9.2 x10^3/uL (4.0-11.0) Red Blood Count 3.95 x10^6/uL (4.30-5.70) Hemoglobin 11.6 g/dL (13.0-17.5) Hematocrit 35.0 % (39.0-53.0) Mean Corpuscular Volume 89 fL (79-100) Mean Corpuscular Hemoglobin 30 pg (25-35) Mean Corpuscular Hemoglobin Concent 33 g/dL (31-37) Red Cell Distribution Width 13.7 % (11.5-14.5) Platelet Count 290 x10^3/uL (140-400) Neutrophils (%) (Auto) 73 % (31-73) Lymphocytes (%) (Auto) 14 % (24-48) Monocytes (%) (Auto) 11 % (0-9) Eosinophils (%) (Auto) 2 % (0-3) Basophils (%) (Auto) 1 % (0-3) Neutrophils # (Auto) 6.7 x10^3uL (1.8-7.7) Lymphocytes # (Auto) 1.2 x10^3/uL (1.0-4.8) Monocytes # (Auto) 1.0 x10^3/uL (0.0-1.1) Eosinophils # (Auto) 0.2 x10^3/uL (0.0-0.7) Basophils # (Auto) 0.0 x10^3/uL (0.0-0.2) Sodium Level 139 mmol/L (136-145) Potassium Level 3.8 mmol/L (3.5-5.1) Chloride Level 105 mmol/L (98-107) Carbon Dioxide Level 24 mmol/L (21-32) Anion Gap 10 (6-14) Blood Urea Nitrogen 17 mg/dL (8-26) Creatinine 0.8 mg/dL (0.7-1.3) Estimated GFR (Cockcroft-Gault) 95.6 Glucose Level 91 mg/dL (70-99) Calcium Level 7.6 mg/dL (8.5-10.1) Brief Hospital Course Mr. Ellis is a 70 old [sex] who presented with [ a perf of the Gastric Antrum. Take to OR for surgical corection. Post op he had a prolonged stay for persistent ileus and fluid collections and got several drains Today he is seen aOrders Total time 34 minutesnd examined. At baseline but still has 2 drains. DW RN Till try to dc with close out pt fu See ] Discharge Information Scheduled Atorvastatin Calcium (Lipitor), 1 TAB PO DAILY, (Reported) Naproxen Sodium (Naproxen Sodium), 375 MG PO PRN, (Reported) Tramadol Hcl/Acetaminophen (Ultracet Tablet), 1 TAB PO TID, (Reported) Miscellaneous Medications Aspirin (Aspir 81), 81 MG PO, (Reported) Indapamide (Indapamide), 1.25 MG PO, (Reported) Valsartan/Hydrochlorothiazide (Diovan Hct 80-12.5 Mg Tablet), 1 EACH PO, ( Reported) JUAN MENENDEZ III DO Sep 11, 2016 11:24
--- NOTE | 2016-09-11 11:25 | PDOC ---
PROGRESS NOTES Chief Complaint Chief Complaint Assessment 1. Penumoperitoneum with perforated duodenum s/p sx 2. SIRS POA, no sepsis 3. BRISEYDA, vasomotor 4. Mild PCM 5. Tobacco abuse 6. Incidental left small adrenal nodule 7. Diverticulosis 8. Bradycardia 9. Hypocalcemia 10. Hypokalemia History of Present Illness History of Present Illness pt is resting comfortably in bed this morning, he denies any complaints, he is eager to return home, he continues to have significant drainage from his tubes so consulted pt on continuing to drain tubes at home Vitals Vitals Vital Signs Date Time Temp Pulse Resp B/P (MAP) Pulse Ox O2 Delivery O2 Flow Rate FiO2 09/11/16 11:19 97.9 50 18 139/78 (98) 95 Room Air 97.9 Physical Exam Physical Exam 2 SHRAVAN drainage 1 duodenum drainage General: Alert, Oriented X3, Cooperative, No acute distress Heart: Regular rate, No murmurs Lungs: Clear, Other (decrease bs) Abdomen: Soft, No tenderness, Other (drains serous in nature) Extremities: No clubbing, No cyanosis Skin: No rashes, No breakdown Review of Systems Review of Systems denies N/V/D and AREVALO Assessment and Plan Assessmemt and Plan Assessment 1. Penumoperitoneum with perforated duodenum 2. SIRS POA, no sepsis 3. BRISEYDA, vasomotor 4. Mild PCM 5. Tobacco abuse 6. Incidental left small adrenal nodule 7. Diverticulosis 8. Bradycardia 9. Hypocalcemia Plan 1. Regular diet as tolerated 2. Lovenox for DVT prophylaxis 3. Stopped dilaudid because risk of bradycardia, TTE normal 4. Appreciate subspecialty input 5. Continue home meds 6. Discussed plan of care with nursing 7. PT/OT 8. Recheck CBC and BMP tomorrow 9. Reviewed imaging: CXR normal, Abd/pelv CT showed postoperative pelvic and left subdiaphragmatic fluid collections 10. Zofran prn for nausea 11. Zosyn and fluconazole per ID, switch to oral outpt 12. Probable DC today if ok per subspecialty Problems: Comment Review of Relevant I have reviewed the following items shaw (where applicable) has been applied. Labs Laboratory Tests Test 09/10/16 05:57 White Blood Count 9.2 x10^3/uL (4.0-11.0) Red Blood Count 3.95 x10^6/uL (4.30-5.70) Hemoglobin 11.6 g/dL (13.0-17.5) Hematocrit 35.0 % (39.0-53.0) Mean Corpuscular Volume 89 fL (79-100) Mean Corpuscular Hemoglobin 30 pg (25-35) Mean Corpuscular Hemoglobin Concent 33 g/dL (31-37) Red Cell Distribution Width 13.7 % (11.5-14.5) Platelet Count 290 x10^3/uL (140-400) Neutrophils (%) (Auto) 73 % (31-73) Lymphocytes (%) (Auto) 14 % (24-48) Monocytes (%) (Auto) 11 % (0-9) Eosinophils (%) (Auto) 2 % (0-3) Basophils (%) (Auto) 1 % (0-3) Neutrophils # (Auto) 6.7 x10^3uL (1.8-7.7) Lymphocytes # (Auto) 1.2 x10^3/uL (1.0-4.8) Monocytes # (Auto) 1.0 x10^3/uL (0.0-1.1) Eosinophils # (Auto) 0.2 x10^3/uL (0.0-0.7) Basophils # (Auto) 0.0 x10^3/uL (0.0-0.2) Sodium Level 139 mmol/L (136-145) Potassium Level 3.8 mmol/L (3.5-5.1) Chloride Level 105 mmol/L (98-107) Carbon Dioxide Level 24 mmol/L (21-32) Anion Gap 10 (6-14) Blood Urea Nitrogen 17 mg/dL (8-26) Creatinine 0.8 mg/dL (0.7-1.3) Estimated GFR (Cockcroft-Gault) 95.6 Glucose Level 91 mg/dL (70-99) Calcium Level 7.6 mg/dL (8.5-10.1) Microbiology 09/07/16 Gram Stain - Final, Complete Medications Current Medications Sodium Chloride 1,000 ml @ 1,000 mls/hr 1X ONCE IV Last administered on t 07:45; Start 09/01/16 at 07:30; Stop 09/01/16 at 08:29; Status DC Ondansetron HCl (Zofran) 4 mg 1X ONCE IV Last administered on 09/01/16 07:44; Start 09/01/16 at 07:30; Stop 09/01/16 at 07:31; Status DC Fentanyl Citrate (Fentanyl 2ml Vial) 75 mcg 1X ONCE IV Last administered on 07:44; Start 09/01/16 at 07:30; Stop 09/01/16 at 07:31; Status DC Iohexol (Omnipaque 300 Mg/ml) 75 ml 1X ONCE IV Last administered on 09/01/16 08:24; Start 09/01/16 at 08:30; Stop 09/01/16 at 08:31; Status DC Info (Do NOT chart on this entry -- for MONITORING) 1 each PRN DAILY PRN MC SEE COMMENTS; Start 09/01/16 at 08:30; Stop 09/03/16 at 08:29; Status DC Morphine Sulfate 5 mg 1X ONCE IV Last administered on 09/01/16 08:41; Start at 08:45; Stop 09/01/16 at 08:46; Status DC Sodium Chloride 1,000 ml @ 1,000 mls/hr 1X ONCE IV Last administered on 08:40; Start 09/01/16 at 08:45; Stop 09/01/16 at 09:44; Status DC Piperacillin Sod/ Tazobactam Sod 3.375 gm/Sodium Chloride 50 ml @ 100 mls/hr Q6HRS IV Last administered on 09/11/16 06:21; Start 09/01/16 at 10:00 Famotidine (Pepcid) 20 mg 1X ONCE IVP Last administered on 09/01/16 09:46; Start 09/01/16 at 09:45; Stop 09/01/16 at 09:46; Status DC Ondansetron HCl (Zofran) 4 mg PRN Q8HRS PRN IV NAUSEA/VOMITING; Start 09/01/16 at 09:30; Stop 09/02/16 at 08:33; Status DC Morphine Sulfate 4 mg PRN Q2HR PRN IV PAIN; Start 09/01/16 at 09:30; Stop at 09:29; Status DC Sodium Chloride 1,000 ml @ 100 mls/hr Q10H IV Last administered on 09/04/16 18:30; Start 09/01/16 at 10:30; Stop 09/05/16 at 01:57; Status DC Acetaminophen (Tylenol) 500 mg PRN Q6HRS PRN PO MILD PAIN / TEMP; Start at 10:30 Famotidine (Pepcid) 20 mg BID IVP Last administered on 09/01/16 11:14; Start at 11:00; Stop 09/01/16 at 15:40; Status DC Ondansetron HCl (Zofran) 4 mg PRN Q6HRS PRN IV NAUSEA/VOMITING; Start 09/01/16 at 12:15; Stop 09/02/16 at 08:33; Status DC Fentanyl Citrate (Fentanyl 2ml Vial) 25 mcg PRN Q5MIN PRN IV MILD PAIN Last administered on 09/01/16 16:00; Start 09/01/16 at 12:15; Stop 09/02/16 at 12:14; Status DC Fentanyl Citrate (Fentanyl 2ml Vial) 50 mcg PRN Q5MIN PRN IV MODERATE PAIN Last administered on 09/01/16 15:54; Start 09/01/16 at 12:15; Stop 09/02/16 at 12: 14; Status DC Morphine Sulfate 1 mg PRN Q10MIN PRN IV SEVERE PAIN; Start 09/01/16 at 12:15; Stop 09/02/16 at 12:14; Status DC Ringer's Solution 1,000 ml @ 30 mls/hr Q24H IV ; Start 09/01/16 at 12:04; Stop 09/01/16 at 19:07; Status DC Lidocaine HCl 2 ml PRN 1X PRN ID PRIOR TO IV START; Start 09/01/16 at 12:15; Stop 09/02/16 at 12:14; Status DC Hydromorphone HCl (Dilaudid) 0.5 mg PRN Q10MIN PRN IV SEV PAIN, Second choice; Start 09/01/16 at 12:15; Stop 09/02/16 at 12:14; Status DC Prochlorperazine Edisylate (Compazine) 5 mg PACU PRN PRN IV NAUSEA, MRX1; Start 7/7/17 at 12:15; Stop 09/02/16 at 12:14; Status DC Desflurane (Suprane) 60 ml STK-MED ONCE IH ; Start 09/01/16 at 12:16; Stop at 12:17; Status DC Fentanyl Citrate (Fentanyl 2ml Vial) 100 mcg STK-MED ONCE .ROUTE ; Start at 12:17; Stop 09/01/16 at 12:18; Status DC Succinylcholine Chloride (Anectine) 200 mg STK-MED ONCE .ROUTE ; Start 09/01/16 at 12:17; Stop 09/01/16 at 12:18; Status DC Glycopyrrolate (Robinul) 1 mg STK-MED ONCE .ROUTE ; Start 09/01/16 at 12:17; Stop 09/01/16 at 12:18; Status DC Neostigmine Methylsulfate 5 mg STK-MED ONCE .ROUTE ; Start 09/01/16 at 12:17; Stop 09/01/16 at 12:18; Status DC Rocuronium Gleason (Zemuron) 50 mg STK-MED ONCE .ROUTE ; Start 09/01/16 at 12:18 ; Stop 09/01/16 at 12:19; Status DC Propofol 20 ml @ As Directed STK-MED ONCE IV ; Start 09/01/16 at 12:18; Stop 09/01 at 12:19; Status DC Lidocaine HCl (Lidocaine Pf 2% Vial) 5 ml STK-MED ONCE .ROUTE ; Start 09/01/16 at 12:18; Stop 09/01/16 at 12:19; Status DC Dexamethasone Sodium Phosphate (Decadron) 20 mg STK-MED ONCE .ROUTE ; Start 09/01 at 12:18; Stop 09/01/16 at 12:19; Status DC Ondansetron HCl (Zofran) 4 mg STK-MED ONCE .ROUTE ; Start 09/01/16 at 12:18; Stop 09/01/16 at 12:19; Status DC Famotidine (Pepcid) 20 mg STK-MED ONCE .ROUTE ; Start 09/01/16 at 12:32; Stop 09/01/16 at 12:33; Status DC Cefoxitin Sodium 100 ml @ As Directed STK-MED ONCE IV ; Start 09/01/16 at 13:30 ; Stop 09/01/16 at 13:31; Status DC Fentanyl Citrate (Fentanyl 2ml Vial) 100 mcg STK-MED ONCE .ROUTE ; Start at 13:35; Stop 09/01/16 at 13:36; Status DC Sodium Chloride (Sodium Chloride) 50 ml STK-MED ONCE IJ ; Start 09/01/16 at 14:05 ; Stop 09/01/16 at 14:06; Status DC Morphine Sulfate 10 mg STK-MED ONCE .ROUTE ; Start 09/01/16 at 14:05; Stop at 14:06; Status DC Vecuronium Gleason (Norcuron Bolus) 10 mg STK-MED ONCE IV ; Start 09/01/16 at 14: 05; Stop 09/01/16 at 14:06; Status DC Sevoflurane (Ultane) 90 ml STK-MED ONCE IH ; Start 09/01/16 at 15:10; Stop at 15:11; Status DC Famotidine (Pepcid) 20 mg BID IVP Last administered on 09/09/16 09:01; Start 09/01/16 at 21:00; Stop 09/09/16 at 15:00; Status DC Enoxaparin Sodium (Lovenox 40mg Syringe) 40 mg Q24H SQ Last administered on 08:25; Start 09/02/16 at 09:00 Sodium Chloride (Normal Saline Flush) 3 ml QSHIFT PRN IV AFTER MEDS AND BLOOD DRAWS; Start 09/01/16 at 15:15 Ringer's Solution 1,000 ml @ 100 mls/hr Q10H IV ; Start 09/01/16 at 15:06; Stop 09/01/16 at 19:07; Status DC Naloxone HCl (Narcan) 0.4 mg PRN Q2MIN PRN IV SEE INSTRUCTIONS; Start 09/01/16 at 15:15 Sodium Chloride 1,000 ml @ 25 mls/hr Q24H IV Last administered on 09/04/16 15 :06; Start 09/01/16 at 15:06; Stop 09/05/16 at 01:23; Status DC Hydromorphone HCl 30 ml @ 0 mls/hr CONT PRN PRN IV PROTOCOL Last administered on 09/03/16 04:38; Start 09/01/16 at 15:15; Stop 09/06/16 at 11:42; Status DC Ondansetron HCl (Zofran) 4 mg PRN Q6HRS PRN IV NAUESA, 1ST CHOICE; Start at 15:15 Bupivacaine HCl/ Epinephrine Bitart (Marcaine-Epi 0.5%-[id number]) 50 ml STK-MED ONCE .ROUTE Last administered on 09/01/16 13:29; Start 09/01/16 at 15:14; Stop 09/01/16 at 15:15; Status DC Ketamine HCl 500 mg STK-MED ONCE .ROUTE ; Start 09/01/16 at 15:17; Stop 09/01/16 at 15:18; Status DC Calcium Chloride 1000 mg/Sodium Chloride 60 ml @ 120 mls/hr 1X ONCE IV ; Start 09/03/16 at 12:30; Stop 09/03/16 at 12:30; Status DC Calcium Gluconate 1000 mg/Sodium Chloride 110 ml @ 220 mls/hr 1X ONCE IV Last administered on 09/03/16 14:40; Start 09/03/16 at 13:00; Stop 09/03/16 at 13: 29; Status DC Potassium Chloride 20 meq/ Sodium Chloride 1,010 ml @ 75 mls/hr [id number] IV ; Start 09/05/16 at 01:30; Status UNV Potassium Chloride/Sodium Chloride 1,000 ml @ 75 mls/hr [id number] IV Last administered on 09/07/16 08:27; Start 09/05/16 at 01:30; Stop 09/08/16 at 00:55 ; Status DC Amino Acids/ Glycerin/ Electrolytes 1,000 ml @ 50 mls/hr Q20H IV Last administered on 09/05/16 10:38; Start 09/05/16 at 09:30; Stop 09/05/16 at 11:40 ; Status DC Albuterol Sulfate (Ventolin Neb Soln) 2.5 mg PRN QID PRN NEB DYSPNEA, WHEEZING ; Start 09/05/16 at 09:30 Saliva Substitute (Biotene Moisturizing Mouth) 2 spray PRN Q15MIN PRN PO DRY MOUTH Last administered on 09/05/16 13:14; Start 09/05/16 at 09:30 Throat Lozenges (Cepacol Sore Throat Lozenge) 1 yaakov PRN Q2HRS PRN PO SORE THROAT; Start 09/05/16 at 09:30 Amino Acids/ Glycerin/ Electrolytes 1,000 ml @ 80 mls/hr [id number] IV Last administered on 09/08/16 10:39; Start 09/05/16 at 11:30; Stop 09/08/16 at 11:54 ; Status DC Iohexol (Omnipaque 240 Mg/ml) 30 ml 1X ONCE PO Last administered on 09/06/16 11:15; Start 09/06/16 at 11:15; Stop 09/06/16 at 11:16; Status DC Iohexol (Omnipaque 300 Mg/ml) 75 ml 1X ONCE IV Last administered on 09/06/16 13:20; Start 09/06/16 at 11:15; Stop 09/06/16 at 11:16; Status DC Info (Do NOT chart on this entry -- for MONITORING) 1 each PRN DAILY PRN MC SEE COMMENTS; Start 09/06/16 at 11:15; Stop 09/08/16 at 11:14; Status DC Fluconazole/ Sodium Chloride 200 ml @ 100 mls/hr Q24H IV Last administered on 09/11/16 08:24; Start 09/07/16 at 08:00 Calcium Gluconate (Calcium Gluconate) 1,000 mg 1X ONCE IVP ; Start 09/07/16 at 11:30; Stop 09/07/16 at 11:31; Status UNV Calcium Chloride 1000 mg/Sodium Chloride 60 ml @ 120 mls/hr 1X ONCE IV ; Start 09/07/16 at 11:30; Stop 09/07/16 at 11:59; Status Cancel Calcium Gluconate 1000 mg/Sodium Chloride 110 ml @ 440 mls/hr 1X ONCE IV Last administered on 09/07/16 15:08; Start 09/07/16 at 11:45; Stop 09/07/16 at 11:59; Status DC Lidocaine/Sodium Bicarbonate (Buffered Lidocaine 1%) 20 ml STK-MED ONCE IJ ; Start 09/07/16 at 12:23; Stop 09/07/16 at 12:24; Status DC Midazolam HCl (Versed) 5 mg STK-MED ONCE .ROUTE ; Start 09/07/16 at 12:44; Stop 09/07/16 at 12:45; Status DC Fentanyl Citrate (Fentanyl 5ml Vial) 250 mcg STK-MED ONCE .ROUTE ; Start at 12:44; Stop 09/07/16 at 12:45; Status DC Lidocaine/Sodium Bicarbonate (Buffered Lidocaine 1%) 10 ml 1X ONCE IJ Last administered on 09/07/16 13:58; Start 09/07/16 at 14:00; Stop 09/07/16 at 14:01 ; Status DC Midazolam HCl (Versed) 2 mg 1X ONCE IV Last administered on 09/07/16 13:59; Start 09/07/16 at 14:00; Stop 09/07/16 at 14:01; Status DC Fentanyl Citrate (Fentanyl 5ml Vial) 100 mcg 1X ONCE IV Last administered on 13:59; Start 09/07/16 at 14:00; Stop 09/07/16 at 14:01; Status DC Furosemide (Lasix) 20 mg 1X ONCE IVP Last administered on 09/08/16 10:39; Start 09/08/16 at 10:30; Stop 09/08/16 at 10:31; Status DC Potassium Chloride (Klor-Con) 40 meq 1X ONCE PO Last administered on 16:22; Start 09/09/16 at 13:00; Stop 09/09/16 at 13:01; Status DC Famotidine (Pepcid) 20 mg QHS PO Last administered on 09/10/16 21:44; Start at 21:00 Acetaminophen/ Hydrocodone Bitart (Lortab 5/325) 1 tab PRN Q6HRS PRN PO PAIN Last administered on 09/10/16 21:44; Start 09/10/16 at 21:00 Active Scripts Active Reported Aspir 81 (Aspirin) 81 Mg Tablet.dr 81 Mg PO Ultracet Tablet (Tramadol Hcl/Acetaminophen) 1 Each Tablet 1 Tab PO TID Lipitor (Atorvastatin Calcium) 10 Mg Tablet 1 Tab PO DAILY Indapamide 1.25 Mg Tablet 1.25 Mg PO Diovan Hct 80-12.5 Mg Tablet (Valsartan/Hydrochlorothiazide) 1 Each Tablet 1 Each PO Naproxen Sodium 550 Mg Tablet 375 Mg PO PRN Vitals/I & O Vital Sign - Last 24 Hours 09/10/16 09/10/16 09/10/16 09/10/16 15:00 19:30 20:00 21:44 Temp 99.9 97.9 99.9 97.9 Pulse 52 51 Resp 20 16 20 B/P (MAP) 126/74 (91) 133/77 (95) Pulse Ox 95 97 97 O2 Delivery Room Air Room Air Room Air Room Air 09/10/16 09/10/16 09/11/16 09/11/16 22:44 23:06 03:18 07:30 Temp 98.1 97.7 97.8 98.1 97.7 97.8 Pulse 52 44 47 Resp 20 16 16 20 B/P (MAP) 119/69 (86) 124/73 (90) 122/69 (86) Pulse Ox 93 93 95 94 O2 Delivery Room Air Room Air Room Air Room Air 09/11/16 09/11/16 07:35 11:19 Temp 97.9 97.9 Pulse 50 Resp 18 B/P (MAP) 139/78 (98) Pulse Ox 95 O2 Delivery Room Air Room Air Intake and Output 09/10/16 09/10/16 09/11/16 15:00 23:00 07:00 Intake Total 120 ml Output Total 610 ml 20 ml Balance -610 ml 100 ml Nutrition Consultation Dietary Evaluation: Recommendations by RD: Increase Calorie Intake, Protein supplementation Comments: offer supplements prn due to hx wt loss Expected Outcomes/Goals: diet adv/ tolerance- met new goal: to meet > 75% est nutr needs Interpretation of weight loss: >1-2% in 1 week Malnutrition Findings: Food and Nutrition Intake (Sev: <50% est energy req 5days Weight Status: Overweight JUAN MENENDEZ III DO Sep 11, 2016 11:25
--- NOTE | 2016-09-11 12:40 | RAD ---
EXAM: Chest one view. HISTORY: Pleural effusions. COMPARISON: 09/06/2016. FINDINGS: A frontal view of the chest is obtained. Small bilateral pleural effusions are unchanged. There is mild associated basilar atelectasis. Retrocardiac opacity is also stable. There is no pneumothorax. The heart is not enlarged. There are atherosclerotic calcifications of the aorta. Surgical drain is noted in the left upper quadrant. IMPRESSION: 1. Stable small bilateral pleural effusions with retrocardiac greater than right basilar atelectasis or infiltrate.
[2016-09-11 15:24] VITALS: BP 138/99
[2016-09-11] MEDS ORDERED: FLUC200T PO (16:24)
[2016-09-11] MEDS ORDERED: AMOX1TAB61 PO (16:24)
[2016-09-11] MEDS ORDERED: FAMO20TA5 PO (16:31)
--- NOTE | 2016-09-11 17:12 | PDOC ---
SURGICAL PROGRESS NOTE Subjective Pt without new c/o, increased drainage from D-tube when clamped Vital Signs Vital Signs Date Time Temp Pulse Resp B/P (MAP) Pulse Ox O2 Delivery O2 Flow Rate FiO2 09/11/16 15:24 97.7 110 18 138/99 (112) 100 Room Air 97.7 I&O Intake and Output 09/11/16 07:00 Intake Total 120 ml Output Total 630 ml Balance -510 ml Intake Oral 120 ml Gastric Drainage Total 600 ml Drainage Total 30 ml General: Alert, Oriented X3, Cooperative, No acute distress Abdomen: Soft, No tenderness, Other (multiple tubes in place) Labs Laboratory Tests Test 09/10/16 05:57 White Blood Count 9.2 x10^3/uL (4.0-11.0) Red Blood Count 3.95 x10^6/uL (4.30-5.70) Hemoglobin 11.6 g/dL (13.0-17.5) Hematocrit 35.0 % (39.0-53.0) Mean Corpuscular Volume 89 fL (79-100) Mean Corpuscular Hemoglobin 30 pg (25-35) Mean Corpuscular Hemoglobin Concent 33 g/dL (31-37) Red Cell Distribution Width 13.7 % (11.5-14.5) Platelet Count 290 x10^3/uL (140-400) Neutrophils (%) (Auto) 73 % (31-73) Lymphocytes (%) (Auto) 14 % (24-48) Monocytes (%) (Auto) 11 % (0-9) Eosinophils (%) (Auto) 2 % (0-3) Basophils (%) (Auto) 1 % (0-3) Neutrophils # (Auto) 6.7 x10^3uL (1.8-7.7) Lymphocytes # (Auto) 1.2 x10^3/uL (1.0-4.8) Monocytes # (Auto) 1.0 x10^3/uL (0.0-1.1) Eosinophils # (Auto) 0.2 x10^3/uL (0.0-0.7) Basophils # (Auto) 0.0 x10^3/uL (0.0-0.2) Sodium Level 139 mmol/L (136-145) Potassium Level 3.8 mmol/L (3.5-5.1) Chloride Level 105 mmol/L (98-107) Carbon Dioxide Level 24 mmol/L (21-32) Anion Gap 10 (6-14) Blood Urea Nitrogen 17 mg/dL (8-26) Creatinine 0.8 mg/dL (0.7-1.3) Estimated GFR (Cockcroft-Gault) 95.6 Glucose Level 91 mg/dL (70-99) Calcium Level 7.6 mg/dL (8.5-10.1) Problem List Problems Medical Problems: (1) Lactic acid acidosis Status: Acute (2) Perforated abdominal viscus Status: Acute Assessment/Plan s/p antrectomy OK to work towards d/c home recommend home health will plan drain removal in office Problems: GO RIVERA MD Sep 11, 2016 17:12
--- NOTE | 2016-09-11 17:13 | PDOC ---
PULMONARY PROGRESS NOTES Subjective no soa Vitals Vital Signs Date Time Temp Pulse Resp B/P (MAP) Pulse Ox O2 Delivery O2 Flow Rate FiO2 09/11/16 15:24 97.7 110 18 138/99 (112) 100 Room Air 97.7 General: Alert Lungs: Clear, Other (decrease bs) Cardiovascular: S1, S2 Abdomen: Soft Neuro Exam: Alert Extremities: No Edema Skin: Warm Labs Laboratory Tests Test 09/10/16 05:57 White Blood Count 9.2 x10^3/uL (4.0-11.0) Red Blood Count 3.95 x10^6/uL (4.30-5.70) Hemoglobin 11.6 g/dL (13.0-17.5) Hematocrit 35.0 % (39.0-53.0) Mean Corpuscular Volume 89 fL (79-100) Mean Corpuscular Hemoglobin 30 pg (25-35) Mean Corpuscular Hemoglobin Concent 33 g/dL (31-37) Red Cell Distribution Width 13.7 % (11.5-14.5) Platelet Count 290 x10^3/uL (140-400) Neutrophils (%) (Auto) 73 % (31-73) Lymphocytes (%) (Auto) 14 % (24-48) Monocytes (%) (Auto) 11 % (0-9) Eosinophils (%) (Auto) 2 % (0-3) Basophils (%) (Auto) 1 % (0-3) Neutrophils # (Auto) 6.7 x10^3uL (1.8-7.7) Lymphocytes # (Auto) 1.2 x10^3/uL (1.0-4.8) Monocytes # (Auto) 1.0 x10^3/uL (0.0-1.1) Eosinophils # (Auto) 0.2 x10^3/uL (0.0-0.7) Basophils # (Auto) 0.0 x10^3/uL (0.0-0.2) Sodium Level 139 mmol/L (136-145) Potassium Level 3.8 mmol/L (3.5-5.1) Chloride Level 105 mmol/L (98-107) Carbon Dioxide Level 24 mmol/L (21-32) Anion Gap 10 (6-14) Blood Urea Nitrogen 17 mg/dL (8-26) Creatinine 0.8 mg/dL (0.7-1.3) Estimated GFR (Cockcroft-Gault) 95.6 Glucose Level 91 mg/dL (70-99) Calcium Level 7.6 mg/dL (8.5-10.1) Medications Active Scripts Medications Dose Route/Sig Max Daily Dose Days Date Category Aspir 81 (Aspirin) 81 Mg Tablet.dr 81 Mg PO 09/01/16 Reported Ultracet Tablet (Tramadol Hcl/Acetaminophen) 1 Each Tablet 1 Tab PO TID 09/01/16 Reported Lipitor (Atorvastatin Calcium) 10 Mg Tablet 1 Tab PO DAILY 09/01/16 Reported Indapamide 1.25 Mg Tablet 1.25 Mg PO 09/01/16 Reported Diovan Hct 80-12.5 Mg Tablet (Valsartan/Hydrochlorothiazide) 1 Each Tablet 1 Each PO 09/01/16 Reported Naproxen Sodium 550 Mg Tablet 375 Mg PO PRN 09/01/16 Reported Impression . 1. Acute duodenal perforation, s/p antrectomy 2. bilateral sympathetic/ inflammatory effusions, asymptomatic, not significant to tap at present 3. Abdominal /pelvic fluid collections, IR placed drains 4. Long h/o tobacco use( 45 pack yr). suspect COPD 5. Malnutrition Plan . pt in no distress cxr not change ok to d/c TREY BAEZA MD Sep 11, 2016 17:12
[2016-09-11] MEDS ORDERED: AMOXICILLIN/K CLAV 875/125MG TABLET. PO SCH (21:00)
[2016-09-12] MEDS ORDERED: FLUCONAZOLE 100 MG TABLET. PO SCH (09:00)
== END 2016-09-11 17:30 | disposition home health service (06) | DRG 326 ==
LOC: ER 07:06 → 6 SOUTH 08:40 → 1 WEST ICU 10:27 → 4 NORTH 09-02 14:27
PROVIDERS: ADMIT Internal Medicine; ATTEND Internal Medicine
PROC: 0DT70ZZ Resection of Stomach, Pylorus, Open Approach (ICD-10-PCS; 2016-09-01)
PROC: 0D160ZA Bypass Stomach to Jejunum, Open Approach (ICD-10-PCS; 2016-09-01)
PROC: 0DH67UZ Insertion of Feeding Device into Stomach, Via Natural or Artificial Opening (ICD-10-PCS; 2016-09-01)
PROC: 0W9G30Z Drainage of Peritoneal Cavity with Drainage Device, Percutaneous Approach (ICD-10-PCS; principal; 2016-09-07)
PROC: 0D9P3ZX Drainage of Rectum, Percutaneous Approach, Diagnostic (ICD-10-PCS; 2016-09-07)
DX: K26.1 Acute duodenal ulcer with perforation (principal); N17.0 Acute kidney failure with tubular necrosis; K65.9 Peritonitis, unspecified; E87.0 Hyperosmolality and hypernatremia; E44.1 Mild protein-calorie malnutrition; R65.10 Systemic inflammatory response syndrome (SIRS) of non-infectious origin without acute organ dysfunction; D62 Acute posthemorrhagic anemia; I47.2 Ventricular tachycardia; J90 Pleural effusion, not elsewhere classified; R18.8 Other ascites; K56.7 Ileus, unspecified; E78.5 Hyperlipidemia, unspecified; E78.00 Pure hypercholesterolemia, unspecified; E83.51 Hypocalcemia; E27.8 Other specified disorders of adrenal gland; E86.0 Dehydration; E87.6 Hypokalemia; I10 Essential (primary) hypertension; F17.210 Nicotine dependence, cigarettes, uncomplicated; K66.8 Other specified disorders of peritoneum; E21.3 Hyperparathyroidism, unspecified; M19.90 Unspecified osteoarthritis, unspecified site; Z79.82 Long term (current) use of aspirin; Z82.49 Family history of ischemic heart disease and other diseases of the circulatory system; Z79.899 Other long term (current) drug therapy; Z79.1 Long term (current) use of non-steroidal anti-inflammatories (NSAID); Z79.2 Long term (current) use of antibiotics; Z68.26 Body mass index [BMI] 26.0-26.9, adult
CPT/HCPCS: 36415; 49406; 71010; 71020; 74000; 74177; 80048; 80053; 81001; 83605; 83690; 83735; 83880; 84100; 84443; 84484; 85007; 85027; 85610; 85730; 87071; 87075; 87205; 87641; 88307; 88342; 93005; 93306; 94250; 94760; 96361; 96374; 96375; 99152; 99153; A4215; A6539; C1729; C1887; C1894; J0330; J0610; J0694; J1100; J1170; J1450; J1650; J2001; J2250; J2270; J2405; J2543; J2704; J2710; J3010; J3490; J7030; Q9966; Q9967; S0028; 97110; 97116; 97530; 97535; 99291-25

== ENCOUNTER → 2016-09-20 | Outpatient (CLI) | payer MEDICARE ==
[2016-09-11 15:24] VITALS: BP 138/99
[~2016-09-20] MED LIST: AMOX1TAB61 PO; ASPI-482 PO; ATOR10TA PO; FAMO20TA5 PO; FLUC200T PO; INDA1.25 PO; IOHEXOL 240 MG/ML 50ML VIAL. PO ONE; IOHEXOL 300 MG/ML 75 ML VIAL IV ONE; NAPR-677 PO; TRAM1TAB56 PO; VALS1TAB3 PO
--- NOTE | 2016-09-20 15:15 | RAD ---
CT abdomen and pelvis with contrast 09/20/2016 Clinical indication: Perforated duodenal ulcer. Recent antrectomy. Comparison: CT abdomen and pelvis 09/06/2016 Technique: CT helical acquisition of the abdomen and pelvis was obtained following uneventful intravenous administration of 75 mL Omnipaque 300. Coronal and sagittal reformations were obtained. PQRS Compliance Statement: One or more of the following individualized dose reduction techniques were utilized for this examination: 1. Automated exposure control 2. Adjustment of the mA and/or kV according to patient size 3. Use of iterative reconstruction technique Findings: Abdomen and pelvis: Heart size is normal with resolution of left pleural effusion and persistent mild partial atelectasis of the left lower lobe and minimal linear atelectasis in the right lower lobe. Liver is normal in morphology. There is a dominant hepatic cyst in hepatic segment 4A. There are few additional bilobar hepatic hypodensities which are too small to definitively characterize. There is focal fatty infiltration adjacent to the falciform. Interval improvement in perisplenic fluid collection with left upper abdomen approach pigtail drainage catheter was centered in the residual fluid measuring 8.1 x 2.3 cm (series 4/image 37), previously 14.1 x 3.0 cm when measured in a similar fashion. There is a stable 1.2 cm indeterminate hypodensity in the left adrenal gland. Right adrenal gland and kidneys are within normal limits. Pancreas within normal limits. Abdominal aorta highly ectatic measuring up to 2.6 cm with moderate mixed aortoiliac atheromatous disease. Major portal, splenic and visualized upper mesenteric veins are widely patent. Interval removal of transesophageal gastric tube. Prior distal gastrectomy and gastrojejunostomy. There is a percutaneous tube within the proximal duodenum. Small and large bowel loops are normal in caliber without obstruction. Appendix is normal in appearance. There is pancolonic diverticulosis severe the descending colon without diverticulitis. Interval placement of a posterior approach pelvic pigtail drainage catheter with near complete resolution of fluid collection now measuring 2.5 x 1.6 cm (series 2/68), previously 6.9 x 6.2 cm when measured in a similar fashion. No new loculated fluid collection. No retroperitoneal or mesenteric lymphadenopathy. Mildly distended and unopacified urinary bladder within normal limits. Prostate seminal vesicles are present. No iliac or inguinal lymphadenopathy. There is mild lumbar dextroscoliosis is multilevel degenerative disc disease of the lower lumbar spine greatest to moderate degree at L4-L5 and L5-S1. No destructive osseous lesions. Impression: 1. Improvement in left perisplenic fluid collection with residual fluid collection measuring up to 8 cm and drainage catheter well centered in the fluid. 2. Near complete resolution of pelvic fluid collection with posterior drainage catheter well centered in the fluid. 3. No new loculated abdominopelvic fluid collection. 4. Prior distal gastrectomy and gastrojejunostomy with duodenal tube in similar position.
== END | disposition home or self-care (01) ==
LOC: CT 10:52
PROVIDERS: ATTEND Pediatrics
DX: K26.5 Chronic or unspecified duodenal ulcer with perforation (principal)
CPT/HCPCS: 74177; Q9966; Q9967

== ENCOUNTER 2017-03-08 15:28 | Inpatient (IN) | payer MEDICARE ==
[2017-03-08 15:54] LABS: BASO % 0 % (0-3); EOS % 0 % (0-3); HEMATOCRIT 43.8 % (39.0-53.0); HEMOGLOBIN 14.5 g/dL (13.0-17.5); LYMPH # 0.3 x10^3/uL (1.0-4.8); LYMPH % 3 % (24-48); MEAN CORPUSCULAR HEMOGLOBIN 29 pg (25-35); MEAN CORPUSCULAR HGB CONC 33 g/dL (31-37); MEAN CORPUSCULAR VOLUME 86 fL (79-100); MONO # 0.3 x10^3/uL (0.0-1.1); MONO % 3 % (0-9); NEUT # 11.5 x10^3uL (1.8-7.7); NEUT % 95 % (31-73); PLATELET COUNT 217 x10^3/uL (140-400); RED BLOOD COUNT 5.11 x10^6/uL (4.30-5.70); WHITE BLOOD COUNT 12.2 x10^3/uL (4.0-11.0)
[2017-03-08 15:55] LABS: ADD MAN DIFF? YES
[2017-03-08] MEDS: MORPHINE SULFATE 2 MG/ML DISP.SYRIN. IV (16:00)
[2017-03-08] MEDS: IV NORMAL SALINE 1000ML BAG 1,000 ML IV ×11 (16:00→23:53)
[2017-03-08] MEDS: IOHEXOL 300 MG/ML 100ML VIAL. IV (16:00)
[2017-03-08] MEDS ORDERED: CONTRAST GIVEN MC (16:00)
[2017-03-08 16:16] LABS: ANION GAP 16 (6-14); BLOOD UREA NITROGEN 22 mg/dL (8-26); BUN/CREATININE RATIO 20 (6-20); CALCIUM 8.8 mg/dL (8.5-10.1); CARBON DIOXIDE 22 mmol/L (21-32); CHLORIDE 99 mmol/L (98-107); CREATININE 1.1 mg/dL (0.7-1.3); GLUCOSE 135 mg/dL (70-99); POTASSIUM 3.2 mmol/L (3.5-5.1); SODIUM 137 mmol/L (136-145)
[2017-03-08 16:21] LABS: ALBUMIN 3.2 g/dL (3.4-5.0); ALK PHOS 237 U/L (46-116); ALT (SGPT) 134 U/L (16-63); AST (SGOT) 106 U/L (15-37); TOTAL BILIRUBIN 7.3 mg/dL (0.2-1.0); TOTAL PROTEIN 6.3 g/dL (6.4-8.2)
[2017-03-08 16:27] LABS: LIPASE 3091 U/L (73-393)
[2017-03-08] MEDS ORDERED: PIPERACILLIN/TAZOBACTAM 4.5 GM in IV DEXTROSE 5% 100 ML IV (17:15)
[2017-03-08 17:16] LABS: % BANDS 2 % (0-9); % LYMPHS 2 % (24-48); % MONOS 4 % (0-10); % SEGS 92 % (35-66); PLT ESTIMATE ADEQUATE (ADEQUATE); TOXIC GRANULATION SLIGHT; TOXIC VACUOLATION SLIGHT
[2017-03-08] MEDS: PIPERACILLIN/TAZO IV Push 4.5 GM VIAL. IVP (17:43)
[2017-03-08] MEDS: ACETAMINOPHEN 650 MG SUPP.RECT. PR (17:43)
[2017-03-08] MEDS: KETOROLAC 30 MG/ML INJ. IV (17:44)
[2017-03-08] MEDS ORDERED: ONDANSETRON PF 4 MG/2 ML VIAL. IV (18:00)
[2017-03-08 18:04] LABS: BILIRUBIN,URINE LARGE (NEG); CLARITY,URINE CLEAR; COLOR,URINE ORANGE; GLUCOSE,URINE NEGATIVE (NEG); NITRITE,URINE NEGATIVE (NEG); PH,URINE 6.5; PROTEIN,URINE 100 mg/dL (NEG-TRACE)
[2017-03-08 18:06] LABS: BACTERIA,URINE 0 /HPF (0-FEW); SQUAMOUS EPITHELIAL CELL,UR OCC /LPF
[2017-03-08 18:25] LABS: LACTIC ACID 4.6 mmol/L (0.4-2.0)
[2017-03-08 20:05] LABS: LACTIC ACID 2.5 mmol/L (0.4-2.0)
[2017-03-08 22:10] LABS: LACTIC ACID 2.1 mmol/L (0.4-2.0)
[2017-03-09] MEDS: MORPHINE SULFATE 4 MG/ML DISP.SYRIN. IV ×3 (00:20→18:20)
[2017-03-09] MEDS: IV NORMAL SALINE 1000ML BAG 1,000 ML IV ×13 (00:54→21:05)
[2017-03-09] MEDS ORDERED: PIP/TAZO PER PHARMACY MC (08:30)
[2017-03-09] MEDS: PIPERACILLIN/TAZO IV Push 3.375 GM VIAL. IVP ×3 (09:08→17:29)
[2017-03-09 09:38] LABS: PARTIAL THROMBOPLASTIN TIME 41 SEC (24-38)
[2017-03-09 09:38] LABS: INR 1.8 (0.8-1.1); PROTHROMBIN TIME PATIENT 19.8 SEC (11.7-14.0)
[2017-03-09] MEDS ORDERED: LIDOCAINE WITH 8.4% SOD BICARB 3 ML DISP.SYRIN. IJ ×4 (09:58→13:24)
[2017-03-09] MEDS ORDERED: MIDAZOLAM HCL/PF 2 MG/2 ML VIAL. ×2 (09:58→12:53)
[2017-03-09] MEDS ORDERED: fentaNYL PF VIAL 100 MCG/2 ML VIAL ×2 (09:58→12:53)
[2017-03-09] MEDS ORDERED: FLUMAZENIL 0.5 MG/5 ML VIAL. IV (09:59)
[2017-03-09] MEDS ORDERED: NALOXONE 0.4 MG/ML VIAL. (09:59)
[2017-03-09] MEDS ORDERED: IOHEXOL 300 MG/ML 100ML VIAL. (10:50)
[2017-03-09] MEDS ORDERED: CONTRAST GIVEN MC ×2 (11:45→13:30)
[2017-03-09] MEDS ORDERED: PIPERACILLIN/TAZOBACTAM 3.375 GM in IV DEXTROSE 5% 50 ML IV (12:00)
[2017-03-09] MEDS ORDERED: IOHEXOL 240 MG/ML 50ML VIAL. (12:37)
[2017-03-09] MEDS: MIDAZOLAM HCL/PF 2 MG/2 ML VIAL. IV (13:47)
[2017-03-09] MEDS: fentaNYL PF VIAL 100 MCG/2 ML VIAL IV (13:48)
[2017-03-09] MEDS: LIDOCAINE WITH 8.4% SOD BICARB 3 ML DISP.SYRIN. IJ (13:49)
[2017-03-09] MEDS: IOHEXOL 300 MG/ML 100ML VIAL. IART (13:49)
[2017-03-09] MEDS: IOHEXOL 240 MG/ML 50ML VIAL. IJ (13:50)
[2017-03-09 15:00] LABS: SECOND ABO/RH TYPE 1 1
[2017-03-09] MEDS ORDERED: MORPHINE SULFATE 2 MG/ML DISP.SYRIN. IV (16:45)
[2017-03-09 17:01] LABS: INFLUENZA A PATIENT NEGATIVE (NEGATIVE); INFLUENZA B PATIENT NEGATIVE (NEGATIVE); OBC FLU VALID
[2017-03-09 20:10] LABS: MRSA BY PCR Negative (Negative)
[2017-03-10] MEDS: PIPERACILLIN/TAZO IV Push 3.375 GM VIAL. IVP ×4 (00:27→19:26)
[2017-03-10] MEDS: IV NORMAL SALINE 1000ML BAG 1,000 ML IV ×3 (03:01→19:25)
[2017-03-10] MEDS ORDERED: ACETAMINOPHEN 325 MG SUPP.RECT. PR (08:15)
[2017-03-10] MEDS: ONDANSETRON PF 4 MG/2 ML VIAL. IV (08:15)
[2017-03-10 08:27] LABS: ADD MAN DIFF? NO
[2017-03-10 08:31] LABS: BASO % 0 % (0-3); EOS % 0 % (0-3); HEMATOCRIT 32.9 % (39.0-53.0); HEMOGLOBIN 10.7 g/dL (13.0-17.5); LYMPH # 0.5 x10^3/uL (1.0-4.8); LYMPH % 4 % (24-48); MEAN CORPUSCULAR HEMOGLOBIN 28 pg (25-35); MEAN CORPUSCULAR HGB CONC 33 g/dL (31-37); MEAN CORPUSCULAR VOLUME 87 fL (79-100); MONO # 0.4 x10^3/uL (0.0-1.1); MONO % 3 % (0-9); NEUT # 11.4 x10^3uL (1.8-7.7); NEUT % 92 % (31-73); PLATELET COUNT 136 x10^3/uL (140-400); RED BLOOD COUNT 3.81 x10^6/uL (4.30-5.70); RED CELL DISTRIBUTION WIDTH 15.4 % (11.5-14.5); WHITE BLOOD COUNT 12.4 x10^3/uL (4.0-11.0)
[2017-03-10 08:41] LABS: ALBUMIN 2.1 g/dL (3.4-5.0); ALBUMIN/GLOBULIN RATIO 0.6 (1.0-1.7); ALK PHOS 111 U/L (46-116); ALT (SGPT) 67 U/L (16-63); ANION GAP 12 (6-14); AST (SGOT) 47 U/L (15-37); BLOOD UREA NITROGEN 32 mg/dL (8-26); BUN/CREATININE RATIO 36 (6-20); CALCIUM 7.3 mg/dL (8.5-10.1); CARBON DIOXIDE 22 mmol/L (21-32); CHLORIDE 108 mmol/L (98-107); CREATININE 0.9 mg/dL (0.7-1.3); GFR 83.2; GLUCOSE 88 mg/dL (70-99); POTASSIUM 3.3 mmol/L (3.5-5.1); SODIUM 142 mmol/L (136-145); TOTAL BILIRUBIN 2.5 mg/dL (0.2-1.0); TOTAL PROTEIN 5.6 g/dL (6.4-8.2)
[2017-03-10] MEDS ORDERED: LACTOBACILLUS RHAMNOSUS GG 1 CAPSULE. PO (09:00)
[2017-03-10 10:36] LABS: SEDIMENTATION RATE 38 (0-15)
[2017-03-11] MEDS: PIPERACILLIN/TAZO IV Push 3.375 GM VIAL. IVP ×3 (00:38→13:19)
[2017-03-11] MEDS: IV NORMAL SALINE 1000ML BAG 1,000 ML IV ×4 (05:30→23:10)
[2017-03-11 06:57] LABS: LIPASE 276 U/L (73-393)
[2017-03-11] MEDS ORDERED: ACETAMINOPHEN 500 MG TABLET PO (14:00)
[2017-03-11] MEDS ORDERED: cefTRIAXone SODIUM 2 GM in IV DEXTROSE 5% 100 ML IV (16:30)
[2017-03-11] MEDS: cefTRIAXone IV Push 2 GM VIAL. IVP (18:37)
[2017-03-12] MEDS: HYDROcodone/APAP 5/325MG 1 TAB TABLET PO (01:47)
[2017-03-12 06:10] LABS: ADD MAN DIFF? NO
[2017-03-12] MEDS: IV NORMAL SALINE 1000ML BAG 1,000 ML IV (06:12)
[2017-03-12 06:23] LABS: BASO % 0 % (0-3); EOS # 0.1 x10^3/uL (0.0-0.7); EOS % 1 % (0-3); HEMATOCRIT 31.2 % (39.0-53.0); HEMOGLOBIN 10.3 g/dL (13.0-17.5); LYMPH # 0.8 x10^3/uL (1.0-4.8); LYMPH % 13 % (24-48); MEAN CORPUSCULAR HEMOGLOBIN 28 pg (25-35); MEAN CORPUSCULAR HGB CONC 33 g/dL (31-37); MEAN CORPUSCULAR VOLUME 84 fL (79-100); MONO # 0.8 x10^3/uL (0.0-1.1); MONO % 13 % (0-9); NEUT # 4.7 x10^3uL (1.8-7.7); NEUT % 73 % (31-73); PLATELET COUNT 137 x10^3/uL (140-400); RED BLOOD COUNT 3.72 x10^6/uL (4.30-5.70); RED CELL DISTRIBUTION WIDTH 15.1 % (11.5-14.5); WHITE BLOOD COUNT 6.5 x10^3/uL (4.0-11.0)
[2017-03-12 06:49] LABS: ALBUMIN 1.8 g/dL (3.4-5.0); ALBUMIN/GLOBULIN RATIO 0.6 (1.0-1.7); ALK PHOS 89 U/L (46-116); ALT (SGPT) 35 U/L (16-63); ANION GAP 10 (6-14); AST (SGOT) 24 U/L (15-37); BLOOD UREA NITROGEN 28 mg/dL (8-26); BUN/CREATININE RATIO 35 (6-20); CALCIUM 7.3 mg/dL (8.5-10.1); CARBON DIOXIDE 23 mmol/L (21-32); CHLORIDE 109 mmol/L (98-107); CREATININE 0.8 mg/dL (0.7-1.3); GFR 95.3; GLUCOSE 92 mg/dL (70-99); SODIUM 142 mmol/L (136-145); TOTAL BILIRUBIN 1.5 mg/dL (0.2-1.0)
[2017-03-12 06:51] LABS: POTASSIUM 2.8 mmol/L (3.5-5.1)
[2017-03-12] MEDS ORDERED: POTASSIUM CHLORIDE 20MEQ 50 ML IV (08:00)
[2017-03-12] MEDS: POTASSIUM CHLORIDE 10 MEQ in IV NORMAL SALINE 100ML 100 ML IV ×4 (09:57→12:30)
[2017-03-12] MEDS: PANTOPRAZOLE 40 MG TABLET.DR. PO (12:28)
[2017-03-12] MEDS ORDERED: cefTRIAXone SODIUM 2 GM in IV DEXTROSE 5% 100 ML IV (13:30)
[2017-03-12] MEDS: cefTRIAXone IV Push 2 GM VIAL. IVP (15:18)
[2017-03-13] MEDS: PANTOPRAZOLE 40 MG TABLET.DR. PO ×2 (06:35→09:40)
[2017-03-13] MEDS: CIPROFLOXACIN HCL 250 MG TABLET. PO (09:40)
== END 2017-03-13 14:05 | disposition home or self-care (01) | DRG 871 ==
LOC: 4 NORTH 03-10 17:57 → ER 15:28 → 1 WEST ICU 17:53
PROC: 0F9430Z Drainage of Gallbladder with Drainage Device, Percutaneous Approach (ICD-10-PCS; principal; 2017-03-09)
PROC: BF131ZZ Fluoroscopy of Gallbladder and Bile Ducts using Low Osmolar Contrast (ICD-10-PCS; 2017-03-09)
PROC: 30233K1 Transfusion of Nonautologous Frozen Plasma into Peripheral Vein, Percutaneous Approach (ICD-10-PCS; 2017-03-10)
DX: A41.51 Sepsis due to Escherichia coli [E. coli] (principal); K83.1 Obstruction of bile duct; E44.0 Moderate protein-calorie malnutrition; K81.0 Acute cholecystitis; K83.0 Cholangitis; K85.10 Biliary acute pancreatitis without necrosis or infection; B96.20 Unspecified Escherichia coli [E. coli] as the cause of diseases classified elsewhere; Z68.29 Body mass index [BMI] 29.0-29.9, adult; E78.00 Pure hypercholesterolemia, unspecified; E78.5 Hyperlipidemia, unspecified; E87.6 Hypokalemia; F17.210 Nicotine dependence, cigarettes, uncomplicated; I10 Essential (primary) hypertension; K57.30 Diverticulosis of large intestine without perforation or abscess without bleeding; K82.8 Other specified diseases of gallbladder; N40.0 Benign prostatic hyperplasia without lower urinary tract symptoms; Z82.49 Family history of ischemic heart disease and other diseases of the circulatory system; Z87.11 Personal history of peptic ulcer disease; Z91.19 Patient's noncompliance with other medical treatment and regimen; E21.3 Hyperparathyroidism, unspecified; K59.00 Constipation, unspecified; M19.90 Unspecified osteoarthritis, unspecified site
CPT/HCPCS: 36415; 47490; 47532; 74177; 80053; 81001; 83605; 83690; 84132; 85007; 85025; 85610; 85651; 85730; 86850; 86900; 86901; 86927; 87040; 87205; 87641; 87804; 87804-59; 99152; 99153; A4215; C1729; C1769; C1892; C1894; J0696; J1885; J2250; J2270; J2543; J3010; J7030; P9017; Q9966; Q9967

== ENCOUNTER → 2017-03-20 | Outpatient (CLI) | payer MEDICARE ==
[2017-03-20 15:35] LABS: ALBUMIN 3.3 g/dL (3.4-5.0); ALBUMIN/GLOBULIN RATIO 0.7 (1.0-1.7); ALK PHOS 154 U/L (46-116); ALT (SGPT) 218 U/L (16-63); ANION GAP 6 (6-14); AST (SGOT) 127 U/L (15-37); BLOOD UREA NITROGEN 20 mg/dL (8-26); BUN/CREATININE RATIO 18 (6-20); CALCIUM 8.8 mg/dL (8.5-10.1); CARBON DIOXIDE 29 mmol/L (21-32); CHLORIDE 98 mmol/L (98-107); CREATININE 1.1 mg/dL (0.7-1.3); GLUCOSE 100 mg/dL (70-99); POTASSIUM 4.7 mmol/L (3.5-5.1); SODIUM 133 mmol/L (136-145); TOTAL BILIRUBIN 1.4 mg/dL (0.2-1.0); TOTAL PROTEIN 7.8 g/dL (6.4-8.2)
== END | disposition home or self-care (01) ==
LOC: LAB 14:45
DX: R10.9 Unspecified abdominal pain (principal); R50.9 Fever, unspecified
CPT/HCPCS: 36415; 80053

== ENCOUNTER 2017-04-07 21:57 | Inpatient (IN) | payer MEDICARE ==
[2017-04-07 22:25] LABS: ADD MAN DIFF? NO
[2017-04-07] MEDS: IV NORMAL SALINE 1000ML BAG 1,000 ML IV ×2 (22:25)
[2017-04-07] MEDS: fentaNYL PF VIAL 100 MCG/2 ML VIAL IV ×4 (22:25→22:48)
[2017-04-07] MEDS: ONDANSETRON PF 4 MG/2 ML VIAL. IV ×2 (22:25)
[2017-04-07 22:29] LABS: BASO % 0 % (0-3); EOS # 0.1 x10^3/uL (0.0-0.7); EOS % 1 % (0-3); HEMATOCRIT 40.5 % (39.0-53.0); HEMOGLOBIN 13.6 g/dL (13.0-17.5); LYMPH # 2.8 x10^3/uL (1.0-4.8); LYMPH % 22 % (24-48); MEAN CORPUSCULAR HEMOGLOBIN 28 pg (25-35); MEAN CORPUSCULAR HGB CONC 34 g/dL (31-37); MEAN CORPUSCULAR VOLUME 85 fL (79-100); MONO # 0.8 x10^3/uL (0.0-1.1); MONO % 6 % (0-9); NEUT # 9.4 x10^3uL (1.8-7.7); NEUT % 71 % (31-73); PLATELET COUNT 252 x10^3/uL (140-400); RED BLOOD COUNT 4.79 x10^6/uL (4.30-5.70); RED CELL DISTRIBUTION WIDTH 15.8 % (11.5-14.5); WHITE BLOOD COUNT 13.2 x10^3/uL (4.0-11.0)
[2017-04-07 22:36] LABS: ANION GAP 17 (6-14); BLOOD UREA NITROGEN 20 mg/dL (8-26); BUN/CREATININE RATIO 20 (6-20); CALCIUM 9.8 mg/dL (8.5-10.1); CARBON DIOXIDE 25 mmol/L (21-32); CHLORIDE 91 mmol/L (98-107); GFR 73.7; GLUCOSE 138 mg/dL (70-99); POTASSIUM 3.6 mmol/L (3.5-5.1); SODIUM 133 mmol/L (136-145)
[2017-04-07 22:44] LABS: LACTIC ACID 2.4 mmol/L (0.4-2.0); TROPONINI < 0.017 ng/mL (0.000-0.055)
[2017-04-07] MEDS ORDERED: CONTRAST GIVEN MC ×2 (22:45)
[2017-04-07 22:49] LABS: ALBUMIN 3.6 g/dL (3.4-5.0); ALK PHOS 155 U/L (46-116); ALT (SGPT) 51 U/L (16-63); AST (SGOT) 27 U/L (15-37); TOTAL BILIRUBIN 0.7 mg/dL (0.2-1.0); TOTAL PROTEIN 7.1 g/dL (6.4-8.2)
[2017-04-07 23:04] LABS: LIPASE 29845 U/L (73-393)
[2017-04-07] MEDS: IOHEXOL 300 MG/ML 100ML VIAL. IV ×2 (23:06)
[2017-04-08] MEDS: IV NORMAL SALINE 1000ML BAG 1,000 ML IV ×6 (00:15→20:23)
[2017-04-08] MEDS ORDERED: ONDANSETRON PF 4 MG/2 ML VIAL. IV ×2 (00:15)
[2017-04-08] MEDS: fentaNYL PF VIAL 100 MCG/2 ML VIAL IV ×2 (00:34)
[2017-04-08 00:50] LABS: BILIRUBIN,URINE NEGATIVE (NEG); CLARITY,URINE CLEAR; COLOR,URINE YELLOW; GLUCOSE,URINE NEGATIVE (NEG); NITRITE,URINE NEGATIVE (NEG); PH,URINE 6.5; PROTEIN,URINE NEGATIVE (NEG-TRACE); UROBILINOGEN,URINE 0.2 mg/dL (0.2 mg/dL)
[2017-04-08 01:18] LABS: BACTERIA,URINE 0 /HPF (0-FEW); RBC,URINE OCC /HPF (0-2); SQUAMOUS EPITHELIAL CELL,UR FEW /LPF
[2017-04-08] MEDS: MORPHINE SULFATE 2 MG/ML DISP.SYRIN. IV ×6 (01:54→07:32)
[2017-04-08 03:43] LABS: LACTIC ACID 1.4 mmol/L (0.4-2.0)
[2017-04-09] MEDS: MORPHINE SULFATE 4 MG/ML DISP.SYRIN. IV ×6 (03:39→22:56)
[2017-04-09 04:27] LABS: BASO # 0.1 x10^3/uL (0.0-0.2); BASO % 0 % (0-3); EOS # 0.1 x10^3/uL (0.0-0.7); EOS % 0 % (0-3); HEMATOCRIT 40.1 % (39.0-53.0); HEMOGLOBIN 13.2 g/dL (13.0-17.5); LYMPH # 1.1 x10^3/uL (1.0-4.8); LYMPH % 7 % (24-48); MEAN CORPUSCULAR HEMOGLOBIN 28 pg (25-35); MEAN CORPUSCULAR HGB CONC 33 g/dL (31-37); MEAN CORPUSCULAR VOLUME 85 fL (79-100); MONO # 0.9 x10^3/uL (0.0-1.1); MONO % 6 % (0-9); NEUT # 12.9 x10^3uL (1.8-7.7); NEUT % 86 % (31-73); PLATELET COUNT 218 x10^3/uL (140-400); RED BLOOD COUNT 4.71 x10^6/uL (4.30-5.70); RED CELL DISTRIBUTION WIDTH 16.1 % (11.5-14.5)
[2017-04-09 04:37] LABS: ADD MAN DIFF? YES
[2017-04-09 04:56] LABS: ALBUMIN 2.4 g/dL (3.4-5.0); ALBUMIN/GLOBULIN RATIO 0.7 (1.0-1.7); ALK PHOS 102 U/L (46-116); ALT (SGPT) 37 U/L (16-63); ANION GAP 10 (6-14); AST (SGOT) 19 U/L (15-37); BLOOD UREA NITROGEN 23 mg/dL (8-26); BUN/CREATININE RATIO 29 (6-20); CALCIUM 8.6 mg/dL (8.5-10.1); CARBON DIOXIDE 24 mmol/L (21-32); CHLORIDE 100 mmol/L (98-107); CREATININE 0.8 mg/dL (0.7-1.3); GFR 95.3; GLUCOSE 106 mg/dL (70-99); LIPASE 916 U/L (73-393); POTASSIUM 3.2 mmol/L (3.5-5.1); SODIUM 134 mmol/L (136-145); TOTAL PROTEIN 5.8 g/dL (6.4-8.2)
[2017-04-09 08:43] LABS: % BANDS 3 % (0-9); % BASOS 1 % (0-3); % LYMPHS 5 % (24-48); % MONOS 5 % (0-10); % SEGS 86 % (35-66)
[2017-04-09 08:44] LABS: ANISOCYTOSIS SLIGHT; PLT ESTIMATE ADEQUATE (ADEQUATE)
[2017-04-09] MEDS: POTASSIUM CHLORIDE 20 MEQ TABLET.ER. PO ×2 (11:15)
[2017-04-09] MEDS: IV NORMAL SALINE 1000ML BAG 1,000 ML IV ×2 (11:15)
[2017-04-09] MEDS: metroNIDAZOLE 500 MG TABLET PO ×4 (12:00→20:17)
[2017-04-09] MEDS: LACTOBACILLUS RHAMNOSUS GG 1 CAPSULE. PO ×4 (12:00→20:17)
[2017-04-09] MEDS: CIPROFLOXACIN 400MG PREMIX 200 ML IV ×4 (13:27→20:21)
[2017-04-09] MEDS ORDERED: CIPROFLOXACIN HCL 250 MG TABLET. PO ×2 (21:00)
[2017-04-10] MEDS: IV NORMAL SALINE 1000ML BAG 1,000 ML IV ×4 (02:53→23:55)
[2017-04-10] MEDS: MORPHINE SULFATE 4 MG/ML DISP.SYRIN. IV ×2 (02:55)
[2017-04-10 04:22] LABS: ADD MAN DIFF? NO
[2017-04-10 04:34] LABS: BASO % 0 % (0-3); EOS # 0.1 x10^3/uL (0.0-0.7); EOS % 1 % (0-3); HEMATOCRIT 37.1 % (39.0-53.0); HEMOGLOBIN 12.3 g/dL (13.0-17.5); LYMPH # 1.1 x10^3/uL (1.0-4.8); LYMPH % 7 % (24-48); MEAN CORPUSCULAR HEMOGLOBIN 28 pg (25-35); MEAN CORPUSCULAR HGB CONC 33 g/dL (31-37); MEAN CORPUSCULAR VOLUME 85 fL (79-100); MONO % 7 % (0-9); NEUT # 12.8 x10^3uL (1.8-7.7); NEUT % 85 % (31-73); PLATELET COUNT 212 x10^3/uL (140-400); RED BLOOD COUNT 4.38 x10^6/uL (4.30-5.70); RED CELL DISTRIBUTION WIDTH 16.1 % (11.5-14.5)
[2017-04-10 04:55] LABS: ANION GAP 10 (6-14); BLOOD UREA NITROGEN 24 mg/dL (8-26); CALCIUM 8.3 mg/dL (8.5-10.1); CARBON DIOXIDE 25 mmol/L (21-32); CHLORIDE 101 mmol/L (98-107); CREATININE 0.7 mg/dL (0.7-1.3); GFR 111.2; GLUCOSE 80 mg/dL (70-99); LIPASE 362 U/L (73-393); POTASSIUM 3.2 mmol/L (3.5-5.1); SODIUM 136 mmol/L (136-145)
[2017-04-10] MEDS: metroNIDAZOLE 500 MG TABLET PO ×6 (06:00→22:03)
[2017-04-10] MEDS ORDERED: IODIXANOL 320MG/ML 50ML VIAL. ×2 (08:54)
[2017-04-10] MEDS: IODIXANOL 320MG/ML 50ML VIAL. IV ×2 (09:07)
[2017-04-10] MEDS ORDERED: CONTRAST GIVEN MC ×2 (09:30)
[2017-04-10] MEDS: IV RINGERS,LACTATED 1000ML 1,000 ML IV ×4 (11:31→19:31)
[2017-04-10] MEDS ORDERED: PROPOFOL 20 ML IV ×2 (11:42)
[2017-04-10] MEDS ORDERED: MIDAZOLAM HCL/PF 2 MG/2 ML VIAL. IV ×2 (11:45)
[2017-04-10] MEDS ORDERED: fentaNYL PF VIAL 100 MCG/2 ML VIAL IV ×4 (11:45)
[2017-04-10] MEDS ORDERED: LIDOCAINE 1% PF 2 ML VIAL. ID ×2 (11:45)
[2017-04-10] MEDS: POTASSIUM CHLORIDE 20 MEQ TABLET.ER. PO ×2 (15:48)
[2017-04-10] MEDS: LACTOBACILLUS RHAMNOSUS GG 1 CAPSULE. PO ×4 (15:48→20:49)
[2017-04-10] MEDS: CIPROFLOXACIN 400MG PREMIX 200 ML IV ×4 (15:48→23:55)
[2017-04-10] MEDS: BISACODYL 10 MG SUPP.RECT. PR ×2 (15:49)
[2017-04-11] MEDS: MORPHINE SULFATE 4 MG/ML DISP.SYRIN. IV ×6 (03:00→22:48)
[2017-04-11] MEDS: IV NORMAL SALINE 1000ML BAG 1,000 ML IV ×4 (03:15→16:49)
[2017-04-11] MEDS: metroNIDAZOLE 500 MG TABLET PO ×6 (05:52→21:01)
[2017-04-11 06:19] LABS: ADD MAN DIFF? NO
[2017-04-11 06:36] LABS: BASO % 0 % (0-3); EOS # 0.1 x10^3/uL (0.0-0.7); EOS % 0 % (0-3); HEMATOCRIT 35.7 % (39.0-53.0); HEMOGLOBIN 11.9 g/dL (13.0-17.5); LYMPH # 0.5 x10^3/uL (1.0-4.8); LYMPH % 4 % (24-48); MEAN CORPUSCULAR HEMOGLOBIN 28 pg (25-35); MEAN CORPUSCULAR HGB CONC 33 g/dL (31-37); MEAN CORPUSCULAR VOLUME 85 fL (79-100); MONO # 0.7 x10^3/uL (0.0-1.1); MONO % 5 % (0-9); NEUT # 11.7 x10^3uL (1.8-7.7); NEUT % 90 % (31-73); PLATELET COUNT 229 x10^3/uL (140-400); RED BLOOD COUNT 4.21 x10^6/uL (4.30-5.70); RED CELL DISTRIBUTION WIDTH 15.9 % (11.5-14.5)
[2017-04-11 06:52] LABS: ANION GAP 8 (6-14); BLOOD UREA NITROGEN 24 mg/dL (8-26); CALCIUM 7.8 mg/dL (8.5-10.1); CARBON DIOXIDE 25 mmol/L (21-32); CHLORIDE 101 mmol/L (98-107); CREATININE 0.6 mg/dL (0.7-1.3); GFR 132.8; GLUCOSE 125 mg/dL (70-99); POTASSIUM 3.5 mmol/L (3.5-5.1); SODIUM 134 mmol/L (136-145)
[2017-04-11] MEDS: CIPROFLOXACIN 400MG PREMIX 200 ML IV ×2 (08:19)
[2017-04-11] MEDS: LACTOBACILLUS RHAMNOSUS GG 1 CAPSULE. PO ×4 (08:19→21:01)
[2017-04-11] MEDS: CIPROFLOXACIN HCL 250 MG TABLET. PO ×2 (21:01)
[2017-04-12] MEDS: MORPHINE SULFATE 4 MG/ML DISP.SYRIN. IV ×2 (03:11)
[2017-04-12] MEDS: IV NORMAL SALINE 1000ML BAG 1,000 ML IV ×4 (05:53→21:44)
[2017-04-12] MEDS: metroNIDAZOLE 500 MG TABLET PO ×2 (05:55)
[2017-04-12 06:22] LABS: ADD MAN DIFF? NO
[2017-04-12 06:49] LABS: ANION GAP 5 (6-14); BASO % 0 % (0-3); BLOOD UREA NITROGEN 22 mg/dL (8-26); CALCIUM 8.1 mg/dL (8.5-10.1); CARBON DIOXIDE 27 mmol/L (21-32); CHLORIDE 104 mmol/L (98-107); CREATININE 0.6 mg/dL (0.7-1.3); EOS # 0.1 x10^3/uL (0.0-0.7); EOS % 2 % (0-3); GFR 132.8; GLUCOSE 104 mg/dL (70-99); HEMATOCRIT 32.3 % (39.0-53.0); LIPASE 1286 U/L (73-393); LYMPH # 1.3 x10^3/uL (1.0-4.8); LYMPH % 14 % (24-48); MEAN CORPUSCULAR HEMOGLOBIN 29 pg (25-35); MEAN CORPUSCULAR HGB CONC 34 g/dL (31-37); MEAN CORPUSCULAR VOLUME 85 fL (79-100); MONO # 0.8 x10^3/uL (0.0-1.1); MONO % 8 % (0-9); NEUT # 7.2 x10^3uL (1.8-7.7); NEUT % 76 % (31-73); PLATELET COUNT 227 x10^3/uL (140-400); POTASSIUM 3.4 mmol/L (3.5-5.1); RED CELL DISTRIBUTION WIDTH 16.1 % (11.5-14.5); SODIUM 136 mmol/L (136-145); WHITE BLOOD COUNT 9.5 x10^3/uL (4.0-11.0)
[2017-04-12] MEDS: CIPROFLOXACIN HCL 250 MG TABLET. PO ×2 (08:25)
[2017-04-12] MEDS: LACTOBACILLUS RHAMNOSUS GG 1 CAPSULE. PO ×4 (08:25→20:26)
[2017-04-12] MEDS: POTASSIUM CHLORIDE 20 MEQ TABLET.ER. PO ×2 (12:42)
[2017-04-12] MEDS ORDERED: POLYETHYLENE GLYCOL 3350 17 GM PACKET. PO ×2 (13:15)
[2017-04-12] MEDS: POLYETHYLENE GLYCOL 3350 17 GM PACKET. PO ×2 (14:32)
[2017-04-13] MEDS: MORPHINE SULFATE 4 MG/ML DISP.SYRIN. IV ×6 (02:40→21:03)
[2017-04-13 05:53] LABS: ADD MAN DIFF? NO
[2017-04-13 06:16] LABS: BASO % 0 % (0-3); EOS # 0.1 x10^3/uL (0.0-0.7); EOS % 1 % (0-3); HEMATOCRIT 33.9 % (39.0-53.0); HEMOGLOBIN 11.5 g/dL (13.0-17.5); LYMPH # 1.1 x10^3/uL (1.0-4.8); LYMPH % 11 % (24-48); MEAN CORPUSCULAR HEMOGLOBIN 28 pg (25-35); MEAN CORPUSCULAR HGB CONC 34 g/dL (31-37); MEAN CORPUSCULAR VOLUME 83 fL (79-100); MONO # 0.8 x10^3/uL (0.0-1.1); MONO % 8 % (0-9); NEUT # 7.8 x10^3uL (1.8-7.7); NEUT % 80 % (31-73); PLATELET COUNT 264 x10^3/uL (140-400); RED BLOOD COUNT 4.07 x10^6/uL (4.30-5.70); RED CELL DISTRIBUTION WIDTH 16.1 % (11.5-14.5); WHITE BLOOD COUNT 9.8 x10^3/uL (4.0-11.0)
[2017-04-13 06:29] LABS: ANION GAP 10 (6-14); BLOOD UREA NITROGEN 22 mg/dL (8-26); CARBON DIOXIDE 25 mmol/L (21-32); CHLORIDE 102 mmol/L (98-107); CREATININE 0.6 mg/dL (0.7-1.3); GFR 132.8; GLUCOSE 108 mg/dL (70-99); POTASSIUM 3.7 mmol/L (3.5-5.1); SODIUM 137 mmol/L (136-145)
[2017-04-13 06:32] LABS: LIPASE 1091 U/L (73-393)
[2017-04-13 06:37] LABS: CALCIUM 8.3 mg/dL (8.5-10.1)
[2017-04-13] MEDS: IV NORMAL SALINE 1000ML BAG 1,000 ML IV ×4 (08:00→21:04)
[2017-04-13] MEDS: ONDANSETRON PF 4 MG/2 ML VIAL. IV ×4 (08:01→16:58)
[2017-04-13] MEDS: POLYETHYLENE GLYCOL 3350 17 GM PACKET. PO ×2 (12:26)
[2017-04-13] MEDS: LACTOBACILLUS RHAMNOSUS GG 1 CAPSULE. PO ×4 (12:26→19:53)
[2017-04-13] MEDS: PROMETHAZINE 25 MG SUPP.RECT. PR ×2 (18:22)
[2017-04-13] MEDS ORDERED: FAMOTIDINE 20 MG TABLET. PO ×2 (21:00)
[2017-04-13] MEDS: FAMOTIDINE 20 MG/2 ML VIAL IVP ×2 (21:04)
[2017-04-14 04:29] LABS: ADD MAN DIFF? NO
[2017-04-14 04:38] LABS: BASO % 0 % (0-3); EOS # 0.2 x10^3/uL (0.0-0.7); EOS % 2 % (0-3); HEMATOCRIT 32.5 % (39.0-53.0); HEMOGLOBIN 10.9 g/dL (13.0-17.5); LYMPH # 1.3 x10^3/uL (1.0-4.8); LYMPH % 15 % (24-48); MEAN CORPUSCULAR HEMOGLOBIN 28 pg (25-35); MEAN CORPUSCULAR HGB CONC 34 g/dL (31-37); MEAN CORPUSCULAR VOLUME 85 fL (79-100); MONO # 0.8 x10^3/uL (0.0-1.1); MONO % 9 % (0-9); NEUT # 6.6 x10^3uL (1.8-7.7); NEUT % 74 % (31-73); PLATELET COUNT 286 x10^3/uL (140-400); RED BLOOD COUNT 3.83 x10^6/uL (4.30-5.70); RED CELL DISTRIBUTION WIDTH 16.3 % (11.5-14.5); WHITE BLOOD COUNT 8.9 x10^3/uL (4.0-11.0)
[2017-04-14 04:50] LABS: ANION GAP 9 (6-14); BLOOD UREA NITROGEN 27 mg/dL (8-26); CARBON DIOXIDE 23 mmol/L (21-32); CHLORIDE 105 mmol/L (98-107); CREATININE 0.6 mg/dL (0.7-1.3); GFR 132.8; GLUCOSE 84 mg/dL (70-99); POTASSIUM 3.8 mmol/L (3.5-5.1); SODIUM 137 mmol/L (136-145)
[2017-04-14 04:51] LABS: LIPASE 438 U/L (73-393)
[2017-04-14] MEDS: LACTOBACILLUS RHAMNOSUS GG 1 CAPSULE. PO ×4 (08:16→20:54)
[2017-04-14] MEDS: POLYETHYLENE GLYCOL 3350 17 GM PACKET. PO ×2 (08:17)
[2017-04-14] MEDS: FAMOTIDINE 20 MG/2 ML VIAL IVP ×4 (08:18→20:54)
[2017-04-14] MEDS: AMINO AC 3%/ELECTROLYTE/GLYCER 1,000 ML IV ×4 (12:11→20:55)
[2017-04-14] MEDS: IV NORMAL SALINE 1000ML BAG 1,000 ML IV ×2 (12:11)
[2017-04-14] MEDS: MORPHINE SULFATE 4 MG/ML DISP.SYRIN. IV ×2 (21:00)
[2017-04-15] MEDS: MORPHINE SULFATE 4 MG/ML DISP.SYRIN. IV ×8 (00:35→22:46)
[2017-04-15 05:14] LABS: ADD MAN DIFF? NO
[2017-04-15 05:18] LABS: BASO % 0 % (0-3); EOS # 0.2 x10^3/uL (0.0-0.7); EOS % 3 % (0-3); HEMATOCRIT 32.4 % (39.0-53.0); LYMPH # 1.6 x10^3/uL (1.0-4.8); LYMPH % 20 % (24-48); MEAN CORPUSCULAR HEMOGLOBIN 29 pg (25-35); MEAN CORPUSCULAR HGB CONC 34 g/dL (31-37); MEAN CORPUSCULAR VOLUME 85 fL (79-100); MONO # 0.8 x10^3/uL (0.0-1.1); MONO % 10 % (0-9); NEUT # 5.3 x10^3uL (1.8-7.7); NEUT % 66 % (31-73); PLATELET COUNT 307 x10^3/uL (140-400); RED BLOOD COUNT 3.84 x10^6/uL (4.30-5.70); RED CELL DISTRIBUTION WIDTH 15.8 % (11.5-14.5)
[2017-04-15 05:48] LABS: ANION GAP 5 (6-14); BLOOD UREA NITROGEN 20 mg/dL (8-26); CALCIUM 7.9 mg/dL (8.5-10.1); CARBON DIOXIDE 27 mmol/L (21-32); CHLORIDE 102 mmol/L (98-107); CREATININE 0.8 mg/dL (0.7-1.3); GFR 95.3; GLUCOSE 95 mg/dL (70-99); POTASSIUM 3.8 mmol/L (3.5-5.1); SODIUM 134 mmol/L (136-145)
[2017-04-15] MEDS: POLYETHYLENE GLYCOL 3350 17 GM PACKET. PO ×2 (08:59)
[2017-04-15] MEDS: FAMOTIDINE 20 MG/2 ML VIAL IVP ×4 (08:59→20:09)
[2017-04-15] MEDS: LACTOBACILLUS RHAMNOSUS GG 1 CAPSULE. PO ×4 (08:59→20:06)
[2017-04-15] MEDS: AMINO AC 3%/ELECTROLYTE/GLYCER 1,000 ML IV ×6 (12:00→20:10)
[2017-04-15] MEDS: IV NORMAL SALINE 1000ML BAG 1,000 ML IV ×2 (12:29)
[2017-04-16] MEDS: MORPHINE SULFATE 4 MG/ML DISP.SYRIN. IV ×8 (03:44→21:24)
[2017-04-16 04:22] LABS: ADD MAN DIFF? NO
[2017-04-16 04:28] LABS: BASO % 0 % (0-3); EOS # 0.2 x10^3/uL (0.0-0.7); EOS % 2 % (0-3); HEMATOCRIT 34.5 % (39.0-53.0); HEMOGLOBIN 11.7 g/dL (13.0-17.5); LYMPH # 1.4 x10^3/uL (1.0-4.8); LYMPH % 16 % (24-48); MEAN CORPUSCULAR HEMOGLOBIN 29 pg (25-35); MEAN CORPUSCULAR HGB CONC 34 g/dL (31-37); MEAN CORPUSCULAR VOLUME 84 fL (79-100); MONO % 11 % (0-9); NEUT % 70 % (31-73); PLATELET COUNT 341 x10^3/uL (140-400); RED CELL DISTRIBUTION WIDTH 15.6 % (11.5-14.5); WHITE BLOOD COUNT 8.5 x10^3/uL (4.0-11.0)
[2017-04-16 05:00] LABS: LIPASE 300 U/L (73-393)
[2017-04-16 05:00] LABS: INR 1.9 (0.8-1.1); PROTHROMBIN TIME PATIENT 20.5 SEC (11.7-14.0)
[2017-04-16] MEDS: FAMOTIDINE 20 MG/2 ML VIAL IVP ×4 (08:22→21:23)
[2017-04-16] MEDS: LACTOBACILLUS RHAMNOSUS GG 1 CAPSULE. PO ×4 (08:22→21:00)
[2017-04-16] MEDS: POLYETHYLENE GLYCOL 3350 17 GM PACKET. PO ×2 (08:22)
[2017-04-16] MEDS ORDERED: fentaNYL PF VIAL 100 MCG/2 ML VIAL IV ×2 (11:00)
[2017-04-16] MEDS: ONDANSETRON PF 4 MG/2 ML VIAL. IV ×2 (17:11)
[2017-04-16] MEDS: IV NORMAL SALINE 1000ML BAG 1,000 ML IV ×2 (17:11)
[2017-04-16] MEDS: AMINO AC 3%/ELECTROLYTE/GLYCER 1,000 ML IV ×4 (18:30→21:25)
[2017-04-17] MEDS: MORPHINE SULFATE 4 MG/ML DISP.SYRIN. IV ×2 (01:17)
[2017-04-17] MEDS ORDERED: fentaNYL PF VIAL 100 MCG/2 ML VIAL IV ×2 (07:00)
[2017-04-17] MEDS ORDERED: MORPHINE SULFATE 2 MG/ML DISP.SYRIN. IV ×2 (07:00)
[2017-04-17] MEDS ORDERED: PROCHLORPERAZINE 10 MG/2 ML VIAL. IV ×2 (07:00)
[2017-04-17] MEDS ORDERED: LIDOCAINE 1% PF 2 ML VIAL. ID ×2 (07:00)
[2017-04-17] MEDS ORDERED: HYDROmorphone 2 MG/ML VIAL IV ×2 (07:00)
[2017-04-17] MEDS: ONDANSETRON PF 4 MG/2 ML VIAL. IV ×2 (07:54)
[2017-04-17] MEDS: LACTOBACILLUS RHAMNOSUS GG 1 CAPSULE. PO ×4 (09:00→22:57)
[2017-04-17] MEDS: FAMOTIDINE 20 MG/2 ML VIAL IVP ×4 (09:00→22:59)
[2017-04-17] MEDS: POLYETHYLENE GLYCOL 3350 17 GM PACKET. PO ×2 (09:00)
[2017-04-17] MEDS ORDERED: fentaNYL PF VIAL 100 MCG/2 ML VIAL ×6 (09:48→13:46)
[2017-04-17] MEDS ORDERED: ONDANSETRON PF 4 MG/2 ML VIAL. ×2 (09:48)
[2017-04-17] MEDS ORDERED: PROPOFOL 20 ML IV ×2 (09:48)
[2017-04-17] MEDS ORDERED: ROCURONIUM 50 MG/5 ML VIAL. ×2 (09:48)
[2017-04-17] MEDS ORDERED: DEXAMETHASONE SOD PHOS 20 MG/5 ML VIAL. ×2 (09:48)
[2017-04-17] MEDS ORDERED: LIDOCAINE 2% PF Vial for OR 5 ML VIAL. ×2 (09:48)
[2017-04-17] MEDS ORDERED: IPRATRPIUM/ALBUTEROL 0.5/2.5MG 3 ML NEBU. ×2 (09:58)
[2017-04-17] MEDS: IPRATRPIUM/ALBUTEROL 0.5/2.5MG 3 ML NEBU. NEB ×2 (10:00)
[2017-04-17] MEDS ORDERED: IOHEXOL 300 MG/ML 100ML VIAL. ×2 (10:02)
[2017-04-17] MEDS ORDERED: BUPIVACAINE-EPI 0.25%-1:200000 50 ML VIAL. ×2 (10:02)
[2017-04-17] MEDS ORDERED: BISACODYL 10 MG SUPP.RECT. ×2 (10:02)
[2017-04-17 10:35] LABS: INR 1.9 (0.8-1.1); PROTHROMBIN TIME PATIENT 20.6 SEC (11.7-14.0)
[2017-04-17] MEDS ORDERED: SUCCINYLCHOLINE 200 MG/10 ML VIAL. ×2 (10:47)
[2017-04-17] MEDS: HEPARIN 1,000 UNIT in IV NORMAL SALINE 1,000 ML for SURG PERIOP IRR (11:15)
[2017-04-17] MEDS: BUPIVACAINE-EPI 0.25%-1:200000 50 ML VIAL. INJ ×2 (11:15)
[2017-04-17] MEDS: IOHEXOL 300 MG/ML 100ML VIAL. INT CAT ×4 (11:27→12:00)
[2017-04-17] MEDS ORDERED: GLYCOPYRROLATE 1 MG/5 ML VIAL. ×2 (12:35)
[2017-04-17] MEDS ORDERED: FAMOTIDINE 20 MG/2 ML VIAL ×2 (12:57)
[2017-04-17] MEDS ORDERED: SEVOFLURANE > 120 MINUTES. IH ×2 (12:57)
[2017-04-17] MEDS ORDERED: PHENYLEPHRINE in 0.9% NACL PF 1 MG/10 ML SYRINGE. IV (12:57)
[2017-04-17] MEDS ORDERED: ALBUTEROL SULFATE 2.5 MG/3 ML NEBU. ×2 (13:05)
[2017-04-17] MEDS: BISACODYL 10 MG SUPP.RECT. PR ×2 (13:07)
[2017-04-17] MEDS: IV RINGERS,LACTATED 1000ML 1,000 ML IV ×6 (13:41→23:47)
[2017-04-17] MEDS: fentaNYL PF VIAL 100 MCG/2 ML VIAL IV ×2 (13:53)
[2017-04-17] MEDS ORDERED: ONDANSETRON PF 4 MG/2 ML VIAL. IV ×2 (14:00)
[2017-04-17] MEDS ORDERED: NALOXONE 0.4 MG/ML VIAL. IV ×2 (14:00)
[2017-04-17] MEDS ORDERED: 0.9 % SODIUM CHLORIDE 10 ML DISP.SYRIN. IV ×2 (14:00)
[2017-04-17] MEDS ORDERED: MORPHINE SULFATE/PF 30 ML IV ×2 (14:01)
[2017-04-17 14:29] LABS: ANION GAP 11 (6-14); BLOOD UREA NITROGEN 26 mg/dL (8-26); CALCIUM 7.8 mg/dL (8.5-10.1); CARBON DIOXIDE 27 mmol/L (21-32); CHLORIDE 100 mmol/L (98-107); CREATININE 0.9 mg/dL (0.7-1.3); GFR 83.2; GLUCOSE 189 mg/dL (70-99); POTASSIUM 3.9 mmol/L (3.5-5.1); SODIUM 138 mmol/L (136-145)
[2017-04-17] MEDS: MORPHINE SULFATE/PF 30 ML IV ×2 (14:38)
[2017-04-17] MEDS: IV NORMAL SALINE 1000ML BAG 1,000 ML IV ×2 (22:57)
[2017-04-17] MEDS: DOCUSATE SODIUM 100 MG CAPSULE. PO ×2 (22:57)
[2017-04-18] MEDS: AMINO AC 3%/ELECTROLYTE/GLYCER 1,000 ML IV ×8 (02:30→21:15)
[2017-04-18 04:14] LABS: ADD MAN DIFF? NO
[2017-04-18 04:16] LABS: BASO % 0 % (0-3); EOS % 0 % (0-3); HEMOGLOBIN 12.3 g/dL (13.0-17.5); LYMPH # 0.7 x10^3/uL (1.0-4.8); LYMPH % 8 % (24-48); MEAN CORPUSCULAR HEMOGLOBIN 29 pg (25-35); MEAN CORPUSCULAR HGB CONC 34 g/dL (31-37); MEAN CORPUSCULAR VOLUME 84 fL (79-100); MONO # 0.7 x10^3/uL (0.0-1.1); MONO % 7 % (0-9); NEUT # 8.1 x10^3uL (1.8-7.7); NEUT % 85 % (31-73); PLATELET COUNT 342 x10^3/uL (140-400); RED BLOOD COUNT 4.28 x10^6/uL (4.30-5.70); RED CELL DISTRIBUTION WIDTH 16.3 % (11.5-14.5); WHITE BLOOD COUNT 9.6 x10^3/uL (4.0-11.0)
[2017-04-18 04:44] LABS: ALBUMIN 1.9 g/dL (3.4-5.0); ALBUMIN/GLOBULIN RATIO 0.6 (1.0-1.7); ALK PHOS 92 U/L (46-116); ALT (SGPT) 54 U/L (16-63); ANION GAP 7 (6-14); AST (SGOT) 44 U/L (15-37); BLOOD UREA NITROGEN 21 mg/dL (8-26); BUN/CREATININE RATIO 26 (6-20); CALCIUM 7.8 mg/dL (8.5-10.1); CARBON DIOXIDE 26 mmol/L (21-32); CHLORIDE 98 mmol/L (98-107); CREATININE 0.8 mg/dL (0.7-1.3); GFR 95.3; GLUCOSE 159 mg/dL (70-99); SODIUM 131 mmol/L (136-145); TOTAL BILIRUBIN 0.8 mg/dL (0.2-1.0); TOTAL PROTEIN 5.2 g/dL (6.4-8.2)
[2017-04-18] MEDS: IV RINGERS,LACTATED 1000ML 1,000 ML IV ×4 (09:47→19:37)
[2017-04-18] MEDS: IV NORMAL SALINE 1000ML BAG 1,000 ML IV ×6 (10:16→13:47)
[2017-04-18] MEDS: DOCUSATE SODIUM 100 MG CAPSULE. PO ×4 (10:17→21:10)
[2017-04-18] MEDS: FAMOTIDINE 20 MG/2 ML VIAL IVP ×4 (10:17→21:10)
[2017-04-18] MEDS: ENOXAPARIN 40 MG/0.4 ML SYRINGE. SQ ×2 (10:17)
[2017-04-18] MEDS: POLYETHYLENE GLYCOL 3350 17 GM PACKET. PO ×2 (10:18)
[2017-04-18] MEDS: LACTOBACILLUS RHAMNOSUS GG 1 CAPSULE. PO ×4 (10:18→21:10)
[2017-04-18] MEDS: MORPHINE SULFATE/PF 30 ML IV ×2 (17:54)
[2017-04-19] MEDS: ENOXAPARIN 40 MG/0.4 ML SYRINGE. SQ ×2 (10:45)
[2017-04-19] MEDS: LACTOBACILLUS RHAMNOSUS GG 1 CAPSULE. PO ×4 (10:46→20:53)
[2017-04-19] MEDS: POLYETHYLENE GLYCOL 3350 17 GM PACKET. PO ×2 (10:46)
[2017-04-19] MEDS: FAMOTIDINE 20 MG/2 ML VIAL IVP ×4 (10:46→20:53)
[2017-04-19] MEDS: DOCUSATE SODIUM 100 MG CAPSULE. PO ×4 (10:46→20:52)
[2017-04-19] MEDS: AMINO AC 3%/ELECTROLYTE/GLYCER 1,000 ML IV ×2 (12:11)
[2017-04-19] MEDS: IV NORMAL SALINE 1000ML BAG 1,000 ML IV ×2 (17:50)
[2017-04-20] MEDS: AMINO AC 3%/ELECTROLYTE/GLYCER 1,000 ML IV ×4 (00:50→14:42)
[2017-04-20] MEDS: FAMOTIDINE 20 MG/2 ML VIAL IVP ×6 (08:29→20:41)
[2017-04-20] MEDS: POLYETHYLENE GLYCOL 3350 17 GM PACKET. PO ×2 (08:29)
[2017-04-20] MEDS: LACTOBACILLUS RHAMNOSUS GG 1 CAPSULE. PO ×4 (08:29→20:41)
[2017-04-20] MEDS: DOCUSATE SODIUM 100 MG CAPSULE. PO ×4 (08:29→20:41)
[2017-04-20] MEDS: ENOXAPARIN 40 MG/0.4 ML SYRINGE. SQ ×2 (08:30)
[2017-04-20] MEDS ORDERED: oxyCODONE/APAP 5/325 1 TAB TABLET PO ×2 (10:30)
[2017-04-20] MEDS ORDERED: oxyCODONE/APAP 10/325 1 TAB TABLET PO ×2 (10:30)
[2017-04-20] MEDS ORDERED: NALOXONE 0.4 MG/ML VIAL. IV ×2 (12:15)
[2017-04-20] MEDS: MORPHINE SULFATE/PF 30 ML IV ×2 (12:33)
[2017-04-20] MEDS: IV NORMAL SALINE 1000ML BAG 1,000 ML IV ×2 (14:42)
[2017-04-21 04:51] LABS: ADD MAN DIFF? NO
[2017-04-21 05:08] LABS: BASO % 0 % (0-3); EOS # 0.1 x10^3/uL (0.0-0.7); EOS % 1 % (0-3); HEMATOCRIT 32.4 % (39.0-53.0); HEMOGLOBIN 10.7 g/dL (13.0-17.5); LYMPH # 0.6 x10^3/uL (1.0-4.8); LYMPH % 8 % (24-48); MEAN CORPUSCULAR HEMOGLOBIN 28 pg (25-35); MEAN CORPUSCULAR HGB CONC 33 g/dL (31-37); MEAN CORPUSCULAR VOLUME 84 fL (79-100); MONO # 0.9 x10^3/uL (0.0-1.1); MONO % 12 % (0-9); NEUT # 6.1 x10^3uL (1.8-7.7); NEUT % 80 % (31-73); PLATELET COUNT 325 x10^3/uL (140-400); RED BLOOD COUNT 3.87 x10^6/uL (4.30-5.70); RED CELL DISTRIBUTION WIDTH 15.9 % (11.5-14.5); WHITE BLOOD COUNT 7.7 x10^3/uL (4.0-11.0)
[2017-04-21 05:30] LABS: ALBUMIN 1.9 g/dL (3.4-5.0); ALBUMIN/GLOBULIN RATIO 0.6 (1.0-1.7); ALK PHOS 100 U/L (46-116); ALT (SGPT) 28 U/L (16-63); ANION GAP 5 (6-14); AST (SGOT) 20 U/L (15-37); BLOOD UREA NITROGEN 15 mg/dL (8-26); BUN/CREATININE RATIO 25 (6-20); CALCIUM 7.8 mg/dL (8.5-10.1); CARBON DIOXIDE 28 mmol/L (21-32); CHLORIDE 98 mmol/L (98-107); CREATININE 0.6 mg/dL (0.7-1.3); GFR 132.8; GLUCOSE 113 mg/dL (70-99); POTASSIUM 4.1 mmol/L (3.5-5.1); SODIUM 131 mmol/L (136-145); TOTAL BILIRUBIN 0.5 mg/dL (0.2-1.0); TOTAL PROTEIN 5.3 g/dL (6.4-8.2)
[2017-04-21] MEDS: AMINO AC 3%/ELECTROLYTE/GLYCER 1,000 ML IV ×2 (05:30)
[2017-04-21] MEDS: DOCUSATE SODIUM 100 MG CAPSULE. PO ×4 (08:37→15:30)
[2017-04-21] MEDS: LACTOBACILLUS RHAMNOSUS GG 1 CAPSULE. PO ×4 (08:37→20:56)
[2017-04-21] MEDS: FAMOTIDINE 20 MG/2 ML VIAL IVP ×2 (08:37)
[2017-04-21] MEDS: POLYETHYLENE GLYCOL 3350 17 GM PACKET. PO ×2 (08:38)
[2017-04-21] MEDS: ENOXAPARIN 40 MG/0.4 ML SYRINGE. SQ ×2 (08:38)
[2017-04-21] MEDS: FAMOTIDINE 20 MG TABLET. PO ×2 (20:56)
[2017-04-22] MEDS: DOCUSATE SODIUM 100 MG CAPSULE. PO ×2 (09:12)
[2017-04-22] MEDS: ENOXAPARIN 40 MG/0.4 ML SYRINGE. SQ ×2 (09:12)
[2017-04-22] MEDS: LACTOBACILLUS RHAMNOSUS GG 1 CAPSULE. PO ×2 (09:12)
[2017-04-22] MEDS: POLYETHYLENE GLYCOL 3350 17 GM PACKET. PO ×2 (09:12)
[2017-04-22] MEDS: FAMOTIDINE 20 MG TABLET. PO ×2 (09:12)
== END 2017-04-22 14:40 | disposition home health service (06) | DRG 853 ==
LOC: 5 SOUTH 23:47 → ER 21:57
PROC: 0DJ08ZZ Inspection of Upper Intestinal Tract, Via Natural or Artificial Opening Endoscopic (ICD-10-PCS; principal; 2017-04-10 12:00)
PROC: BF131ZZ Fluoroscopy of Gallbladder and Bile Ducts using Low Osmolar Contrast (ICD-10-PCS; 2017-04-10 12:01)
PROC: 0WQF0ZZ Repair Abdominal Wall, Open Approach (ICD-10-PCS; 2017-04-10 12:01)
PROC: 0FT40ZZ Resection of Gallbladder, Open Approach (ICD-10-PCS; 2017-04-10 12:01)
PROC: 3E0336Z Introduction of Nutritional Substance into Peripheral Vein, Percutaneous Approach (ICD-10-PCS; 2017-04-10 12:01)
DX: A41.9 Sepsis, unspecified organism (principal); K85.10 Biliary acute pancreatitis without necrosis or infection; K56.609 Unspecified intestinal obstruction, unspecified as to partial versus complete obstruction; J90 Pleural effusion, not elsewhere classified; E87.1 Hypo-osmolality and hyponatremia; K81.1 Chronic cholecystitis; J98.11 Atelectasis; K43.2 Incisional hernia without obstruction or gangrene; E78.00 Pure hypercholesterolemia, unspecified; E78.5 Hyperlipidemia, unspecified; E87.6 Hypokalemia; I10 Essential (primary) hypertension; E21.3 Hyperparathyroidism, unspecified; K21.0 Gastro-esophageal reflux disease with esophagitis; M19.90 Unspecified osteoarthritis, unspecified site; R09.02 Hypoxemia; Z82.49 Family history of ischemic heart disease and other diseases of the circulatory system; Z53.31 Laparoscopic surgical procedure converted to open procedure; Z87.11 Personal history of peptic ulcer disease
CPT/HCPCS: 36415; 36600; 47531; 71045; 71250; 74018; 74177; 74300; 80048; 80053; 81001; 83605; 83690; 84484; 85007; 85025; 85610; 86850; 86900; 86901; 87086; 88302; 88304; 93005; 94640; 96361; 96374; 96375; 96376; 97162-GP; 97530-GP; 99285; 99285-25; G0238; J0330; J0690; J0744; J1100; J1644; J1650; J2270; J2370; J2405; J2704; J3010; J3490; J7030; J7120; J7613; J7620; Q9967; S0028

== ENCOUNTER → 2017-06-21 | Outpatient (CLI) | payer MEDICARE | END | disposition home or self-care (01) | LOC: CT 13:47 | DX: J43.9 Emphysema, unspecified (principal); I25.10 Atherosclerotic heart disease of native coronary artery without angina pectoris; E78.5 Hyperlipidemia, unspecified; I10 Essential (primary) hypertension; R91.8 Other nonspecific abnormal finding of lung field | CPT/HCPCS: 71250 ==

== ENCOUNTER → 2017-08-31 | Outpatient (CLI) | payer MEDICARE | END | disposition home or self-care (01) | LOC: CT 10:06 | DX: R91.1 Solitary pulmonary nodule (principal); I10 Essential (primary) hypertension; E78.5 Hyperlipidemia, unspecified; E78.00 Pure hypercholesterolemia, unspecified; E21.3 Hyperparathyroidism, unspecified; K21.0 Gastro-esophageal reflux disease with esophagitis | CPT/HCPCS: 71250 ==

== ENCOUNTER → 2018-03-01 | Outpatient (CLI) | payer MEDICARE ==
[2017-04-22 07:00] VITALS: BP 159/92
[~2018-03-01] MED LIST changes: +CIPR250T30 PO; +HYDR-2761 PO; -IOHEXOL 240 MG/ML 50ML VIAL. PO ONE; -IOHEXOL 300 MG/ML 75 ML VIAL IV ONE; +OMEP10SU2 PO; +PANT40TA5 PO; +POTA20TA82 PO
--- NOTE | 2018-03-01 16:28 | RAD ---
EXAM: CT Chest without IV contrast CLINICAL HISTORY: F/U LUNG NODULE COMPARISON: CT chest 08/31/2017, 06/21/2017, 04/12/2017 TECHNIQUE: CT of the chest without intravenous contrast. Axial, coronal and sagittal reformatted images were generated. ---PQRS compliance statement - One or more of the following individualized dose reduction techniques were utilized for this study: 1. Automated exposure control 2. Adjustment of the mA and/or kV according to patient size 3. Use of iterative reconstruction technique--- FINDINGS: Lack of intravenous contrast limits evaluation of solid organs, vasculature, and lymph nodes. Chest: Heart is not enlarged. No pericardial effusion. Coronary artery calcifications are seen. Aortic calcifications are noted. Within the constraints of noncontrast exam, no mediastinal or hilar lymphadenopathy. No axillary lymphadenopathy. Bilateral gynecomastia is seen. Emphysematous changes are seen. Triangular right lung consolidative opacity measures 3.5 x 1.6 cm, accounting for differences in technique, grossly stable. Several groundglass nodules are seen. For instance in the posterior right upper lobe a 1.7 cm nodule is seen, previously 1.8 cm, stable. A 7 mm middle lobe lung nodule is grossly stable, previously 6 mm. Superior segment left upper lobe groundglass nodular density is also stable. Additional <6 mm nodular opacities bilaterally are stable. Visualized Upper abdomen: Cholecystectomy clips are seen. Hypodense right hepatic lobe lesions are seen. Aortic calcifications are noted. Bones: Altered level degenerative changes of the spine are seen. IMPRESSION: 1. Bilateral lung nodules are grossly stable in size to 08/31/2017. Recommend continued follow-up CT in one year to establish two-year stability from prior CT 04/12/2017. Electronically signed by: Maldonado Gutiérrez MD (03/01/2018 4:24 PM) [facility]
== END | disposition home or self-care (01) ==
LOC: CT 13:44
PROVIDERS: ATTEND Internal Medicine Pulmonary Disease
DX: R91.1 Solitary pulmonary nodule (principal); I25.10 Atherosclerotic heart disease of native coronary artery without angina pectoris; I70.0 Atherosclerosis of aorta; N62 Hypertrophy of breast; M47.814 Spondylosis without myelopathy or radiculopathy, thoracic region; F17.210 Nicotine dependence, cigarettes, uncomplicated
CPT/HCPCS: 71250

== ENCOUNTER → 2019-05-09 | Outpatient (CLI) | payer MEDICARE ==
[2017-04-22 07:00] VITALS: BP 159/92
[~2019-05-09] MED LIST changes: -PANT40TA5 PO; +PANT40TA77 PO; +POTA20TA4 PO; -POTA20TA82 PO
--- NOTE | 2019-05-09 16:13 | RAD ---
CT CHEST WO CONTRAST Indication: Lung nodule Technique: Noncontrast CT imaging was performed of the chest, multiplanar reconstruction images submitted. One or more of the following individualized dose reduction techniques were utilized for this examination: 1. Automated exposure control 2. Adjustment of the mA and/or kV according to patient size 3. Use of iterative reconstruction technique. Comparison: March 01, 2018; June 21, 2017 Findings: There is again focus of abnormal right upper lobe noncalcified parenchymal density up to about 3.2 cm transverse by 2.5 cm AP by 3.3 cm CC. This measured about 3.2 cm transverse by 2 cm AP by 2.4 cm CC on the May 2017 exam, measures larger and somewhat increased noncalcified density more posteriorly such as comparing sagittal image 78 series 10 with sagittal image 69 series 6 on the May 2017 exam. There is some associated bronchiectasis as seen previously. There is persistent focus of groundglass density posteriorly in the right upper lobe image 23 series 2 about 1.5 cm AP by 1.3 cm transverse by 1.5 cm cc, previously estimated about 1 cm AP by 1 cm transverse by 1.2 cm cc on the 2018 exam. Right middle lobe nodule about 0.7 cm image 40 series 2 is similar. 0.3 cm left lower lobe nodule image 44 is similar. There is somewhat reticular appearing density superior left lower lobe near emphysema as seen previously. There is centrilobular emphysema. There is no new pleural or pericardial fluid, lobar infiltrate, or pneumothorax. There is coronary calcification. There is somewhat ectatic tubular ascending thoracic aorta about 3.9 cm fairly similar. Proximal descending thoracic aorta is dilated about 3.3 cm, similar. There is no new significant lymphadenopathy of the chest. There is multilevel thoracic degenerative disc disease. IMPRESSION: 1. Previously seen abnormal right upper lobe parenchymal density somewhat larger than the 2018 exam, also separate focus of groundglass nodularity slightly greater. Indolent malignancy is not excluded. Biopsy should be considered. If this is not performed, continued surveillance is advised such as 3-6 months. 2. There is again ectatic thoracic aorta. Electronically signed by: Timothy Baptiste MD (05/09/2019 4:10 PM) [id number]
== END | disposition home or self-care (01) ==
LOC: CT 13:28
PROVIDERS: ATTEND Internal Medicine Pulmonary Disease
DX: I77.810 Thoracic aortic ectasia (principal); J43.2 Centrilobular emphysema; J47.9 Bronchiectasis, uncomplicated; M51.34 Other intervertebral disc degeneration, thoracic region; R91.8 Other nonspecific abnormal finding of lung field
CPT/HCPCS: 71250

== ENCOUNTER → 2019-06-06 | Outpatient (CLI) | payer MEDICARE ==
[2017-04-22 07:00] VITALS: BP 159/92
--- NOTE | 2019-06-06 11:57 | RAD ---
PET W CT SKULL TO [facility] Clinical Indication: Lung cancer initial staging Comparison: May 09, 2019 and March 01, [address] Abdominal pelvic CT April 07, 2017. Technique: Patient blood glucose at the time of injection is 70 mg/dL. The patient was administered 13.35 mCi of F-18 FDG intravenously. The patient rested quietly during a 60 minute uptake period. Then PET imaging from the skull base to the upper thighs was performed. A noncontrast CT was acquired over this same area. The CT is for attenuation correction and anatomic localization, it is not of diagnostic quality and is not intended to diagnose disease independently of the PET. PQRS Compliance Statement: One or more of the following individualized dose reduction techniques were utilized for this examination: 1. Automated exposure control 2. Adjustment of the mA and/or kV according to patient size 3. Use of iterative reconstruction technique Findings: Background mediastinal SUV max 1.8 and liver 2.3 Head and neck: There is no evidence of FDG-avid disease. No pathologic lymphadenopathy. Chest: Right apical solid and groundglass mass measures 2.9 x 1.8 cm with low level metabolic activity SUV Max 1.8. The lesion overall unchanged compared to recent CT. There are additional adjacent right upper lobe groundglass nodules. Right upper lobe groundglass nodule measures 1.9 x 1.5 cm with without significant metabolic activity. Right upper lobe 3 mm solid nodule (series 3 image 96), unchanged. 7 mm right middle lobe pulmonary nodule, unchanged in size. No significant metabolic activity associated with the nodules although not definitive the characterize on PET due to size. Pulmonary emphysema. Regions of peripheral reticulation and apical bullous changes. No pathologic lymphadenopathy within the chest. Abdomen and pelvis: No discrete adrenal mass. Left adrenal adenomas thickening, unchanged. Prior cholecystectomy. Left hepatic lobe hypodensity and right inferior hepatic lobe hypodensities, unchanged compared to 2018, likely benign cysts or hemangiomas. The spleen, pancreas and kidneys are unremarkable. No hydronephrosis. Postoperative changes distal gastrectomy and gastrojejunostomy. 3.3 cm infrarenal abdominal aortic aneurysm. Atheromatous plaque throughout the aorta and branch vessels. Extensive colonic diverticulosis. Normal appendix. No evidence of bowel obstruction. Anterior abdominal wall diastases recti, unchanged compared to prior. No hypermetabolic pathologically enlarged lymph nodes. No ascites. Musculoskeletal: There is no evidence of FDG-avid disease. Small sclerotic lesions within the pelvis, unchanged compared to 2018 and likely bone islands. Multilevel cervical spondylosis. Multilevel lumbar spondylosis. IMPRESSION: 1. Right apical solid and groundglass mass with low level metabolic activity, concerning for low-grade malignancy given interval growth over time. Recommend biopsy if not already performed. 2. Additional right upper lobe groundglass nodules without significant metabolic activity, unchanged in overall size. Additional site of low-grade malignancy is not excluded. 3. Small solid pulmonary nodules, unchanged. Not definitively characterize on PET due to size. 4. Pulmonary emphysema. 5. 3.3 cm infrarenal abdominal aortic aneurysm. Electronically signed by: Jelani Sandoval DO (06/06/2019 11:53 AM) [id number]
== END ==
LOC: PETSC 09:15
PROVIDERS: ATTEND Internal Medicine Pulmonary Disease
DX: C34.91 Malignant neoplasm of unspecified part of right bronchus or lung (principal); R91.8 Other nonspecific abnormal finding of lung field; I71.4 Abdominal aortic aneurysm, without rupture; J43.8 Other emphysema
CPT/HCPCS: 78815; A9552

== ENCOUNTER → 2019-08-15 | Outpatient (CLI) | payer MEDICARE ==
[2017-04-22 07:00] VITALS: BP 159/92
--- NOTE | 2019-08-15 10:36 | RAD ---
CT chest without contrast PQRS statement: CT scans at this facility use dose reduction including either automated exposure control, iterative reconstructions, and /or weight based radiation dosing via mA and kV modification when appropriate to reduce radiation dose to as low as reasonably achievable. HISTORY: Pulmonary nodule. COMPARISON: PET scan June 06, 2019 and priors. FINDINGS: Tortuosity and calcified plaque thoracic aorta. Coronary calcified plaque. Heart size normal. Heart size normal. Pulmonary vessels and esophagus are unremarkable. No enlarged adenopathy in the chest. Tiny subcentimeter hypodense lesions of the liver are stable most likely cysts. Partial gastrectomy. Mild bilateral gynecomastia. Mild apical paraseptal emphysema. Right middle lobe lateral segment solid slightly irregular 6 mm pulmonary nodule stable. 3 mm lymph node or nodule along the minor fissure image 190 stable. At the right upper lobe apex is a subsolid nodule with groundglass halo and spiculation which measures approximately 3.5 cm transverse by 2.0 cm AP with and spiculations extending to the apical and posterior pleura, stable. Lateral and inferior but separate from this dominant nodule within the right upper lobe are smaller groundglass nodules also stable measuring up to 1.5 cm. Emphysema at the left lower lobe superior segment. No new nodule or opacity since prior imaging. No pleural effusions. IMPRESSION: 1. Right apical dominant subsolid mildly spiculated 3.5 x 2.0 cm pulmonary nodule concerning for malignancy similar to recent imaging from May 2019. 2. 2 separate groundglass nodules of the right upper lobe largest measuring 1.5 cm are stable back to 2018. 3. Pulmonary emphysema. 4. Small solid nodules largest measuring 6 mm right middle lobe are stable back to 2018. Electronically signed by: Marquis Zimmerman MD (08/15/2019 10:33 AM) [id number]
== END | disposition home or self-care (01) ==
LOC: CT 09:30
PROVIDERS: ATTEND Internal Medicine Pulmonary Disease
DX: R91.8 Other nonspecific abnormal finding of lung field (principal); J43.9 Emphysema, unspecified; I70.0 Atherosclerosis of aorta; I25.10 Atherosclerotic heart disease of native coronary artery without angina pectoris; N62 Hypertrophy of breast; Q25.46 Tortuous aortic arch
CPT/HCPCS: 71250

== ENCOUNTER → 2020-01-30 | Outpatient (CLI) | payer MEDICARE ==
[2017-04-22 07:00] VITALS: BP 159/92
--- NOTE | 2020-01-30 17:59 | RAD ---
INDICATION: Reason: LUNG NODULE / Spl. Instructions: / History: . COMPARISON: August 15, 2019 TECHNIQUE: Axial CT images obtained through the chest. One or more of the following individualized dose reduction techniques were utilized for this examination: 1. Automated exposure control; 2. Adjustment of the mA and/or kV according to patient size; 3. Use of iterative reconstruction technique. FINDINGS: Repeat demonstration of a spiculated nodular opacity at the right upper lung. This again measures approximately 35 x 20 mm with a subsolid appearance with some surrounding groundglass. Emphysematous changes are again identified. There is also groundglass nodules again seen within the right upper lung including one posteriorly measuring up to about 19 mm which was previously approximately 17 mm. There is an additional groundglass nodule just inferior to this one which measures up to 9 mm which is similar to prior. There is some peribronchial thickening identified. Linear opacities at the lower lungs could be from scarring or atelectasis. Subpleural nodule in the left lung base measuring less than 4 mm is again seen. Within the right middle lobe there is repeat demonstration of a pulmonary nodule with some surrounding linear opacity now seen. The solid-appearing nodule measures up to 8 mm. This is slightly more prominent than prior but there is some surrounding atelectasis now seen which is likely contributing to the slight apparent increase. Severe calcific atherosclerosis. Heterogeneity of the thyroid which is not formally evaluated on this exam. Coronary artery calcific atherosclerosis. Suspected dilatation of the abdominal aorta partially seen. Laxity of the anterior abdominal wall at the partially visualized upper abdomen. Partial visualization of low-density lesion within the liver which may be cystic in nature but incompletely evaluated. Degenerative changes throughout the spine with scoliotic curvature as well as multilevel central canal and neural foraminal stenosis. Scattered lymph nodes are seen within the mediastinum. There is some wedging of some of the vertebral bodies with degenerative changes the spine IMPRESSION: * Repeat demonstration of subsolid spiculated mass at the right upper lung which appears to have slowly grown over time. Lung neoplasm remains within the differential given this finding. * Repeat demonstration of some additional groundglass nodules which appears slightly increased in size from prior as well. This could be infectious, inflammatory or neoplastic as well. * Emphysematous changes. * There is a more solid-appearing nodule again seen within the right middle lobe as well as subpleural nodule on the left. There is now some surrounding atelectasis at the right middle lobe nodule site therefore comparison with priors difficult. * Severe calcific atherosclerosis. Electronically signed by: Frankie Etienne MD (01/30/2020 5:56 PM) [id number]
== END ==
LOC: CT 11:18
PROVIDERS: ATTEND Internal Medicine Pulmonary Disease
DX: J98.11 Atelectasis (principal); R91.1 Solitary pulmonary nodule
CPT/HCPCS: 71250

== ENCOUNTER → 2020-03-25 | Outpatient (CLI) | payer MEDICARE ==
[2017-04-22 07:00] VITALS: BP 159/92
[~2020-03-25] MED LIST changes: +REGADENOSON 0.4 MG/5 ML DISP.SYRIN. IV ONE
--- NOTE | 2020-03-25 12:49 | CARD ---
MR#: [id number] Date of Study: 03/25/2020 Ordering Physician: CARA ELDRIDGE, Referring Physician: CARA ELDRIDGE, Tech: Lyric Stout [facility] APPROVED REPORT EXAM: Two-dimensional and M-mode echocardiogram with Doppler and color Doppler. Other Information Quality : Good Rhythm : Bradycardia INDICATION Murmur 2D DIMENSIONS RVDd3.8 (2.9-3.5cm)Left Atrium(2D)4.3 (1.6-4.0cm) IVSd1.0 (0.7-1.1cm)Aortic Root(2D)3.7 (2.0-3.7cm) LVDd4.8 (3.9-5.9cm)LVOT Diameter2.5 (1.8-2.4cm) PWd1.0 (0.7-1.1cm)LVDs3.1 (2.5-4.0cm) FS (%) 35.0 %SV68.5 ml Aortic Valve AoV Peak Brandon.137.8cm/sAoV VTI28.5cm AO Peak GR.7.6mmHgLVOT Peak Brandon.111.5cm/s AO Mean GR.3mmHgAVA (VMAX)4.12cm2 CYNTHIA (VTI)4.60cm2 Mitral Valve MV E Xpstvkya931.6cm/sMV DECEL HLJJ331sx MV A Wideyohd65.1cm/sE/A Ratio1.5 Tricuspid Valve TR P. Bgmxudrw785xf/sRAP UTGFCQMV3buGd TR Peak Gr.37vmJlZAZB61bxYm Pulmonary Vein S1 Pytazplq98.4cm/sD2 Hjqxiito65.2cm/s LEFT VENTRICLE The left ventricle is normal size. There is normal left ventricular wall thickness. The left ventricu lar systolic function is normal and the ejection fraction is within normal range. The Ejection Fracti on is 55-60%. There is normal LV segmental wall motion. Transmitral Doppler flow pattern is Grade II- pseudonormal filling dynamics. RIGHT VENTRICLE The right ventricle is mildly dilated. The right ventricular systolic function is normal. ATRIA The left atrium is mildly dilated. The right atrium is mildly dilated. The interatrial septum is inta ct with no evidence for an atrial septal defect or patent foramen ovale as noted on 2-D or Doppler im aging. AORTIC VALVE The aortic valve is calcified but opens well. Doppler and Color Flow revealed no significant aortic r egurgitation. There is no significant aortic valvular stenosis. MITRAL VALVE The mitral valve is calcified but opens well. There is no evidence of mitral valve prolapse. There is no mitral valve stenosis. Doppler and Color-flow revealed trace mitral regurgitation. TRICUSPID VALVE The tricuspid valve is normal in structure and function. Doppler and Color Flow revealed mild tricusp id regurgitation. The PA pressure was estimated at 34 mmHg. There is no tricuspid valve stenosis. PULMONIC VALVE The pulmonary valve is normal in structure and function. Doppler and Color Flow revealed trace pulmon ic valvular regurgitation. There is no pulmonic valvular stenosis. GREAT VESSELS The aortic root is normal in size. The ascending aorta is mildly dilated at 3.6 cm. The IVC is normal in size and collapses >50% with inspiration. PERICARDIAL EFFUSION There is no evidence of significant pericardial effusion. Critical Notification Critical Value: No <Conclusion> The left ventricle is normal size. The left ventricular systolic function is normal and the ejection fraction is within normal range. The Ejection Fraction is 55-60%. Doppler and Color Flow revealed no significant aortic regurgitation. There is no significant aortic valvular stenosis. Doppler and Color-flow revealed trace mitral regurgitation. Doppler and Color Flow revealed mild tricuspid regurgitation. The PA pressure was estimated at 34 mmHg. The ascending aorta is mildly dilated at 3.6 cm. Signed by : Cara Eldridge MD Electronically Approved : 03/25/2020 12:48:46
--- NOTE | 2020-03-25 17:45 | RAD ---
MR#: [id number] Date of Study: 03/25/2020 Ordering Physician: CARA ELDRIDGE, Referring Physician: HARIS NEGRON Tech: ANGELINA Hays ARRT (Darrel) (N) APPROVED REPORT Test Type: Pharmacological Stress Nurse/Tech: Linn Ramos RN Test Indications: Coronary atherosclerosis Cardiac History: Hypertension, High cholesterol Medications: See Electronic Medical Record Medical History: See Electronic Medical Record Resting ECG: SB with BBB Resting Heart Rate: 42 bpm Resting Blood Pressure: 122/65mmHg Pretest Chest Pain: No chest pain Nurse/Tech Notes S1,S2 and lungs clear to auscultation. Consent: The procedure was explained to the patient in lay terms. Informed consent was witnessed. [place] eout was entered into [employer].. History and Stress Test performed by ANGELINA Hays, ANETTE (R) (N) Pharm. Details Pharmacologic stress testing was performed using 0.4mg per 5ml of regadenoson given intravenously ove r 7-10 seconds. Stress Symptoms No chest pain or symptoms. POST EXERCISE Reason for Termination: Infusion complete Target HR: No Max HR: 69 bpm 55% of Maximum Predicted HR: 124 bpm Max Blood Pressure: 138/68mmHg Blood Pressure response to exercise: Normal blood pressure response during stress. Heart Rate response to exercise: WNL Chest Pain: No. Arrhythmia: No. ST Change: No. INTERPRETATION Stress EKG Conclusion: The resting EKG shows a sinus bradycardia with mild nonspecific ST-T wave erazo ges. The stress EKG shows no significant changes from baseline. No EKG evidence of stress-induced ischemia. Imaging Protocol IMAGE PROTOCOL: Rest Tc-99m/stress Tc-99m 1 day Rest: Stress: Viability: Radiopharm.Tc99m ZcywkhtslEv58z Sestamibi Qzof66nJr 31mCi Img Date 03/25/2020 03/25/2020 Inj-Img Ewlf30gzb. 60min. Rest Admin Site:IV - Right AntecubitalAdministrator:ANGELINA Hays ARRT (Darrel)(N) Stress Admin Site: IV - Right AntecubitalAdministrator: Alejandra Lau, RT (R)(N) STRESS DATA End Diast. Vol.114.0mlAv. Heart Rate40.0bpm End Syst. Vol.52.0mlCO Index BSA2.5L/min Myocardial Lfyp856.0gEject. Xtfrmimu70.0% Stress Rates Pk. Fill Rate1.80EDV/secLVtime Pk. Fill 256.03msec Pk. Empty Rate2.06ESV/secLVtime Pk. Fiqbd469.62msec 02/28 Pk. Fill1.14EDV/sec Stress Scores Regional WT1.00Summed WT14.00 Regional WM0.00Summed WM2.00 LV Perfusion The stress scans showed no significant defects. The rest scans showed no significant defects. Nuclear imaging shows no reversible ischemia or infarct. Wall Motion Left ventricular systolic function is low normal with no regional wall motion abnormalities and an ej ection fraction of 50%. LV Perf. Quant 17 Seg. SSS0.00 17 Seg. SRS0.00 17 Seg. SDS0.00 Stress Defect Extent (% LAD)0.00Rest Defect Extent (% LAD)0.00Rev. Defect Extent (% LAD)0.00 Stress Defect Extent (% LCX) 0.00Rest Defect Extent (% LCX)0.00Rev. Defect Extent (% LCX)0.00 Stress Defect Extent (% RCA)0.00Rest Defect Extent (% RCA)0.00Rev. Defect Extent (% RCA)0.00 Stress Defect Extent (% LIZZIE)0.00Rest Defect Extent (% LIZZIE)0.00Rev. Defect Extent (% LIZZIE)0.00 Conclusion 1. No EKG evidence of stress-induced ischemia. 2. Nuclear imaging shows no reversible ischemia or infarct. 3. Left ventricular systolic function is low normal at 50% with no regional wall motion abnormalities . 4. Moderately low risk Lexiscan nuclear stress test. Signed by : Cara Eldridge MD Electronically Approved : 03/25/2020 17:45:21
== END ==
LOC: NM 09:22
PROVIDERS: ATTEND Internal Medicine Cardiovascular Disease
DX: I08.3 Combined rheumatic disorders of mitral, aortic and tricuspid valves (principal); I25.84 Coronary atherosclerosis due to calcified coronary lesion; R01.1 Cardiac murmur, unspecified
CPT/HCPCS: 78452; 93017; 93306; A9500; J2785

== ENCOUNTER → 2020-04-19 | Outpatient (CLI) | payer MEDICARE ==
[2017-04-22 07:00] VITALS: BP 159/92
[~2020-04-19] MED LIST changes: -REGADENOSON 0.4 MG/5 ML DISP.SYRIN. IV ONE
--- NOTE | 2020-04-19 17:16 | RAD ---
EXAM: CT Chest without IV contrast INDICATION: Reason: LUNG NODULE / Spl. Instructions: / History: TECHNIQUE: Multi-detector row CT images were acquired from the thoracic inlet through the upper abdo men without the use of IV contrast. Sagittal and coronal images were acquired from the transaxial anthony a. All CT scans performed at this facility utilize dose optimization techniques as appropriate to the exam, including the following: Automated exposure control and adjustment of the mA and/or KV accordi ng to patient size (this includes techniques or standardized protocols for targeted exams where dose is indication/reason for exam). COMPARISON: Noncontrast head CT 01/30/2020 FINDINGS: The absence of IV contrast limits evaluation of soft tissue pathology. CARDIOVASCULAR: Calcified, tortuous thoracic aorta without aneurysmal dilation. Multivessel coronary calcifications. Normal heart size. MEDIASTINUM & GABE: No adenopathy or masses. LUNGS: Mild centrilobular pattern emphysema. Spiculated solid nodule at the right lung apex is again evident measuring 5.3 cm craniocaudal by 4.2 cm mediolateral (coronal image 49 of series 5) and 3.2 cm AP (image 11 series 2). It previously at th e comparable level measured 5.0 x 4.0 x 3.4 cm (prior study coronal image 50 of series 5 and axial im age 10 of series 2). Semisolid groundglass nodule in the posterior segment right upper lobe measuring 1.7 cm cc by 1.1 cm mediolateral by 1.3 cm AP window node slightly inferior and posterolateral 6 mm adjacent nodule abutt ing the major fissure also noted, both of which are not significantly changed in the interval. Groundglass attenuation opacities in the superior segment left lower lobe measures 2.8 x 4.5 x 2.2 cm (cc by mediolateral by AP), compared with 2.8 x 3.9 x 2.1 cm previously. Stable 3 mm subpleural left lower lobe nodule (image 38 series 2) Stable 6 mm right middle lobe lateral segment nodule (image 40 series 2) with interval improvement in adjacent atelectasis. PLEURAL SPACE: No pleural effusions or pneumothorax. OSSEOUS & SOFT TISSUE: Unremarkable ABDOMEN: Visualized upper abdomen shows partially imaged postsurgical changes in the distal stomach. 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 Electronically signed by: Lucas Charles MD (04/19/2020 5:13 PM) [id number]
== END ==
LOC: CT 09:49
PROVIDERS: ATTEND Internal Medicine Pulmonary Disease
DX: R91.8 Other nonspecific abnormal finding of lung field (principal); J43.2 Centrilobular emphysema; J98.11 Atelectasis; I70.0 Atherosclerosis of aorta; I25.10 Atherosclerotic heart disease of native coronary artery without angina pectoris
CPT/HCPCS: 71250

== ENCOUNTER 2020-04-28 06:57 | Outpatient (CLI) | payer MEDICARE ==
[2020-04-28] VITALS (19 sets, daily range): BP systolic 114–144; BP diastolic 65–83
[~2020-04-28] VITALS: Ht 175.3 cm; Wt 72.6 kg
[~2020-04-28 06:57] MED LIST changes: +ALPR0.5T6 PO; +CALC500T30 PO; +CHOL500021 PO; +LOSA-73 PO
[2020-04-28] MEDS ORDERED: LIDOCAINE WITH 8.4% SOD BICARB 3 ML DISP.SYRIN. ONE (07:41)
[2020-04-28 07:58] LABS: BASO # 0.1 x10^3/uL (0.0-0.2); BASO % 2 % (0-3); EOS # 0.2 x10^3/uL (0.0-0.7); EOS % 3 % (0-3); HEMATOCRIT 40.2 % (39.0-53.0); HEMOGLOBIN 13.1 g/dL (13.0-17.5); LYMPH # 1.9 x10^3/uL (1.0-4.8); LYMPH % 23 % (24-48); MEAN CORPUSCULAR HEMOGLOBIN 27 pg (25-35); MEAN CORPUSCULAR HGB CONC 33 g/dL (31-37); MEAN CORPUSCULAR VOLUME 82 fL (79-100); MONO # 0.7 x10^3/uL (0.0-1.1); MONO % 9 % (0-9); NEUT # 5.1 x10^3/uL (1.8-7.7); NEUT % 64 % (31-73); PLATELET COUNT 225 x10^3/uL (140-400); RED BLOOD COUNT 4.93 x10^6/uL (4.30-5.70); RED CELL DISTRIBUTION WIDTH 16.6 % (11.5-14.5)
[2020-04-28] MEDS ORDERED: LIDOCAINE WITH 8.4% SOD BICARB 3 ML DISP.SYRIN. INJ ONE (08:00)
[2020-04-28] MEDS ORDERED: NALOXONE 0.4 MG/ML VIAL. ONE (08:35)
[2020-04-28] MEDS ORDERED: FLUMAZENIL 0.5 MG/5 ML VIAL. IV ONE (08:35)
[2020-04-28] MEDS ORDERED: MIDAZOLAM HCL/PF 2 MG/2 ML VIAL. ONE (08:35)
[2020-04-28] MEDS ORDERED: fentaNYL PF VIAL 100 MCG/2 ML VIAL ONE (08:35)
[2020-04-28] MEDS ORDERED: fentaNYL PF VIAL 100 MCG/2 ML VIAL IV ONE (08:45)
[2020-04-28] MEDS ORDERED: MIDAZOLAM HCL/PF 2 MG/2 ML VIAL. IV ONE (08:45)
[2020-04-28] MEDS ORDERED: LIDOCAINE WITH 8.4% SOD BICARB 3 ML DISP.SYRIN. IJ ONE (08:45)
--- NOTE | 2020-04-28 11:10 | RAD ---
04/28/2020 9:03 AM Procedure: CT-guided biopsy, right upper lobe opacity concerning for a lung neoplasm Clinical Indication: Bilateral lung opacity concerning for neoplasm Discussion: The procedure was explained in its entirety to the patient or the patients designated business representative by a member of the treatment team, including a discussion of the risks, benefits and commonly accepted alternatives to the procedure, as well as the expected consequences of no therapy whatsoever. Discussion of the risks included, but was not limited to, those that are most frequent and those that are rare but possibly severe or life-threatening, as well as the possibility of unforeseen complications. All elements of maximal sterile barrier technique including the use of a cap, mask, sterile gown, sterile gloves, large sterile sheet, appropriate hand hygiene, and 2% chlorhexidine for cutaneous antisepsis (or acceptable alternative antiseptic per current guidelines) were followed for this procedure. The patient was brought to the CT scanner and placed in the prone position. Timeout procedure was performed. The upper thorax prepped and draped using sterile barrier technique as described. 1% lidocaine was administered for local anesthesia. Under intermittent CT guidance a 17-gauge needles advanced into the area in question. Core biopsy samples were obtained. A pneumothorax prevention device was deployed. The needle was removed. Manual pressure was held. No immediate repeat CT demonstrates minimal pleural gas which appear to decrease over 5 to 10 minute observation no other were identified. The procedures performed under conscious sedation including continuous cardiopulmonary monitoring via dedicated sedation nurse. Aqaw-ww-taqm sedation time: 30 minutes Impression: CT-guided biopsy, right upper lobe opacity PQRS Compliance Statement: One or more of the following individualized dose reduction techniques were utilized for this examination: 1. Automated exposure control 2. Adjustment of the mA and/or kV according to patient size 3. Use of iterative reconstruction technique
--- NOTE | 2020-04-28 13:29 | NUR ---
Discharge Note: JIM LUCIANO Discharge instructions and discharge home medications reviewed with Patient and a copy given. All questions have been answered and understanding verbalized. The following instructions and handouts were given: needle biopsy aftercare and adult moderate sedation Discontinued lines and drains: Peripheral IV intact. Patient discharged to Home or Self Care withSpousevia Ambulated
--- NOTE | 2020-04-28 15:21 | RAD ---
EXAM: XR CHEST 1V INDICATION: Reason: post lung biopsy (right) / Spl. Instructions: / History: . TECHNIQUE: Single view COMPARISON: CT-guided lung biopsy of earlier the same day FINDINGS: The heart size is normal. The great vessels appear unremarkable. There is no hilar or mediastinal mass. Lungs again show a stellate opacity at the right lung apex consistent with a targeted nodule. Biopsy earlier the same day. Platelike atelectasis also noted at the left lung base. Small right apical pneumothorax measuring 1.5 cm in maximum craniocaudal extent is present. No pleura l effusion or mediastinal shift. There are no significant osseous abnormalities. IMPRESSION: Small right apical pneumothorax following right lung biopsy. No evidence of tension. Electronically signed by: Lucas Charles MD (04/28/2020 3:19 PM) [id number]
--- NOTE | 2020-04-28 15:30 | RAD ---
EXAM: XR CHEST 1V INDICATION: Reason: repeat xray post right lung biopsy per Dr. Ryder / Spl. Instructions: / History : . TECHNIQUE: Single view COMPARISON: Chest x-ray earlier same day at 10:59 AM FINDINGS: The heart size is normal. The great vessels appear unremarkable. There is no hilar or mediastinal mass. The lungs again show opacity at the right apex consistent with the lung nodule targeted for biopsy.. No pleural effusion. Biapical pneumothorax evident previously is marginally larger in the interval no w measuring 2.6 cm at the apex. No mediastinal shift. There are no significant osseous abnormalities. IMPRESSION: Still small but slightly larger right apical pneumothorax post right lung biopsy. Electronically signed by: Lucas Charles MD (04/28/2020 3:27 PM) [id number]
== END 2020-04-28 13:20 | disposition home or self-care (01) ==
LOC: INTRAD 06:57
PROVIDERS: ATTEND Internal Medicine Critical Care Medicine
DX: R91.8 Other nonspecific abnormal finding of lung field (principal); I10 Essential (primary) hypertension; K21.9 Gastro-esophageal reflux disease without esophagitis; M19.90 Unspecified osteoarthritis, unspecified site; F17.210 Nicotine dependence, cigarettes, uncomplicated; Z87.440 Personal history of urinary (tract) infections; Z79.899 Other long term (current) drug therapy; Z98.890 Other specified postprocedural states; Z72.89 Other problems related to lifestyle; Z20.822 Contact with and (suspected) exposure to COVID-19
CPT/HCPCS: 32408; 36415; 71045; 85025; 85610; 85730; 87426; 99152; 99153; J2250; J3010; J3490; U0003; C9803

== ENCOUNTER → 2020-10-29 | Outpatient (CLI) | payer MEDICARE ==
[2020-04-28 12:45] VITALS: BP 115/71
--- NOTE | 2020-10-29 12:51 | RAD ---
CT THORAX WO dated 10/29/2020 10:52 AM Indication:Reason: LUNG NODULE / Spl. Instructions: / History: Comparison: CT 04/19/2020. Technique: Helical thin section noncontrast images were performed. One or more of the following individualized dose reduction techniques were utilized for this examinat ion: 1. Automated exposure control 2. Adjustment of the mA and/or kV according to patient size 3. Use of iterative reconstruction technique Findings: The irregular right upper lobe opacity persists without convincing change, allowing for slight differ ence in slice positioning. Measurement is difficult due to the ill-defined and irregular margins. The re is a small tubular density extending posteriorly from this region that appears more prominent, but this is thought likely a small obstructed airway. The area of groundglass opacity located more poste riorly and inferiorly in the right upper lobe also persists without convincing change. Margins are re latively indistinct due to the faint nature of the opacity. Some emphysema is again demonstrated bila terally. An irregular nodule in the right middle lobe also appears stable. Transverse diameter is rou ghly 7 mm compared with 7 mm by my measurement previously. No significant new parenchymal abnormality is seen. The central airways show no obstruction. No enlarged lymph nodes are seen. Images through the upper abdomen show no significant abnormality. IMPRESSION: No convincing change in the multiple pulmonary opacities. 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 Electronically signed by: Brandon Amaya Jr., MD (10/29/2020 12:48 PM) [id number]
== END ==
LOC: CT 10:45
PROVIDERS: ATTEND Internal Medicine Pulmonary Disease
DX: R91.1 Solitary pulmonary nodule (principal); J43.9 Emphysema, unspecified
CPT/HCPCS: 71250